=== PATIENT | male | born 1935 | race Caucasian/White ===

== ENCOUNTER 2017-03-14 14:44 | Inpatient (IN) | payer MEDICARE, MEDICAID ==
[~2017-03-14] VITALS: Ht 182.9 cm; Wt 104.8 kg
[2017-03-14 16:11] VITALS: BP 186/95
[2017-03-14] MEDS ORDERED: ceFAZolin 2 GM/50 ML NS 50 ML IV NR (16:30)
[2017-03-14] MEDS ORDERED: morphine INJ 4 MG/ML 1 ML (VIAL/SYRINGE) IVP PRN (16:30)
[2017-03-14] MEDS ORDERED: proPOfol 200 MG/20 ML (DIPRIVAN) VIAL IV ONE (16:46)
[2017-03-14] MEDS ORDERED: SEVOFLURANE (ULTANE) 15 ML INHAL SOLN ONE ×5 (16:46→18:42)
[2017-03-14] MEDS ORDERED: ROCURONIUM 50 MG/5 ML (ZEMURON) VIAL IV ONE (16:46)
[2017-03-14] MEDS ORDERED: ONDANSETRON 4 MG/2 ML (SDV) Z0FRAN ONE ×2 (16:46→17:36)
[2017-03-14] MEDS ORDERED: LIDOCAINE PF 2% 5 ML (XYLOCAINE) VIAL ONE (16:46)
[2017-03-14] MEDS ORDERED: fentaNYL INJECTION 100 MCG/2 ML AMP ONE ×3 (16:46→18:39)
[2017-03-14] MEDS: LACTATED RINGERS 1,000 ML IV PRN ×2 (17:10→18:40)
[2017-03-14] MEDS ORDERED: METF500T4 PO (17:28)
[2017-03-14] MEDS ORDERED: METO50TA2 PO (17:28)
--- NOTE | 2017-03-14 17:28 | History & Physicial ---
History of Present Illness History of Present Illness Reason for visit/HPI 81 y/o white male fell in barn, fractured right leg, seen in [place] Previously broke proximal tibia 3 years ago. Denies any other injuries. Date of Admission Mar 14, 2017 at 4:02 pm Time Seen by Provider: 17:23 I consulted on this patient on 03/14/17 17:23 Attending Physician Magaly Conway MD Admitting Physician Beka Valdez MD Consult Allergies and Home Medications Allergies Coded Allergies: No Known Allergies (Verified Allergy, Unknown, 03/14/17) Past Cpehodk-Alzwhw-Yjcvqx Hx Patient Social History Marrital Status: Employed/Student: retired Alcohol Use: Denies Use Recreational Drug Use: No Smoking Status: Never a Smoker Immunizations Up To Date Tetanus Booster (TDap): Unknown Seasonal Allergies Seasonal Allergies: No Surgeries Surgeries: Orthopedic (Left NICKO and ORIF right proximal tibia) Respiratory Hx Respiratory Disorders: No Cardiovascular Hx Cardiovascular Disorders: No Neurological Hx Neurological Disorders: No Reproductive System Hx Reproductive Disorders: No Sexually Transmitted Disease: No HIV/AIDS: No Genitourinary Hx Genitourinary Disorders: No Gastrointestinal Hx Gastrointestinal Disorders: No Musculoskeletal Hx Musculoskeletal Disorders: Yes Endocrine Endocrine Disorders: Diabetes, Non-Insulin dep HEENT HX ENT Disorders: No Cancer Hx Cancer: No Constitutional: no symptoms reported EENTM: no symptoms reported Respiratory: no symptoms reported Cardiovascular: no symptoms reported Gastrointestinal: no symptoms reported Genitourinary: no symptoms reported Musculoskeletal: joint pain Skin: no symptoms reported Psychiatric/Neurological: No Symptoms Reported Physical Exam Vital Signs Vital Sign - Last 12Hours 03/14/17 16:11 Temp 97.1 Pulse 74 Resp 20 B/P (MAP) 186/95 Pulse Ox 94 O2 Delivery Room Air Capillary Refill : General Appearance: No Apparent Distress, Mild Distress Eyes: Bilateral Eye Normal Inspection HEENT: Normal ENT Inspection Neck: Full Range of Motion, Normal Inspection, Non Tender Respiratory: Lungs Clear, Normal Breath Sounds, No Accessory Muscle Use, No Respiratory Distress Cardiovascular: Regular Rate, Rhythm, Normal Peripheral Pulses Gastrointestinal: No Pulsatile Mass, Non Tender Rectal: Deferred Back: No Vertebral Tenderness Extremity: Normal Capillary Refill, Swelling Neurologic/Psychiatric: Oriented x3, No Motor/Sensory Deficits, Normal Mood/ Affect Skin: Normal Color Comments Xrays show a comminuted distal supracondylar femur fracture. Assessment/Plan Assessment and Plan Right Closed Comminuted Distal Femur/Supracondylar femur fracture Diabetes Plan: IM nail retrograde right femur Problems: MAGALY CONWAY MD Mar 14, 2017 5:28 pm
[2017-03-14] MEDS ORDERED: morphine INJ 10 MG/ML 1ML (SYR OR VIAL) ONE (17:35)
[2017-03-14] MEDS ORDERED: MEPERIDINE (DEMEROL) INJ 50 MG/ML ONE (17:35)
[2017-03-14] MEDS ORDERED: LACTATED RINGERS 1,000 ML IV ONE ×2 (17:36→18:42)
[2017-03-14] MEDS ORDERED: SUCCINYLCHOLINE INJ 100 MG/5 ML SYR ONE (17:36)
[2017-03-14] MEDS ORDERED: NEOSTIGMINE (BLOXIVERZ ) 1 MG/1ML 10 ML VIAL ONE (18:42)
[2017-03-14] MEDS ORDERED: GLYCOPYRROLATE 0.2 MG/ML (ROBINUL) 2 ML VIAL ONE (18:42)
[2017-03-14] MEDS ORDERED: ceFAZolin 2 GM/50 ML NS 50 ML IV SCH (19:00)
[2017-03-14] MEDS ORDERED: morphine INJ 4 MG/ML 1 ML (VIAL/SYRINGE) IV PRN (19:00)
[2017-03-14] MEDS ORDERED: ACETAMINOPHEN 325 MG TABLET/CAPLET (TYLENOL) PO PRN (19:00)
[2017-03-14] MEDS ORDERED: ONDANSETRON 4 MG/2 ML (SDV) Z0FRAN IV PRN (19:00)
[2017-03-14] MEDS ORDERED: MILK OF MAGNESIA 400 MG/5 ML 30 ML UDC PO PRN (19:00)
--- NOTE | 2017-03-14 19:03 | Progress Note-Post Operative ---
Post-Operative Progess Note Surgeon (s)/Practice Nurse (s) Surgeon MAGALY CONWAY MD Practice Nurse: Maciel Xiong, ALYSSIA Pre-Operative Diagnosis Right Closed, Comminuted Supracondylar femur fracture Post-Operative Diagnosis Same Procedure & Operative Findings Date of Procedure 03/14/17 Procedure Performed/Findings Right retrograde supracondylar femoral nail Anesthesia Type GETA Estimated Blood Loss Estimated blood loss (mL): 200 Specimens/Packing Specimens Removed none MAGALY CONWAY MD Mar 14, 2017 7:03 pm
[2017-03-14] MEDS ORDERED: ONDANSETRON 4 MG/2 ML (SDV) Z0FRAN IVP PRN (19:15)
--- NOTE | 2017-03-14 19:15 | Diagnostic Imaging Report ---
INDICATION: Internal fixation of mid femoral shaft fracture. COMPARISON: None available. FINDINGS AND IMPRESSION: Multiple fluoroscopic images were obtained during intramedullary fixation of mid femoral fracture. These demonstrate placement of a intramedullary nail within the femur as well as proximal distal interlocking screws. A total of 1 minute and 38 seconds or fluoroscopy was utilized for this procedure performed by Dr. Arambula. Please see operative report for complete details. Dictated by: Dictated on workstation # [id number]
[2017-03-14] MEDS: morphine INJ 10 MG/ML 1ML (SYR OR VIAL) IVP PRN ×2 (19:25→19:29)
--- NOTE | 2017-03-14 19:39 | Diagnostic Imaging Report ---
INDICATION: Knee pain and swelling after fall. COMPARISON: None available. EXAMINATION: Three views of the left knee. FINDINGS: There is a large amount of prepatellar soft tissue swelling. There is an acute, nondisplaced fracture of the inferior one third of the patella. Osteoporosis is present. Extensive tricompartmental degenerative changes are present. Probable small knee joint effusion. No discrete fracture of the tibial plateaus or femoral condyles. IMPRESSION: 1. Acute, nondisplaced fracture of the inferior one third of the patella. 2. There is a large amount of prepatellar soft tissue swelling and/or contusion. 3. Severe tricompartmental degenerative changes. No discrete fracture of the tibial plateaus or femoral condyles. However, osteoporosis limits evaluation for nondisplaced fractures. Dictated by: Dictated on workstation # [id number]
[2017-03-14 20:07] VITALS: BP 147/73
[2017-03-14] MEDS: NS IV 1000 ML 1,000 ML IV SCH (20:59)
[2017-03-14] MEDS: ENOXAPARIN 30 MG/0.3 ML (LOVENOX) SYR SC SCH (20:59)
[2017-03-14] MEDS: SENNOSIDES 8.6 MG (SENOKOT) TAB PO SCH (21:05)
[2017-03-14] MEDS: HYDROcodone/APAP 5 MG/325 MG (LORTAB) TAB PO PRN (21:05)
[2017-03-14] MEDS: inSUlin ASPART (NovoLOG) 1 UNIT/0.01 ML (CHARGE PER UNIT) SC SCH (21:14)
[2017-03-15] VITALS: BP 121/69
[2017-03-15] MEDS ORDERED: ceFAZolin INJECTION 1,000 MG in NS (IVPB) 50 ML IV SCH (02:00)
[2017-03-15] MEDS ORDERED: ceFAZolin 1,000 MG (ANCEF) VIAL ONE (02:01)
[2017-03-15] MEDS ORDERED: NS (IVPB) 50 ML ONE (02:01)
[2017-03-15] MEDS: ceFAZolin 2 GM/50 ML NS 50 ML IV SCH ×3 (02:17→18:27)
[2017-03-15 04:00] VITALS: BP 128/66
[2017-03-15] MEDS: NS IV 1000 ML 1,000 ML IV SCH ×3 (05:49→18:27)
[2017-03-15] MEDS: inSUlin ASPART (NovoLOG) 1 UNIT/0.01 ML (CHARGE PER UNIT) SC SCH ×4 (05:59→21:15)
--- NOTE | 2017-03-15 06:48 | OPERATIVE REPORT ---
DATE OF SERVICE: 03/14/2017 PREOPERATIVE DIAGNOSIS: Right closed supracondylar femur fracture, comminuted. POSTOPERATIVE DIAGNOSIS: Right closed supracondylar femur fracture, comminuted. PROCEDURE PERFORMED: Retrograde intramedullary nailing of right supracondylar femur fracture. DATE AND TIME OF SURGERY: Please see anesthesia record. IMPLANTS USED: Synthes size 13 x 400 femoral nail with a proximal locking screw, distal locking screw and a spiral blade. SURGEON: Magaly Arambula MD FACILITIES ENGINEER: Orestes Xiong MD ROLE OF KST OPERATOR: Aid in reduction, aid in implantation, instrumentation and wound closure. ANESTHESIA: General endotracheal. ESTIMATED BLOOD LOSS: 200 mL. INTRAVENOUS FLUID: Please see anesthesia record. ANTIBIOTICS: Ancef. COMPLICATIONS: None. INDICATIONS OF PROCEDURE: The patient is an 81-year-old male who fell at home sustaining the above injury. Risks, benefits and alternatives discussed, he would like to proceed with the operation mentioned. DESCRIPTION OF PROCEDURE: The patient was taken to the preoperative holding area and brought back to the operative suite after adequate induction of general anesthetic and preoperative antibiotics, sterilely prepped and draped to the right lower extremity, placed on a radiolucent triangle. A right medial parapatellar incision was made. Guidepin was placed into the intercondylar notch into a satisfactory position. The intramedullary reamer was created and then reaming sequentially up to the size 14 after the guidewire had been placed across the canal. Once sequential reaming had been performed and measured, a 13 mm nail was passed up the canal in satisfactory position. Guidewire was removed. Distal locking screw was placed, distal spiral blade was placed through a separate stab incision and a proximal anterior-posterior locking screw was placed as well. All imaging was obtained and checked, looked satisfactory. Fracture was well-reduced. Wounds were irrigated and closed in layers. The patient was transferred to recovery room in stable condition having tolerated the procedure well. Job ID: [id number] DocumentID: [id number] Dictated Date: 03/14/2017 19:01:50 Telecom Coordinator Date: 03/15/2017 01:47:47 Dictated By: MAGALY ARAMBULA MD
[2017-03-15 07:28] LABS: MEAN PLATELET VOLUME 10.9 FL (7.4-10.4); RED BLOOD COUNT 3.63 10^6/uL (4.35-5.85); RED CELL DISTRIBUTION WIDTH 13.4 % (10.0-14.5); WHITE BLOOD COUNT 7.8 10^3/uL (4.3-11.0)
[2017-03-15 08:00] VITALS: BP 137/69
[2017-03-15 08:01] LABS: ALBUMIN 2.9 GM/DL (3.2-4.5); BILIRUBIN,TOTAL 0.7 MG/DL (0.1-1.0); CALCIUM 7.9 MG/DL (8.5-10.1); CREATININE SERUM 1.2 MG/DL (0.60-1.30); ICTERUS 0.6 (-100-1.9); POTASSIUM 4.3 MMOL/L (3.6-5.0)
--- NOTE | 2017-03-15 09:18 | Diagnostic Imaging Report ---
EXAMINATION: Two views of the right femur. INDICATION: Status post intramedullary nail placement. FINDINGS: There is a mildly displaced mildly comminuted fracture of the mid to distal right femoral shaft. There is an interlocked intramedullary nail in place. There is no angulation of the fracture. The right hip joint appears unremarkable. The right knee demonstrates evidence of advanced degenerative changes and lateral subluxation of the tibia relative to the femur. There is evidence of an old fracture in the proximal tibia with internal fixation hardware and cement seen. There is background osteopenia. IMPRESSION: Internal fixation of the mildly displaced mid to distal right femoral shaft fracture. Dictated by: Dictated on workstation # [id number]
[2017-03-15] MEDS: SENNOSIDES 8.6 MG (SENOKOT) TAB PO SCH ×2 (09:30→21:15)
[2017-03-15] MEDS: meTOprolol TARTRATE 50 MG (LOPRESSOR) TAB PO SCH (09:30)
[2017-03-15] MEDS: ENOXAPARIN 30 MG/0.3 ML (LOVENOX) SYR SC SCH ×2 (09:31→20:52)
--- NOTE | 2017-03-15 09:49 | Consultation-Hospitalist ---
HPI History of Present Illness: HPI/Chief Complaint CC: Medical management following uncomplicated repair of right closed, comminuted supracondylar femur fracture POD # 1 HPI: This is an 81-year-old white male clinic patient of Dr. 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 He has a history of a tractor running over him a couple years ago that resulted in multiple leg fractures and he recovered at [facility]. He had an uncomplicated repair by Dr. Arambula and is currently doing well reporting some urinary retention but is looking forward to getting up and around and I talked him about inpatient rehabilitation. I reviewed his labs today and initiated Accu-Cheks with sliding scale yesterday and will evaluate his home medications when available. Source: patient Date Seen 03/15/17 Attending Physician Himanshu Arambula MD PCP Beka Valdez MD Referring Physician Date of Admission Mar 14, 2017 at 16:02 Home Medications & Allergies Home Medications Reviewed patient Home Medication Reconciliation Form Allergies Allergies Coded Allergies No Known Allergies (Verified Allergy, Unknown, 03/14/17) Past Wfpsamq-Vylrtl-Vompos Hx Patient Social History Marrital Status: Employed/Student: retired Alcohol Use: Denies Use Recreational Drug Use: No Smoking Status: Never a Smoker Physical Abuse Screen: No Sexual Abuse: No Recent Foreign Travel: No Contact w/other who traveled: No Recent Infectious Disease Expo: No Immunizations Up To Date Tetanus Booster (TDap): Unknown Seasonal Allergies Seasonal Allergies: No Surgeries HX Surgeries: Yes Surgeries: Orthopedic (Left NICKO and ORIF right proximal tibia) Respiratory Hx Respiratory Disorders: No Cardiovascular Hx Cardiovascular Disorders: Yes Cardiac Disorders: Hypertension Neurological Hx Neurological Disorders: No Reproductive System Hx Reproductive Disorders: No Sexually Transmitted Disease: No HIV/AIDS: No Genitourinary Hx Genitourinary Disorders: No Gastrointestinal Hx Gastrointestinal Disorders: No Musculoskeletal Hx Musculoskeletal Disorders: Yes Musculoskeletal Disorders: Arthritis Endocrine Hx Endocrine Disorders: Yes Endocrine Disorders: Diabetes, Non-Insulin dep HEENT HX ENT Disorders: No Cancer Hx Cancer: No Psychosocial Hx Psychiatric Problems: No Integumentary HX Skin/Integumentary Disorder: No Family Medical History Family Hx: Patient reports no known family medical history. Review of Systems Date Seen by Provider: Mar 15, 2017 Time Seen by Provider: 09:00 Constitutional: see HPI EENTM: no symptoms reported Respiratory: no symptoms reported Cardiovascular: no symptoms reported Gastrointestinal: no symptoms reported Genitourinary: hesitancy Musculoskeletal: joint pain (right hip) Skin: no symptoms reported Psychiatric/Neurological: No Symptoms Reported All Other Systems Reviewed Negative Unless Noted: Yes Physical Exam Physical Exam Vital Signs Vital Sign - Last 12Hours 03/14/17 03/14/17 16:11 20:07 Temp 97.1 Pulse 74 Resp 20 B/P (MAP) 186/95 Pulse Ox 94 O2 Delivery Room Air O2 Flow Rate 3.00 Capillary Refill : Less Than 3 Seconds General Appearance: No Apparent Distress, WD/WN, Chronically ill Eyes: Bilateral Eye Normal Inspection, Bilateral Eye PERRL HEENT: PERRL/EOMI, Normal ENT Inspection, Pharynx Normal Neck: Full Range of Motion, Normal Inspection, Non Tender, Supple, Carotid Bruit Respiratory: Chest Non Tender, Lungs Clear, Normal Breath Sounds, No Accessory Muscle Use, No Respiratory Distress Cardiovascular: Regular Rate, Rhythm, No Edema, No Gallop, No JVD, Normal Peripheral Pulses, Systolic Murmur Gastrointestinal: Normal Bowel Sounds, No Organomegaly, No Pulsatile Mass, Non Tender, Soft Back: Normal Inspection, No CVA Tenderness, No Vertebral Tenderness Extremity: Normal Capillary Refill, Normal Inspection, Normal Range of Motion ( except right hip), Non Tender, No Calf Tenderness, No Pedal Edema Neurologic/Psychiatric: Alert, Oriented x3, No Motor/Sensory Deficits, Normal Mood/Affect Skin: Normal Color, Warm/Dry Lymphatic: No Adenopathy Results Results/Procedures Lab Laboratory Tests 03/15/17 06:20 Assessment/Plan Admission Diagnosis Assessment: Status post right hip fracture repair uncomplicated sustained after a fall while managing dairy cows in barn POD # 1 Diabetes mellitus Hypertension Cardiac murmur on exam Postop anemia due to blood loss Urinary hesitancy due to pain medication and anesthesia Assessment and Plan Plan: Inpatient rehabilitation eval Accu-Cheks Home meds Pain medication Bowel regimen Urinary hesitancy management may need catheter Monitor closely Clinical Quality Measures DVT/VTE Risk/Contraindication: Risk Factor Score Per Nursin RFS Level Per Nursing on Admit: 4+=Very High DIANA RENNER DO Mar 15, 2017 09:49
[2017-03-15] MEDS: HYDROcodone/APAP 5 MG/325 MG (LORTAB) TAB PO PRN ×2 (11:16→18:32)
--- NOTE | 2017-03-15 11:55 | Physical Therapy Evaluation ---
PT Evaluation-General Medical Diagnosis Admission Date Mar 14, 2017 at 16:02 Medical Diagnosis: right Distal femur fx Onset Date: Mar 14, 2017 Therapy Diagnosis Therapy Diagnosis: abn gait; weakness Height/Weight Height (Feet): 6 Height (Inches): 0.00 Weight (Pounds): 231 Weight (Ounces): 1.0 Precautions Precautions/Isolations: Fall Prevention, Standard Precautions Weight Bear Status Weight Bearing Restriction: Touch Toe Bearing Location Restriction: R LE Referral Physician: Ralf Reason for Referral: Evaluation/Treatment Medical History Pertinent Medical History: DM Additional Medical History Right lower leg fx 3 yrs ago Current History Pt fell in his barn after turning the cattle out and sustained a right distal femur fx; s/p IM nail. TTWB status. Reviewed History: Yes Social History Home: Single Level Current Living Status: Children (reports his son and daughter live with him) Entry Into Home: Stairs With Railing Prior/Core FIM Prior Level of Function Functional [place] Measure 0=Not Assessed/NA 4=Minimal Assistance 1=Total Assistance 5=Supervision or Setup 2=Maximal Assistance 6=Modified [place] 3=Moderate Assistance 7=Complete [place] Bed Mobility: 7 Transfers (B,C,W/C) (FIM): 7 Gait: 7 Indep; able to walk in and out of the barn (rough terrain); still drives. Active PT Evaluation-Current Subjective Pt agreeable to PT. Wants to get up to the chair. Objective Patient Orientation: Person, Place, Time, Situation Problem Solving: Fair ROM/Strength ROM Lower Extremities WFL; AAROm on the right for hip flexion Strenght Lower Extremities Left LE strength is grossly 5/5; left LE strength is grossly 3-/5 throughout. Integumentary/Posture Integumentary Intact Bowel Incontinence: No Bladder Incontinence: Pierre Cath Posture normal and symmetrical Neuromuscular (Tone, Coordination, Reflexes) intact and functional Sensory Vision: Functional Hearing: Functional Hand Dominance: Right Sensation Right Lower Extremit: Intact Sensation Left Lower Extremity: Intact Transfers Functional [place] Measure 0=Not Assessed/NA 4=Minimal Assistance 1=Total Assistance 5=Supervision or Setup 2=Maximal Assistance 6=Modified [place] 3=Moderate Assistance 7=Complete [place] Transfers (B, C, W/C) (FIM): 3 Scootin Rollin Supine to/from Sit: 3 (assist with both legs) Sit to/from Stand: 3 (moderate lifting assist to come to a stand) bed t/f WC(FIM only if WC use): 4 (CGA and skilled cues to sequence. ) Worked on maintenance of TTWB with SPT; pt reports he is not putting much weight through his right LE. Use FWW for transfer and heavy cues to maintain WB status and to sequence. Gait Mode of Locomotion: Walk Anticipated Mode of Locomotion: Walk Gait (FIM): 0 (not attempted this visit.) Balance Sitting Static: Good Sitting Dynamic: Good Standing Static: Fair Standing Dynamic: Fair Treatment Sit to stand and stood EOB 30 secondes then SPT to chair. Up in chair post treatment with needs met, oxygen in situ and breakfast. Assessment/Needs Pt presents post fall with right femur fx post repair. He requires assist with all functional mobility and will benefit from skilled PT services to work on functional transfers and gait progression as well as functional strengthening to allow him to return home as before. Rehab Potential: Good PT Mission Commander Goals Skilled Nursing Goals PT Skilled Nursing Goals Time Frame: Mar 19, 2017 Transfers (B,C,W/C) (FIM): 4 Gait (FIM): 2 Gait distance (FIM): 0=472-19 ft Gait Assistive Device: FWW PT Plan Problem List Problem List: Activity Tolerance, Functional Strength, Safety, Balance, Gait, Transfer, Bed Mobility Treatment/Plan Treatment Plan: Continue Plan of Care Treatment Plan: Bed Mobility, Education, Functional Activity Rochelle, Functional Strength, Gait, Safety, Therapeutic Exercise, Transfers Treatment Duration: Mar 19, 2017 Visits Per Week: 11 Pt/Family Agrees w/Plan: Yes Safety Risks/Education Patient Education: Transfer Techniques, Safety Issues Teaching Recipient: Patient Teaching Methods: Demonstration, Discussion Response to Teaching: Reinforcement Needed Discharge Recommendations Therapy D/C Recommendations: Acute Rehab Time/GCodes Time In: 930 Time Out: 1005 Total Billed Treatment Time: 35 Total Billed Treatment visit EVM 15 FA 20 STEFFANIE BROWN PT Mar 15, 2017 11:55
[2017-03-15 12:00] VITALS: BP 132/80
--- NOTE | 2017-03-15 12:20 | Progress Note (SOAP) ---
Subjective Date Seen by Provider: Mar 15, 2017 Time Seen by Provider: 12:10 Subjective/Events-last exam POD #1 s/p right retrograde femoral nail. Laying in bed, pain is controlled, has been OOB with PT to chair. C/o left hand pain today and left calf cramping. Review of Systems General: No Chills, No Night Sweats HEENT: No Head Aches, No Visual Changes Pulmonary: No Dyspnea, No Cough Cardiovascular: No: Chest Pain, Palpitations Gastrointestinal: No: Abdominal Pain, Nausea, Vomiting Genitourinary: Dysuria Musculoskeletal: leg pain, other (left hand pain), No: neck pain Neurological: No: Change in speech, Confusion, Incoordination, Numbness Objective Exam Vital Signs Date Time Temp Pulse Resp B/P (MAP) Pulse Ox O2 Delivery O2 Flow Rate FiO2 03/15/17 08:00 96.6 83 16 137/69 94 Nasal Cannula 3.00 03/15/17 06:41 Nasal Cannula 3.00 03/15/17 04:00 99.1 81 20 128/66 96 Nasal Cannula 3.00 03/15/17 00:00 96.3 88 20 121/69 96 Nasal Cannula 03/14/17 22:07 Nasal Cannula 3.00 03/14/17 20:30 96 Nasal Cannula 3.00 03/14/17 20:07 97.3 78 20 147/73 97 Nasal Cannula 3.00 03/14/17 19:29 98.2 03/14/17 19:25 98.2 03/14/17 16:11 97.1 74 20 186/95 94 Room Air I & O 03/15/17 07:00 Intake Total 2942 ml Output Total 300 ml Balance 2642 ml Capillary Refill : Less Than 3 Seconds General Appearance: No Apparent Distress Neck: Normal Inspection Respiratory: No Accessory Muscle Use, No Respiratory Distress Cardiovascular: No Edema, Normal Peripheral Pulses Peripheral Pulses: 2+ Dorsalis Pedis (R), 2+ Left Dors-Pedis (L), 2+ Radial Pulses (L) Gastrointestinal: non tender, soft Extremity: Normal Capillary Refill, Normal Inspection, No Calf Tenderness, Other (no left leg erythema, palpable cord. bandages to right leg clean and dry. left hand no focal tenderness, deformity, or crepatus, 5/5 strength, abrasion to medial wrist) Neurologic/Psychiatric: Alert, Oriented x3, No Motor/Sensory Deficits Skin: Normal Color, Warm/Dry Results Lab Laboratory Tests 03/14/17 16:22: Glucometer 206H 03/14/17 20:47: Glucometer 212H 03/15/17 05:55: Glucometer 198H 03/15/17 06:20: White Blood Count 7.8, Red Blood Count 3.63L, Hemoglobin 10.7L, Hematocrit 32L, Mean Corpuscular Volume 89, Mean Corpuscular Hemoglobin 30, Mean Corpuscular Hemoglobin Concent 33, Red Cell Distribution Width 13.4, Platelet Count 247, Mean Platelet Volume 10.9H, Sodium Level 134L, Potassium Level 4.3, Chloride Level 100, Carbon Dioxide Level 25, Anion Gap 9, Blood Urea Nitrogen 18, Creatinine 1.20, Estimat Glomerular Filtration Rate 58, BUN/Creatinine Ratio 15 , Glucose Level 217H, Calcium Level 7.9L, Total Bilirubin 0.7, Aspartate Amino Transf (AST/SGOT) 25, Alanine Aminotransferase (ALT/SGPT) 21, Alkaline Phosphatase 77, Total Protein 6.0L, Albumin 2.9L 03/15/17 11:17: Glucometer 212H Assessment/Plan Assessment/Plan Assess & Plan/Chief Complaint POD #1 s/p right retrograde femoral nail Plan: continue current care per Dr. Campbell toe touch rle oob with pt calf scd re applied lovenox for dvt prophylaxis candidate for ipr x-ray left hand, left wrist Clinical Quality Measures DVT/VTE Risk/Contraindication: Risk Factor Score Per Nursin RFS Level Per Nursing on Admit: 4+=Very High MERARI MEZA Mar 15, 2017 12:20
--- NOTE | 2017-03-15 12:58 | Anesthesia-General Post-Op ---
General Patient Condition Mental Status/LOC: Same as Preop Cardiovascular: Satisfactory Nausea/Vomiting: Absent Respiratory: Satisfactory Pain: Controlled Complications: Absent Post Op Complications Complications None Follow Up Care/Instructions Patient Instructions None needed. Anesthesia/Patient Condition Patient Condition Patient is doing well, no complaints, stable vital signs, no apparent adverse anesthesia problems. Pt is tolerating lunch currently. Will be available if needed. EVI ABDI DO Mar 15, 2017 12:58
--- NOTE | 2017-03-15 13:33 | Diagnostic Imaging Report ---
EXAMINATION: Three views of the left hand. INDICATION: Fall. FINDINGS: There are prominent degenerative changes with subchondral sclerosis and joint space narrowing at the carpal/metacarpal joints at the base of the thumb as well as of the scaphoid, trapezium, and trapezoid articulation. There is deformity along the distal ulna which may relate to an old fracture. No acute fracture is evident. There is generalized osteopenia. There is a 2 mm linear radiopaque foreign body or dense calcification abutting the radial aspect of the proximal aspect of the shaft of the proximal phalanx of the second digit. Mild degenerative changes at the second MCP joint could be post traumatic. IMPRESSION: Degenerative changes are most prominent at the carpal/metacarpal joint at the base of the thumb. No acute process. Dictated by: Dictated on workstation # [id number]
--- NOTE | 2017-03-15 13:35 | Occupational Therapy Eval ---
OT Evaluation-General/PLF Medical Diagnosis Admission Date Mar 14, 2017 at 16:02 Medical Diagnosis: right Distal femur fx Onset Date: Mar 14, 2017 Therapy Diagnosis Therapy Diagnosis: Decreased ADL skills s/p IM nail retrograde right femur Height/Weight Height (Feet): 6 Height (Inches): 0.00 Weight (Pounds): 231 Weight (Ounces): 1.0 Precautions Precautions/Isolations: Fall Prevention, Standard Precautions Safety Interventions: Reorient-PRN Weight Bear Status Weight Bearing Restriction: Touch Toe Bearing Location Restriction: R LE Referral Physician: Ralf Referral Reason: Activity Tolerance, Self Care, Strengthening/ROM Medical History Pertinent Medical History: DM Additional Medical History Left NICKO, ORIF right proximal tibia Current History Pt. lives with a son and daughter. 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 Reviewed History: Yes Social History Home: Single Level Current Living Status: Children (reports his son and daughter live with him) Entry Into Home: Stairs With Railing Steps Into Home: 1 ADL-Prior Level of Function ADL PLOF Comments Pt. was independent with basic self care skills. States that he has a walker, but does not use it. DME/Equipment: Tub/Shower Occupation: [employer] Self: Yes OT Current Status Subjective No pain reported at this time. Sister in room and states that she believes that the plan will be for his kids to take him home again and work with him with home health therapy. Appearance Pt. is up in chair. Agrees to transfer to bed. Attempted before this session, and pt. getting up to chair with PT assist. Mental Status/Objective Patient Orientation: Person, Place Attachments: IV, Oxygen Current Glasses/Contacts: Yes Hand Dominance: Right Upper Extremity ROM Pt. demonstrates approximately 90 degrees bilateral shoulder flexion. States, "they are stiff." Upper Extremity Coordination intact ADL-Treatment Functional [place] Measure 0=Not Assessed/NA 4=Minimal Assistance 1=Total Assistance 5=Supervision or Setup 2=Maximal Assistance 6=Modified [place] 3=Moderate Assistance 7=Complete IndependenceIRFPAI Quality Coding Scale 6 Independent with activity with or without an assistive device 5 Patient requires set up or clean up by helper. Patient completes activity by themselves 4 Supervision or touching assist (CGA). [place] provide cues , steadying assist 3 The helper provides less than half the effort to complete the activity 2 The helper provides more than half the effort to complete the activity 1 Dependent. The helper does all the effort to complete an activity 7 Patient refused to complete or attempt activity 9 The patient did not perform the activity before the current illness or injury 88 Not attempted due to Medical conditions or safety concerns Eating (FIM): 5 Lower Body Dressing (FIM): 2 (Pt. is unable to reach his feet to doff/don socks.) Transfers (B, C, W/C) (FIM): 2 (Pt. requires Max assist to stand out of chair. Mod assist to transfer to bed with cues to not put "too much" weight through left LE. Mod assist fro sit-supine.) Other Treatments Pt. agrees to work with OT. Pt. and family educated on difference between rehab stay and SWB. Let both know the plan is to get pt. stronger to see where he is at at discharge time. If family believes they can safely take care of him , then he will discharge to home with their assistance per his sister's request. Education OT Patient Education: Modified ADL techniques, Progress toward Goal/Update tx plan, Purpose of tx/functional activities, Reviewed precautions, Rehab process, Transfer techniques Teaching Recipient: Patient Teaching Methods: Demonstration, Discussion Response to Teaching: Verbalize Understanding, Return Demonstration OT Short Term Goals Short Term Goals Time Frame: Mar 22, 2017 Eating(FIM): 5 Grooming(FIM): 5 Bathing(FIM): 4 Upper Body Dressing(FIM): 5 Lower Body Dressing(FIM): 4 Toileting(FIM): 4 Transfers (B,C,W/C) (FIM): 4 Toilet/Commode Transfer(FIM): 4 Additional Short Term Goals: 1-Demonstrate ADL Tasks, 2-Verbalize Understanding , 3-ImproveStrength/Rochelle 1=Demonstrate adherence to instructed precautions during ADL tasks. 2=Patient will verbalize/demonstrate understanding of assistive devices/ modifications for ADL. 3=Patient will improve strength/tolerance for activity to enable patient to perform ADL's. OT Alf Goals Shirring Machine Operator Goals Time Frame: Mar 29, 2017 Eating (FIM): 6 Grooming(FIM): 6 Bathing(FIM): 5 Upper Body Dressing(FIM): 5 Lower Body Dressing(FIM): 5 Toileting(FIM): 5 Transfers (B,C,W/C) (FIM): 5 Toilet/Commode Transfer(FIM): 5 Shower Transfer(FIM): 4 Additional Goals: 1-Demonstrate ADL Tasks, 2-Verbalize Understanding, 3- ImproveStrength/Rochelle 1=Demonstrate adherence to instructed precautions during ADL tasks. 2=Patient will verbalize/demonstrate understanding of assistive devices/ modifications for ADL. 3=Patient will improve strength/tolerance for activity to enable patient to perform ADL's. OT Education/Plan Problem List/Assessment Assessment: Decreased Activ Tolerance, Dependent Transfers, Impaired Bed Mobility, Impaired Funct Balance, Impaired I ADL's, Impaired Self-Care Skills, Restricted Funct UE ROM Discharge Recommendations Plan/Recommendations: Continue POC Therapy D/C Recommendations: Acute Rehab Equpiment Recommendations-D/C: Bath Chair, Hip Kit Target Placement Acute rehab vs. home with kids and Home health. Treatment Plan/Plan of Care Treatment,Training & Education: Yes Patient would benefit from OT for education, treatment and training to promote independence in ADL's, mobility, safety and/or upper extremity function for ADL' s. Plan of Care: ADL Retraining, Caregiver Training, Functional Mobility, UE Funct Exercise/Act Treatment Duration: Mar 29, 2017 Visits Per Week: 5 Rehab Potential: Good Time/GCodes Start Time: 11:20 Stop Time: 11:50 Total Time Billed (hr/min): 30 Billed Treatment Time 1, 1, EVH x 15minutes, FA x 15minutes [id number], [id number] ANGEL MOODY OT Mar 15, 2017 13:35
--- NOTE | 2017-03-15 15:12 | Diagnostic Imaging Report ---
PROCEDURE: CT left lower extremity without contrast. TECHNIQUE: Multiple contiguous axial images were obtained through the left lower extremity without the use of intravenous contrast. Sagittal and coronal reformations were then performed. INDICATION: Left knee pain. FINDINGS: There is a mildly comminuted nondisplaced fracture involving the patella with a transverse component involving the inferior aspect of the patella and the vertical component involving the lateral aspect. At this point, there is no significant displacement. There is a small to moderate suprapatellar joint effusion. There is a hematoma anterior to the patella distending the prepatellar bursa. The patellar tendon appears to be intact with no retracted tear identified. There is significant joint space narrowing in the patellofemoral compartments and osteophytes. In the medial and lateral compartments, there is also significant osteophyte formation and there is also a deformity along the central aspect of the weightbearing portion of the medial femoral condyle, perhaps secondary to old injury. There are also prominent subchondral cysts in the tibial plateau more prominent laterally. There is no seen fracture in the tibia, fibula, or in the femur around the knee. IMPRESSION: 1. Nondisplaced mildly comminuted transverse and vertical fractures through the patella. 2. 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 Dictated by: Dictated on workstation # [id number]
--- NOTE | 2017-03-15 15:35 | Physical Therapy Daily Note ---
PT Daily Note-Current Subjective Pt just returned from CT for left knee. Wants to return to bed. Transfers Functional [place] Measure 0=Not Assessed/NA 4=Minimal Assistance 1=Total Assistance 5=Supervision or Setup 2=Maximal Assistance 6=Modified [place] 3=Moderate Assistance 7=Complete IndependenceIRFPAI Quality Coding Scale 6 Independent with activity with or without an assistive device 5 Patient requires set up or clean up by helper. Patient completes activity by themselves 4 Supervision or touching assist (CGA). [place] provide cues , steadying assist 3 The helper provides less than half the effort to complete the activity 2 The helper provides more than half the effort to complete the activity 1 Dependent. The helper does all the effort to complete an activity 7 Patient refused to complete or attempt activity 9 The patient did not perform the activity before the current illness or injury 88 Not attempted due to Medical conditions or safety concerns Treatments Sit to stand from wheelchair with mod assist with skilled cues for hand placement and verbal cues to rock and push up. Frequent verbal reminders for TTWB as well. SPT chair to bed with FWW with min assist . Pt required mod assist to lift both legs into bed. Pt in bed post treatment with needs met and SCD's on. Assessment Current Status: Good Progress Difficulty with TTWB maintenance. Concern that aggressive ambulation may be difficult due to TTWB status. Pt pleasant and cooperative and would benefit from continued therapy care. PT Short Term Goals Short Term Goals Transfers (B,C,W/C) (FIM): 4 PT Breakfast Attendant Goals Prison Goals PT Prison Goals Time Frame: Mar 19, 2017 Transfers (B,C,W/C) (FIM): 4 Gait (FIM): 2 Gait distance (FIM): 1=881-27 ft Gait Assistive Device: FWW PT Plan Problem List Problem List: Activity Tolerance, Functional Strength, Safety, Balance, Gait, Transfer, Bed Mobility Treatment/Plan Treatment Plan: Continue Plan of Care Treatment Plan: Bed Mobility, Education, Functional Activity [place], Functional Strength, Gait, Safety, Therapeutic Exercise, Transfers Treatment Duration: Mar 19, 2017 Visits Per Week: 11 Safety Risks/Education Patient Education: Transfer Techniques, Safety Issues Teaching Recipient: Patient Teaching Methods: Demonstration, Discussion Response to Teaching: Reinforcement Needed Time/GCodes Time In: 1415 Time Out: 1430 Total Billed Treatment Time: 15 Total Billed Treatment visit FA 15 STEFFANIE BROWN PT Mar 15, 2017 15:35
[2017-03-15 15:55] VITALS: BP 156/72
[2017-03-15 19:45] VITALS: BP 137/73
[2017-03-16] VITALS: BP 152/73
[2017-03-16 04:00] VITALS: BP 153/74
[2017-03-16] MEDS: inSUlin ASPART (NovoLOG) 1 UNIT/0.01 ML (CHARGE PER UNIT) SC SCH ×4 (06:11→21:05)
[2017-03-16] MEDS: NS IV 1000 ML 1,000 ML IV SCH (06:28)
[2017-03-16 08:00] VITALS: BP 150/72
[2017-03-16] MEDS: SENNOSIDES 8.6 MG (SENOKOT) TAB PO SCH ×2 (08:41→20:31)
[2017-03-16] MEDS: ENOXAPARIN 30 MG/0.3 ML (LOVENOX) SYR SC SCH ×2 (08:41→20:31)
[2017-03-16] MEDS: meTOprolol TARTRATE 50 MG (LOPRESSOR) TAB PO SCH (08:41)
[2017-03-16 09:13] LABS: BASOPHILS % (AUTO) 0 % (0-10); EOSINOPHILS # (AUTO) 0.1 10^3/uL (0.0-0.3); EOSINOPHILS % (AUTO) 2 % (0-10); LYMPHOCYTES % (AUTO) 12 % (12-44); MEAN CORPUSCULAR HEMOGLOBIN 30 PG (25-34); MEAN CORPUSCULAR HGB CONC 33 G/DL (32-36); MEAN CORPUSCULAR VOLUME 90 FL (80-99); MEAN PLATELET VOLUME 10.4 FL (7.4-10.4); MONOCYTES # (AUTO) 1.3 X 10^3 (0.0-1.0); MONOCYTES % (AUTO) 15 % (0-12); NEUTROPHILS # (AUTO) 6.1 X 10^3 (1.8-7.8); NEUTROPHILS % (AUTO) 71 % (42-75); PLATELET COUNT 216 10^3/uL (130-400); RED BLOOD COUNT 3.23 10^6/uL (4.35-5.85); RED CELL DISTRIBUTION WIDTH 13.2 % (10.0-14.5); WHITE BLOOD COUNT 8.6 10^3/uL (4.3-11.0)
--- NOTE | 2017-03-16 09:16 | Discharge Summary-Hospitalist ---
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 Nicholson in [place] the sustained a right hip fracture after he fell managing the dairy cows in the barn. He has a history of a tractor running over him a couple years ago that resulted in multiple leg fractures and he recovered at [facility]. He had an uncomplicated repair by Dr. Arambula and is currently doing well reporting some urinary retention but is looking forward to getting up and around and I talked him about inpatient rehabilitation. I reviewed his labs today and initiated Accu-Cheks with sliding scale yesterday and will evaluate his home medications when available. Note from 03/16/17: Patient doing well but has not had a bowel movement but urination is going well Inpatient rehabilitation eval in place Hyponatremia of 132 will be managed with fluid restriction and I will Hep-Lock IV fluids Hemoglobin did decrease to 9.6 but otherwise doing well overall Updated sister at bedside No fever, vital signs stable, pleasant, improved Regular rate and rhythm, clear to auscultation bilaterally No edema Hospital course: Patient had an uneventful hospital course he had the hip fracture repaired uncomplicated by orthopedic surgery and left patella fracture will be managed conservatively. Inpatient rehabilitation has been evaluated the patient and I'll medical regimen will be initiated along with fluid restrictions due to hyponatremia of 132 and Hep-Lock IV fluid. Overall patient is doing well blood sugar checks will be maintained and pain control to help him recover. Discharge Summary Discharge Physical Examination Allergies: Coded Allergies: No Known Allergies (Verified Allergy, Unknown, 03/14/17) Vitals & I&Os Vital Signs Date Time Temp Pulse Resp B/P (MAP) Pulse Ox O2 Delivery O2 Flow Rate FiO2 03/17/17 12:50 91 28 155/85 96 Nasal Cannula 2.00 03/17/17 08:00 97.4 Hospital Course Labs (last 24 hrs) Laboratory Tests 03/16/17 15:59: Glucometer 235H 03/16/17 21:01: Glucometer 175H 03/17/17 05:23: Glucometer 213H 03/17/17 10:20: White Blood Count 12.5H, Red Blood Count 3.41L, Hemoglobin 10.2L, Hematocrit 31L , Mean Corpuscular Volume 89, Mean Corpuscular Hemoglobin 30, Mean Corpuscular Hemoglobin Concent 33, Red Cell Distribution Width 13.2, Platelet Count 269, Mean Platelet Volume 10.3, Neutrophils (%) (Auto) 75, Lymphocytes (%) (Auto) 11L , Monocytes (%) (Auto) 13H, Eosinophils (%) (Auto) 0, Basophils (%) (Auto) 0, Neutrophils # (Auto) 9.4H, Lymphocytes # (Auto) 1.4, Monocytes # (Auto) 1.6H, Eosinophils # (Auto) 0.0, Basophils # (Auto) 0.0, Sodium Level 135, Potassium Level 3.7, Chloride Level 102, Carbon Dioxide Level 24, Anion Gap 9, Blood Urea Nitrogen 20H, Creatinine 1.18, Estimat Glomerular Filtration Rate 59, BUN/ Creatinine Ratio 17, Glucose Level 196H, Calcium Level 8.7, Total Bilirubin 0.6 , Aspartate Amino Transf (AST/SGOT) 17, Alanine Aminotransferase (ALT/SGPT) 10, Alkaline Phosphatase 79, B-Type Natriuretic Peptide 296.4H, Total Protein 6.8, Albumin 3.1L 03/17/17 11:40: Glucometer 205H Pending Labs Laboratory Tests 03/17/17 10:20: White Blood Count 12.5, Red Blood Count 3.41, Hemoglobin 10.2, Hematocrit 31, Mean Corpuscular Volume 89, Mean Corpuscular Hemoglobin 30, Mean Corpuscular Hemoglobin Concent 33, Red Cell Distribution Width 13.2, Platelet Count 269, Mean Platelet Volume 10.3, Neutrophils (%) (Auto) 75, Lymphocytes (%) (Auto) 11 , Monocytes (%) (Auto) 13, Eosinophils (%) (Auto) 0, Basophils (%) (Auto) 0, Neutrophils # (Auto) 9.4, Lymphocytes # (Auto) 1.4, Monocytes # (Auto) 1.6, Eosinophils # (Auto) 0.0, Basophils # (Auto) 0.0, Sodium Level 135, Potassium Level 3.7, Chloride Level 102, Carbon Dioxide Level 24, Anion Gap 9, Blood Urea Nitrogen 20, Creatinine 1.18, Estimat Glomerular Filtration Rate 59, BUN/ Creatinine Ratio 17, Glucose Level 196, Calcium Level 8.7, Total Bilirubin 0.6, Aspartate Amino Transf (AST/SGOT) 17, Alanine Aminotransferase (ALT/SGPT) 10, Alkaline Phosphatase 79, B-Type Natriuretic Peptide 296.4, Total Protein 6.8, Albumin 3.1 03/17/17 11:40: Glucometer 205 Discharge Home Medications: Active Scripts Active Reported Metoprolol Tartrate 50 Mg Tablet 50 Mg PO DAILY Metformin HCl 500 Mg Tablet 500 Mg PO BID Instructions to patient/family Please see electonic discharge instructions given to patient. Clinical Quality Measures DVT/VTE Risk/Contraindication: Risk Factor Score Per Nursin RFS Level Per Nursing on Admit: 4+=Very High DIANA RENNER DO Mar 16, 2017 09:16
[2017-03-16 09:35] LABS: ALBUMIN 2.9 GM/DL (3.2-4.5); BILIRUBIN,TOTAL 0.5 MG/DL (0.1-1.0); CALCIUM 8.1 MG/DL (8.5-10.1); CREATININE SERUM 1.3 MG/DL (0.60-1.30); ICTERUS 0.3 (-100-1.9); POTASSIUM 4.5 MMOL/L (3.6-5.0); TOTAL PROTEIN 5.7 GM/DL (6.4-8.2)
[2017-03-16] MEDS: LACTULOSE SYRUP 10GM/15ML (ENULOSE) 30ML UDC PO SCH ×2 (10:24→20:31)
[2017-03-16 12:00] VITALS: BP 179/77
--- NOTE | 2017-03-16 12:01 | Physical Therapy Daily Note ---
PT Daily Note-Current Subjective Agreeable to PT. Mental Status Patient Orientation: Person, Place, Time, Situation Transfers Functional [place] Measure 0=Not Assessed/NA 4=Minimal Assistance 1=Total Assistance 5=Supervision or Setup 2=Maximal Assistance 6=Modified [place] 3=Moderate Assistance 7=Complete IndependenceIRFPAI Quality Coding Scale 6 Independent with activity with or without an assistive device 5 Patient requires set up or clean up by helper. Patient completes activity by themselves 4 Supervision or touching assist (CGA). [place] provide cues , steadying assist 3 The helper provides less than half the effort to complete the activity 2 The helper provides more than half the effort to complete the activity 1 Dependent. The helper does all the effort to complete an activity 7 Patient refused to complete or attempt activity 9 The patient did not perform the activity before the current illness or injury 88 Not attempted due to Medical conditions or safety concerns Transfers (B, C, W/C) (FIM): 3 (min assist to lift trunk to sit EOB; assist with both legs to get back into bed. ) Sat EOB only this visit. Weight Bearing Weight Bearing Restriction: Touch Toe Bearing Location Restriction: L LE, R LE Found to have nondisplaced fx left patella as well. Brace ordered for L LE. TTWB B LE's now. Will need to consider slide board for transfers. Exercises Seated Therapy Exercises: Ankle pumps, Long arc quads Seated Reps: 10 (To promote circulation LE;s ) Treatments Functional bed mobility and seated exercises at EOB to promote oxygenation and blood circulation and reduction of pneumonia risk. Assessment TTWB B LE's renders slide board only transfer option at this time. Also received orders for a knee brace to be used on the left. PT Short Term Goals Short Term Goals Transfers (B,C,W/C) (FIM): 4 PT Senior Care Goals Senior Care Goals PT Wheelabrator Operator Goals Time Frame: Mar 19, 2017 Transfers (B,C,W/C) (FIM): 4 Gait (FIM): 2 Gait distance (FIM): 3=706-32 ft Gait Assistive Device: FWW PT Plan Problem List Problem List: Activity Tolerance, Functional Strength, Safety, Balance, Transfer, Bed Mobility Treatment/Plan Treatment Plan: Continue Plan of Care Treatment Plan: Bed Mobility, Education, Functional Activity [place], Functional Strength, Gait, Safety, Therapeutic Exercise, Transfers Treatment Duration: Mar 19, 2017 Visits Per Week: 11 Time/GCodes Time In: 925 Time Out: 950 Total Billed Treatment Time: 25 Total Billed Treatment visit EX 10 FA 15 STEFFANIE BROWN PT Mar 16, 2017 12:01
--- NOTE | 2017-03-16 13:00 | Occupational Ther Daily Note ---
OT Current Status-Daily Note Subjective Pt's sister in room. States that pt. has had CT scan of left knee. Patella is broken. Nurse states that pt. is TTWB on bilateral LE. Appearance Pt. in bed. Agrees to work with OT. Mental Status/Objective Patient Orientation: Person Functional [place] Measure 0=Not Assessed/NA 4=Minimal Assistance 1=Total Assistance 5=Supervision or Setup 2=Maximal Assistance 6=Modified [place] 3=Moderate Assistance 7=Complete [place] Attachments: Oxygen Other Treatment Pt. is issued and instructed on adaptive equipment. Due to new WB restrictions , pt. unable to stand. Transferred supine-sit with Min assist and increased time noted. This was difficult for pt. Once sitting on side of bed, pt. able to practice doffing/donning socks with AE. Able to doff with dressing stick and min assist, and don with min assist and sock aide. Transferred back to bed with mod assist needed to get legs into bed. Required min assist to position self in bed. All needs met in room. Will continue to work with pt. to increase overall independence. Will begin to introduce a slide board. Education OT Patient Education: Correct positioning, Modified ADL techniques, Progress toward Goal/Update tx plan, Purpose of tx/functional activities, Reviewed precautions, Rehab process, Transfer techniques, Use of adapted equipment Teaching Recipient: Patient, Family Teaching Methods: Demonstration, Discussion Response to Teaching: Verbalize Understanding, Return Demonstration OT Short Term Goals Short Term Goals Time Frame: Mar 22, 2017 Eating(FIM): 5 Grooming(FIM): 5 Bathing(FIM): 4 Upper Body Dressing(FIM): 5 Lower Body Dressing(FIM): 4 Toileting(FIM): 4 Transfers (B,C,W/C) (FIM): 4 Toilet/Commode Transfer(FIM): 4 Additional Short Term Goals: 1-Demonstrate ADL Tasks, 2-Verbalize Understanding , 3-ImproveStrength/[place] 1=Demonstrate adherence to instructed precautions during ADL tasks. 2=Patient will verbalize/demonstrate understanding of assistive devices/ modifications for ADL. 3=Patient will improve strength/tolerance for activity to enable patient to perform ADL's. OT [facility] Goals [facility] Goals Time Frame: Mar 29, 2017 Eating (FIM): 6 Grooming(FIM): 6 Bathing(FIM): 5 Upper Body Dressing(FIM): 5 Lower Body Dressing(FIM): 5 Toileting(FIM): 5 Transfers (B,C,W/C) (FIM): 5 Toilet/Commode Transfer(FIM): 5 Shower Transfer(FIM): 4 Additional Goals: 1-Demonstrate ADL Tasks, 2-Verbalize Understanding, 3- ImproveStrength/Rochelle 1=Demonstrate adherence to instructed precautions during ADL tasks. 2=Patient will verbalize/demonstrate understanding of assistive devices/ modifications for ADL. 3=Patient will improve strength/tolerance for activity to enable patient to perform ADL's. OT Education/Plan Problem List/Assessment Assessment: Decreased Activ Tolerance, Decreased UE Strength, Dependent Transfers, Impaired Bed Mobility, Impaired Funct Balance, Impaired I ADL's, Impaired Self-Care Skills Discharge Recommendations Plan/Recommendations: Continue POC Treatment Plan/Plan of Care Treatment,Training & Education: Yes Patient would benefit from OT for education, treatment and training to promote independence in ADL's, mobility, safety and/or upper extremity function for ADL' s. Plan of Care: ADL Retraining, Caregiver Training, Functional Mobility, UE Funct Exercise/Act Treatment Duration: Mar 29, 2017 Visits Per Week: 5 Rehab Potential: Good Time/GCodes Start Time: 11:15 Stop Time: 11:40 Total Time Billed (hr/min): 25 Billed Treatment Time 1, FA x 25minutes ANGEL MOODY OT Mar 16, 2017 13:00
--- NOTE | 2017-03-16 13:52 | Physical Therapy Daily Note ---
PT Daily Note-Current Subjective Agrees to try the slide board to transfer. Reports he has used one in the past with a tibial fx. Transfers Functional [place] Measure 0=Not Assessed/NA 4=Minimal Assistance 1=Total Assistance 5=Supervision or Setup 2=Maximal Assistance 6=Modified [place] 3=Moderate Assistance 7=Complete IndependenceIRFPAI Quality Coding Scale 6 Independent with activity with or without an assistive device 5 Patient requires set up or clean up by helper. Patient completes activity by themselves 4 Supervision or touching assist (CGA). [place] provide cues , steadying assist 3 The helper provides less than half the effort to complete the activity 2 The helper provides more than half the effort to complete the activity 1 Dependent. The helper does all the effort to complete an activity 7 Patient refused to complete or attempt activity 9 The patient did not perform the activity before the current illness or injury 88 Not attempted due to Medical conditions or safety concerns Treatments Sup to sit EOB with mod assist and skilled cues to sequence and reach across to roll and cues to push up. Once seated EOB, pt required mod asssit to complete slide board transfer bed to chair to his left. Instructed nurse aide and nurse on correct slide board technique. Pt up in chair and able to propel himself around the room and into the ratliff. Up in chair post treatment with needs met. Confirmed with Maciel Xiong the brace is to be set 0-120 degrees. Assessment Current Status: Good Progress Pt did well with slide board transfer. PT Short Term Goals Short Term Goals Transfers (B,C,W/C) (FIM): 4 PT Snf Goals Acting Section Chief Goals PT Snf Goals Time Frame: Mar 19, 2017 Transfers (B,C,W/C) (FIM): 4 Gait (FIM): 2 Gait distance (FIM): 4=028-37 ft Gait Assistive Device: FWW PT Plan Problem List Problem List: Activity Tolerance, Functional Strength, Safety, Transfer, Bed Mobility Treatment/Plan Treatment Plan: Continue Plan of Care Treatment Plan: Bed Mobility, Education, Functional Activity [place], Functional Strength, Gait, Safety, Therapeutic Exercise, Transfers Treatment Duration: Mar 19, 2017 Visits Per Week: 11 Safety Risks/Education Patient Education: Transfer Techniques (slide board) Teaching Recipient: Patient Teaching Methods: Demonstration, Discussion Response to Teaching: Reinforcement Needed Time/GCodes Time In: 1325 Time Out: 1350 Total Billed Treatment Time: 25 Total Billed Treatment visit FA 25 STEFFANIE BROWN PT Mar 16, 2017 13:52
[2017-03-16 15:32] VITALS: BP 167/77
[2017-03-16 20:14] VITALS: BP 133/72
[2017-03-17] VITALS: BP 164/84
[2017-03-17] MEDS: inSUlin ASPART (NovoLOG) 1 UNIT/0.01 ML (CHARGE PER UNIT) SC SCH ×2 (06:11→12:11)
[2017-03-17 08:00] VITALS: BP 155/85
[2017-03-17] MEDS: meTOprolol TARTRATE 50 MG (LOPRESSOR) TAB PO SCH (08:19)
[2017-03-17] MEDS: LACTULOSE SYRUP 10GM/15ML (ENULOSE) 30ML UDC PO SCH (08:19)
[2017-03-17] MEDS: SENNOSIDES 8.6 MG (SENOKOT) TAB PO SCH (08:19)
[2017-03-17] MEDS: ENOXAPARIN 30 MG/0.3 ML (LOVENOX) SYR SC SCH (08:19)
[2017-03-17] MEDS ORDERED: FUROSEMIDE 40 MG/4 ML INJ (LASIX) IVP NR (10:03)
[2017-03-17 10:29] LABS: BASOPHILS % (AUTO) 0 % (0-10); EOSINOPHILS % (AUTO) 0 % (0-10); LYMPHOCYTES # (AUTO) 1.4 X 10^3 (1.0-4.0); LYMPHOCYTES % (AUTO) 11 % (12-44); MEAN CORPUSCULAR HEMOGLOBIN 30 PG (25-34); MEAN CORPUSCULAR HGB CONC 33 G/DL (32-36); MEAN CORPUSCULAR VOLUME 89 FL (80-99); MEAN PLATELET VOLUME 10.3 FL (7.4-10.4); MONOCYTES # (AUTO) 1.6 X 10^3 (0.0-1.0); MONOCYTES % (AUTO) 13 % (0-12); NEUTROPHILS # (AUTO) 9.4 X 10^3 (1.8-7.8); NEUTROPHILS % (AUTO) 75 % (42-75); PLATELET COUNT 269 10^3/uL (130-400); RED BLOOD COUNT 3.41 10^6/uL (4.35-5.85); RED CELL DISTRIBUTION WIDTH 13.2 % (10.0-14.5); WHITE BLOOD COUNT 12.5 10^3/uL (4.3-11.0)
[2017-03-17 10:55] LABS: ALBUMIN 3.1 GM/DL (3.2-4.5); BILIRUBIN,TOTAL 0.6 MG/DL (0.1-1.0); CALCIUM 8.7 MG/DL (8.5-10.1); CREATININE SERUM 1.18 MG/DL (0.60-1.30); POTASSIUM 3.7 MMOL/L (3.6-5.0); TOTAL PROTEIN 6.8 GM/DL (6.4-8.2)
--- NOTE | 2017-03-17 11:46 | Discharge Summary-Hospitalist ---
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 Nicholson in [place] the sustained a right hip fracture after he fell managing the dairy cows in the barn. He has a history of a tractor running over him a couple years ago that resulted in multiple leg fractures and he recovered at [facility]. He had an uncomplicated repair by Dr. Arambula and is currently doing well reporting some urinary retention but is looking forward to getting up and around and I talked him about inpatient rehabilitation. I reviewed his labs today and initiated Accu-Cheks with sliding scale yesterday and will evaluate his home medications when available. Note from 03/16/17: Patient doing well but has not had a bowel movement but urination is going well Inpatient rehabilitation eval in place Hyponatremia of 132 will be managed with fluid restriction and I will Hep-Lock IV fluids Hemoglobin did decrease to 9.6 but otherwise doing well overall Updated sister at bedside No fever, vital signs stable, pleasant, improved Regular rate and rhythm, clear to auscultation bilaterally No edema Hospital course: Patient had an uneventful hospital course he had the hip fracture repaired uncomplicated by orthopedic surgery and left patella fracture will be managed conservatively. Inpatient rehabilitation has been evaluated the patient and I'll medical regimen will be initiated along with fluid restrictions due to hyponatremia of 132 and Hep-Lock IV fluid. Overall patient is doing well blood sugar checks will be maintained and pain control to help him recover. 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 Pt could benefit from more aggressive for the BMs. Pt is currently on Cinna and Lactulose SW Review: Patella is also broken Patient Interview: Pt denies flatulence but confirms bowel sounds. Pt was informed that I ordered an enema to get things moving Physical exam stable. Bowel sounds present. Pt denies O2 at home and does not wear a mask I encourage IS usage Pt has been urinating Pt's labs were discussed and they look good. Plan: Move to In-pt rehab Soap suds enema Continue IS Ease fluid restriction a small amount Evaluate home meds, especially insulin Check labs CBC, CMP, BMP Give one dose Lasix Albuterol TID Scribed by Hattie Yanez under the direct supervision of Dr. Renner. Discharge Summary Discharge Physical Examination Allergies: Coded Allergies: No Known Allergies (Verified Allergy, Unknown, 03/14/17) Vitals & I&Os Vital Signs Date Time Temp Pulse Resp B/P (MAP) Pulse Ox O2 Delivery O2 Flow Rate FiO2 03/17/17 08:25 96 Nasal Cannula 2.00 03/17/17 08:00 97.4 91 28 155/85 Hospital Course Labs (last 24 hrs) Laboratory Tests 03/16/17 15:59: Glucometer 235H 03/16/17 21:01: Glucometer 175H 03/17/17 05:23: Glucometer 213H 03/17/17 10:20: White Blood Count 12.5H, Red Blood Count 3.41L, Hemoglobin 10.2L, Hematocrit 31L , Mean Corpuscular Volume 89, Mean Corpuscular Hemoglobin 30, Mean Corpuscular Hemoglobin Concent 33, Red Cell Distribution Width 13.2, Platelet Count 269, Mean Platelet Volume 10.3, Neutrophils (%) (Auto) 75, Lymphocytes (%) (Auto) 11L , Monocytes (%) (Auto) 13H, Eosinophils (%) (Auto) 0, Basophils (%) (Auto) 0, Neutrophils # (Auto) 9.4H, Lymphocytes # (Auto) 1.4, Monocytes # (Auto) 1.6H, Eosinophils # (Auto) 0.0, Basophils # (Auto) 0.0, Sodium Level 135, Potassium Level 3.7, Chloride Level 102, Carbon Dioxide Level 24, Anion Gap 9, Blood Urea Nitrogen 20H, Creatinine 1.18, Estimat Glomerular Filtration Rate 59, BUN/ Creatinine Ratio 17, Glucose Level 196H, Calcium Level 8.7, Total Bilirubin 0.6 , Aspartate Amino Transf (AST/SGOT) 17, Alanine Aminotransferase (ALT/SGPT) 10, Alkaline Phosphatase 79, B-Type Natriuretic Peptide 296.4H, Total Protein 6.8, Albumin 3.1L Pending Labs Laboratory Tests 03/17/17 05:23: Glucometer 213 03/17/17 10:20: White Blood Count 12.5, Red Blood Count 3.41, Hemoglobin 10.2, Hematocrit 31, Mean Corpuscular Volume 89, Mean Corpuscular Hemoglobin 30, Mean Corpuscular Hemoglobin Concent 33, Red Cell Distribution Width 13.2, Platelet Count 269, Mean Platelet Volume 10.3, Neutrophils (%) (Auto) 75, Lymphocytes (%) (Auto) 11 , Monocytes (%) (Auto) 13, Eosinophils (%) (Auto) 0, Basophils (%) (Auto) 0, Neutrophils # (Auto) 9.4, Lymphocytes # (Auto) 1.4, Monocytes # (Auto) 1.6, Eosinophils # (Auto) 0.0, Basophils # (Auto) 0.0, Sodium Level 135, Potassium Level 3.7, Chloride Level 102, Carbon Dioxide Level 24, Anion Gap 9, Blood Urea Nitrogen 20, Creatinine 1.18, Estimat Glomerular Filtration Rate 59, BUN/ Creatinine Ratio 17, Glucose Level 196, Calcium Level 8.7, Total Bilirubin 0.6, Aspartate Amino Transf (AST/SGOT) 17, Alanine Aminotransferase (ALT/SGPT) 10, Alkaline Phosphatase 79, B-Type Natriuretic Peptide 296.4, Total Protein 6.8, Albumin 3.1 Discharge Home Medications: Active Scripts Active Reported Metoprolol Tartrate 50 Mg Tablet 50 Mg PO DAILY Metformin HCl 500 Mg Tablet 500 Mg PO BID Instructions to patient/family Please see electonic discharge instructions given to patient. Clinical Quality Measures DVT/VTE Risk/Contraindication: Risk Factor Score Per Nursin RFS Level Per Nursing on Admit: 4+=Very High DIANA RENNER DO Mar 17, 2017 11:45
[2017-03-17] MEDS ORDERED: INSU100V16 SC (11:47)
[2017-03-17] MEDS ORDERED: ENOX30DI4 SC (11:47)
[2017-03-17] MEDS ORDERED: FURO-124 PO (11:47)
[2017-03-17] MEDS ORDERED: LACT20SO2 PO (11:47)
[2017-03-17] MEDS ORDERED: POTA10TA10 PO (11:47)
[2017-03-17] MEDS ORDERED: IPRA3AMP INH (11:47)
[2017-03-17] MEDS ORDERED: HYDR-3812 PO (11:47)
[2017-03-17] MEDS ORDERED: SENN-140 PO (11:47)
[2017-03-17 12:50] VITALS: BP 155/85
[2017-03-17] MEDS ORDERED: RT-ALBUTEROL/IPRATROPIUM 3 ML (DUONEB) VIAL INH SCH (14:00)
== END 2017-03-17 12:25 | DRG 481 ==
LOC: 4TH 16:02
PROVIDERS: ADMIT Orthopaedic Surgery Orthopaedic Surgery of the Spine; ATTEND Orthopaedic Surgery Orthopaedic Surgery of the Spine
PROC: 0QS806Z Reposition Right Femoral Shaft with Intramedullary Internal Fixation Device, Open Approach (ICD-10-PCS; principal; 2017-03-14 17:24)
DX: S72.451A Displaced supracondylar fracture without intracondylar extension of lower end of right femur, initial encounter for closed fracture (principal); D62 Acute posthemorrhagic anemia; E87.1 Hypo-osmolality and hyponatremia; E11.9 Type 2 diabetes mellitus without complications; R33.9 Retention of urine, unspecified; I10 Essential (primary) hypertension; M19.91 Primary osteoarthritis, unspecified site; R01.1 Cardiac murmur, unspecified; R39.11 Hesitancy of micturition; T41.45XA Adverse effect of unspecified anesthetic, initial encounter; K59.00 Constipation, unspecified; T40.2X5A Adverse effect of other opioids, initial encounter; W19.XXXA Unspecified fall, initial encounter; Y92.71 Barn as the place of occurrence of the external cause; Z96.642 Presence of left artificial hip joint
CPT/HCPCS: 36415; 73130; 73552; 73562; 73700; 80053; 82962; 83880; 85025; 85027; 94664

== ENCOUNTER 2017-03-17 09:50 | Inpatient (IN) | payer MEDICARE, MEDICAID ==
[~2017-03-17] VITALS: Ht 182.9 cm; Wt 103.4 kg
[~2017-03-17 09:50] MED LIST: METF500T4 PO; METO50TA2 PO
[2017-03-17] MEDS ORDERED: POTA10TA10 PO (11:47)
[2017-03-17] MEDS ORDERED: SENN-140 PO (11:47)
[2017-03-17] MEDS ORDERED: HYDR-3812 PO (11:47)
[2017-03-17] MEDS ORDERED: LACT20SO2 PO (11:47)
[2017-03-17] MEDS ORDERED: INSU100V16 SC (11:47)
[2017-03-17] MEDS ORDERED: ENOX30DI4 SC (11:47)
[2017-03-17] MEDS ORDERED: FURO-124 PO (11:47)
[2017-03-17] MEDS ORDERED: IPRA3AMP INH (11:47)
--- NOTE | 2017-03-17 13:12 | Physical Therapy Evaluation ---
PT Evaluation-General Medical Diagnosis Admission Date 03/17/17 Medical Diagnosis: Right femur fx; left patellar fx Onset Date: Mar 14, 2017 Therapy Diagnosis Therapy Diagnosis: weakness Height/Weight Height (Feet): 6 Height (Inches): 0.00 Weight (Pounds): 231 Weight (Ounces): 1.0 Precautions Precautions/Isolations: Standard Precautions Knee brace 0-20 degrees; may remove brace for ROM work 0-70 degrees; brace may be removed to shower. 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 TTWB status Also found to have left patellar fx nondisplaced--TTWB status. 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 PT Evaluation-Current Subjective Agreeable to PT. Objective Patient Orientation: Person, Place, Time, Situation Problem Solving: Fair ROM/Strength ROM Lower Extremities WFL; long leg brace on the left. Strenght Lower Extremities grossly 3/5 B LE's Integumentary/Posture Integumentary Refer to nursing notes. Bowel Incontinence: No Bladder Incontinence: No Posture Normal and symmetrical Neuromuscular (Tone, Coordination, Reflexes) Functional Sensory Vision: Functional Hearing: Functional Hand Dominance: Right Sensation Right Lower Extremit: Intact Sensation Left Lower Extremity: Intact Transfers Functional [place] Measure 0=Not Assessed/NA 4=Minimal Assistance 1=Total Assistance 5=Supervision or Setup 2=Maximal Assistance 6=Modified [place] 3=Moderate Assistance 7=Complete IndependenceIRFPAI Quality Coding Scale 6 Independent with activity with or without an assistive device 5 Patient requires set up or clean up by helper. Patient completes activity by themselves 4 Supervision or touching assist (CGA). [place] provide cues , steadying assist 3 The helper provides less than half the effort to complete the activity 2 The helper provides more than half the effort to complete the activity 1 Dependent. The helper does all the effort to complete an activity 7 Patient refused to complete or attempt activity 9 The patient did not perform the activity before the current illness or injury 88 Not attempted due to Medical conditions or safety concerns Transfers (B, C, W/C) (FIM): 2 Scootin Rollin Roll Left to Right (QC): 4 Supine to/from Sit: 3 (mod assist to lift both legs into bed) bed t/f WC(FIM only if WC use): 2 (max assist slide board TFR) Sit to Lying (QC): 3 Lying to Sitting/Side of Bed(Q: 3 Sit to Stand (QC): 88 (TTWB B LE's) Chair/Gmf-dc-Lfwuh Xfer(QC): 2 (slide board TFR) Car Transfer (QC): 88 Gait Does the Patient Walk?: No and Walking Goal NOT indicated Mode of Locomotion: Wheelchair Wheelchair Training Does the Pt Use a Wheelchair?: Yes Wheelchair (FIM): 2 Wheelchair Distance (FIM): 4=718-24 ft Distance: 50 ft Wheelchair Level of Assist: 4 Wheel 50 ft with 2 turns (QC): 4 Wheel 150 ft (QC): 88 Type of Wheelchair: Manual Stairs Stairs (FIM): 0 (TTWB B LE;'s) If not tested on admit;explain Pt is TTWB B LE's Balance Sitting Static: Good Sitting Dynamic: Fair Picking up an Object (QC): 88 Treatment Worked on slide board transfer chair to wheelchair and technique and sequencing Assessment/Needs Pt presents post femur fx with IM nail repair and is TTWB; patellar fx left was subsequently found and he has been placed on TTWB left now. Pt has much difficulty with functional transfers and bed mobility as well as wc mobility deficits. He will significantly benefit from skilled PT intervention to work on transfers, bed mob and wc mob to increase his level of indep prior to returning home. Rehab Potential: Good PT Short Term Goals Short Term Goals Time Frame: Mar 24, 2017 Transfers (B,C,W/C) (FIM): 4 Wheelchair (FIM): 5 Wheelchair distance (FIM): 3=150 ft PT Chcf Goals Supervisor Inspection Room Goals PT Supervisor Inspection Room Goals Time Frame: Apr 07, 2017 Transfers (B,C,W/C) (FIM): 5 Sit to Lying (QC): 6 Lying-Sitting on Side/Bed(QC): 6 Sit to Stand (QC): 88 Roll Left to Right (QC): 6 Chair/Ajl-vr-Hyqxo Xfer(QC): 5 Car Transfer (QC): 4 Gait (FIM): 0 (unable to ambulate; TTWB B LE's) Does the Pt use WC or Scooter?: Yes Wheelchair (FIM): 6 Wheel 50 feet with 2 turns (QC: 6 Stairs (FIM): 1 (unable due to TTWB B LE;s) 1 Step (curb) (QC): 88 4 Steps (QC): 88 12 Steps (QC): 88 Picking up an Object (QC): 88 LTG is for pt to discharge home at wheelchair level with SBA for transfers and mod indep with wheelchair mobility to allow indep in his home with his children. PT Plan Problem List Problem List: Activity Tolerance, Functional Strength, Safety, Balance, Transfer, Bed Mobility, ROM, Other (wc mob) Treatment/Plan Treatment Plan: Continue Plan of Care Treatment Plan: Bed Mobility, Education, Functional Activity Rochelle, Functional Strength, Group Therapy, Other (wc mob), Safety, Therapeutic Exercise, Transfers Treatment Duration: Apr 07, 2017 Visits Per Week: 180 min 5 of 7 Pt/Family Agrees w/Plan: Yes Safety Risks/Education Patient Education: Transfer Techniques, Safety Issues Teaching Recipient: Patient Teaching Methods: Demonstration, Discussion Response to Teaching: Reinforcement Needed Discharge Recommendations Therapy D/C Recommendations: Physical Therapy Home Care Time/GCodes Time In: 1225 Time Out: 1250 Total Billed Treatment Time: 25 Total Billed Treatment visit EVM 15 FA 10 STEFFANIE BROWN PT Mar 17, 2017 13:12
[2017-03-17 13:22] VITALS: BP 161/73
[2017-03-17] MEDS ORDERED: ONDANSETRON 4 MG/2 ML (SDV) Z0FRAN IV PRN (13:30)
[2017-03-17] MEDS ORDERED: morphine INJ 4 MG/ML 1 ML (VIAL/SYRINGE) IV PRN (13:30)
[2017-03-17] MEDS ORDERED: MILK OF MAGNESIA 400 MG/5 ML 30 ML UDC PO PRN (13:30)
[2017-03-17] MEDS ORDERED: HYDROcodone/APAP 5 MG/325 MG (LORTAB) TAB PO PRN (13:30)
[2017-03-17] MEDS ORDERED: ACETAMINOPHEN 325 MG TABLET/CAPLET (TYLENOL) PO PRN (13:30)
--- NOTE | 2017-03-17 14:34 | Consultation-Cardiology ---
HPI-Cardiology Cardiology Consultation Date of Consultation 03/17/17 Date of Admission Time Seen by Provider: 14:29 Indication: elevated BNP HPI Patient is a very pleasant 81 y/o male with history of HTN, DM. 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 Patient was discharged to IRU today, has been complaining of some increased dyspnea. Reports dyspnea with exertion several weeks prior to his injury. Denies any CP, palpitations, dizziness, lightheadedness, or syncope. Denies any peripheral edema. Denies history of CAD. 81 years old gentleman with history of hypertension and diabetes, admitted for hip fracture, reported that his been having increasing dyspnea on exertion, no chest pain, no palpitation, no syncopal or near syncopal episode. Had underlying obesity, BMI 31. We were called due to elevated BNP level and suggestion of congestive heart failure. Home Medications & Allergies Allergies: Coded Allergies: No Known Allergies (Verified Allergy, Unknown, 03/14/17) Home Medication List Reviewed: Yes HFJ-Gyqpcu-Bejggm Hx Patient Social History Marital Status: Employed/Student: self-employed Alcohol Use: Denies Use Recreational Drug Use: No Smoking Status: Unknown if Ever Smoked Recent Foreign Travel: No Recent Infectious Disease Expo: No Recent Hopitalizations: Yes Physical Abuse Screen: No Sexual Abuse: No Immunizations Up To Date Tetanus Booster (TDap): Unknown Past Medical History HTN, DM Family Medical History Significant Family History: No Pertinent Family Hx Family History: Patient reports no known family medical history. Constitutional: No diaphoresis, No dizziness, No fever, No malaise EENTM: No blurred vision, No double vision Respiratory: No cough, dyspnea on exertion, short of breath Cardiovascular: No chest pain, No edema, No palpitations Gastrointestinal: No abdominal pain, No constipation Genitourinary: No discharge, No dysuria, No frequency, No hematuria Musculoskeletal: No back pain, No neck pain Skin: No lesions, No rash Psychiatric/Neurological: Denies Anxiety Physical Exam Vital Signs Vital Sign - Last 12Hours 03/17/17 13:22 Temp 98.5 Pulse 81 Resp 20 B/P (MAP) 161/73 Pulse Ox 93 O2 Delivery Room Air Capillary Refill : General Appearance: No Apparent Distress, WD/WN HEENT: PERRL/EOMI, TMs Normal, Normal ENT Inspection, Pharynx Normal Neck: Non Tender, Supple Respiratory: Chest Non Tender, Lungs Clear, Normal Breath Sounds, No Accessory Muscle Use, No Respiratory Distress Cardiovascular: Regular Rate, Rhythm, No Gallop, No JVD, Normal Peripheral Pulses, Systolic Murmur, Other (trace edema) Gastrointestinal: Non Tender, Soft Rectal: Deferred Extremity: Non Tender, No Calf Tenderness Neurologic/Psychiatric: Alert, Oriented x3, consular officer II-XII Norm as Tested Skin: Normal Color, Warm/Dry A/P-Cardiology Admission Diagnosis Elevated BNP HTN DM Right hip fracture Assessment/Plan Elevated BNP- patient reporting increased dyspnea with exertion over the past 2- 3 weeks. Denies any cardiac history or any recent cardiac workup. I will further evaluate with 2D Echo HTN- maintained on Lopressor. Continue to monitor BP/HR DM- management by medical services Right hip fracture- s/p repair by Dr. Arambula on 03/14/17 Left patellar fracture Obesity Thank you for allowing to participate in the management of Mr. Cintron. This is Jennifer Marquis PA-C as a scribe for Dr. Nice. This is Dr. Nice, I have seen and evaluated the patient with Jennifer, discussed the management plan and the consult, agree with the current scribe, I interview the patient and perform physical examination, on examination lungs were clear to auscultation bilaterally, heart is regular rate and rhythm, systolic murmur at the left sternal border was noted. Patient had elevated BNP , planning to evaluate 2-D echocardiogram, hypertension maintained on Lopressor , diabetes mellitus and hip fracture. I'll continue monitoring, evaluate echo and monitor blood pressure Clinical Quality Measures DVT/VTE Risk/Contraindication: Risk Factor Score Per Nursin RFS Level Per Nursing on Admit: 4+=Very High JENNIFER DOMINGUEZ Mar 17, 2017 14:34 JULIEN NICE MD Mar 17, 2017 16:41
--- NOTE | 2017-03-17 14:58 | Therapy Group Daily Note ---
Therapy Daily Group Note Patient Education Topic Other List Below Exercises LE Seated Exercise, UE Exercise Other/Notes Pt was an active participant in OT/PT group. He was transported to group per w/ c. He introduced himself by naming his favorite summertime activity and then later recalled activities of other participants. He participated in group education/discussion on memory strategies and was able to identify one strategy that he uses successfully. Group concluded with a memory activity for application of strategies and he was successful. After group, he was returned to his room per w/ for continued therapy. Start Time: 13:00 Stop Time: 14:15 Total Billed Treatment Time: 75 Total Billed Treatment visit, 75 minutes group JOSE PACHECO OT Mar 17, 2017 14:58
[2017-03-17] MEDS: RT-ALBUTEROL/IPRATROPIUM 3 ML (DUONEB) VIAL INH SCH ×2 (15:09→19:58)
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
--- NOTE | 2017-03-17 15:31 | Physical Therapy Daily Note ---
PT Daily Note-Current Subjective Agreeable to PT. No complaints. Transfers Functional [place] Measure 0=Not Assessed/NA 4=Minimal Assistance 1=Total Assistance 5=Supervision or Setup 2=Maximal Assistance 6=Modified [place] 3=Moderate Assistance 7=Complete IndependenceIRFPAI Quality Coding Scale 6 Independent with activity with or without an assistive device 5 Patient requires set up or clean up by helper. Patient completes activity by themselves 4 Supervision or touching assist (CGA). [place] provide cues , steadying assist 3 The helper provides less than half the effort to complete the activity 2 The helper provides more than half the effort to complete the activity 1 Dependent. The helper does all the effort to complete an activity 7 Patient refused to complete or attempt activity 9 The patient did not perform the activity before the current illness or injury 88 Not attempted due to Medical conditions or safety concerns Treatments Co treat with OT x 30 minutes. Worked on slide board technique chair to bed with OT addressing UE placement and use as well as positioning for optimal safety and PT addressing trunk control and gross movement to transfer. Pt required max assist to transfer to the bed from the chair. Worked on bed mobility with OT addressing sequencing and UE placement whilst PT worked on LE placement and bridging. Adjust brace to lock 0-20 degrees while on. Assessment Pt is highly motivated. Required a fair amount of assist for transfer but feel he will make good progress due to existing UE strength and motivation. PT Short Term Goals Short Term Goals Time Frame: Mar 24, 2017 Transfers (B,C,W/C) (FIM): 4 Wheelchair (FIM): 5 Wheelchair distance (FIM): 3=150 ft Wheelchair Distance: 50 ft PT Longterm Goals Drum Tender Goals PT Drum Tender Goals Time Frame: Apr 07, 2017 Transfers (B,C,W/C) (FIM): 5 Sit to Lying (QC): 6 Lying-Sitting on Side/Bed(QC): 6 Sit to Stand (QC): 88 Rollin Roll Left to Right (QC): 6 Chair/Ixz-ya-Fxngi Xfer(QC): 5 Car Transfer (QC): 4 Gait (FIM): 0 (unable to ambulate; TTWB B LE's) Does the Pt use WC or Scooter?: Yes Wheelchair (FIM): 6 Wheel 50 feet with 2 turns (QC: 6 Stairs (FIM): 1 (unable due to TTWB B LE;s) 1 Step (curb) (QC): 88 4 Steps (QC): 88 12 Steps (QC): 88 Picking up an Object (QC): 88 PT Plan Problem List Problem List: Activity Tolerance, Functional Strength, Safety Treatment/Plan Treatment Plan: Continue Plan of Care Treatment Plan: Bed Mobility, Education, Functional Activity Rochel[place], Functional Strength, Group Therapy, Other (wc mob), Safety, Therapeutic Exercise, Transfers Treatment Duration: Apr 07, 2017 Visits Per Week: 180 min 5 of 7 Safety Risks/Education Patient Education: Transfer Techniques, Safety Issues Teaching Recipient: Patient Teaching Methods: Demonstration, Discussion Response to Teaching: Reinforcement Needed Time/GCodes Time In: 1415 Time Out: 1445 Total Billed Treatment Time: 30 Total Billed Treatment Co treat with OT 30 min visit FA 30 STEFFANIE BROWN PT Mar 17, 2017 15:31
--- NOTE | 2017-03-17 16:25 | PM&R Post Admission Assessment ---
Post Admission Physician Asses The preadmission screen agrees with the post admission assessment that the patient is a good candidate for inpatient rehabilitation. The patient will have a comprehensive program of inpatient rehabilitation with a goal of maximizing level of functional independence prior to discharge home with family. The patient will have PT/OT ninety minutes per day, each discipline, five days a week for gait ,strengthening, conditioning, balance, ADLs, any patient/family/caregiver training as necessary. Speech therapy to do cognitive assessment and treat as indicated. Rehabilitation nursing to assist with bowel, bladder, skin, wound care, medication administration, pain management. Expediter to assist with discharge planning, community reentry. SCD's for DVT prophylaxis. He appears to be well motivated to participate in three hours of therapy a day. He should be able to tolerate three hours of therapy a day from a medical and surgical standpoint . He should benefit from the three hours of therapy a day. He has a reasonable discharge plan, reasonable discharge rehabilitation goals and a supportive family. He has various comorbidities that need to be closely monitored with medications and treatments adjusted on a daily basis as needed. These include: HTN Elevated BNP DM Barriers to discharge for this patient who had been independent prior to this are for him to be modified independent to supervision for ADLs and mobility skills prior to discharge home with family at the w/c level of function due limited WBS, so as to lessen the burden of the caregivers. Risks for this patient include: 1. Fall 2. Fracture 3. DVT 4. Pulmonary embolism 5. Wound infection 6. Skin breakdown 7. Contractures 8. Poorly controlled pain 9. Urinary retention 10. UTI 11. Respiratory infection 12. Aspiration 13. Poorly controlled HTN 14. Poorly controlled DM Estimated Length of Stay: 18 days Prognosis: Rehab prognosis appears good for goal of discharge home with family modified independent to supervision for ADLs and mobility skills at the w/c level of function. SHARATH REID MD Mar 17, 2017 16:25
[2017-03-17] MEDS: metFORMIN 500 MG (GLUCOPHAGE) TAB PO SCH (16:41)
[2017-03-17] MEDS: inSUlin ASPART (NovoLOG) 1 UNIT/0.01 ML (CHARGE PER UNIT) SC SCH ×2 (16:42→21:48)
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
[2017-03-17 18:01] VITALS: BP 166/89
[2017-03-17] MEDS: ENOXAPARIN 30 MG/0.3 ML (LOVENOX) SYR SC SCH (20:22)
[2017-03-17] MEDS: SENNOSIDES 8.6 MG (SENOKOT) TAB PO SCH ×2 (21:00→21:42)
[2017-03-17] MEDS: LACTULOSE SYRUP 10GM/15ML (ENULOSE) 30ML UDC PO SCH ×2 (21:00→21:42)
[2017-03-18] MEDS: SENNOSIDES 8.6 MG (SENOKOT) TAB PO SCH ×3 (00:10→22:03)
[2017-03-18] MEDS: LACTULOSE SYRUP 10GM/15ML (ENULOSE) 30ML UDC PO SCH ×3 (00:10→22:03)
[2017-03-18] MEDS: metFORMIN 500 MG (GLUCOPHAGE) TAB PO SCH ×2 (06:12→18:47)
[2017-03-18 06:13] VITALS: BP 147/74
[2017-03-18] MEDS: inSUlin ASPART (NovoLOG) 1 UNIT/0.01 ML (CHARGE PER UNIT) SC SCH ×4 (06:15→22:02)
[2017-03-18] MEDS: KCL 10 MEQ TAB (MICRO K) PO SCH (06:31)
--- NOTE | 2017-03-18 08:25 | Cardiology Progress Note ---
Subjective Date Seen by Provider: Mar 18, 2017 Time Seen by Provider: 08:23 Subjective/Events-last exam Patient in bed, no new complaints. Denies any pain. Denies any CP or dyspnea. Review of Systems General: No Night Sweats, No Fatigue, No Malaise HEENT: No Visual Changes, No Dysphasia, No Sore Throat Pulmonary: No Dyspnea, No Cough Cardiovascular: No: Chest Pain, Palpitations Gastrointestinal: No: Abdominal Pain, Nausea, Vomiting Genitourinary: No Dysuria, No Frequency Musculoskeletal: No: back pain, neck pain Neurological: No: Change in speech, Confusion, Numbness, Weakness Objective-Cardiology Exam Last Set of Vital Signs Vital Signs 03/18/17 06:13 Temp 98.0 Pulse 96 Resp 19 B/P (MAP) 147/74 Pulse Ox 95 O2 Delivery Nasal Cannula O2 Flow Rate 2.00 Capillary Refill : Less Than 3 Seconds I&O Bad tableGeneral: Alert, Oriented X3, Cooperative, No Acute Distress HEENT: Atraumatic, PERRLA, EOMI, Mucous Memb Moist/[place] Neck: Supple, No JVD Lungs: Clear to Auscultation Heart: Regular Rate, Other (systolic Murmur) Abdomen: Normal Bowel Sounds, Soft, No Tenderness, Other (distended) Extremities: No Edema ( trace edema) Skin: No Rashes Neuro: Other (strength both LES 3/5 4/5 BUES sensation and cognition grossly intact) A/P-Cardiology Admission Diagnosis Elevated BNP HTN DM Right hip fracture Assessment/Plan Elevated BNP- patient reporting increased dyspnea with exertion over the past 2- 3 weeks. Denies any cardiac history or any recent cardiac workup. I will further evaluate with 2D Echo Systolic murmur at left sternal border- further evaluation with 2D Echo HTN- maintained on Lopressor. Continue to monitor BP/HR DM- management by medical services Right hip fracture- s/p repair by Dr. Arambula on 03/14/17 Left patellar fracture Obesity Clinical Quality Measures DVT/VTE Risk/Contraindication: Risk Factor Score Per Nursin RFS Level Per Nursing on Admit: 4+=Very High COLLEEN DOMINGUEZ Mar 18, 2017 08:25
[2017-03-18 09:25] VITALS: BP 175/72
[2017-03-18] MEDS: ENOXAPARIN 30 MG/0.3 ML (LOVENOX) SYR SC SCH ×2 (09:34→20:11)
[2017-03-18] MEDS: meTOprolol TARTRATE 50 MG (LOPRESSOR) TAB PO SCH (09:34)
[2017-03-18] MEDS: FUROSEMIDE 40 MG (LASIX) TAB PO SCH (09:34)
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
[2017-03-18] MEDS: RT-ALBUTEROL/IPRATROPIUM 3 ML (DUONEB) VIAL INH SCH ×3 (10:09→19:27)
--- NOTE | 2017-03-18 10:18 | Physical Therapy Daily Note ---
PT Daily Note-Current Subjective Pt. supine in bed with head elevated. O2 insitu. Pt. states he is miserable, trouble breathing and such discomfort in his belly. Agrees to LE ther ex Pain Numeric Pain Scale: 5-Moderate Pain Location: Medial Location Body Site: Abdomen Pain Description: Pressure Appearance very distended abdomen, very firm to touch, on O2 states he is uncomfortable Transfers Functional [place] Measure 0=Not Assessed/NA 4=Minimal Assistance 1=Total Assistance 5=Supervision or Setup 2=Maximal Assistance 6=Modified [place] 3=Moderate Assistance 7=Complete IndependenceIRFPAI Quality Coding Scale 6 Independent with activity with or without an assistive device 5 Patient requires set up or clean up by helper. Patient completes activity by themselves 4 Supervision or touching assist (CGA). [place] provide cues , steadying assist 3 The helper provides less than half the effort to complete the activity 2 The helper provides more than half the effort to complete the activity 1 Dependent. The helper does all the effort to complete an activity 7 Patient refused to complete or attempt activity 9 The patient did not perform the activity before the current illness or injury 88 Not attempted due to Medical conditions or safety concerns Exercises Supine Ex: Ankle pumps, Quad Set, Glut sets Supine Reps: 20 Assessment Current Status: Fair Progress nursing states pt. is to have KUB this morning PT Short Term Goals Short Term Goals Time Frame: Mar 24, 2017 Transfers (B,C,W/C) (FIM): 4 Wheelchair (FIM): 5 Wheelchair distance (FIM): 3=150 ft Wheelchair Distance: 50 ft PT Custodial Goals Custodial Goals PT Track Vehicle Repairer Goals Time Frame: Apr 07, 2017 Transfers (B,C,W/C) (FIM): 5 Sit to Lying (QC): 6 Lying-Sitting on Side/Bed(QC): 6 Sit to Stand (QC): 88 Rollin Roll Left to Right (QC): 6 Chair/Lib-ol-Oczpp Xfer(QC): 5 Car Transfer (QC): 4 Gait (FIM): 0 (unable to ambulate; TTWB B LE's) Does the Pt use WC or Scooter?: Yes Wheelchair (FIM): 6 Wheel 50 feet with 2 turns (QC: 6 Stairs (FIM): 1 (unable due to TTWB B LE;s) 1 Step (curb) (QC): 88 4 Steps (QC): 88 12 Steps (QC): 88 Picking up an Object (QC): 88 PT Plan Treatment/Plan Treatment Plan: Continue Plan of Care Treatment Plan: Bed Mobility, Education, Functional Activity [place], Functional Strength, Group Therapy, Other (wc mob), Safety, Therapeutic Exercise, Transfers Treatment Duration: Apr 07, 2017 Visits Per Week: 180 min 5 of 7 Safety Risks/Education Patient Education: Transfer Techniques Teaching Recipient: Patient Time/GCodes Time In: 900 Time Out: 915 Total Billed Treatment Time: 15 Total Billed Treatment 1,EX15m G Codes Necessary: REX Hansen REWEAVER Mar 18, 2017 10:18
--- NOTE | 2017-03-18 10:56 | ST Cognitive Linguistic Eval ---
Speech Evaluation-General Medical Diagnosis Right femur fx; left patellar fx Onset Date: Mar 14, 2017 Therapy Diagnosis Therapy Diagnosis: Cognitive Linguistic Skill WNL Precautions Precautions/Isolations: Standard Precautions Referral Referring Physician: Dr. Hermilo Fleming Reason for Referral: Evaluation/Treatment Cognitive Screen Medical History Pertinent Medical History: Arthritis, DM Reviewed History: Yes Social History Current Living Status: Other Family Speech PLF-Current Status Prior Level of Function The patient denied recent changes with his speech, language, or cognitive skills following his fall or throughout his hospital admission. Subjective The patient was recently admitted to [facility] following a fall resulting in a leg fracture. The patient greeted the clinician appropriately and was agreeable to participation in the cognitive evaluation. Language Eval: Auditory Comprehends Simple Yes/No Ques: Functional Indent/Objects Multiple Ponce: Functional Ident/Pics in Multiple Ponce: Functional Follows 1-Step Commands: Functional Follows Complex Directions: Mild (Repetition, as well as, a reduced pace of presentation was required for increased accuracy.) Follows General Conversations: Functional Language Eval: Verbal Language Completes Spontaneous Greeting: Functional Produces Auto, Serial Info: Functional Imitates Simple Words/Phrases: Functional Word Finding: Functional Requests Basic Needs: Functional States Basic Personal Info: Functional Cognitive Patient Orientation The patient was oriented to month, day of week, date, and year (independently). Objective Cognitive Domain Attention: WNL Memory: Mild Problem Solving: Functional Objective Impression The patient demonstrated a minimal cognitive impairment with memory. The patient required minimally increased time for adequate responses. Per patient, he is currently functioning at baseline. Communication/Social Cognition Comprehension: 5 Expression: 5 Social Interaction: 5 Problem Solvin Memory: 5 Speech Patient Assess Expression of Ideas/Wants: Exhibits (3) Understanding Vebal Content: Usually Understands (3) Brief Interview-Mental Status: Yes Repetition of Three Words: Three (3) Temporal Orientation: Year: Correct (3) Temporal Orientation: Month: Accurate within 5 days(2) Temporal Orientation: Day: Correct (1) Recall : Wear to say "Sock": No, could not recall (0) Recall : Color: Yes, no cue required (2) Recall : Bed: Yes, no cue required (2) Speech-Plan Treatment Plan Speech Therapy Treatment Plan: Discontinue ST Evaluation, only. Rehab Potential: Good Safety Risks/Education Teaching Recipient: Patient Teaching Methods: Discussion Response to Teaching: Verbalize Understanding Education Topics Provided: Results, Recommendations, Plan of Care Time Speech Therapy Time In: 08:05 Speech Therapy Time Out: 08:20 Total Billed Time: 15 Billed Treatment Time 1, BELINDA QUINTANILLA Mar 18, 2017 10:55
[2017-03-18 11:02] LABS: BASOPHILS % (AUTO) 0 % (0-10); EOSINOPHILS % (AUTO) 0 % (0-10); LYMPHOCYTES # (AUTO) 1.7 X 10^3 (1.0-4.0); LYMPHOCYTES % (AUTO) 9 % (12-44); MEAN CORPUSCULAR HEMOGLOBIN 30 PG (25-34); MEAN CORPUSCULAR HGB CONC 33 G/DL (32-36); MEAN CORPUSCULAR VOLUME 89 FL (80-99); MEAN PLATELET VOLUME 10.5 FL (7.4-10.4); MONOCYTES % (AUTO) 11 % (0-12); NEUTROPHILS # (AUTO) 15.1 X 10^3 (1.8-7.8); NEUTROPHILS % (AUTO) 80 % (42-75); PLATELET COUNT 339 10^3/uL (130-400); RED BLOOD COUNT 3.29 10^6/uL (4.35-5.85); RED CELL DISTRIBUTION WIDTH 13.4 % (10.0-14.5); WHITE BLOOD COUNT 18.9 10^3/uL (4.3-11.0)
--- NOTE | 2017-03-18 11:05 | Progress Note-Hospitalist ---
Progress Note Progress Notes/Assess & Plan Date Seen 03/18/17 Time Seen by Provider: 10:00 Diagonsis/Assessment & Plan Therapist Review: Pt's abdomen distended and firm. Pt is miserable. Pt states that he had a BM yesterday. Pt states that he is not usually on O2 and is causing his diaphragm is pushing up into the chest making it more difficult for him to breathe X-ray was performed and will follow up on that Patient Interview: Pt states that he does recall having a BM yesterday after the SSE but denies knowledge of how much he produced. Ileus discussed. Pt will be on NPO for a bit and will have BM meds to help BMs move along. Pt confirms passing gas Physical exam stable. Bowel sounds present. Lungs still sound wheezy. Confirms having breathing treatments and use of IS Pt encouraged to sit and try to ambulate Pt informed that Dr. 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 Campbell. DIANA CAMPBELL DO Mar 18, 2017 11:05
[2017-03-18 11:16] LABS: ALBUMIN 3.2 GM/DL (3.2-4.5); BILIRUBIN,TOTAL 0.8 MG/DL (0.1-1.0); CALCIUM 8.7 MG/DL (8.5-10.1); CREATININE SERUM 1.41 MG/DL (0.60-1.30); POTASSIUM 3.4 MMOL/L (3.6-5.0); TOTAL PROTEIN 6.7 GM/DL (6.4-8.2)
[2017-03-18 11:26] LABS: HYPOCHROMASIA SLIGHT; LYMPHOCYTES % (MANUAL) 12 %; NEUTROPHILS % (MANUAL) 81 %
[2017-03-18] MEDS: METOCLOPRAMIDE INJ 10 MG/2 ML (REGLAN) IVP SCH ×4 (11:43→23:00)
--- NOTE | 2017-03-18 12:02 | Consultation ---
History of Present Illness History of Present Illness Patient Consulted On(rajwinder/time) 03/18/17 11:56 Date Seen by Provider: Mar 18, 2017 Time Seen by Provider: 11:00 Reason for Visit: postop ileus History of Present Illness fall at same level with right patellar tendon injury and fracture left femur. s/ p patellar repair POD#4. abdominal distention with nausea. had BM yesterday and passing flatus. Allergies and Home Medications Allergies Coded Allergies: No Known Allergies (Verified Allergy, Unknown, 03/14/17) Home Medications Metformin HCl 500 Mg Tablet, 500 MG PO BID, (Reported) Metoprolol Tartrate 50 Mg Tablet, 50 MG PO DAILY, (Reported) Past Bwrfyek-[id number]-Vwvgtp Hx Patient Social History Alcohol Use: Denies Use Recreational Drug Use: No Smoking Status: Unknown if Ever Smoked Recent Foreign Travel: No Contact w/Someone Who Travel: No Recent Infectious Disease Expo: No Recent Hopitalizations: Yes Physical Abuse Screen: No Sexual Abuse: No Immunizations Up To Date Tetanus Booster (TDap): Unknown Seasonal Allergies Seasonal Allergies: No Surgeries HX Surgeries: Yes Surgeries: Orthopedic Respiratory Hx Respiratory Disorders: No Cardiovascular Hx Cardiac Disorders: Yes Cardiac Disorders: Hypertension Neurological Hx Neurological Disorders: No Reproductive System Hx Reproductive Disorders: No Sexually Transmitted Disease: No HIV/AIDS: No Genitourinary Hx Genitourinary Disorders: No Gastrointestinal Hx Gastrointestinal Disorders: No Musculoskeletal Hx Musculoskeletal Disorders: Yes Musculoskeletal Disorders: Fractures Endocrine Hx Endocrine Disorders: Yes Endocrine Disorders: Diabetes, Non-Insulin dep HEENT HX ENT Disorders: No Cancer Hx Cancer: No Psychosocial Hx Psychiatric Problems: No Integumentary HX Skin/Integumentary Disorder: No Blood Transfusions Adverse Reaction to a Blood Tr: No Family Medical History Significant Family History: No Pertinent Family Hx Family Medial History: Patient reports no known family medical history. Review of Systems-General Gastrointestinal: diarrhea, nausea Musculoskeletal: joint pain All Other Systems Reviewed Negative Unless Noted: Yes Physical Exam-General Problems Physical Exam Vital Signs Vital Sign - Last 12Hours 03/17/17 03/17/17 13:22 18:01 Temp 98.5 Pulse 81 Resp 20 B/P (MAP) 161/73 Pulse Ox 93 O2 Delivery Room Air O2 Flow Rate 2.00 Capillary Refill : Less Than 3 Seconds General Appearance: WD/WN HEENT: PERRL/EOMI Neck: non-tender, full range of motion Respiratory: chest non-tender, lungs clear Cardiovascular: regular rate, rhythm Gastrointestinal: normal bowel sounds, soft, distended Back: normal inspection Extremities: normal range of motion, non-tender Neurologic/Psychiatric: alert, oriented x 3 Skin: normal color Lymphatic: no adenopathy Assessment/Plan Assessment/Plan Admission Diagnosis/Plan post-op ileus. started on reglan. tolerating diet but recommend mostly liquids for now. increase PT, sitting upright, ambulation as much as possible. Clinical Quality Measures DVT/VTE Risk/Contraindication: Risk Factor Score Per Nursin RFS Level Per Nursing on Admit: 4+=Very High Copy Copies To 1: MONI BROOKS MD, TAKAAKI MD Mar 18, 2017 12:02 pm
[2017-03-18] MEDS: NS IV 1000 ML 1,000 ML IV SCH (12:06)
--- NOTE | 2017-03-18 12:08 | Physical Therapy Daily Note ---
PT Daily Note-Current Subjective Pt. continues to c/o SOB won in upright position as well as "this really uncomfortable big belly, my legs arent usually this bug either." Agrees to therex ans sitting EOB, but after up on EOB pts color became dusky and he was more SOB Pain Numeric Pain Scale: 3 Location: Right Location Body Site: Knee Pain Description: Stabbing Appearance very distended hard belly Mental Status Patient Orientation: Normal For Age Attachments: Oxygen (2L) Transfers Functional [place] Measure 0=Not Assessed/NA 4=Minimal Assistance 1=Total Assistance 5=Supervision or Setup 2=Maximal Assistance 6=Modified [place] 3=Moderate Assistance 7=Complete IndependenceIRFPAI Quality Coding Scale 6 Independent with activity with or without an assistive device 5 Patient requires set up or clean up by helper. Patient completes activity by themselves 4 Supervision or touching assist (CGA). [place] provide cues , steadying assist 3 The helper provides less than half the effort to complete the activity 2 The helper provides more than half the effort to complete the activity 1 Dependent. The helper does all the effort to complete an activity 7 Patient refused to complete or attempt activity 9 The patient did not perform the activity before the current illness or injury 88 Not attempted due to Medical conditions or safety concerns Transfers (B, C, W/C) (FIM): 3 Scootin Rollin Supine to/from Sit: 3 pt. unable to lay flat to attempt to push self up in bed. pt. with much edema in tummy as well as LEs required mod to max assist to move RLE secondary to pain in patella and the limitations caused by large hard tummy and swelling in LEs Exercises Supine Ex: Ankle pumps, Quad Set, Rolling, Glut sets, Heel Slides, Short Arc Quads, Scooting, Straight leg raise (w assist), Hip abd/add (with assist RLE) Seated Therapy Exercises: Ankle pumps, Long arc quads Seated Reps: 12 Treatments .O2 sats steady at 95% but pts color malin when upright and c/o more SOB. Pt. did sit EOB and scooted to edge to try to give hard swollen tummy more room but this was not tolerated well.Pt. left with B LEs elevated and HOB up to help with breathing. Pt. unable to lay flat Assessment Current Status: Fair Progress pt. limited by SOB and edema in abdomen PT Short Term Goals Short Term Goals Time Frame: Mar 24, 2017 Transfers (B,C,W/C) (FIM): 4 Wheelchair (FIM): 5 Wheelchair distance (FIM): 3=150 ft Wheelchair Distance: 50 ft PT Longterm Goals Assembler Bonding Goals PT Longterm Goals Time Frame: Apr 07, 2017 Transfers (B,C,W/C) (FIM): 5 Sit to Lying (QC): 6 Lying-Sitting on Side/Bed(QC): 6 Sit to Stand (QC): 88 Rollin Roll Left to Right (QC): 6 Chair/Tph-km-Utfnp Xfer(QC): 5 Car Transfer (QC): 4 Gait (FIM): 0 (unable to ambulate; TTWB B LE's) Does the Pt use WC or Scooter?: Yes Wheelchair (FIM): 6 Wheel 50 feet with 2 turns (QC: 6 Stairs (FIM): 1 (unable due to TTWB B LE;s) 1 Step (curb) (QC): 88 4 Steps (QC): 88 12 Steps (QC): 88 Picking up an Object (QC): 88 PT Plan Treatment/Plan Treatment Plan: Continue Plan of Care Treatment Plan: Bed Mobility, Education, Functional Activity Rochelle, Functional Strength, Group Therapy, Other (wc mob), Safety, Therapeutic Exercise, Transfers Treatment Duration: Apr 07, 2017 Visits Per Week: 180 min 5 of 7 Safety Risks/Education Patient Education: Transfer Techniques, Correct Positioning, Disease Process, Safety Issues Teaching Recipient: Patient Teaching Methods: Discussion Response to Teaching: Verbalize Understanding, Reinforcement Needed Time/GCodes Time In: 1115 Time Out: 1215 Total Billed Treatment Time: 60 Total Billed Treatment 1,FA35,EX25 G Codes Necessary: REX Hansen BILLING AUDITOR Mar 18, 2017 12:08
--- NOTE | 2017-03-18 12:43 | Occupational Ther Daily Note ---
OT Current Status-Daily Note Subjective Pt. states that he did not have a "very good night." States, "I just couldn't sleep." Appearance Pt. in bed. Agrees to spongebathe on side of bed. Mental Status/Objective Patient Orientation: Person Functional [place] Measure 0=Not Assessed/NA 4=Minimal Assistance 1=Total Assistance 5=Supervision or Setup 2=Maximal Assistance 6=Modified [place] 3=Moderate Assistance 7=Complete [place] ADL-Treatment Functional [place] Measure 0=Not Assessed/NA 4=Minimal Assistance 1=Total Assistance 5=Supervision or Setup 2=Maximal Assistance 6=Modified [place] 3=Moderate Assistance 7=Complete IndependenceIRFPAI Quality Coding Scale 6 Independent with activity with or without an assistive device 5 Patient requires set up or clean up by helper. Patient completes activity by themselves 4 Supervision or touching assist (CGA). [place] provide cues , steadying assist 3 The helper provides less than half the effort to complete the activity 2 The helper provides more than half the effort to complete the activity 1 Dependent. The helper does all the effort to complete an activity 7 Patient refused to complete or attempt activity 9 The patient did not perform the activity before the current illness or injury 88 Not attempted due to Medical conditions or safety concerns Bathing (FIM): 3 (Pt. attempts to wash amina area, but can't get to it adequately on side of bed, or supine. Is able to wash upper half and feet with sponge.) Shower/Bathe Self (QC): 2 Upper Body (FIM): 5 (Able to don shirt with set up.) Upper Body Dressing (QC): 5 Lower Body Dressing (FIM): 2 (Pt. requires max assistance to don knee brace, TEDS, underwear, and shorts. Is able to don socks with sock aide with mod assist needed.) Lower Body Dressing (QC): 2 On/Off Footwear (QC): 3 Toileting (FIM): 1 (Pt. incontinent of stool once in bed, and then uses bed buitrago twice with diarrhea. Dependent for clean up.) Toileting Hygiene (QC): 1 Other Treatment Pt. agreed to spongebathe. Transferred supine-sit with mod assist needed. Pt. began to wash self, but short of breath, even with 3 L 02 on. Sats at 95%. Took several rest breaks. Able to get chest, arms, LE on side of bed, but unable to wash amina area, even with rocking side to side. Laid back down with mod assist. Unable to reach it this way either. OT washed front and rear amina area for him. Pt. states, "I'm going to go, I need a pad under me." OT able to get bed buitrago under pt. Pt. uses this twice with subsequent cleansing of amina area after. Nursing in room to help with cleanup. Max x 2 for bed mobility, and OT donned underwear and shorts at this time in bed. Able to roll but required assist to lime puller hips. All needs met in room. Did not have opportunity to get pt. to wheelchair. Education OT Patient Education: Correct positioning, Modified ADL techniques, Progress toward Goal/Update tx plan, Purpose of tx/functional activities, Reviewed precautions, Rehab process, Transfer techniques, Use of adapted equipment Teaching Recipient: Patient Teaching Methods: Demonstration, Discussion Response to Teaching: Verbalize Understanding, Return Demonstration OT Short Term Goals Short Term Goals Time Frame: Mar 24, 2017 Eating(FIM): 5 Grooming(FIM): 5 Bathing(FIM): 3 Upper Body Dressing(FIM): 5 Lower Body Dressing(FIM): 4 Toileting(FIM): 5 Transfers (B,C,W/C) (FIM): 4 Toilet/Commode Transfer(FIM): 4 Additional Short Term Goals: 1-Demonstrate ADL Tasks, 2-Verbalize Understanding , 3-ImproveStrength/Rochelle 1=Demonstrate adherence to instructed precautions during ADL tasks. 2=Patient will verbalize/demonstrate understanding of assistive devices/ modifications for ADL. 3=Patient will improve strength/tolerance for activity to enable patient to perform ADL's. OT Half-Way Goals Sales Representative Livestock Goals Time Frame: Apr 07, 2017 Eating (FIM): 6 Eating (QC): 6 Groomin Oral Hygiene (QC): 5 Bathing(FIM): 5 Shower/Bathe Self (QC): 5 Upper Body Dressing(FIM): 5 Upper Body Dressing (QC): 5 Lower Body Dressing(FIM): 5 Lower Body Dressing (QC): 5 On/Off Footwear (QC): 5 Toileting(FIM): 6 Toileting Hygiene (QC): 6 Transfers (B,C,W/C) (FIM): 5 Toilet/Commode Transfer(FIM): 6 Toilet/Commode Transfer (QC): 6 Shower Transfer(FIM): 4 Additional Goals: 1-Demonstrate ADL Tasks, 2-Verbalize Understanding, 3- ImproveStrength/Rochelle 1=Demonstrate adherence to instructed precautions during ADL tasks. 2=Patient will verbalize/demonstrate understanding of assistive devices/ modifications for ADL. 3=Patient will improve strength/tolerance for activity to enable patient to perform ADL's. OT Education/Plan Problem List/Assessment Assessment: Decreased Activ Tolerance, Decreased UE Strength, Dependent Transfers, Impaired Bed Mobility, Impaired Funct Balance, Impaired I ADL's, Impaired Self-Care Skills, Restricted Funct UE ROM Discharge Recommendations Plan/Recommendations: Continue POC Therapy D/C Recommendations: Home w/ Family Support, Occupational Therapy Home Care Treatment Plan/Plan of Care Treatment,Training & Education: Yes Patient would benefit from OT for education, treatment and training to promote independence in ADL's, mobility, safety and/or upper extremity function for ADL' s. Plan of Care: ADL Retraining, Caregiver Training, Functional Mobility, UE Funct Exercise/Act Treatment Duration: Apr 07, 2017 Visits Per Week: 10 Rehab Potential: Good Time/GCodes Start Time: 09:00 Stop Time: 10:00 Total Time Billed (hr/min): 60 Billed Treatment Time 1, ADL x 4 ANGEL MOODY OT Mar 18, 2017 12:43
--- NOTE | 2017-03-18 12:44 | Diagnostic Imaging Report ---
EXAMINATION: Supine view of the abdomen. INDICATION: Abdominal distention. FINDINGS: There is moderate dilatation of the colon with mostly gaseous content. There are a few mildly dilated small bowel loops also seen. Th stomach is also distended. There is no significant fold thickening suggested. The findings are suggestive of an ileus. There is left hip replacement and a partially visualized intramedullary nail in the right femur. IMPRESSION: The findings are suggestive of ileus. Dictated by: Dictated on workstation # [id number]
--- NOTE | 2017-03-18 14:51 | Individualized Plan of Care ---
Individualized Plan of Care Rehab Nursing IPOC Order Admission Date Mar 17, 2017 at 12:26 Current Orders Orders Patient Visit (03/17/17 ) Patient Visit (03/17/17 ) Pt Eval Moderate Complexity (03/17/17 ) Functional Activities, Ea 15 (03/17/17 ) Consult Physician (03/17/17 15:54) Nursing Communication (Patient (03/17/17 19:21) Nothing By Mouth (03/18/17 Lunch) Abdomen/[place]ub 1[place] (03/18/17 10:17) Cbc With Automated Diff (03/18/17 10:17) Comprehensive Metabolic Panel (03/18/17 10:17) Metoclopramide Injection (Reglan Injecti (03/18/17 10:30) Consult Physician (03/18/17 10:18) Soap Suds Enema Until Clear (03/18/17 10:23) Manual Differential (03/18/17 10:45) Patient Visit (03/18/17 ) Speech Sound Lang Comp (03/18/17 ) Ns Iv 1000 Ml (Sodium Chloride 0.9%) (03/18/17 11:30) Nursing Communication (Patient (03/18/17 11:19) Cbc With Automated Diff (03/19/17 06:00) Comprehensive Metabolic Panel (03/19/17 06:00) Toilet every (bladder): (hrs): 2 hours prn while awake PT IPOC Problem List: Activity Tolerance, Functional Strength, Safety Treatment Plan: Continue Plan of Care Bed Mobility, Education, Functional Activity [place]hel[place], Functional Strength, Group Therapy, Other (wc mob), Safety, Therapeutic Exercise, Transfers Treatment Duration: Apr 07, 2017 Visits Per Week: 180 min 5 of 7 Minutes/Day (M-F): 60-90 Minutes/Day (Sat/Mcmahon): prn OT IPOC Problems: Decreased Activ Tolerance, Decreased UE Strength, Dependent Transfers , Impaired Bed Mobility, Impaired Funct Balance, Impaired I ADL's, Impaired Self -Care Skills, Restricted Funct UE ROM Plan of Care: ADL Retraining, Caregiver Training, Functional Mobility, UE Funct Exercise/Act Treatment Duration: Apr 07, 2017 Visits Per Week: 10 Minutes/Day (M-F): 60-90 Minutes/Day (Sat/Mcmahon): prn ST IPOC Speech Therapy Treatment Plan: Discontinue ST Physician IPOC Medical Issues being managed closely and that require the 24 hour availability of a physician: post op ileus DM Systolic HT Murmur HTN Medical Issues: Bowel/Bladder Function, DVT Prophylaxis, Falls Precautions, Fluid/Electrolyte/Nutrition Balance, Infection Protection, Pain Management, Weight Bearing Precautions, Wound Care, Other (List) (as per above) Brief Synthesis of Preadmission Screen, Post-Admission Evaluation, and Therapy Evaluations: 81 yo male ledesma who had been Independent and living with his spouse prior to a livestock injury with resulting Distal rt femur frx managed with IM nail by orthoand left nondisplaced patella frx managed with brace with both managed with TTWB BLES Referred to [facility] for Inpatient rehab with goal of maximizing level of functional independence at the W/C level of function( due to limited WBS BLES) Being followed by Hospitalist and now Surgery service for postop ileus as well as cardiology with bedside Echo done bedside yesterday Medical Prognosis: good Anticipated Length of Stay: 7-17 Rehab Goals Modified Independent to supervision for adls and mobility skills at the w/c level of function with sliding board Treat postop ileus Anticipated discharge destinat: Home with spouse and [facility] SHARATH REID MD Mar 18, 2017 14:51
--- NOTE | 2017-03-18 15:51 | Occupational Ther Daily Note ---
OT Current Status-Daily Note Subjective Pt. in bed. States, "I just had an enema. Appearance Pt. requests bed pane when OT gets into room. Mental Status/Objective Functional [place] Measure 0=Not Assessed/NA 4=Minimal Assistance 1=Total Assistance 5=Supervision or Setup 2=Maximal Assistance 6=Modified [place] 3=Moderate Assistance 7=Complete [place] ADL-Treatment Functional [place] Measure 0=Not Assessed/NA 4=Minimal Assistance 1=Total Assistance 5=Supervision or Setup 2=Maximal Assistance 6=Modified [place] 3=Moderate Assistance 7=Complete IndependenceIRFPAI Quality Coding Scale 6 Independent with activity with or without an assistive device 5 Patient requires set up or clean up by helper. Patient completes activity by themselves 4 Supervision or touching assist (CGA). [place] provide cues , steadying assist 3 The helper provides less than half the effort to complete the activity 2 The helper provides more than half the effort to complete the activity 1 Dependent. The helper does all the effort to complete an activity 7 Patient refused to complete or attempt activity 9 The patient did not perform the activity before the current illness or injury 88 Not attempted due to Medical conditions or safety concerns Lower Body Dressing (FIM): 1 (see note below) Toileting (FIM): 1 (see note below) Toileting Hygiene (QC): 1 Other Treatment Pt. is able to roll with mod assistance so that OT can place bed buitrago under him. While on bedpan, OT talks with pt. regarding help at home. Pt. states that his grown kids live with him, and can help at home as needed. Pt. states that he did not go on bed buitrago. Rolled again to side with mod assist, and noted that pt. had been incontinent on sheets. Nurse tech assisted. Pt. rolled side to side with mod assist while OT washed rear amina area, as pt. could not reach. Bed sheets and pads changed as well. It is noted that pt. had also been incontinent of urine all over clothing, so this was removed for him, as he could not do it. Re-washed pt. at bed level. Pt. rolled multiple times with cues to do for self. Clothing put into washer. Donned fresh gown. Pt. has had recent enema and has not had results yet. All needs met. Education OT Patient Education: Correct positioning, Modified ADL techniques, Progress toward Goal/Update tx plan, Purpose of tx/functional activities, Reviewed precautions, Rehab process, Transfer techniques Teaching Recipient: Patient Teaching Methods: Demonstration, Discussion Response to Teaching: Verbalize Understanding, Return Demonstration OT Short Term Goals Short Term Goals Time Frame: Mar 24, 2017 Eating(FIM): 5 Grooming(FIM): 5 Bathing(FIM): 3 Upper Body Dressing(FIM): 5 Lower Body Dressing(FIM): 4 Toileting(FIM): 5 Transfers (B,C,W/C) (FIM): 4 Toilet/Commode Transfer(FIM): 4 Additional Short Term Goals: 1-Demonstrate ADL Tasks, 2-Verbalize Understanding , 3-ImproveStrength/Rochelle 1=Demonstrate adherence to instructed precautions during ADL tasks. 2=Patient will verbalize/demonstrate understanding of assistive devices/ modifications for ADL. 3=Patient will improve strength/tolerance for activity to enable patient to perform ADL's. OT Molecular Modeler Goals Molecular Modeler Goals Time Frame: Apr 07, 2017 Eating (FIM): 6 Eating (QC): 6 Groomin Oral Hygiene (QC): 5 Bathing(FIM): 5 Shower/Bathe Self (QC): 5 Upper Body Dressing(FIM): 5 Upper Body Dressing (QC): 5 Lower Body Dressing(FIM): 5 Lower Body Dressing (QC): 5 On/Off Footwear (QC): 5 Toileting(FIM): 6 Toileting Hygiene (QC): 6 Transfers (B,C,W/C) (FIM): 5 Toilet/Commode Transfer(FIM): 6 Toilet/Commode Transfer (QC): 6 Shower Transfer(FIM): 4 Additional Goals: 1-Demonstrate ADL Tasks, 2-Verbalize Understanding, 3- ImproveStrength/Rochelle 1=Demonstrate adherence to instructed precautions during ADL tasks. 2=Patient will verbalize/demonstrate understanding of assistive devices/ modifications for ADL. 3=Patient will improve strength/tolerance for activity to enable patient to perform ADL's. OT Education/Plan Problem List/Assessment Assessment: Decreased Activ Tolerance, Dependent Transfers, Impaired Bed Mobility, Impaired Funct Balance, Impaired I ADL's, Impaired Self-Care Skills, Restricted Funct UE ROM Discharge Recommendations Plan/Recommendations: Continue POC Therapy D/C Recommendations: 24 hr Supervision, Home w/ Family Support, Occupational Therapy Home Care Treatment Plan/Plan of Care Treatment,Training & Education: Yes Patient would benefit from OT for education, treatment and training to promote independence in ADL's, mobility, safety and/or upper extremity function for ADL' s. Plan of Care: ADL Retraining, Caregiver Training, Functional Mobility, UE Funct Exercise/Act Treatment Duration: Apr 07, 2017 Visits Per Week: 10 Minutes/Day (M-F): 60-90 Minutes/Day (Sat/Mcmahon): prn Rehab Potential: Good Time/GCodes Start Time: 14:00 Stop Time: 14:30 Total Time Billed (hr/min): 30 Billed Treatment Time 1, EX x 15minutes, ADL x 15minutes ANGEL MOODY OT Mar 18, 2017 15:50
--- NOTE | 2017-03-18 16:25 | Physical Therapy Daily Note ---
PT Daily Note-Current Subjective Pt. very fatigued. States he has been able to pass some gas. Agrees only to ther ex in bed Pain Numeric Pain Scale: 4 Location: Medial Location Body Site: Abdomen Pain Description: Pressure Appearance continues with firm distended belly and edema LEs Transfers Functional [place] Measure 0=Not Assessed/NA 4=Minimal Assistance 1=Total Assistance 5=Supervision or Setup 2=Maximal Assistance 6=Modified [place] 3=Moderate Assistance 7=Complete IndependenceIRFPAI Quality Coding Scale 6 Independent with activity with or without an assistive device 5 Patient requires set up or clean up by helper. Patient completes activity by themselves 4 Supervision or touching assist (CGA). [place] provide cues , steadying assist 3 The helper provides less than half the effort to complete the activity 2 The helper provides more than half the effort to complete the activity 1 Dependent. The helper does all the effort to complete an activity 7 Patient refused to complete or attempt activity 9 The patient did not perform the activity before the current illness or injury 88 Not attempted due to Medical conditions or safety concerns Exercises Supine Ex: Ankle pumps, Quad Set, Rolling, Glut sets, Heel Slides, Straight leg raise, Hip abd/add Supine Reps: 15 Assessment Current Status: Fair Progress limited by abdominal distension and limited wt bearing status in bilat LEs PT Short Term Goals Short Term Goals Time Frame: Mar 24, 2017 Transfers (B,C,W/C) (FIM): 4 Wheelchair (FIM): 5 Wheelchair distance (FIM): 3=150 ft Wheelchair Distance: 50 ft PT [facility]ci Goals Coach Tour Driver Goals PT Coach Tour Driver Goals Time Frame: Apr 07, 2017 Transfers (B,C,W/C) (FIM): 5 Sit to Lying (QC): 6 Lying-Sitting on Side/Bed(QC): 6 Sit to Stand (QC): 88 Rollin Roll Left to Right (QC): 6 Chair/Zdo-he-Jcjet Xfer(QC): 5 Car Transfer (QC): 4 Gait (FIM): 0 (unable to ambulate; TTWB B LE's) Does the Pt use WC or Scooter?: Yes Wheelchair (FIM): 6 Wheel 50 feet with 2 turns (QC: 6 Stairs (FIM): 1 (unable due to TTWB B LE;s) 1 Step (curb) (QC): 88 4 Steps (QC): 88 12 Steps (QC): 88 Picking up an Object (QC): 88 PT Plan Treatment/Plan Treatment Plan: Continue Plan of Care Treatment Plan: Bed Mobility, Education, Functional Activity Rochelle, Functional Strength, Group Therapy, Other (wc mob), Safety, Therapeutic Exercise, Transfers Treatment Duration: Apr 07, 2017 Visits Per Week: 180 min 5 of 7 Minutes/Day (M-F): 60-90 Minutes/Day (Sat/Mcmahon): prn Safety Risks/Education Patient Education: Issued Written HEP Teaching Recipient: Patient Teaching Methods: Demonstration, Discussion Response to Teaching: Verbalize Understanding, Return Demonstration, Reinforcement Needed Time/GCodes Time In: 1540 Time Out: 1555 Total Billed Treatment Time: 15 Total Billed Treatment 1,EX15m G Codes Necessary: REX Hansen TONE ARTIST APPRENTICE Mar 18, 2017 16:25
--- NOTE | 2017-03-18 16:28 | Cardiology Progress Note ---
Subjective Date Seen by Provider: Mar 18, 2017 Time Seen by Provider: 16:27 Subjective/Events-last exam patient is laying down in bed, feeling better. No new complaint. Objective-Cardiology Exam Last Set of Vital Signs Vital Signs 03/18/17 03/18/17 03/18/17 06:13 09:25 11:45 Temp 98.0 Pulse 76 Resp 22 B/P (MAP) 175/72 Pulse Ox 95 O2 Delivery Nasal Cannula O2 Flow Rate 2.00 Capillary Refill : Less Than 3 Seconds I&O Bad tableGeneral: Alert, Oriented X3, Cooperative, No Acute Distress HEENT: Atraumatic, PERRLA, EOMI, Mucous Memb Moist/[place] Neck: Supple, No JVD Lungs: Clear to Auscultation Heart: Regular Rate, Other (systolic Murmur) Abdomen: Normal Bowel Sounds, Soft, No Tenderness, Other (distended) Extremities: No Edema ( trace edema) Skin: No Rashes Neuro: Other (strength both LES 3/5 4/5 BUES sensation and cognition grossly intact) Results Lab Laboratory Tests 03/18/17 10:45 A/P-Cardiology Admission Diagnosis Elevated BNP HTN DM Right hip fracture Assessment/Plan Elevated BNP- patient reporting increased dyspnea with exertion over the past 2- 3 weeks. echo showed normal LV size and function with normal ejection fraction. Systolic murmur at left sternal border, aortic valve sclerosis no aortic stenosis on echocardiogram next Worsening renal function, mild hypokalemia, monitor kidney functions. HTN- maintained on Lopressor. Continue to monitor BP/HR DM- management by medical services Right hip fracture- s/p repair by Dr. Arambula on 03/14/17 Left patellar fracture Obesity Clinical Quality Measures DVT/VTE Risk/Contraindication: Risk Factor Score Per Nursin RFS Level Per Nursing on Admit: 4+=Very High JULIEN TORRES MD Mar 18, 2017 16:28
--- NOTE | 2017-03-18 16:36 | Progress Note (SOAP) ---
Subjective Time Seen by Provider: 16:34 Subjective/Events-last exam Abdomen distended. Uncomfortable Legs ok Incision ok Neuro stable Calves soft Xray, Ileus Imp: Left patella fracture Right distal femur fracture Post Op Ileus Cont to mobilize, increase weight bearing. Objective Exam Vital Signs Date Time Temp Pulse Resp B/P (MAP) Pulse Ox O2 Delivery O2 Flow Rate FiO2 03/18/17 11:45 95 Nasal Cannula 2.00 03/18/17 10:09 95 Nasal Cannula 2.00 03/18/17 09:25 76 22 175/72 95 Nasal Cannula 2.00 03/18/17 06:13 98.0 96 19 147/74 95 Nasal Cannula 2.00 03/17/17 21:18 Nasal Cannula 03/17/17 20:00 95 Nasal Cannula 2.00 03/17/17 18:01 98.6 83 16 166/89 97 Nasal Cannula 2.00 I & O 03/18/17 07:00 Intake Total 500 ml Output Total 700 ml Balance -200 ml Capillary Refill : Less Than 3 Seconds General Appearance: No Apparent Distress Gastrointestinal: distended Results Lab Laboratory Tests 03/17/17 21:33: Glucometer 208H 03/17/17 23:52: Glucometer 217H 03/18/17 06:05: Glucometer 210H 03/18/17 10:45: White Blood Count 18.9H, Red Blood Count 3.29L, Hemoglobin 9.8L, Hematocrit 29L , Mean Corpuscular Volume 89, Mean Corpuscular Hemoglobin 30, Mean Corpuscular Hemoglobin Concent 33, Red Cell Distribution Width 13.4, Platelet Count 339, Mean Platelet Volume 10.5H, Neutrophils (%) (Auto) 80H, Lymphocytes (%) (Auto) 9L, Monocytes (%) (Auto) 11, Eosinophils (%) (Auto) 0, Basophils (%) (Auto) 0, Neutrophils # (Auto) 15.1H, Lymphocytes # (Auto) 1.7, Monocytes # (Auto) 2.0H, Eosinophils # (Auto) 0.0, Basophils # (Auto) 0.0, Neutrophils % (Manual) 81, Lymphocytes % (Manual) 12, Monocytes % (Manual) 7, Hypochromasia SLIGHT, Blood Morphology Comment , Sodium Level 135, Potassium Level 3.4L, Chloride Level 99, Carbon Dioxide Level 22, Anion Gap 14, Blood Urea Nitrogen 34H, Creatinine 1.41H , Estimat Glomerular Filtration Rate 48, BUN/Creatinine Ratio 24, Glucose Level 278H, Calcium Level 8.7, Total Bilirubin 0.8, Aspartate Amino Transf (AST/SGOT) 16, Alanine Aminotransferase (ALT/SGPT) 12, Alkaline Phosphatase 85, Total Protein 6.7, Albumin 3.2 03/18/17 11:13: Glucometer 266H Assessment/Plan Assessment/Plan Assess & Plan/Chief Complaint Right Distal Femur Fracture Clinical Quality Measures DVT/VTE Risk/Contraindication: Risk Factor Score Per Nursin RFS Level Per Nursing on Admit: 4+=Very High MAGALY CONWAY MD Mar 18, 2017 16:36
[2017-03-18 17:34] VITALS: BP 130/77
[2017-03-19 05:07] VITALS: BP 142/80
[2017-03-19 05:13] LABS: BASOPHILS % (AUTO) 0 % (0-10); EOSINOPHILS # (AUTO) 0.1 10^3/uL (0.0-0.3); EOSINOPHILS % (AUTO) 1 % (0-10); LYMPHOCYTES # (AUTO) 1.7 X 10^3 (1.0-4.0); LYMPHOCYTES % (AUTO) 11 % (12-44); MEAN CORPUSCULAR HEMOGLOBIN 30 PG (25-34); MEAN CORPUSCULAR HGB CONC 33 G/DL (32-36); MEAN CORPUSCULAR VOLUME 90 FL (80-99); MEAN PLATELET VOLUME 10.3 FL (7.4-10.4); MONOCYTES # (AUTO) 1.8 X 10^3 (0.0-1.0); MONOCYTES % (AUTO) 12 % (0-12); NEUTROPHILS # (AUTO) 11.3 X 10^3 (1.8-7.8); NEUTROPHILS % (AUTO) 76 % (42-75); PLATELET COUNT 304 10^3/uL (130-400); RED BLOOD COUNT 3.11 10^6/uL (4.35-5.85); RED CELL DISTRIBUTION WIDTH 13.5 % (10.0-14.5)
[2017-03-19 05:27] LABS: ALBUMIN 2.9 GM/DL (3.2-4.5); BILIRUBIN,TOTAL 0.8 MG/DL (0.1-1.0); CALCIUM 8.3 MG/DL (8.5-10.1); CREATININE SERUM 1.22 MG/DL (0.60-1.30); POTASSIUM 3.2 MMOL/L (3.6-5.0); TOTAL PROTEIN 6.2 GM/DL (6.4-8.2)
[2017-03-19] MEDS: METOCLOPRAMIDE INJ 10 MG/2 ML (REGLAN) IVP SCH ×3 (05:27→18:54)
[2017-03-19] MEDS: inSUlin ASPART (NovoLOG) 1 UNIT/0.01 ML (CHARGE PER UNIT) SC SCH ×4 (05:28→21:13)
[2017-03-19] MEDS: KCL 10 MEQ TAB (MICRO K) PO SCH (05:28)
[2017-03-19] MEDS: RT-ALBUTEROL/IPRATROPIUM 3 ML (DUONEB) VIAL INH SCH ×3 (06:15→22:15)
[2017-03-19] MEDS: NS IV 1000 ML 1,000 ML IV SCH (06:34)
--- NOTE | 2017-03-19 08:11 | PM & R (SOAP) Progress Note ---
Subjective Time Seen by Provider: 07:30 Subjective/Events-last exam Patient was seen in his room this morning.Abdomen still distended Appreciate DR Bautista and Silvia notes and orders Patient mod assist for transfers Review of Systems Gastrointestinal: Other (distention) Objective Exam Last Set of Vital Signs Vital Signs Date Time Temp Pulse Resp B/P (MAP) Pulse Ox O2 Delivery O2 Flow Rate FiO2 03/19/17 06:15 93 Nasal Cannula 2.00 03/19/17 05:07 98.6 96 18 142/80 Capillary Refill : Less Than 3 Seconds I&O Intake and Output 03/19/17 00:00 Intake Total 550 ml Output Total 1650 ml Balance -1100 ml Intake Oral 550 ml Output Urine Total 1550 ml Emesis 100 ml # Voids 3 # Bowel Movements 7 General: Alert, Oriented X3, Cooperative, No Acute Distress HEENT: Atraumatic, PERRLA, EOMI, Mucous Memb Moist/[place] Neck: Supple, No JVD Lungs: Clear to Auscultation Heart: Regular Rate, Other (systolic Murmur) Abdomen: Normal Bowel Sounds, Soft, No Tenderness, Other (distended) Extremities: No Edema ( trace edema) Skin: No Rashes Neuro: Other (strength both LES 3/5 4/5 BUES sensation and cognition grossly intact) Results Lab Laboratory Tests 03/17/17 15:48: Glucometer 196H 03/17/17 21:33: Glucometer 208H 03/17/17 23:52: Glucometer 217H 03/18/17 06:05: Glucometer 210H 03/18/17 10:45: White Blood Count 18.9H, Red Blood Count 3.29L, Hemoglobin 9.8L, Hematocrit 29L , Mean Corpuscular Volume 89, Mean Corpuscular Hemoglobin 30, Mean Corpuscular Hemoglobin Concent 33, Red Cell Distribution Width 13.4, Platelet Count 339, Mean Platelet Volume 10.5H, Neutrophils (%) (Auto) 80H, Lymphocytes (%) (Auto) 9L, Monocytes (%) (Auto) 11, Eosinophils (%) (Auto) 0, Basophils (%) (Auto) 0, Neutrophils # (Auto) 15.1H, Lymphocytes # (Auto) 1.7, Monocytes # (Auto) 2.0H, Eosinophils # (Auto) 0.0, Basophils # (Auto) 0.0, Neutrophils % (Manual) 81, Lymphocytes % (Manual) 12, Monocytes % (Manual) 7, Hypochromasia SLIGHT, Blood Morphology Comment , Sodium Level 135, Potassium Level 3.4L, Chloride Level 99, Carbon Dioxide Level 22, Anion Gap 14, Blood Urea Nitrogen 34H, Creatinine 1.41H , Estimat Glomerular Filtration Rate 48, BUN/Creatinine Ratio 24, Glucose Level 278H, Calcium Level 8.7, Total Bilirubin 0.8, Aspartate Amino Transf (AST/SGOT) 16, Alanine Aminotransferase (ALT/SGPT) 12, Alkaline Phosphatase 85, Total Protein 6.7, Albumin 3.2 03/18/17 11:13: Glucometer 266H 03/18/17 17:56: Glucometer 162H 03/18/17 21:58: Glucometer 163H 03/19/17 04:53: White Blood Count 15.0H, Red Blood Count 3.11L, Hemoglobin 9.2L, Hematocrit 28L , Mean Corpuscular Volume 90, Mean Corpuscular Hemoglobin 30, Mean Corpuscular Hemoglobin Concent 33, Red Cell Distribution Width 13.5, Platelet Count 304, Mean Platelet Volume 10.3, Neutrophils (%) (Auto) 76H, Lymphocytes (%) (Auto) 11L, Monocytes (%) (Auto) 12, Eosinophils (%) (Auto) 1, Basophils (%) (Auto) 0, Neutrophils # (Auto) 11.3H, Lymphocytes # (Auto) 1.7, Monocytes # (Auto) 1.8H, Eosinophils # (Auto) 0.1, Basophils # (Auto) 0.0, Sodium Level 137, Potassium Level 3.2L, Chloride Level 103, Carbon Dioxide Level 24, Anion Gap 10, Blood Urea Nitrogen 33H, Creatinine 1.22, Estimat Glomerular Filtration Rate 57, BUN/ Creatinine Ratio 27, Glucose Level 172H, Calcium Level 8.3L, Magnesium Level 2.0 , Total Bilirubin 0.8, Aspartate Amino Transf (AST/SGOT) 15, Alanine Aminotransferase (ALT/SGPT) 12, Alkaline Phosphatase 70, Total Protein 6.2L, Albumin 2.9L 03/19/17 04:54: Glucometer 165H Assessment/Plan Assessment Fall with rt distal femur frx s/p IM nail Ortho TTWB RLE Left nondisplaced Patella frx managed with knee brace and TTWB LLE Systolic HT Murmur being evaluated with Cardiology with Bedside Echo HTN controlled DM controlled Prior Lower ext injury after tractor ran over him recovered well Post op constipation Postop ileus Plan Patient admitted to IRU for a comprehensive program of Inpatient ortho rehab with goal of maximizing level of functional [place] at w/c level of function due to limited WBS BLES Continue with PT/OT F/U with Hospitalist and Cardiology and Orthopedics as peer their schedule See Mar for current meds See PT/OT for further details on current functional status See RAIZA for further details as well Recheck labs Check KUB-done Adjust diet and ivfs and meds as indicated for ileus See orders. F/U with DR Sierra General Surgery as per his schedule SHARATH REID MD Mar 19, 2017 08:11
[2017-03-19 08:58] VITALS: BP 120/73
[2017-03-19] MEDS: ENOXAPARIN 30 MG/0.3 ML (LOVENOX) SYR SC SCH ×2 (09:07→20:59)
--- NOTE | 2017-03-19 10:50 | Cardiology Progress Note ---
Subjective Date Seen by Provider: Mar 19, 2017 Time Seen by Provider: 10:00 Subjective/Events-last exam Patient is laying down in bed, feeling better, no new complaint, no chest pain or shortness of breath Review of Systems General: No Chills, No Night Sweats, No Fatigue, No Malaise, No Appetite, No Other HEENT: No Head Aches, No Visual Changes, No Eye Pain, No Ear Pain, No Dysphasia , No Sinus Congestion, No Post Nasal Drip, No Sore Throat, No Other Pulmonary: No Dyspnea, No Cough, No Pleuritic Chest Pain, No Other Cardiovascular: No: Chest Pain, Edema, Lt Headedness, Orthopnea, Other, Palpitations, Paroxysmal Noc. Dyspnea Objective-Cardiology Exam Last Set of Vital Signs Vital Signs 03/19/17 08:58 Temp 99.3 Pulse 98 Resp 18 B/P (MAP) 120/73 Pulse Ox 95 O2 Delivery Nasal Cannula O2 Flow Rate 2.00 Capillary Refill : Less Than 3 Seconds I&O Intake and Output 03/19/17 00:00 Intake Total 550 ml Output Total 1650 ml Balance -1100 ml Intake Oral 550 ml Output Urine Total 1550 ml Emesis 100 ml # Voids 3 # Bowel Movements 7 General: Alert, Oriented X3, Cooperative, No Acute Distress HEENT: Atraumatic, PERRLA, EOMI, Mucous Memb Moist/[place] Neck: Supple, No JVD Lungs: Clear to Auscultation Heart: Regular Rate, Other (systolic Murmur) Abdomen: Normal Bowel Sounds, Soft, No Tenderness, Other (distended) Extremities: No Edema ( trace edema) Skin: No Rashes Neuro: Other (strength both LES 3/5 4/5 BUES sensation and cognition grossly intact) Results Lab Laboratory Tests 03/19/17 04:53 A/P-Cardiology Admission Diagnosis Elevated BNP HTN DM Right hip fracture Assessment/Plan Elevated BNP- patient reporting increased dyspnea with exertion over the past 2- 3 weeks. echo showed normal LV size and function with normal ejection fraction. Continue to monitor at this time. Hypokalemia, replace and monitor, managed by primary care physician Systolic murmur at left sternal border, aortic valve sclerosis no aortic stenosis on echocardiogram Chronic renal insufficiency, continue to monitor renal function HTN- maintained on Lopressor. Continue to monitor BP/HR DM- management by medical services Right hip fracture- s/p repair by Dr. Arambula on 03/14/17 Left patellar fracture Obesity Clinical Quality Measures DVT/VTE Risk/Contraindication: Risk Factor Score Per Nursin RFS Level Per Nursing on Admit: 4+=Very High JULIEN TORRES MD Mar 19, 2017 10:50
[2017-03-19] MEDS ORDERED: KCL 20 MEQ TAB (K-DUR) PO NR (11:00)
--- NOTE | 2017-03-19 11:14 | Progress Note-Hospitalist ---
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 Sierra consult appreciated Soap suds enema prn Lift fluid restriction DIANA RENNER DO Mar 19, 2017 11:14
[2017-03-19] MEDS: LACTULOSE SYRUP 10GM/15ML (ENULOSE) 30ML UDC PO SCH ×2 (11:40→20:59)
[2017-03-19] MEDS: meTOprolol TARTRATE 50 MG (LOPRESSOR) TAB PO SCH (11:40)
[2017-03-19] MEDS: SENNOSIDES 8.6 MG (SENOKOT) TAB PO SCH ×2 (11:40→20:59)
[2017-03-19] MEDS: FUROSEMIDE 40 MG (LASIX) TAB PO SCH (11:40)
--- NOTE | 2017-03-19 11:55 | Physical Therapy Daily Note ---
PT Daily Note-Current Subjective Pt. states his gut feels better and he is looking forward to trying to get up and walk today as per Dr. Swain order yesterday. pt. states he does not have increased pain in LEs with gait and TRFs, Pain Numeric Pain Scale: 0-No Pain Mental Status Patient Orientation: Normal For Age Attachments: Oxygen (2L on initially with Rx but DCd with gait as pt maintained 97% with activity and walking) Transfers Functional [place] Measure 0=Not Assessed/NA 4=Minimal Assistance 1=Total Assistance 5=Supervision or Setup 2=Maximal Assistance 6=Modified [place] 3=Moderate Assistance 7=Complete IndependenceIRFPAI Quality Coding Scale 6 Independent with activity with or without an assistive device 5 Patient requires set up or clean up by helper. Patient completes activity by themselves 4 Supervision or touching assist (CGA). [place] provide cues , steadying assist 3 The helper provides less than half the effort to complete the activity 2 The helper provides more than half the effort to complete the activity 1 Dependent. The helper does all the effort to complete an activity 7 Patient refused to complete or attempt activity 9 The patient did not perform the activity before the current illness or injury 88 Not attempted due to Medical conditions or safety concerns Transfers (B, C, W/C) (FIM): 4 Scootin Rollin Supine to/from Sit: 4 Sit to/from Stand: 4 Bed to/from Chair: 4 with cushion in chair ie raised seat level pt was able to sit to stand with CGA to SBA Weight Bearing Weight Bearing Restriction: Weight Bearing/Tolerated (LLE), Partial Weight Bearing (RLE) Gait Training Does the Patient Walk?: Yes Gait (FIM): 1 Distance (FIM): 1=up to 49 ft (8ftx3) Gait Level of Assist: 4 Gait Persons Needed: 1 Gait Assistive Device: FWW heavy wt bearing onto FWW, pt managing well for gait with cues each step for wt bearing and advancing FWW Wheelchair Training Does the Pt Use a Wheelchair?: Yes Type of Wheelchair: Manual braking and pushing 15-20 ft Exercises Supine Ex: Ankle pumps, Quad Set, Glut sets, Heel Slides, Short Arc Quads, Scooting, Hip abd/add Supine Reps: 12 Seated Therapy Exercises: Sit to stand, Long arc quads Seated Reps: 10 Assessment Current Status: Good Progress belly not as distended, gait and TRFs and mobility improved PT Short Term Goals Short Term Goals Time Frame: Mar 24, 2017 Transfers (B,C,W/C) (FIM): 4 Wheelchair (FIM): 5 Wheelchair distance (FIM): 3=150 ft Wheelchair Distance: 50 ft PT Retirement Goals Retirement Goals PT Composition Instructor Goals Time Frame: Apr 07, 2017 Transfers (B,C,W/C) (FIM): 5 Sit to Lying (QC): 6 Lying-Sitting on Side/Bed(QC): 6 Sit to Stand (QC): 88 Rollin Roll Left to Right (QC): 6 Chair/Ifl-ic-Hxxjj Xfer(QC): 5 Car Transfer (QC): 4 Gait (FIM): 0 (unable to ambulate; TTWB B LE's) Does the Pt use WC or Scooter?: Yes Wheelchair (FIM): 6 Wheel 50 feet with 2 turns (QC: 6 Stairs (FIM): 1 (unable due to TTWB B LE;s) 1 Step (curb) (QC): 88 4 Steps (QC): 88 12 Steps (QC): 88 Picking up an Object (QC): 88 PT Plan Treatment/Plan Treatment Plan: Continue Plan of Care Treatment Plan: Bed Mobility, Education, Functional Activity Rochel[place], Functional Strength, Group Therapy, Other (wc mob), Safety, Therapeutic Exercise, Transfers Treatment Duration: Apr 07, 2017 Visits Per Week: 180 min 5 of 7 Minutes/Day (M-F): 60-90 Minutes/Day (Sat/Mcmahon): prn Safety Risks/Education Patient Education: Gait Training, Transfer Techniques, Correct Positioning, W/ C Management, Safety Issues Teaching Recipient: Patient Teaching Methods: Demonstration, Discussion Response to Teaching: Verbalize Understanding, Return Demonstration, Reinforcement Needed Time/GCodes Time In: 1100 Time Out: 1200 Total Billed Treatment Time: 60 Total Billed Treatment 1,GT25m,FA20m,EX15m G Codes Necessary: REX Hansen METER REPAIR SHOP SUPERVISOR Mar 19, 2017 11:55
--- NOTE | 2017-03-19 11:56 | Occupational Ther Daily Note ---
OT Current Status-Daily Note Subjective Pt in bed, states he is feeling better today, agrees to treatment. Pt has no c/ o pain during session. Mental Status/Objective Functional [place] Measure 0=Not Assessed/NA 4=Minimal Assistance 1=Total Assistance 5=Supervision or Setup 2=Maximal Assistance 6=Modified [place] 3=Moderate Assistance 7=Complete [place] Attachments: IV, Oxygen ADL-Treatment Pt agrees to sponge bath. Supine to sit with moderate assistance and cues for technique. Pt sat EOB with good balance during ADL activity. Pt able to wash bilateral UE, chest, abdomen and amina area. Assist required to wash LE and buttocks. Assist required to don hospital gown secondary to IV. Pt completed LE dressing while in bed with max assist. Pt able to roll left and right to pull pants up over hips. Pt donned bilateral socks using sock aid while seated EOB. Pt required moderate assistance and skilled verbal cues to complete task. Pt complete oral care with set up. Occasional rest breaks required throughout treatment. Functional [place] Measure 0=Not Assessed/NA 4=Minimal Assistance 1=Total Assistance 5=Supervision or Setup 2=Maximal Assistance 6=Modified [place] 3=Moderate Assistance 7=Complete IndependenceIRFPAI Quality Coding Scale 6 Independent with activity with or without an assistive device 5 Patient requires set up or clean up by helper. Patient completes activity by themselves 4 Supervision or touching assist (CGA). [place] provide cues , steadying assist 3 The helper provides less than half the effort to complete the activity 2 The helper provides more than half the effort to complete the activity 1 Dependent. The helper does all the effort to complete an activity 7 Patient refused to complete or attempt activity 9 The patient did not perform the activity before the current illness or injury 88 Not attempted due to Medical conditions or safety concerns Grooming (FIM): 5 Oral Hygiene (QC): 5 Bathing (FIM): 3 Lower Body Dressing (FIM): 2 Other Treatment Pt performed bilateral UE activity to promote increased strength needed for ADLs and transfers. Pt performed biceps curls and triceps extension exercises x15 reps with moderate resistance (red) theraband. Rest breaks between exercises. Bilateral hand technical services rep exercises x20 reps with minimal resistance therapy foam. Pt in bed with needs met after session. OT Short Term Goals Short Term Goals Time Frame: Mar 24, 2017 Eating(FIM): 5 Grooming(FIM): 5 Bathing(FIM): 3 Upper Body Dressing(FIM): 5 Lower Body Dressing(FIM): 4 Toileting(FIM): 5 Transfers (B,C,W/C) (FIM): 4 Toilet/Commode Transfer(FIM): 4 Additional Short Term Goals: 1-Demonstrate ADL Tasks, 2-Verbalize Understanding , 3-ImproveStrength/Rochelle 1=Demonstrate adherence to instructed precautions during ADL tasks. 2=Patient will verbalize/demonstrate understanding of assistive devices/ modifications for ADL. 3=Patient will improve strength/tolerance for activity to enable patient to perform ADL's. OT [facility] Goals Sas Administrator Goals Time Frame: Apr 07, 2017 Eating (FIM): 6 Eating (QC): 6 Groomin Oral Hygiene (QC): 5 Bathing(FIM): 5 Shower/Bathe Self (QC): 5 Upper Body Dressing(FIM): 5 Upper Body Dressing (QC): 5 Lower Body Dressing(FIM): 5 Lower Body Dressing (QC): 5 On/Off Footwear (QC): 5 Toileting(FIM): 6 Toileting Hygiene (QC): 6 Transfers (B,C,W/C) (FIM): 5 Toilet/Commode Transfer(FIM): 6 Toilet/Commode Transfer (QC): 6 Shower Transfer(FIM): 4 Additional Goals: 1-Demonstrate ADL Tasks, 2-Verbalize Understanding, 3- ImproveStrength/Rochelle 1=Demonstrate adherence to instructed precautions during ADL tasks. 2=Patient will verbalize/demonstrate understanding of assistive devices/ modifications for ADL. 3=Patient will improve strength/tolerance for activity to enable patient to perform ADL's. OT Education/Plan Discharge Recommendations Plan/Recommendations: Continue POC Treatment Plan/Plan of Care Patient would benefit from OT for education, treatment and training to promote independence in ADL's, mobility, safety and/or upper extremity function for ADL' s. Plan of Care: ADL Retraining, Caregiver Training, Functional Mobility, UE Funct Exercise/Act Treatment Duration: Apr 07, 2017 Visits Per Week: 10 Minutes/Day (M-F): 60-90 Minutes/Day (Sat/Mcmahon): prn Rehab Potential: Good Time/GCodes Start Time: 08:00 Stop Time: 09:00 Total Time Billed (hr/min): 60 Billed Treatment Time 1 visit, ADLx3(50minutes), Ex(10minutes) LEN CHURCH OT Mar 19, 2017 11:56
--- NOTE | 2017-03-19 14:49 | Therapy Group Daily Note ---
Therapy Daily Group Note Patient Education Topic Other List Below (nutrition) Exercises LE Seated Exercise, UE Exercise Other/Notes Pt. attended group PT OT session this date. Pt introduced himself with and shared where he lived and enjoyed the social aspect laughing and visiting well. Pt. participated in seated U&L extremity ther ex as well as seated activity group for volleyball activity incorporating hand eye coordination and core strengthening. Pt. to room with assist for TRFs and short gait distance to bed. Graham at hand, needs met. Start Time: 13:00 Stop Time: 14:15 Total Billed Treatment Time: 75 Total Billed Treatment 1,GRP REX ALVAREZ REINSURANCE CLAIMS ANALYST Mar 19, 2017 14:49
--- NOTE | 2017-03-19 15:14 | Progress Note (SOAP) ---
Subjective Date Seen by Provider: Mar 19, 2017 Time Seen by Provider: 14:30 Subjective/Events-last exam doing well. having BM's and tolerating diet. ileus resolving. Objective Exam Vital Signs Date Time Temp Pulse Resp B/P (MAP) Pulse Ox O2 Delivery O2 Flow Rate FiO2 03/19/17 14:57 95 Nasal Cannula 2.00 03/19/17 08:58 99.3 98 18 120/73 95 Nasal Cannula 2.00 03/19/17 08:24 Nasal Cannula 2.00 03/19/17 06:15 93 Nasal Cannula 2.00 03/19/17 05:07 98.6 96 18 142/80 95 Nasal Cannula 2.00 03/18/17 20:54 Nasal Cannula 2.00 03/18/17 19:28 92 Nasal Cannula 2.00 03/18/17 17:34 99.1 87 20 130/77 95 Nasal Cannula 2.00 I & O 03/19/17 07:00 Intake Total 1017 ml Output Total 1350 ml Balance -333 ml Capillary Refill : Less Than 3 Seconds General Appearance: No Apparent Distress HEENT: PERRL/EOMI Neck: Full Range of Motion Respiratory: Chest Non Tender, Lungs Clear Cardiovascular: Regular Rate, Rhythm Gastrointestinal: normal bowel sounds, soft Extremity: Normal Capillary Refill Neurologic/Psychiatric: Alert, Oriented x3 Skin: Normal Color Lymphatic: No Adenopathy Results Lab Laboratory Tests 03/18/17 17:56: Glucometer 162H 03/18/17 21:58: Glucometer 163H 03/19/17 04:53: White Blood Count 15.0H, Red Blood Count 3.11L, Hemoglobin 9.2L, Hematocrit 28L , Mean Corpuscular Volume 90, Mean Corpuscular Hemoglobin 30, Mean Corpuscular Hemoglobin Concent 33, Red Cell Distribution Width 13.5, Platelet Count 304, Mean Platelet Volume 10.3, Neutrophils (%) (Auto) 76H, Lymphocytes (%) (Auto) 11L, Monocytes (%) (Auto) 12, Eosinophils (%) (Auto) 1, Basophils (%) (Auto) 0, Neutrophils # (Auto) 11.3H, Lymphocytes # (Auto) 1.7, Monocytes # (Auto) 1.8H, Eosinophils # (Auto) 0.1, Basophils # (Auto) 0.0, Sodium Level 137, Potassium Level 3.2L, Chloride Level 103, Carbon Dioxide Level 24, Anion Gap 10, Blood Urea Nitrogen 33H, Creatinine 1.22, Estimat Glomerular Filtration Rate 57, BUN/ Creatinine Ratio 27, Glucose Level 172H, Calcium Level 8.3L, Magnesium Level 2.0 , Total Bilirubin 0.8, Aspartate Amino Transf (AST/SGOT) 15, Alanine Aminotransferase (ALT/SGPT) 12, Alkaline Phosphatase 70, Total Protein 6.2L, Albumin 2.9L 03/19/17 04:54: Glucometer 165H 03/19/17 10:55: Glucometer 182H Assessment/Plan Assessment/Plan Assess & Plan/Chief Complaint post-op ileus. started on reglan. tolerating diet but recommend mostly liquids for now. increase PT, sitting upright, ambulation as much as possible. diet as tolerated. Clinical Quality Measures DVT/VTE Risk/Contraindication: Risk Factor Score Per Nursin RFS Level Per Nursing on Admit: 4+=Very High MONI BROOKS MD Mar 19, 2017 3:14 pm
[2017-03-19 18:12] VITALS: BP 160/77
[2017-03-19] MEDS: metFORMIN 500 MG (GLUCOPHAGE) TAB PO SCH (18:54)
[2017-03-20] MEDS: METOCLOPRAMIDE INJ 10 MG/2 ML (REGLAN) IVP SCH ×5 (00:18→17:42)
[2017-03-20] MEDS: NS IV 1000 ML 1,000 ML IV SCH (03:40)
[2017-03-20 05:45] LABS: ANION GAP 11 MMOL/L (5-14); BLOOD UREA NITROGEN 28 MG/DL (7-18); BUN/CREATININE RATIO 26; CARBON DIOXIDE 21 MMOL/L (21-32); CHLORIDE 105 MMOL/L (98-107); CREATININE SERUM 1.07 MG/DL (0.60-1.30); GFR ESTIMATED > 60; GLUCOSE 178 MG/DL (70-105); MAGNESIUM 1.8 MG/DL (1.8-2.4); POTASSIUM 3.1 MMOL/L (3.6-5.0); SODIUM 137 MMOL/L (135-145)
[2017-03-20 05:55] VITALS: BP 149/77
[2017-03-20] MEDS: KCL 10 MEQ TAB (MICRO K) PO SCH ×2 (06:40→20:17)
[2017-03-20] MEDS: metFORMIN 500 MG (GLUCOPHAGE) TAB PO SCH ×2 (06:40→17:22)
[2017-03-20] MEDS: inSUlin ASPART (NovoLOG) 1 UNIT/0.01 ML (CHARGE PER UNIT) SC SCH ×4 (06:40→20:33)
[2017-03-20] MEDS: RT-ALBUTEROL/IPRATROPIUM 3 ML (DUONEB) VIAL INH SCH ×3 (07:40→19:13)
[2017-03-20] MEDS: meTOprolol TARTRATE 50 MG (LOPRESSOR) TAB PO SCH (08:17)
[2017-03-20] MEDS: FUROSEMIDE 40 MG (LASIX) TAB PO SCH (08:17)
[2017-03-20] MEDS: LACTULOSE SYRUP 10GM/15ML (ENULOSE) 30ML UDC PO SCH ×3 (08:17→20:18)
[2017-03-20] MEDS: ENOXAPARIN 30 MG/0.3 ML (LOVENOX) SYR SC SCH ×2 (08:17→20:18)
[2017-03-20] MEDS: SENNOSIDES 8.6 MG (SENOKOT) TAB PO SCH ×3 (08:17→20:17)
[2017-03-20] MEDS ORDERED: KCL 20 MEQ TAB (K-DUR) PO ONE (12:15)
--- NOTE | 2017-03-20 15:18 | Physical Therapy Daily Note ---
PT Daily Note-Current Subjective Pt in bed, agreeable. Denies pain. Reports activity more limited by SOB than anything else. Mental Status Patient Orientation: Person, Place, Time, Situation Attachments: Oxygen, IV Transfers Functional [place] Measure 0=Not Assessed/NA 4=Minimal Assistance 1=Total Assistance 5=Supervision or Setup 2=Maximal Assistance 6=Modified [place] 3=Moderate Assistance 7=Complete IndependenceIRFPAI Quality Coding Scale 6 Independent with activity with or without an assistive device 5 Patient requires set up or clean up by helper. Patient completes activity by themselves 4 Supervision or touching assist (CGA). [place] provide cues , steadying assist 3 The helper provides less than half the effort to complete the activity 2 The helper provides more than half the effort to complete the activity 1 Dependent. The helper does all the effort to complete an activity 7 Patient refused to complete or attempt activity 9 The patient did not perform the activity before the current illness or injury 88 Not attempted due to Medical conditions or safety concerns Supine to/from Sit: 3 Sit to/from Stand: 4 Sit to Stand (QC): 3 Weight Bearing Weight Bearing Restriction: Weight Bearing/Tolerated ((L) LE), Partial Weight Bearing ((R) LE) Location Restriction: L LE, R LE Gait Training Does the Patient Walk?: Yes Gait (FIM): 1 Distance (FIM): 1=up to 49 ft Distance: 25' Gait Level of Assist: 4 Gait Persons Needed: 1 Gait Assistive Device: FWW Pt ambulated with slow, step-to gait with PWB on (R) LE. Steady, SOB easily but sats > 96% on 2L Treatments Gait training with FWW and WBAT (L) LE, PWB (R) LE. Pt with improved activity tolerance but still limited by SOB. Denied pain with activity. Up in chair with O2 in situ, needs met. Assessment Current Status: Good Progress Pt tolerated well. Improved gait distance. Difficulty with sit<->stand TFR due to limited knee flexion and PWB status of (R) LE. PT Short Term Goals Short Term Goals Time Frame: Mar 24, 2017 Transfers (B,C,W/C) (FIM): 4 Wheelchair (FIM): 5 Wheelchair distance (FIM): 3=150 ft Wheelchair Distance: 50 ft PT [facility]ci Goals Equipment Processer Storage Goals PT Equipment Processer Storage Goals Time Frame: Apr 07, 2017 Transfers (B,C,W/C) (FIM): 5 Sit to Lying (QC): 6 Lying-Sitting on Side/Bed(QC): 6 Sit to Stand (QC): 88 Rollin Roll Left to Right (QC): 6 Chair/Qnv-bg-Yndaz Xfer(QC): 5 Car Transfer (QC): 4 Gait (FIM): 0 (unable to ambulate; TTWB B LE's) Does the Pt use WC or Scooter?: Yes Wheelchair (FIM): 6 Wheel 50 feet with 2 turns (QC: 6 Stairs (FIM): 1 (unable due to TTWB B LE;s) 1 Step (curb) (QC): 88 4 Steps (QC): 88 12 Steps (QC): 88 Picking up an Object (QC): 88 PT Plan Problem List Problem List: Activity Tolerance, Functional Strength, Safety, Balance, Gait, Transfer, Bed Mobility, ROM Treatment/Plan Treatment Plan: Continue Plan of Care Treatment Plan: Bed Mobility, Education, Functional Activity Rochelle, Functional Strength, Group Therapy, Other (wc mob), Safety, Therapeutic Exercise, Transfers Treatment Duration: Apr 07, 2017 Visits Per Week: 180 min 5 of 7 Minutes/Day (M-F): 60-90 Minutes/Day (Sat/Mcmahon): prn Pt/Family Agrees w/Plan: Yes Safety Risks/Education Patient Education: Gait Training, Transfer Techniques Teaching Recipient: Patient Teaching Methods: Discussion Response to Teaching: Verbalize Understanding, Return Demonstration, Reinforcement Needed Time/GCodes Time In: 1116 Time Out: 1140 Total Billed Treatment Time: 24 Total Billed Treatment 1, GT x 24' G Codes Necessary: No ITALO PANG DPT Mar 20, 2017 15:18
[2017-03-20] MEDS: METOCLOPRAMIDE 10 MG (REGLAN) TAB PO SCH ×2 (17:50→23:21)
[2017-03-20 18:00] VITALS: BP 140/74
[2017-03-21 05:08] VITALS: BP 136/76
[2017-03-21] MEDS: inSUlin ASPART (NovoLOG) 1 UNIT/0.01 ML (CHARGE PER UNIT) SC SCH ×4 (05:39→21:22)
[2017-03-21] MEDS: metFORMIN 500 MG (GLUCOPHAGE) TAB PO SCH ×2 (06:10→17:07)
[2017-03-21] MEDS: METOCLOPRAMIDE 10 MG (REGLAN) TAB PO SCH ×4 (06:10→23:04)
[2017-03-21] MEDS: RT-ALBUTEROL/IPRATROPIUM 3 ML (DUONEB) VIAL INH SCH ×3 (07:35→20:00)
[2017-03-21] MEDS: ENOXAPARIN 30 MG/0.3 ML (LOVENOX) SYR SC SCH ×2 (08:26→20:21)
[2017-03-21] MEDS: LACTULOSE SYRUP 10GM/15ML (ENULOSE) 30ML UDC PO SCH ×2 (08:26→20:22)
[2017-03-21] MEDS: FUROSEMIDE 40 MG (LASIX) TAB PO SCH (08:26)
[2017-03-21] MEDS: KCL 10 MEQ TAB (MICRO K) PO SCH ×2 (08:26→20:22)
[2017-03-21] MEDS: meTOprolol TARTRATE 50 MG (LOPRESSOR) TAB PO SCH (08:26)
[2017-03-21] MEDS: SENNOSIDES 8.6 MG (SENOKOT) TAB PO SCH ×2 (08:27→20:22)
[2017-03-21 17:47] VITALS: BP 140/77
[2017-03-22 05:08] VITALS: BP 145/72
[2017-03-22] MEDS: inSUlin ASPART (NovoLOG) 1 UNIT/0.01 ML (CHARGE PER UNIT) SC SCH ×4 (05:12→20:18)
[2017-03-22] MEDS: METOCLOPRAMIDE 10 MG (REGLAN) TAB PO SCH ×3 (05:50→17:21)
[2017-03-22] MEDS: metFORMIN 500 MG (GLUCOPHAGE) TAB PO SCH ×2 (05:50→17:21)
[2017-03-22] MEDS: RT-ALBUTEROL/IPRATROPIUM 3 ML (DUONEB) VIAL INH SCH ×3 (06:56→19:28)
[2017-03-22] MEDS: FUROSEMIDE 40 MG (LASIX) TAB PO SCH (08:04)
[2017-03-22] MEDS: ENOXAPARIN 30 MG/0.3 ML (LOVENOX) SYR SC SCH ×2 (08:04→20:18)
[2017-03-22] MEDS: LACTULOSE SYRUP 10GM/15ML (ENULOSE) 30ML UDC PO SCH ×2 (08:04→20:17)
[2017-03-22] MEDS: meTOprolol TARTRATE 50 MG (LOPRESSOR) TAB PO SCH (08:04)
[2017-03-22] MEDS: KCL 10 MEQ TAB (MICRO K) PO SCH ×2 (08:04→20:17)
[2017-03-22] MEDS: SENNOSIDES 8.6 MG (SENOKOT) TAB PO SCH ×2 (08:04→20:17)
--- NOTE | 2017-03-22 08:54 | Cardiology Progress Note ---
Subjective Date Seen by Provider: Mar 22, 2017 Time Seen by Provider: 08:52 Subjective/Events-last exam Patient sitting up in wheelchair. Complaining of abdominal bloating and discomfort. Last BM yesterday. Denies any CP or dyspnea. Review of Systems General: No Night Sweats, No Fatigue, No Malaise HEENT: No Visual Changes, No Dysphasia, No Sore Throat Pulmonary: No Dyspnea, No Cough, No Pleuritic Chest Pain Cardiovascular: No: Chest Pain, Edema, Palpitations, Paroxysmal Noc. Dyspnea Gastrointestinal: Abdominal Pain, No: Constipation, Diarrhea, Melena, Nausea, Vomiting Genitourinary: No Dysuria, No Frequency, No Hematuria Musculoskeletal: No: back pain, neck pain Neurological: No: Change in speech, Confusion, Numbness, Weakness Objective-Cardiology Exam Last Set of Vital Signs Vital Signs 03/22/17 03/22/17 05:08 06:56 Temp 98.2 Pulse 83 Resp 18 B/P (MAP) 145/72 Pulse Ox 92 O2 Delivery Nasal Cannula O2 Flow Rate 2.00 Capillary Refill : Less Than 3 Seconds I&O Intake and Output 03/22/17 00:00 Intake Total 1780 ml Output Total 1800 ml Balance -20 ml Intake Oral 1780 ml Output Urine Total 1800 ml # Bowel Movements 2 General: Alert, Oriented X3, Cooperative, No Acute Distress HEENT: Atraumatic, PERRLA, EOMI, Mucous Memb Moist/[place] Neck: Supple, No JVD Lungs: Clear to Auscultation Heart: Regular Rate, Other (systolic Murmur) Abdomen: Soft, No Tenderness, Other (distended, diminished BS) Extremities: No Edema ( trace edema) Skin: No Rashes Neuro: Other (strength both LES 3/5 4/5 BUES sensation and cognition grossly intact) A/P-Cardiology Admission Diagnosis Elevated BNP HTN DM Right hip fracture Assessment/Plan Elevated BNP- patient reporting increased dyspnea with exertion over the past 2- 3 weeks. echo showed normal LV size and function with normal ejection fraction. Continue to monitor at this time. Hypokalemia, replace and monitor, managed by primary care physician Systolic murmur at left sternal border, aortic valve sclerosis no aortic stenosis on echocardiogram Chronic renal insufficiency, continue to monitor renal function HTN- maintained on Lopressor. Continue to monitor BP/HR DM- management by medical services Right hip fracture- s/p repair by Dr. Arambula on 03/14/17 Left patellar fracture Obesity Clinical Quality Measures DVT/VTE Risk/Contraindication: Risk Factor Score Per Nursin RFS Level Per Nursing on Admit: 4+=Very High COLLEEN DOMINGUEZ Mar 22, 2017 08:54
--- NOTE | 2017-03-22 09:48 | Cardiology Progress Note ---
Subjective Date Seen by Provider: Mar 22, 2017 Time Seen by Provider: 09:30 Subjective/Events-last exam patient is receiving therapy, doing better, feeling better, having mild abdominal distention. No chest pain or shortness of breath. Had a bowel movement last night Review of Systems General: No Chills, No Night Sweats, No Fatigue, No Malaise, No Appetite, No Other HEENT: No Head Aches, No Visual Changes, No Eye Pain, No Ear Pain, No Dysphasia , No Sinus Congestion, No Post Nasal Drip, No Sore Throat, No Other Pulmonary: No Dyspnea, No Cough, No Pleuritic Chest Pain, No Other Cardiovascular: No: Chest Pain, Edema, Lt Headedness, Orthopnea, Other, Palpitations, Paroxysmal Noc. Dyspnea Objective-Cardiology Exam Last Set of Vital Signs Vital Signs 03/22/17 03/22/17 03/22/17 05:08 06:56 09:34 Temp 98.2 Pulse 83 Resp 18 B/P (MAP) 145/72 Pulse Ox 92 O2 Delivery Nasal Cannula O2 Flow Rate 2.00 Capillary Refill : Less Than 3 Seconds I&O Intake and Output 03/22/17 00:00 Intake Total 1780 ml Output Total 1800 ml Balance -20 ml Intake Oral 1780 ml Output Urine Total 1800 ml # Bowel Movements 2 General: Alert, Oriented X3, Cooperative, No Acute Distress HEENT: Atraumatic, PERRLA, EOMI, Mucous Memb Moist/[place] Neck: Supple, No JVD Lungs: Clear to Auscultation Heart: Regular Rate, Other (systolic Murmur) Abdomen: Soft, No Tenderness, Other (distended, diminished BS) Extremities: No Edema ( trace edema) Skin: No Rashes Neuro: Other (strength both LES 3/5 4/5 BUES sensation and cognition grossly intact) Results Lab Laboratory Tests Test 03/21/17 11:07 03/21/17 15:38 03/21/17 20:54 03/22/17 04:44 Range/Units Glucometer 202 H 127 H 204 H 136 H 70-110 MG/DL A/P-Cardiology Admission Diagnosis Elevated BNP HTN DM Right hip fracture Assessment/Plan Elevated BNP, echo showed normal LV size and function. No congestive heart failure was noted. Systolic murmur at left sternal border, aortic valve sclerosis no aortic stenosis on echocardiogram Abdominal distention, mild abdominal discomfort, managed by Dr. Sierra Chronic renal insufficiency, continue to monitor renal function HTN- maintained on Lopressor. Continue to monitor BP/HR DM- management by medical services Right hip fracture- s/p repair by Dr. Arambula on 03/14/17 Left patellar fracture Obesity Clinical Quality Measures DVT/VTE Risk/Contraindication: Risk Factor Score Per Nursin RFS Level Per Nursing on Admit: 4+=Very High JULIEN TORRES MD Mar 22, 2017 09:48
--- NOTE | 2017-03-22 11:59 | Physical Therapy Daily Note ---
PT Daily Note-Current Subjective Patient in recliner pre tx, agrees to PT, no complaints of pain. Appearance Patient in bed post tx, has nurse call, phone, tray, all needs met. Mental Status Patient Orientation: Normal For Age Attachments: Oxygen Transfers Functional [place] Measure 0=Not Assessed/NA 4=Minimal Assistance 1=Total Assistance 5=Supervision or Setup 2=Maximal Assistance 6=Modified [place] 3=Moderate Assistance 7=Complete IndependenceIRFPAI Quality Coding Scale 6 Independent with activity with or without an assistive device 5 Patient requires set up or clean up by helper. Patient completes activity by themselves 4 Supervision or touching assist (CGA). [place] provide cues , steadying assist 3 The helper provides less than half the effort to complete the activity 2 The helper provides more than half the effort to complete the activity 1 Dependent. The helper does all the effort to complete an activity 7 Patient refused to complete or attempt activity 9 The patient did not perform the activity before the current illness or injury 88 Not attempted due to Medical conditions or safety concerns Transfers (B, C, W/C) (FIM): 2 Scootin Rollin Supine to/from Sit: 2 Sit to/from Stand: 3 Bed to/from Chair: 4 Patient needs assist with both legs getting back into bed and min to mod assist to stand from low surfaces. Gait Training Gait (FIM): 1 Distance: 25'x3 Gait Level of Assist: 4 Gait Persons Needed: 1 Gait Assistive Device: FWW slow, antalgic Exercises Seated Therapy Exercises: Ankle pumps, Hip flexion Seated Reps: 20 LAQ alternating for 5 min Treatments bed mobility and transfers, ambulation, functional strengthening Assessment Current Status: Fair Progress Improved ambulation and endurance but patient does fatigue quickly, he was very tired after this treatment. PT Short Term Goals Short Term Goals Time Frame: Mar 24, 2017 Transfers (B,C,W/C) (FIM): 4 Wheelchair (FIM): 5 Wheelchair distance (FIM): 3=150 ft Wheelchair Distance: 50 ft PT Investor Relations Manager Goals Investor Relations Manager Goals PT Investor Relations Manager Goals Time Frame: Apr 07, 2017 Transfers (B,C,W/C) (FIM): 5 Sit to Lying (QC): 6 Lying-Sitting on Side/Bed(QC): 6 Sit to Stand (QC): 88 Rollin Roll Left to Right (QC): 6 Chair/Rqf-nj-Odrmk Xfer(QC): 5 Car Transfer (QC): 4 Gait (FIM): 0 (unable to ambulate; TTWB B LE's) Does the Pt use WC or Scooter?: Yes Wheelchair (FIM): 6 Wheel 50 feet with 2 turns (QC: 6 Stairs (FIM): 1 (unable due to TTWB B LE;s) 1 Step (curb) (QC): 88 4 Steps (QC): 88 12 Steps (QC): 88 Picking up an Object (QC): 88 PT Plan Problem List Problem List: Activity Tolerance, Functional Strength, Safety, Balance, Gait, Transfer, Bed Mobility, ROM Treatment/Plan Treatment Plan: Continue Plan of Care Treatment Plan: Bed Mobility, Education, Functional Activity [place], Functional Strength, Group Therapy, Other (wc mob), Safety, Therapeutic Exercise, Transfers Treatment Duration: Apr 07, 2017 Visits Per Week: 180 min 5 of 7 Minutes/Day (M-F): 60-90 Minutes/Day (Sat/Mcmhaon): prn Safety Risks/Education Patient Education: Gait Training, Transfer Techniques, Correct Positioning, Safety Issues Teaching Recipient: Patient Teaching Methods: Demonstration, Discussion Response to Teaching: Reinforcement Needed Time/GCodes Time In: 1100 Time Out: 1200 Total Billed Treatment Time: 60 Total Billed Treatment 1 visit FA 10' EX 15' GT 35' RACHEL RITTER PT Mar 22, 2017 11:59
--- NOTE | 2017-03-22 12:14 | Occupational Ther Daily Note ---
OT Current Status-Daily Note Subjective Pt in bed, agrees to treatment. Pt has no reports of pain. Mental Status/Objective Functional [place] Measure 0=Not Assessed/NA 4=Minimal Assistance 1=Total Assistance 5=Supervision or Setup 2=Maximal Assistance 6=Modified [place] 3=Moderate Assistance 7=Complete [place] Attachments: Oxygen ADL-Treatment Pt supine to sit with moderate assistance and skilled cues for technique. Pt completed sponge bath seated EOB. Upper body bathing completed with setup. Pt able to wash bilateral upper legs and amina area. Used long sponge to wash feet, but required assist to dry them. Sit to stand with moderate assistance. Assist required to wash buttocks. Don pullover shirt with set up. Pt required max assist to don shorts. Stood with FWW for balance during pant hike, cues for weight bearing status(WBAT left LE, Partial Weight Bearing right LE). Pt donned bilateral socks with minimal assistance using sock aid. Increased time for bathing and dressing tasks. Pt transferred to w/c with minimal assistance using FWW. Grooming tasks completed seated at sink. Pt brushed teeth with SBA and increased time. Pt fatigues with activity and requires occasional rest breaks throughout ADL tasks. Functional [place] Measure 0=Not Assessed/NA 4=Minimal Assistance 1=Total Assistance 5=Supervision or Setup 2=Maximal Assistance 6=Modified [place] 3=Moderate Assistance 7=Complete IndependenceIRFPAI Quality Coding Scale 6 Independent with activity with or without an assistive device 5 Patient requires set up or clean up by helper. Patient completes activity by themselves 4 Supervision or touching assist (CGA). [place] provide cues , steadying assist 3 The helper provides less than half the effort to complete the activity 2 The helper provides more than half the effort to complete the activity 1 Dependent. The helper does all the effort to complete an activity 7 Patient refused to complete or attempt activity 9 The patient did not perform the activity before the current illness or injury 88 Not attempted due to Medical conditions or safety concerns Grooming (FIM): 5 Oral Hygiene (QC): 4 Bathing (FIM): 3 Shower/Bathe Self (QC): 3 Upper Body (FIM): 5 Upper Body Dressing (QC): 5 Lower Body Dressing (FIM): 2 Lower Body Dressing (QC): 2 On/Off Footwear (QC): 3 Other Treatment To therapy gym via w/c. Pt completed arm bike x5 minutes to increase overall strength and activity tolerance needed for functional tasks. Pt completed task with slow pace and minimal resistance. Occasional rest breaks taken. Pt performed bilateral UE exercises to increase strength for ADLs and transfers. Pt performed biceps curls and triceps extension exercises x15 reps with moderate resistance theraband. Rest breaks between exercises. Graded clothespin activity with bilateral hands to increase banking pin adjuster/pinch strength. Pt returned to room, transferred to chair with FWW. Pt sitting in chair with needs met after session. OT Short Term Goals Short Term Goals Time Frame: Mar 24, 2017 Eating(FIM): 5 Grooming(FIM): 5 Bathing(FIM): 3 Upper Body Dressing(FIM): 5 Lower Body Dressing(FIM): 4 Toileting(FIM): 5 Transfers (B,C,W/C) (FIM): 4 Toilet/Commode Transfer(FIM): 4 Additional Short Term Goals: 1-Demonstrate ADL Tasks, 2-Verbalize Understanding , 3-ImproveStrength/Rochelle 1=Demonstrate adherence to instructed precautions during ADL tasks. 2=Patient will verbalize/demonstrate understanding of assistive devices/ modifications for ADL. 3=Patient will improve strength/tolerance for activity to enable patient to perform ADL's. OT Service Tech Goals Service Tech Goals Time Frame: Apr 07, 2017 Eating (FIM): 6 Eating (QC): 6 Groomin Oral Hygiene (QC): 5 Bathing(FIM): 5 Shower/Bathe Self (QC): 5 Upper Body Dressing(FIM): 5 Upper Body Dressing (QC): 5 Lower Body Dressing(FIM): 5 Lower Body Dressing (QC): 5 On/Off Footwear (QC): 5 Toileting(FIM): 6 Toileting Hygiene (QC): 6 Transfers (B,C,W/C) (FIM): 5 Toilet/Commode Transfer(FIM): 6 Toilet/Commode Transfer (QC): 6 Shower Transfer(FIM): 4 Additional Goals: 1-Demonstrate ADL Tasks, 2-Verbalize Understanding, 3- ImproveStrength/Rochelle 1=Demonstrate adherence to instructed precautions during ADL tasks. 2=Patient will verbalize/demonstrate understanding of assistive devices/ modifications for ADL. 3=Patient will improve strength/tolerance for activity to enable patient to perform ADL's. OT Education/Plan Discharge Recommendations Plan/Recommendations: Continue POC Treatment Plan/Plan of Care Patient would benefit from OT for education, treatment and training to promote independence in ADL's, mobility, safety and/or upper extremity function for ADL' s. Plan of Care: ADL Retraining, Caregiver Training, Functional Mobility, UE Funct Exercise/Act Treatment Duration: Apr 07, 2017 Visits Per Week: 10 Minutes/Day (M-F): 60-90 Minutes/Day (Sat/Mcmahon): prn Rehab Potential: Good Time/GCodes Start Time: 08:00 Stop Time: 09:00 Total Time Billed (hr/min): 60 Billed Treatment Time 1 visit, ADLx4(60minutes), EXx2(30minutes) LEN CHURCH OT Mar 22, 2017 12:14
--- NOTE | 2017-03-22 14:00 | Physical Therapy Daily Note ---
PT Daily Note-Current Subjective Patient in bed pre tx, agrees to PT, patient has no pain at this time. Appearance Patient in bed post tx with nurse call, phone, tray, all needs met. Mental Status Patient Orientation: Normal For Age Transfers Functional [place] Measure 0=Not Assessed/NA 4=Minimal Assistance 1=Total Assistance 5=Supervision or Setup 2=Maximal Assistance 6=Modified [place] 3=Moderate Assistance 7=Complete IndependenceIRFPAI Quality Coding Scale 6 Independent with activity with or without an assistive device 5 Patient requires set up or clean up by helper. Patient completes activity by themselves 4 Supervision or touching assist (CGA). [place] provide cues , steadying assist 3 The helper provides less than half the effort to complete the activity 2 The helper provides more than half the effort to complete the activity 1 Dependent. The helper does all the effort to complete an activity 7 Patient refused to complete or attempt activity 9 The patient did not perform the activity before the current illness or injury 88 Not attempted due to Medical conditions or safety concerns Exercises Supine Ex: Ankle pumps, Quad Set, Glut sets, Heel Slides, Short Arc Quads, Straight leg raise, Hip abd/add Supine Reps: 20 Treatments functional strengthening Assessment Current Status: Fair Progress PT Short Term Goals Short Term Goals Time Frame: Mar 24, 2017 Transfers (B,C,W/C) (FIM): 4 Wheelchair (FIM): 5 Wheelchair distance (FIM): 3=150 ft Wheelchair Distance: 50 ft PT Snf Goals Snf Goals PT Spring Assembler Supervisor Goals Time Frame: Apr 07, 2017 Transfers (B,C,W/C) (FIM): 5 Sit to Lying (QC): 6 Lying-Sitting on Side/Bed(QC): 6 Sit to Stand (QC): 88 Rollin Roll Left to Right (QC): 6 Chair/Coz-fz-Jsmeu Xfer(QC): 5 Car Transfer (QC): 4 Gait (FIM): 0 (unable to ambulate; TTWB B LE's) Does the Pt use WC or Scooter?: Yes Wheelchair (FIM): 6 Wheel 50 feet with 2 turns (QC: 6 Stairs (FIM): 1 (unable due to TTWB B LE;s) 1 Step (curb) (QC): 88 4 Steps (QC): 88 12 Steps (QC): 88 Picking up an Object (QC): 88 PT Plan Problem List Problem List: Activity Tolerance, Functional Strength, Safety, Balance, Gait, Transfer, Bed Mobility, ROM Treatment/Plan Treatment Plan: Continue Plan of Care Treatment Plan: Bed Mobility, Education, Functional Activity Rochelle, Functional Strength, Group Therapy, Other (wc mob), Safety, Therapeutic Exercise, Transfers Treatment Duration: Apr 07, 2017 Visits Per Week: 180 min 5 of 7 Minutes/Day (M-F): 60-90 Minutes/Day (Sat/Mcmahon): prn Safety Risks/Education Patient Education: Correct Positioning, Safety Issues Teaching Recipient: Patient Teaching Methods: Demonstration, Discussion Response to Teaching: Reinforcement Needed Time/GCodes Time In: 1330 Time Out: 1400 Total Billed Treatment Time: 30 Total Billed Treatment 1 visit EX 30' RACHEL RITTER PT Mar 22, 2017 13:59
[2017-03-22 18:11] VITALS: BP 153/70
[2017-03-23] MEDS: METOCLOPRAMIDE 10 MG (REGLAN) TAB PO SCH ×5 (00:33→23:09)
[2017-03-23 05:44] VITALS: BP 137/68
[2017-03-23] MEDS: inSUlin ASPART (NovoLOG) 1 UNIT/0.01 ML (CHARGE PER UNIT) SC SCH ×4 (06:15→21:10)
[2017-03-23] MEDS: metFORMIN 500 MG (GLUCOPHAGE) TAB PO SCH ×2 (06:15→16:02)
[2017-03-23] MEDS: FUROSEMIDE 40 MG (LASIX) TAB PO SCH (08:03)
[2017-03-23] MEDS: KCL 10 MEQ TAB (MICRO K) PO SCH ×2 (08:03→20:28)
[2017-03-23] MEDS: meTOprolol TARTRATE 50 MG (LOPRESSOR) TAB PO SCH (08:03)
[2017-03-23] MEDS: SENNOSIDES 8.6 MG (SENOKOT) TAB PO SCH ×2 (08:03→20:28)
[2017-03-23] MEDS: LACTULOSE SYRUP 10GM/15ML (ENULOSE) 30ML UDC PO SCH ×2 (08:03→20:28)
[2017-03-23] MEDS: ENOXAPARIN 30 MG/0.3 ML (LOVENOX) SYR SC SCH ×2 (08:03→20:28)
[2017-03-23] MEDS: RT-ALBUTEROL/IPRATROPIUM 3 ML (DUONEB) VIAL INH SCH ×3 (08:05→19:22)
--- NOTE | 2017-03-23 08:59 | Physical Therapy Daily Note ---
PT Daily Note-Current Subjective Patient in recliner pre tx, agrees to PT, has no complaints of pain. Appearance Patient in bed post tx with nurse call, phone, tray, all needs met. Mental Status Patient Orientation: Normal For Age Attachments: Oxygen Transfers Functional [place] Measure 0=Not Assessed/NA 4=Minimal Assistance 1=Total Assistance 5=Supervision or Setup 2=Maximal Assistance 6=Modified [place] 3=Moderate Assistance 7=Complete IndependenceIRFPAI Quality Coding Scale 6 Independent with activity with or without an assistive device 5 Patient requires set up or clean up by helper. Patient completes activity by themselves 4 Supervision or touching assist (CGA). [place] provide cues , steadying assist 3 The helper provides less than half the effort to complete the activity 2 The helper provides more than half the effort to complete the activity 1 Dependent. The helper does all the effort to complete an activity 7 Patient refused to complete or attempt activity 9 The patient did not perform the activity before the current illness or injury 88 Not attempted due to Medical conditions or safety concerns Transfers (B, C, W/C) (FIM): 2 Scootin Rollin Supine to/from Sit: 2 Sit to/from Stand: 3 Patient needs assist with both legs getting into bed and mod assist for sit to stand. Gait Training Gait (FIM): 2 Distance: 40'x3, 120' Gait Level of Assist: 4 Gait Persons Needed: 1 Gait Assistive Device: FWW Patient ambulated 120' with CGA using a rolling walker when going back to his room, much better endurance and stability. Exercises LAQ alternating for 5 min Treatments bed mobility and transfers, ambulation, functional strengthening Assessment Current Status: Fair Progress Better endurance and ambulation but he still needed frequent rest breaks and gets SOB. PT Short Term Goals Short Term Goals Time Frame: Mar 24, 2017 Transfers (B,C,W/C) (FIM): 4 Wheelchair (FIM): 5 Wheelchair distance (FIM): 3=150 ft Wheelchair Distance: 50 ft PT Product/Device Technologist Goals Product/Device Technologist Goals PT Product/Device Technologist Goals Time Frame: Apr 07, 2017 Transfers (B,C,W/C) (FIM): 5 Sit to Lying (QC): 6 Lying-Sitting on Side/Bed(QC): 6 Sit to Stand (QC): 88 Rollin Roll Left to Right (QC): 6 Chair/Bac-uv-Gasxy Xfer(QC): 5 Car Transfer (QC): 4 Gait (FIM): 0 (unable to ambulate; TTWB B LE's) Does the Pt use WC or Scooter?: Yes Wheelchair (FIM): 6 Wheel 50 feet with 2 turns (QC: 6 Stairs (FIM): 1 (unable due to TTWB B LE;s) 1 Step (curb) (QC): 88 4 Steps (QC): 88 12 Steps (QC): 88 Picking up an Object (QC): 88 PT Plan Problem List Problem List: Activity Tolerance, Functional Strength, Safety, Balance, Gait, Transfer, Bed Mobility, ROM Treatment/Plan Treatment Plan: Continue Plan of Care Treatment Plan: Bed Mobility, Education, Functional Activity Rochelle, Functional Strength, Group Therapy, Other (wc mob), Safety, Therapeutic Exercise, Transfers Treatment Duration: Apr 07, 2017 Visits Per Week: 180 min 5 of 7 Minutes/Day (M-F): 60-90 Minutes/Day (Sat/Mcmahon): prn Safety Risks/Education Patient Education: Gait Training, Transfer Techniques, Correct Positioning, Safety Issues Teaching Recipient: Patient Teaching Methods: Demonstration, Discussion Response to Teaching: Reinforcement Needed Time/GCodes Time In: 800 Time Out: 900 Total Billed Treatment Time: 60 Total Billed Treatment 1 visit FA 15' GT 45' RACHEL RITTER PT Mar 23, 2017 08:59
--- NOTE | 2017-03-23 10:38 | Occupational Ther Daily Note ---
OT Current Status-Daily Note Subjective Pt in bed, agrees to treatment. Pt has no c/o pain. Mental Status/Objective Functional [place] Measure 0=Not Assessed/NA 4=Minimal Assistance 1=Total Assistance 5=Supervision or Setup 2=Maximal Assistance 6=Modified [place] 3=Moderate Assistance 7=Complete [place] Attachments: Oxygen ADL-Treatment Pt declined bathing and states he already changed his shorts early this morning. Supine to sit with assist for trunk, requires cues for technique. Pt requires assist to scoot to EOB. Sit to stand with moderate assistance and cues for hand placement. Transfer to w/c with minimal assistance using FWW. Pt completed grooming tasks seated at sink. Pt brushed teeth and washed face with set up. Doffed shirt with SBA. Pt donned pullover shirt with minimal assistance to pull down in back. Increased time for ADL tasks. Pt fatigues with activity and requires rest breaks during ADL tasks. Functional [place] Measure 0=Not Assessed/NA 4=Minimal Assistance 1=Total Assistance 5=Supervision or Setup 2=Maximal Assistance 6=Modified [place] 3=Moderate Assistance 7=Complete IndependenceIRFPAI Quality Coding Scale 6 Independent with activity with or without an assistive device 5 Patient requires set up or clean up by helper. Patient completes activity by themselves 4 Supervision or touching assist (CGA). [place] provide cues , steadying assist 3 The helper provides less than half the effort to complete the activity 2 The helper provides more than half the effort to complete the activity 1 Dependent. The helper does all the effort to complete an activity 7 Patient refused to complete or attempt activity 9 The patient did not perform the activity before the current illness or injury 88 Not attempted due to Medical conditions or safety concerns Grooming (FIM): 5 Oral Hygiene (QC): 5 Upper Body (FIM): 4 Other Treatment To therapy gym via w/c. Pt performed fine motor task with nuts and bolts with 1 # weights in place on bilateral UE to increase strength and coordination skills. Increased time for task. Pt performed biceps curls and wrist flex/ext exercises x15 20 reps with 1# dowel charlie to increase strength needed for functional tasks. Pt completed putty activity with bilateral hands to increase strength and coordination. Pt able to remove small beads from putty with increased time using bilateral hands. Pt returned to room and transferred to chair with minimal assistance using FWW. Pt sitting in chair with needs met after session. OT Short Term Goals Short Term Goals Time Frame: Mar 24, 2017 Eating(FIM): 5 Grooming(FIM): 5 Bathing(FIM): 3 Upper Body Dressing(FIM): 5 Lower Body Dressing(FIM): 4 Toileting(FIM): 5 Transfers (B,C,W/C) (FIM): 4 Toilet/Commode Transfer(FIM): 4 Additional Short Term Goals: 1-Demonstrate ADL Tasks, 2-Verbalize Understanding , 3-ImproveStrength/Rochelle 1=Demonstrate adherence to instructed precautions during ADL tasks. 2=Patient will verbalize/demonstrate understanding of assistive devices/ modifications for ADL. 3=Patient will improve strength/tolerance for activity to enable patient to perform ADL's. OT Usp Goals Usp Goals Time Frame: Apr 07, 2017 Eating (FIM): 6 Eating (QC): 6 Groomin Oral Hygiene (QC): 5 Bathing(FIM): 5 Shower/Bathe Self (QC): 5 Upper Body Dressing(FIM): 5 Upper Body Dressing (QC): 5 Lower Body Dressing(FIM): 5 Lower Body Dressing (QC): 5 On/Off Footwear (QC): 5 Toileting(FIM): 6 Toileting Hygiene (QC): 6 Transfers (B,C,W/C) (FIM): 5 Toilet/Commode Transfer(FIM): 6 Toilet/Commode Transfer (QC): 6 Shower Transfer(FIM): 4 Additional Goals: 1-Demonstrate ADL Tasks, 2-Verbalize Understanding, 3- ImproveStrength/Rochelle 1=Demonstrate adherence to instructed precautions during ADL tasks. 2=Patient will verbalize/demonstrate understanding of assistive devices/ modifications for ADL. 3=Patient will improve strength/tolerance for activity to enable patient to perform ADL's. OT Education/Plan Discharge Recommendations Plan/Recommendations: Continue POC Treatment Plan/Plan of Care Patient would benefit from OT for education, treatment and training to promote independence in ADL's, mobility, safety and/or upper extremity function for ADL' s. Plan of Care: ADL Retraining, Caregiver Training, Functional Mobility, UE Funct Exercise/Act Treatment Duration: Apr 07, 2017 Visits Per Week: 10 Minutes/Day (M-F): 60-90 Minutes/Day (Sat/Mcmahon): prn Rehab Potential: Good Time/GCodes Start Time: 07:00 Stop Time: 08:00 Total Time Billed (hr/min): 60 Billed Treatment Time 1 visit, ADLx2(30minutes), EXx2(30minutes) LEN CHURCH OT Mar 23, 2017 10:38
--- NOTE | 2017-03-23 13:46 | Therapy Group Daily Note ---
Therapy Daily Group Note Other/Notes Each patient participated in group therapy in the common area of rehab during lunch. Each patient was either transported or ambulated to the common area of rehab and sat at tables with other patients. Each patient had to answer some orientation questions and use memory recall. Then, they participated in an activity that involved memory, manual dexterity, and problem solving. Patients also participated in upper and lower extremity seated exercises. Finally, patient's were either transported or ambulated back to their room to bed or chair with nurse call, phone, tray, all needs met. Start Time: 13:00 Stop Time: 14:10 Total Billed Treatment Time: 70 Total Billed Treatment 1 visit GRP 70' RACHEL RITTER PT Mar 23, 2017 13:46
[2017-03-23 18:40] VITALS: BP 117/65
[2017-03-24 05:18] VITALS: BP 123/61
[2017-03-24] MEDS: METOCLOPRAMIDE 10 MG (REGLAN) TAB PO SCH ×4 (06:26→23:08)
[2017-03-24] MEDS: inSUlin ASPART (NovoLOG) 1 UNIT/0.01 ML (CHARGE PER UNIT) SC SCH ×4 (06:26→20:53)
[2017-03-24] MEDS: metFORMIN 500 MG (GLUCOPHAGE) TAB PO SCH ×2 (06:26→17:26)
[2017-03-24] MEDS: RT-ALBUTEROL/IPRATROPIUM 3 ML (DUONEB) VIAL INH SCH ×3 (06:50→19:37)
[2017-03-24] MEDS: ENOXAPARIN 30 MG/0.3 ML (LOVENOX) SYR SC SCH ×2 (08:14→20:49)
[2017-03-24] MEDS: LACTULOSE SYRUP 10GM/15ML (ENULOSE) 30ML UDC PO SCH ×2 (08:15→20:49)
[2017-03-24] MEDS: KCL 10 MEQ TAB (MICRO K) PO SCH ×2 (08:16→20:49)
[2017-03-24] MEDS: meTOprolol TARTRATE 50 MG (LOPRESSOR) TAB PO SCH (08:16)
[2017-03-24] MEDS: FUROSEMIDE 40 MG (LASIX) TAB PO SCH (08:16)
[2017-03-24] MEDS: SENNOSIDES 8.6 MG (SENOKOT) TAB PO SCH ×2 (08:16→20:49)
--- NOTE | 2017-03-24 08:40 | Cardiology Progress Note ---
Subjective Date Seen by Provider: Mar 24, 2017 Time Seen by Provider: 08:25 Subjective/Events-last exam Patient at bedside, doing physical therapy. Denies any CP or increased dyspnea. Continues to complain of abdominal bloating. Reports able to pass gas. Review of Systems General: No Night Sweats, No Fatigue, No Malaise HEENT: No Visual Changes, No Dysphasia, No Sore Throat Pulmonary: Dyspnea, No Cough, No Pleuritic Chest Pain Cardiovascular: No: Chest Pain, Edema, Orthopnea, Palpitations, Paroxysmal Noc. Dyspnea Gastrointestinal: Abdominal Pain, Other (distension), No: Nausea, Vomiting Genitourinary: No Dysuria, No Frequency Musculoskeletal: No: back pain, neck pain Neurological: No: Change in speech, Confusion, Numbness, Weakness Objective-Cardiology Exam Last Set of Vital Signs Vital Signs 03/24/17 03/24/17 05:18 06:50 Temp 98.4 Pulse 100 Resp 20 B/P (MAP) 123/61 Pulse Ox 93 O2 Delivery Nasal Cannula O2 Flow Rate 2.00 Capillary Refill : Less Than 3 Seconds I&O Intake and Output 03/24/17 00:00 Intake Total 1000 ml Output Total 1625 ml Balance -625 ml Intake Oral 1000 ml Output Urine Total 1625 ml # Voids 1 General: Alert, Oriented X3, Cooperative, No Acute Distress HEENT: Atraumatic, PERRLA, EOMI, Mucous Memb Moist/[place] Neck: Supple, No JVD Lungs: Clear to Auscultation Heart: Regular Rate, Other (systolic Murmur) Abdomen: Soft, No Tenderness, Other (distended, diminished BS) Extremities: No Edema ( trace edema) Skin: No Rashes Neuro: Other (strength both LES 3/5 4/5 BUES sensation and cognition grossly intact) A/P-Cardiology Admission Diagnosis Elevated BNP HTN DM Right hip fracture Assessment/Plan Elevated BNP, echo showed normal LV size and function. No congestive heart failure was noted. Systolic murmur at left sternal border, aortic valve sclerosis no aortic stenosis on echocardiogram Abdominal distention, mild abdominal discomfort, managed by Dr. Sierra Chronic renal insufficiency, continue to monitor renal function HTN- maintained on Lopressor. Continue to monitor BP/HR DM- management by medical services Right hip fracture- s/p repair by Dr. Arambula on 03/14/17 Left patellar fracture Obesity Clinical Quality Measures DVT/VTE Risk/Contraindication: Risk Factor Score Per Nursin RFS Level Per Nursing on Admit: 4+=Very High COLLEEN DOMINGUEZ Mar 24, 2017 08:40
--- NOTE | 2017-03-24 09:02 | Physical Therapy Daily Note ---
PT Daily Note-Current Subjective Pt. smiling and agrees to Rx. States he is better and wants to come off the O2. Dr. Conklin TICKET PRINTER AND TAGGER states ok to titrate off O2 today Pain Numeric Pain Scale: 0-No Pain Mental Status Patient Orientation: Normal For Age Attachments: Oxygen (2L titrated to off O2 with sats steady >90% ) Transfers Functional [place] Measure 0=Not Assessed/NA 4=Minimal Assistance 1=Total Assistance 5=Supervision or Setup 2=Maximal Assistance 6=Modified [place] 3=Moderate Assistance 7=Complete IndependenceIRFPAI Quality Coding Scale 6 Independent with activity with or without an assistive device 5 Patient requires set up or clean up by helper. Patient completes activity by themselves 4 Supervision or touching assist (CGA). [place] provide cues , steadying assist 3 The helper provides less than half the effort to complete the activity 2 The helper provides more than half the effort to complete the activity 1 Dependent. The helper does all the effort to complete an activity 7 Patient refused to complete or attempt activity 9 The patient did not perform the activity before the current illness or injury 88 Not attempted due to Medical conditions or safety concerns Transfers (B, C, W/C) (FIM): 4 Scootin Rollin Supine to/from Sit: 4 Sit to/from Stand: 4 Bed to/from Chair: 4 requires assist sup to sit min and CGA sit to stand Weight Bearing Weight Bearing Restriction: Weight Bearing/Tolerated (L), Partial Weight Bearing (R) Gait Training Does the Patient Walk?: Yes Gait (FIM): 2 Distance (FIM): 3=713-77 ft (80ft x 3) Gait Level of Assist: 4 Gait Persons Needed: 1 Gait Assistive Device: FWW slow, giving much effort, heavy wt bearing on FWW Exercises Supine Ex: Ankle pumps, Quad Set, Rolling, Glut sets, Heel Slides, Short Arc Quads, Scooting, Straight leg raise (assist), Hip abd/add (asssit) Seated Therapy Exercises: Sit to stand, Long arc quads Seated Reps: 10 Treatments started at 2L o2 off O2 by end of Rx with sats at >90% Assessment Current Status: Good Progress PT Short Term Goals Short Term Goals Time Frame: Mar 24, 2017 Transfers (B,C,W/C) (FIM): 4 Wheelchair (FIM): 5 Wheelchair distance (FIM): 3=150 ft Wheelchair Distance: 50 ft PT Correction Goals Grievance Coordinator Goals PT Correction Goals Time Frame: Apr 07, 2017 Transfers (B,C,W/C) (FIM): 5 Sit to Lying (QC): 6 Lying-Sitting on Side/Bed(QC): 6 Sit to Stand (QC): 88 Rollin Roll Left to Right (QC): 6 Chair/Qtl-mr-Qzyzz Xfer(QC): 5 Car Transfer (QC): 4 Gait (FIM): 0 (unable to ambulate; TTWB B LE's) Does the Pt use WC or Scooter?: Yes Wheelchair (FIM): 6 Wheel 50 feet with 2 turns (QC: 6 Stairs (FIM): 1 (unable due to TTWB B LE;s) 1 Step (curb) (QC): 88 4 Steps (QC): 88 12 Steps (QC): 88 Picking up an Object (QC): 88 PT Plan Treatment/Plan Treatment Plan: Continue Plan of Care Treatment Plan: Bed Mobility, Education, Functional Activity Rochelle, Functional Strength, Group Therapy, Other (wc mob), Safety, Therapeutic Exercise, Transfers Treatment Duration: Apr 07, 2017 Visits Per Week: 180 min 5 of 7 Minutes/Day (M-F): 60-90 Minutes/Day (Sat/Mcmahon): prn Safety Risks/Education Patient Education: Gait Training, Transfer Techniques Teaching Recipient: Patient Teaching Methods: Demonstration, Discussion Response to Teaching: Verbalize Understanding, Return Demonstration, Reinforcement Needed Time/GCodes Time In: 800 Time Out: 900 Total Billed Treatment Time: 60 Total Billed Treatment 1,GT25m,FA15m,EX20m G Codes Necessary: REX Hansen MINE SUPERVISOR Mar 24, 2017 09:02
--- NOTE | 2017-03-24 11:16 | Progress Note-Hospitalist ---
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 Sugars are better Patient Interview: Pt states that he is feeling better and has not been experiencing pain. Pt states that he has sore spots from walking Pt confirms having BMs and urinating Physical exam stable. Lungs sound perfect. 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 Campbell. DIANA CAMPBELL DO Mar 24, 2017 11:16
--- NOTE | 2017-03-24 13:15 | Cardiology Progress Note ---
Subjective Date Seen by Provider: Mar 24, 2017 Time Seen by Provider: 11:00 Subjective/Events-last exam Patient is sitting in a chair, feeling better, still having some abdominal distention. No chest pain was reported Review of Systems General: No Chills, No Night Sweats, No Fatigue, No Malaise, No Appetite, No Other HEENT: No Head Aches, No Visual Changes, No Eye Pain, No Ear Pain, No Dysphasia , No Sinus Congestion, No Post Nasal Drip, No Sore Throat, No Other Pulmonary: No Dyspnea, No Cough, No Pleuritic Chest Pain, No Other Cardiovascular: No: Chest Pain, Edema, Lt Headedness, Orthopnea, Other, Palpitations, Paroxysmal Noc. Dyspnea Objective-Cardiology Exam Last Set of Vital Signs Vital Signs 03/24/17 03/24/17 03/24/17 05:18 06:50 09:00 Temp 98.4 Pulse 100 Resp 20 B/P (MAP) 123/61 Pulse Ox 93 O2 Delivery Nasal Cannula O2 Flow Rate 2.00 Capillary Refill : Less Than 3 Seconds I&O Intake and Output 03/24/17 00:00 Intake Total 1000 ml Output Total 1625 ml Balance -625 ml Intake Oral 1000 ml Output Urine Total 1625 ml # Voids 1 General: Alert, Oriented X3, Cooperative, No Acute Distress HEENT: Atraumatic, PERRLA, EOMI, Mucous Memb Moist/[place] Neck: Supple, No JVD Lungs: Clear to Auscultation Heart: Regular Rate, Normal S1, Normal S2, Other (systolic Murmur) Abdomen: Soft, No Tenderness, Other (distended, diminished BS) Extremities: No Clubbing, No Cyanosis, No Edema ( trace edema) Skin: No Rashes Neuro: Other (strength both LES 3/5 4/5 BUES sensation and cognition grossly intact) Results Lab Laboratory Tests Test 03/23/17 15:42 03/23/17 20:47 03/24/17 04:59 03/24/17 11:04 Range/Units Glucometer 196 H 196 H 165 H 165 H 70-110 MG/DL A/P-Cardiology Admission Diagnosis Elevated BNP HTN DM Right hip fracture Assessment/Plan Elevated BNP, echo showed normal LV size and function. No congestive heart failure was noted. Systolic murmur at left sternal border, aortic valve sclerosis no aortic stenosis on echocardiogram Abdominal distention, mild abdominal discomfort, reporting some improvement, managed by Dr. Sierra Chronic renal insufficiency, continue to monitor renal function HTN- maintained on Lopressor. Continue to monitor BP/HR DM- management by medical services Right hip fracture- s/p repair by Dr. Arambula on 03/14/17 Left patellar fracture Obesity Clinical Quality Measures DVT/VTE Risk/Contraindication: Risk Factor Score Per Nursin RFS Level Per Nursing on Admit: 4+=Very High JULIEN TORRES MD Mar 24, 2017 13:15
--- NOTE | 2017-03-24 13:24 | Physical Therapy Daily Note ---
PT Daily Note-Current Subjective Would like to sit up and have some lunch. C/o he is so" stiff after laying here in bed for awhile" Pain Numeric Pain Scale: 0-No Pain Mental Status Patient Orientation: Normal For Age Transfers Functional [place] Measure 0=Not Assessed/NA 4=Minimal Assistance 1=Total Assistance 5=Supervision or Setup 2=Maximal Assistance 6=Modified [place] 3=Moderate Assistance 7=Complete IndependenceIRFPAI Quality Coding Scale 6 Independent with activity with or without an assistive device 5 Patient requires set up or clean up by helper. Patient completes activity by themselves 4 Supervision or touching assist (CGA). [place] provide cues , steadying assist 3 The helper provides less than half the effort to complete the activity 2 The helper provides more than half the effort to complete the activity 1 Dependent. The helper does all the effort to complete an activity 7 Patient refused to complete or attempt activity 9 The patient did not perform the activity before the current illness or injury 88 Not attempted due to Medical conditions or safety concerns sup to sit min to mod assist. sit to stand from higher surface CGA Weight Bearing PWB LLE, WBAT RLE Gait Training Gait Assistive Device: FWW 35 ft FWW CGA slow Exercises Seated Therapy Exercises: Ankle pumps, Sit to stand, Long arc quads Seated Reps: 8 Assessment Current Status: Good Progress motivated, gives full effort, making good progress PT Short Term Goals Short Term Goals Time Frame: Mar 24, 2017 Transfers (B,C,W/C) (FIM): 4 Wheelchair (FIM): 5 Wheelchair distance (FIM): 3=150 ft Wheelchair Distance: 50 ft PT Revenue Specialist Goals Usp Goals PT Usp Goals Time Frame: Apr 07, 2017 Transfers (B,C,W/C) (FIM): 5 Sit to Lying (QC): 6 Lying-Sitting on Side/Bed(QC): 6 Sit to Stand (QC): 88 Rollin Roll Left to Right (QC): 6 Chair/Szu-kg-Iobtc Xfer(QC): 5 Car Transfer (QC): 4 Gait (FIM): 0 (unable to ambulate; TTWB B LE's) Does the Pt use WC or Scooter?: Yes Wheelchair (FIM): 6 Wheel 50 feet with 2 turns (QC: 6 Stairs (FIM): 1 (unable due to TTWB B LE;s) 1 Step (curb) (QC): 88 4 Steps (QC): 88 12 Steps (QC): 88 Picking up an Object (QC): 88 PT Plan Treatment/Plan Treatment Plan: Continue Plan of Care Treatment Plan: Bed Mobility, Education, Functional Activity [place], Functional Strength, Group Therapy, Other (wc mob), Safety, Therapeutic Exercise, Transfers Treatment Duration: Apr 07, 2017 Visits Per Week: 180 min 5 of 7 Minutes/Day (M-F): 60-90 Minutes/Day (Sat/[place]): prn Safety Risks/Education Patient Education: Gait Training, Transfer Techniques Teaching Recipient: Patient Teaching Methods: Demonstration, Discussion Response to Teaching: Verbalize Understanding, Return Demonstration, Reinforcement Needed Time/GCodes Time In: 1300 Time Out: 1330 Total Billed Treatment Time: 30 Total Billed Treatment 1,EX10m,GT20m G Codes Necessary: REX Hansen PARKING SUPERVISOR Mar 24, 2017 13:24
--- NOTE | 2017-03-24 13:27 | Occupational Ther Daily Note ---
OT Current Status-Daily Note Subjective Pt sitting in chair, agrees to treatment. Pt has no c/o pain, but states he is worn out from working with PT. Mental Status/Objective Functional [place] Measure 0=Not Assessed/NA 4=Minimal Assistance 1=Total Assistance 5=Supervision or Setup 2=Maximal Assistance 6=Modified [place] 3=Moderate Assistance 7=Complete [place] ADL-Treatment Pt agrees to sponge bath. Bathing completed seated in chair. Doff shirt with SBA. Pt able to wash bilateral UE, chest, abdomen, bilateral upper legs, and amina area. Pt uses long handled sponge to wash lower legs and feet, but requires assist to dry these areas. Assist required to wash buttocks. Don pullover shirt with set up. Pt required assist to don PERRI hose and leg brace. Pt used application designer to start shorts over feet, required assist to complete task. Sit to stand with moderate assistance for pant hike. Pt required assist to pull shorts up in back. Pt used sock aid to don socks, requires minimal assistance to complete task. Pt fatigues with activity and requires rest breaks and increased time to complete ADL tasks. Pt declined to brush teeth at this time. Pt sitting in chair with needs met after session. Functional [place] Measure 0=Not Assessed/NA 4=Minimal Assistance 1=Total Assistance 5=Supervision or Setup 2=Maximal Assistance 6=Modified [place] 3=Moderate Assistance 7=Complete IndependenceIRFPAI Quality Coding Scale 6 Independent with activity with or without an assistive device 5 Patient requires set up or clean up by helper. Patient completes activity by themselves 4 Supervision or touching assist (CGA). [place] provide cues , steadying assist 3 The helper provides less than half the effort to complete the activity 2 The helper provides more than half the effort to complete the activity 1 Dependent. The helper does all the effort to complete an activity 7 Patient refused to complete or attempt activity 9 The patient did not perform the activity before the current illness or injury 88 Not attempted due to Medical conditions or safety concerns Bathing (FIM): 3 Shower/Bathe Self (QC): 3 Upper Body (FIM): 5 Upper Body Dressing (QC): 4 Lower Body Dressing (FIM): 2 Lower Body Dressing (QC): 2 On/Off Footwear (QC): 4 Education OT Patient Education: Modified ADL techniques Teaching Recipient: Patient Teaching Methods: Discussion Response to Teaching: Verbalize Understanding, Reinforcement Needed OT Short Term Goals Short Term Goals Time Frame: Mar 24, 2017 Eating(FIM): 5 Grooming(FIM): 5 Bathing(FIM): 3 Upper Body Dressing(FIM): 5 Lower Body Dressing(FIM): 4 Toileting(FIM): 5 Transfers (B,C,W/C) (FIM): 4 Toilet/Commode Transfer(FIM): 4 Additional Short Term Goals: 1-Demonstrate ADL Tasks, 2-Verbalize Understanding , 3-ImproveStrength/[place] 1=Demonstrate adherence to instructed precautions during ADL tasks. 2=Patient will verbalize/demonstrate understanding of assistive devices/ modifications for ADL. 3=Patient will improve strength/tolerance for activity to enable patient to perform ADL's. OT Dust Collector Ore Crushing Goals Jail Goals Time Frame: Apr 07, 2017 Eating (FIM): 6 Eating (QC): 6 Groomin Oral Hygiene (QC): 5 Bathing(FIM): 5 Shower/Bathe Self (QC): 5 Upper Body Dressing(FIM): 5 Upper Body Dressing (QC): 5 Lower Body Dressing(FIM): 5 Lower Body Dressing (QC): 5 On/Off Footwear (QC): 5 Toileting(FIM): 6 Toileting Hygiene (QC): 6 Transfers (B,C,W/C) (FIM): 5 Toilet/Commode Transfer(FIM): 6 Toilet/Commode Transfer (QC): 6 Shower Transfer(FIM): 4 Additional Goals: 1-Demonstrate ADL Tasks, 2-Verbalize Understanding, 3- ImproveStrength/[place] 1=Demonstrate adherence to instructed precautions during ADL tasks. 2=Patient will verbalize/demonstrate understanding of assistive devices/ modifications for ADL. 3=Patient will improve strength/tolerance for activity to enable patient to perform ADL's. OT Education/Plan Discharge Recommendations Plan/Recommendations: Continue POC Treatment Plan/Plan of Care Patient would benefit from OT for education, treatment and training to promote independence in ADL's, mobility, safety and/or upper extremity function for ADL' s. Plan of Care: ADL Retraining, Caregiver Training, Functional Mobility, UE Funct Exercise/Act Treatment Duration: Apr 07, 2017 Visits Per Week: 10 Minutes/Day (M-F): 60-90 Minutes/Day (Sat/[place]): prn Rehab Potential: Good Time/GCodes Start Time: 09:15 Stop Time: 10:15 Total Time Billed (hr/min): 60 Billed Treatment Time 1 visit, ADLx4(60minutes) LEN CHURCH OT Mar 24, 2017 13:27
--- NOTE | 2017-03-24 13:54 | Occupational Ther Daily Note ---
OT Current Status-Daily Note Subjective Pt sitting in chair, agrees to treatment. Mental Status/Objective Functional [place] Measure 0=Not Assessed/NA 4=Minimal Assistance 1=Total Assistance 5=Supervision or Setup 2=Maximal Assistance 6=Modified [place] 3=Moderate Assistance 7=Complete [place] ADL-Treatment Functional [place] Measure 0=Not Assessed/NA 4=Minimal Assistance 1=Total Assistance 5=Supervision or Setup 2=Maximal Assistance 6=Modified [place] 3=Moderate Assistance 7=Complete IndependenceIRFPAI Quality Coding Scale 6 Independent with activity with or without an assistive device 5 Patient requires set up or clean up by helper. Patient completes activity by themselves 4 Supervision or touching assist (CGA). [place] provide cues , steadying assist 3 The helper provides less than half the effort to complete the activity 2 The helper provides more than half the effort to complete the activity 1 Dependent. The helper does all the effort to complete an activity 7 Patient refused to complete or attempt activity 9 The patient did not perform the activity before the current illness or injury 88 Not attempted due to Medical conditions or safety concerns Other Treatment Pt sit to stand from recliner with moderate assistance with chair lifted. Transfer to w/c with minimal assistance using FWW, cues for safety. To therapy gym via w/c. Pt completed tabletop peg activity with bilateral UE with 1# weights in place to increase strength and coordination skills. Pt moves slowly and requires increased time for task. Graded clothespin activity with bilateral hands to increase dish stacker/pinch strength. Task completed with slow pace. Pt returned to room, requests to go back to bed. Sit to stand with maximal assistance secondary to fatigue. Cues for proper hand placement to push up. Transfer to EOB with minimal assistance with FWW. Pt required assist for LE during sit to supine. Pt in bed with needs met after session. OT Short Term Goals Short Term Goals Time Frame: Mar 24, 2017 Eating(FIM): 5 Grooming(FIM): 5 Bathing(FIM): 3 Upper Body Dressing(FIM): 5 Lower Body Dressing(FIM): 4 Toileting(FIM): 5 Transfers (B,C,W/C) (FIM): 4 Toilet/Commode Transfer(FIM): 4 Additional Short Term Goals: 1-Demonstrate ADL Tasks, 2-Verbalize Understanding , 3-ImproveStrength/[place] 1=Demonstrate adherence to instructed precautions during ADL tasks. 2=Patient will verbalize/demonstrate understanding of assistive devices/ modifications for ADL. 3=Patient will improve strength/tolerance for activity to enable patient to perform ADL's. OT Half-Way Goals Caterer'S Aide Goals Time Frame: Apr 07, 2017 Eating (FIM): 6 Eating (QC): 6 Groomin Oral Hygiene (QC): 5 Bathing(FIM): 5 Shower/Bathe Self (QC): 5 Upper Body Dressing(FIM): 5 Upper Body Dressing (QC): 5 Lower Body Dressing(FIM): 5 Lower Body Dressing (QC): 5 On/Off Footwear (QC): 5 Toileting(FIM): 6 Toileting Hygiene (QC): 6 Transfers (B,C,W/C) (FIM): 5 Toilet/Commode Transfer(FIM): 6 Toilet/Commode Transfer (QC): 6 Shower Transfer(FIM): 4 Additional Goals: 1-Demonstrate ADL Tasks, 2-Verbalize Understanding, 3- ImproveStrength/[place] 1=Demonstrate adherence to instructed precautions during ADL tasks. 2=Patient will verbalize/demonstrate understanding of assistive devices/ modifications for ADL. 3=Patient will improve strength/tolerance for activity to enable patient to perform ADL's. OT Education/Plan Discharge Recommendations Plan/Recommendations: Continue POC Treatment Plan/Plan of Care Patient would benefit from OT for education, treatment and training to promote independence in ADL's, mobility, safety and/or upper extremity function for ADL' s. Plan of Care: ADL Retraining, Caregiver Training, Functional Mobility, UE Funct Exercise/Act Treatment Duration: Apr 07, 2017 Visits Per Week: 10 Minutes/Day (M-F): 60-90 Minutes/Day (Sat/[place]ma[place]): prn Rehab Potential: Good Time/GCodes Start Time: 11:30 Stop Time: 12:00 Total Time Billed (hr/min): 30 Billed Treatment Time 1 visit, FAx2(30minutes) LEN CHURCH OT Mar 24, 2017 13:54
[2017-03-24 18:15] VITALS: BP 109/64
--- NOTE | 2017-03-24 20:12 | PM & R (SOAP) Progress Note ---
Subjective Time Seen by Provider: 12:30 Subjective/Events-last exam Patient was seen in his room earlier today WBS advanced by orthopedics last week Patient now WBAT RLE and PWB LLE Patient CGA for transfers Objective Exam Last Set of Vital Signs Vital Signs Date Time Temp Pulse Resp B/P (MAP) Pulse Ox O2 Delivery O2 Flow Rate FiO2 03/24/17 19:37 94 Nasal Cannula 2.00 03/24/17 05:18 98.4 100 20 123/61 Capillary Refill : Less Than 3 Seconds I&O Intake and Output 03/24/17 00:00 Intake Total 1000 ml Output Total 1625 ml Balance -625 ml Intake Oral 1000 ml Output Urine Total 1625 ml # Voids 1 General: Alert, Oriented X3, Cooperative, No Acute Distress HEENT: Atraumatic, PERRLA, EOMI, Mucous Memb Moist/[place] Neck: Supple, No JVD Lungs: Clear to Auscultation Heart: Regular Rate, Normal S1, Normal S2, Other (systolic Murmur) Abdomen: Soft, No Tenderness, Other (distended, diminished BS) Extremities: No Clubbing, No Cyanosis, No Edema ( trace edema) Skin: No Rashes Neuro: Other (strength both LES 3/5 4/5 BUES sensation and cognition grossly intact) Results Lab Laboratory Tests 03/21/17 20:54: Glucometer 204H 03/22/17 04:44: Glucometer 136H 03/22/17 10:58: Glucometer 191H 03/22/17 16:11: Glucometer 228H 03/22/17 20:09: Glucometer 152H 03/23/17 05:28: Glucometer 184H 03/23/17 11:09: Glucometer 136H 03/23/17 15:42: Glucometer 196H 03/23/17 20:47: Glucometer 196H 03/24/17 04:59: Glucometer 165H 03/24/17 11:04: Glucometer 165H 03/24/17 16:13: Glucometer 166H Assessment/Plan Assessment Fall with rt distal femur frx s/p IM nail Ortho WBAT RLE Left nondisplaced Patella frx managed with knee brace and PWB LLE Systolic HT Murmur being evaluated with Cardiology with Bedside Echo HTN controlled DM controlled Prior Lower ext injury after tractor ran over him recovered well Post op constipation Postop ileus-improved Plan Patient admitted to IRU for a comprehensive program of Inpatient ortho rehab with goal of maximizing level of functional [place] at w/c level of function due to limited WBS BLES Continue with PT/OT F/U with Hospitalist and Cardiology and Orthopedics as peer their schedule See Mar for current med Recheck labs Check KUB-done Adjust diet and ivfs and meds as indicated for ileus-done improved See orders. F/U with DR Mariela CHAN WB Status Both lower Limbs Advance by Ortho as per above last week Team Conference hedl earlier today- See report for full functional update and POC Discharge set tentatively for 04/03/17 SHARATH REID MD Mar 24, 2017 20:12
[2017-03-25 05:00] VITALS: BP 132/76
[2017-03-25] MEDS: metFORMIN 500 MG (GLUCOPHAGE) TAB PO SCH ×2 (06:01→17:31)
[2017-03-25] MEDS: METOCLOPRAMIDE 10 MG (REGLAN) TAB PO SCH ×3 (06:02→17:31)
[2017-03-25] MEDS: inSUlin ASPART (NovoLOG) 1 UNIT/0.01 ML (CHARGE PER UNIT) SC SCH ×4 (06:05→21:02)
[2017-03-25] MEDS: FUROSEMIDE 40 MG (LASIX) TAB PO SCH (07:47)
[2017-03-25] MEDS: KCL 10 MEQ TAB (MICRO K) PO SCH ×2 (07:47→20:07)
[2017-03-25] MEDS: SENNOSIDES 8.6 MG (SENOKOT) TAB PO SCH ×2 (07:47→20:07)
[2017-03-25] MEDS: meTOprolol TARTRATE 50 MG (LOPRESSOR) TAB PO SCH (07:47)
[2017-03-25] MEDS: ENOXAPARIN 30 MG/0.3 ML (LOVENOX) SYR SC SCH ×2 (07:47→20:07)
[2017-03-25] MEDS: LACTULOSE SYRUP 10GM/15ML (ENULOSE) 30ML UDC PO SCH ×2 (07:48→20:07)
[2017-03-25] MEDS: RT-ALBUTEROL/IPRATROPIUM 3 ML (DUONEB) VIAL INH SCH ×3 (07:55→19:07)
--- NOTE | 2017-03-25 08:52 | PM & R (SOAP) Progress Note ---
Subjective Time Seen by Provider: 07:20 Subjective/Events-last exam Patient was seen in his room this AM.Patient doing much better with WBS advanced by Ortho Patient min assist for transfers Objective Exam Last Set of Vital Signs Vital Signs Date Time Temp Pulse Resp B/P (MAP) Pulse Ox O2 Delivery O2 Flow Rate FiO2 03/25/17 07:55 96 Nasal Cannula 2.00 03/25/17 05:00 96.4 86 18 132/76 Capillary Refill : Less Than 3 Seconds I&O Intake and Output 03/25/17 00:00 Intake Total 960 ml Output Total 1470 ml Balance -510 ml Intake Oral 960 ml Output Urine Total 1470 ml # Bowel Movements 1 General: Alert, Oriented X3, Cooperative, No Acute Distress HEENT: Atraumatic, PERRLA, EOMI, Mucous Memb Moist/[place] Neck: Supple, No JVD Lungs: Clear to Auscultation Heart: Regular Rate, Normal S1, Normal S2, Other (systolic Murmur) Abdomen: Soft, No Tenderness, Other (distended, diminished BS) Extremities: No Clubbing, No Cyanosis, No Edema ( trace edema) Skin: No Rashes Neuro: Other (strength both LES 3/5 4/5 BUES sensation and cognition grossly intact) Results Lab Laboratory Tests 03/22/17 10:58: Glucometer 191H 03/22/17 16:11: Glucometer 228H 03/22/17 20:09: Glucometer 152H 03/23/17 05:28: Glucometer 184H 03/23/17 11:09: Glucometer 136H 03/23/17 15:42: Glucometer 196H 03/23/17 20:47: Glucometer 196H 03/24/17 04:59: Glucometer 165H 03/24/17 11:04: Glucometer 165H 03/24/17 16:13: Glucometer 166H 03/24/17 20:19: Glucometer 172H 03/25/17 05:40: Glucometer 161H Assessment/Plan Assessment Fall with rt distal femur frx s/p IM nail Ortho WBAT RLE Left nondisplaced Patella frx managed with knee brace and PWB LLE Systolic HT Murmur being evaluated with Cardiology with Bedside Echo HTN controlled DM controlled Prior Lower ext injury after tractor ran over him recovered well Post op constipation Postop ileus-improved Plan Patient admitted to IRU for a comprehensive program of Inpatient ortho rehab with goal of maximizing level of functional [facility] at w/c level of function due to limited WBS BLES Continue with PT/OT F/U with Hospitalist and Cardiology and Orthopedics as peer their schedule See Mar for current med Recheck labs Check KUB-done Adjust diet and ivfs and meds as indicated for ileus-done improved See orders. F/U with DR Mariela CHAN WB Status Both lower Limbs Advanced by Ortho as per above last week Team Conference held yesterday- See report for full functional update and POC Discharge set tentatively for 04/03/17 SHARATH REID MD Mar 25, 2017 08:52
--- NOTE | 2017-03-25 09:03 | Physical Therapy Daily Note ---
PT Daily Note-Current Subjective Patient in recliner pre tx, agrees to PT, has no complaints of pain. Appearance Patient in shower chair post tx with nurse call, olayinka, all needs met. OT will be getting him in just a minute for a shower. Mental Status Patient Orientation: Person, Place, Situation Attachments: Oxygen Transfers Functional [place] Measure 0=Not Assessed/NA 4=Minimal Assistance 1=Total Assistance 5=Supervision or Setup 2=Maximal Assistance 6=Modified [place] 3=Moderate Assistance 7=Complete IndependenceIRFPAI Quality Coding Scale 6 Independent with activity with or without an assistive device 5 Patient requires set up or clean up by helper. Patient completes activity by themselves 4 Supervision or touching assist (CGA). [place] provide cues , steadying assist 3 The helper provides less than half the effort to complete the activity 2 The helper provides more than half the effort to complete the activity 1 Dependent. The helper does all the effort to complete an activity 7 Patient refused to complete or attempt activity 9 The patient did not perform the activity before the current illness or injury 88 Not attempted due to Medical conditions or safety concerns Transfers (B, C, W/C) (FIM): 3 Sit to/from Stand: 3 Patient requires quite a bit of assistance from low surfaces. Gait Training Gait (FIM): 5 Distance: 150'x2 Gait Level of Assist: 5 Gait Persons Needed: 1 Gait Assistive Device: FWW very slow ambulation, patient bears quite a bit of weight through his arms, takes an occasional standing rest break Exercises sit to stand 2 sets of 5, he requires the mat to be quite elevated in order to perform this NuStep Minutes: 15 NuStep Workload: 1 (no resistance due to PWB on right leg) Treatments transfers, ambulation, functional strengthening Assessment Current Status: Fair Progress improving endurance and ambulation PT Short Term Goals Short Term Goals Time Frame: Mar 24, 2017 Transfers (B,C,W/C) (FIM): 4 Wheelchair (FIM): 5 Wheelchair distance (FIM): 3=150 ft Wheelchair Distance: 50 ft PT Long-Term Goals Long-Term Goals PT Unix Engineer Goals Time Frame: Apr 07, 2017 Transfers (B,C,W/C) (FIM): 5 Sit to Lying (QC): 6 Lying-Sitting on Side/Bed(QC): 6 Sit to Stand (QC): 88 Rollin Roll Left to Right (QC): 6 Chair/Tad-it-Rdxhx Xfer(QC): 5 Car Transfer (QC): 4 Gait (FIM): 0 (unable to ambulate; TTWB B LE's) Does the Pt use WC or Scooter?: Yes Wheelchair (FIM): 6 Wheel 50 feet with 2 turns (QC: 6 Stairs (FIM): 1 (unable due to TTWB B LE;s) 1 Step (curb) (QC): 88 4 Steps (QC): 88 12 Steps (QC): 88 Picking up an Object (QC): 88 PT Plan Problem List Problem List: Activity Tolerance, Functional Strength, Safety, Balance, Gait, Transfer, Bed Mobility, ROM Treatment/Plan Treatment Plan: Continue Plan of Care Treatment Plan: Bed Mobility, Education, Functional Activity [place], Functional Strength, Group Therapy, Other (wc mob), Safety, Therapeutic Exercise, Transfers Treatment Duration: Apr 07, 2017 Visits Per Week: 180 min 5 of 7 Minutes/Day (M-F): 60-90 Minutes/Day (Sat/[place]ma[place]): prn Safety Risks/Education Patient Education: Gait Training, Transfer Techniques, Correct Positioning, Safety Issues Teaching Recipient: Patient Teaching Methods: Demonstration, Discussion Response to Teaching: Reinforcement Needed Time/GCodes Time In: 800 Time Out: 900 Total Billed Treatment Time: 60 Total Billed Treatment 1 visit GT 30' EX 20' FA 10' RACHEL RITTER PT Mar 25, 2017 09:03
--- NOTE | 2017-03-25 13:59 | Occupational Ther Daily Note ---
OT Current Status-Daily Note Subjective No pain reported. Appearance Pt. in shower chair after PT session. Agrees to shower. Mental Status/Objective Patient Orientation: Person Functional [place] Measure 0=Not Assessed/NA 4=Minimal Assistance 1=Total Assistance 5=Supervision or Setup 2=Maximal Assistance 6=Modified [place] 3=Moderate Assistance 7=Complete [place] ADL-Treatment Functional [place] Measure 0=Not Assessed/NA 4=Minimal Assistance 1=Total Assistance 5=Supervision or Setup 2=Maximal Assistance 6=Modified [place] 3=Moderate Assistance 7=Complete IndependenceIRFPAI Quality Coding Scale 6 Independent with activity with or without an assistive device 5 Patient requires set up or clean up by helper. Patient completes activity by themselves 4 Supervision or touching assist (CGA). [place] provide cues , steadying assist 3 The helper provides less than half the effort to complete the activity 2 The helper provides more than half the effort to complete the activity 1 Dependent. The helper does all the effort to complete an activity 7 Patient refused to complete or attempt activity 9 The patient did not perform the activity before the current illness or injury 88 Not attempted due to Medical conditions or safety concerns Bathing (FIM): 2 (Pt. able to wash chest and arms. Requires assistance to wash bilateral feet and amina area.) Shower/Bathe Self (QC): 2 Upper Body (FIM): 5 Upper Body Dressing (QC): 5 Lower Body Dressing (FIM): 2 (Max assist to don underwear and shorts as pt. unable to lift bilateral legs while seated on shower chair. Max assist to don socks and knee brace.) Lower Body Dressing (QC): 2 On/Off Footwear (QC): 1 Transfers (B, C, W/C) (FIM): 2 (Max assist for sit-stand. Mod assistance for transfer to bed. Max assist for sit-supine.) Shower Transfer(FIM): 1 (via shower chair.) Other Treatment Pt. demonstrates difficulty engaging core during supine-sit/sit-supine transfers. Once in bed, has difficulty adjusting self to position in bed. Education OT Patient Education: Correct positioning, Modified ADL techniques, Progress toward Goal/Update tx plan, Purpose of tx/functional activities, Reviewed precautions, Rehab process, Transfer techniques Teaching Recipient: Patient Teaching Methods: Demonstration, Discussion Response to Teaching: Verbalize Understanding, Return Demonstration OT Short Term Goals Short Term Goals Time Frame: Mar 24, 2017 Eating(FIM): 5 Grooming(FIM): 5 Bathing(FIM): 3 Upper Body Dressing(FIM): 5 Lower Body Dressing(FIM): 4 Toileting(FIM): 5 Transfers (B,C,W/C) (FIM): 4 Toilet/Commode Transfer(FIM): 4 Additional Short Term Goals: 1-Demonstrate ADL Tasks, 2-Verbalize Understanding , 3-ImproveStrength/[place] 1=Demonstrate adherence to instructed precautions during ADL tasks. 2=Patient will verbalize/demonstrate understanding of assistive devices/ modifications for ADL. 3=Patient will improve strength/tolerance for activity to enable patient to perform ADL's. OT Prison Goals Prison Goals Time Frame: Apr 07, 2017 Eating (FIM): 6 Eating (QC): 6 Groomin Oral Hygiene (QC): 5 Bathing(FIM): 5 Shower/Bathe Self (QC): 5 Upper Body Dressing(FIM): 5 Upper Body Dressing (QC): 5 Lower Body Dressing(FIM): 5 Lower Body Dressing (QC): 5 On/Off Footwear (QC): 5 Toileting(FIM): 6 Toileting Hygiene (QC): 6 Transfers (B,C,W/C) (FIM): 5 Toilet/Commode Transfer(FIM): 6 Toilet/Commode Transfer (QC): 6 Shower Transfer(FIM): 4 Additional Goals: 1-Demonstrate ADL Tasks, 2-Verbalize Understanding, 3- ImproveStrength/[place] 1=Demonstrate adherence to instructed precautions during ADL tasks. 2=Patient will verbalize/demonstrate understanding of assistive devices/ modifications for ADL. 3=Patient will improve strength/tolerance for activity to enable patient to perform ADL's. OT Education/Plan Problem List/Assessment Assessment: Decreased Activ Tolerance, Dependent Transfers, Impaired Bed Mobility, Impaired Funct Balance, Impaired I ADL's, Impaired Self-Care Skills, Restricted Funct UE ROM Discharge Recommendations Plan/Recommendations: Continue POC Therapy D/C Recommendations: Home w/ Family Support, Occupational Therapy Home Care Equpiment Recommendations-D/C: Extended Bath Bench, Hip Kit Treatment Plan/Plan of Care Treatment,Training & Education: Yes Patient would benefit from OT for education, treatment and training to promote independence in ADL's, mobility, safety and/or upper extremity function for ADL' s. Plan of Care: ADL Retraining, Caregiver Training, Functional Mobility, UE Funct Exercise/Act Treatment Duration: Apr 07, 2017 Frequency: At least 5-7 days/Wk (IRF) Estimated Hrs Per Day: 1.5 hours per day Agreement: Yes Rehab Potential: Good Time/GCodes Start Time: 09:00 Stop Time: 10:00 Total Time Billed (hr/min): 60 Billed Treatment Time 1, ADL x 4 ANGEL MOODY OT Mar 25, 2017 13:59
--- NOTE | 2017-03-25 14:02 | Occupational Ther Daily Note ---
OT Current Status-Daily Note Subjective No pain reported. Appearance Pt. in bed. Agrees to work with therapist. Sister in room. Mental Status/Objective Patient Orientation: Person Functional [place] Measure 0=Not Assessed/NA 4=Minimal Assistance 1=Total Assistance 5=Supervision or Setup 2=Maximal Assistance 6=Modified [place] 3=Moderate Assistance 7=Complete [place] ADL-Treatment Functional [place] Measure 0=Not Assessed/NA 4=Minimal Assistance 1=Total Assistance 5=Supervision or Setup 2=Maximal Assistance 6=Modified [place] 3=Moderate Assistance 7=Complete IndependenceIRFPAI Quality Coding Scale 6 Independent with activity with or without an assistive device 5 Patient requires set up or clean up by helper. Patient completes activity by themselves 4 Supervision or touching assist (CGA). [place] provide cues , steadying assist 3 The helper provides less than half the effort to complete the activity 2 The helper provides more than half the effort to complete the activity 1 Dependent. The helper does all the effort to complete an activity 7 Patient refused to complete or attempt activity 9 The patient did not perform the activity before the current illness or injury 88 Not attempted due to Medical conditions or safety concerns Pt and sister educated that it will be very important for pt. to be able to get self in and out of bed on his own to be able to go home. Sister states that his grown children live there, but that they wont be there all the time, and work out in farm. Pt. states that he has a hospital bed at home that he sleeps in. The HOB raises, but he has no rails. Worked on using different strategies and equipment to make him more independent to get out of a bed that is similar to his. Rails put down and HOB raised. Worked on transferring supine to and from sit. Issued leg director corporate security and pt. worked on getting legs to edge. This was difficult, but he was more able to do this than move them on his own. Pt. able to get legs to edge, and then supine-sit with increased time, and great struggle on his part. Note that pt. has limited core strength. OT put chair at HOB to use as rail, which he can simulate at home. This assisted him to the side. Worked on getting feet back into bed with leg director corporate security. Min assist needed to get right leg in, and then pt. unable to put left leg in with brace. OT did this for him, and then applied large foam loop to brace to assist with getting leg in better. Pt. and sister educated on importance of working on these things to increase overall strength for return home. Note that pt. does not initiate well. Will get into a position, and then stay there. Will continue to address strengthening, ADLs, and mobility. Education OT Patient Education: Correct positioning, Instructions to caregiver, Modified ADL techniques, Progress toward Goal/Update tx plan, Purpose of tx/functional activities, Reviewed precautions, Rehab process, Transfer techniques, Use of adapted equipment Teaching Recipient: Patient Teaching Methods: Demonstration, Discussion Response to Teaching: Verbalize Understanding, Return Demonstration OT Short Term Goals Short Term Goals Time Frame: Mar 24, 2017 Eating(FIM): 5 Grooming(FIM): 5 Bathing(FIM): 3 Upper Body Dressing(FIM): 5 Lower Body Dressing(FIM): 4 Toileting(FIM): 5 Transfers (B,C,W/C) (FIM): 4 Toilet/Commode Transfer(FIM): 4 Additional Short Term Goals: 1-Demonstrate ADL Tasks, 2-Verbalize Understanding , 3-ImproveStrength/[place] 1=Demonstrate adherence to instructed precautions during ADL tasks. 2=Patient will verbalize/demonstrate understanding of assistive devices/ modifications for ADL. 3=Patient will improve strength/tolerance for activity to enable patient to perform ADL's. OT Flexboard Operator Goals Flexboard Operator Goals Time Frame: Apr 07, 2017 Eating (FIM): 6 Eating (QC): 6 Groomin Oral Hygiene (QC): 5 Bathing(FIM): 5 Shower/Bathe Self (QC): 5 Upper Body Dressing(FIM): 5 Upper Body Dressing (QC): 5 Lower Body Dressing(FIM): 5 Lower Body Dressing (QC): 5 On/Off Footwear (QC): 5 Toileting(FIM): 6 Toileting Hygiene (QC): 6 Transfers (B,C,W/C) (FIM): 5 Toilet/Commode Transfer(FIM): 6 Toilet/Commode Transfer (QC): 6 Shower Transfer(FIM): 4 Additional Goals: 1-Demonstrate ADL Tasks, 2-Verbalize Understanding, 3- ImproveStrength/[place] 1=Demonstrate adherence to instructed precautions during ADL tasks. 2=Patient will verbalize/demonstrate understanding of assistive devices/ modifications for ADL. 3=Patient will improve strength/tolerance for activity to enable patient to perform ADL's. OT Education/Plan Problem List/Assessment Assessment: Decreased Activ Tolerance, Decreased UE Strength, Dependent Transfers, Impaired Bed Mobility, Impaired Funct Balance, Impaired I ADL's, Impaired Self-Care Skills, Restricted Funct UE ROM Discharge Recommendations Plan/Recommendations: Continue POC Therapy D/C Recommendations: Home w/ Family Support, Occupational Therapy Home Care Treatment Plan/Plan of Care Treatment,Training & Education: Yes Patient would benefit from OT for education, treatment and training to promote independence in ADL's, mobility, safety and/or upper extremity function for ADL' s. Plan of Care: ADL Retraining, Caregiver Training, Functional Mobility, UE Funct Exercise/Act Treatment Duration: Apr 07, 2017 Frequency: At least 5-7 days/Wk (IRF) Estimated Hrs Per Day: 1.5 hours per day Agreement: Yes Rehab Potential: Good Time/GCodes Start Time: 11:25 Stop Time: 12:05 Total Time Billed (hr/min): 40 Billed Treatment Time 1, FA x 3 ANGEL MOODY OT Mar 25, 2017 14:02
--- NOTE | 2017-03-25 15:22 | Physical Therapy Daily Note ---
PT Daily Note-Current Subjective Agreeable. no complaint.s Transfers Functional [place] Measure 0=Not Assessed/NA 4=Minimal Assistance 1=Total Assistance 5=Supervision or Setup 2=Maximal Assistance 6=Modified [place] 3=Moderate Assistance 7=Complete IndependenceIRFPAI Quality Coding Scale 6 Independent with activity with or without an assistive device 5 Patient requires set up or clean up by helper. Patient completes activity by themselves 4 Supervision or touching assist (CGA). [place] provide cues , steadying assist 3 The helper provides less than half the effort to complete the activity 2 The helper provides more than half the effort to complete the activity 1 Dependent. The helper does all the effort to complete an activity 7 Patient refused to complete or attempt activity 9 The patient did not perform the activity before the current illness or injury 88 Not attempted due to Medical conditions or safety concerns Treatments Supine to sit using leg onion farmer and loop to move his legs. Pt relied heavily on bed rail to pull up and ultimately required mod assist to lift trunk. Pt able to move his legs with AD just required extra time. Sit to stand from bed with skilled cues for hand placement and sequencing with min assist. Pt ambulated 75 ft with FWW with CGA, WBAT left and PWB right. Pt performed seated LE ther ex x 15 for AP, LAQ, hip flex, hip abd/add. Sit to stand from chair with max assist and walked an additional 75 ft with FWW with CGA. Pt up in chair post treatment with needs met. Assessment Current Status: Good Progress Progressing with functional mobility and strength. Pt very motivated. PT Short Term Goals Short Term Goals Time Frame: Mar 24, 2017 Transfers (B,C,W/C) (FIM): 4 Wheelchair (FIM): 5 Wheelchair distance (FIM): 3=150 ft Wheelchair Distance: 50 ft PT Correction Goals Commercial Loan Underwriter Goals PT Commercial Loan Underwriter Goals Time Frame: Apr 07, 2017 Transfers (B,C,W/C) (FIM): 5 Sit to Lying (QC): 6 Lying-Sitting on Side/Bed(QC): 6 Sit to Stand (QC): 88 Rollin Roll Left to Right (QC): 6 Chair/Sjo-mm-Hbxce Xfer(QC): 5 Car Transfer (QC): 4 Gait (FIM): 0 (unable to ambulate; TTWB B LE's) Does the Pt use WC or Scooter?: Yes Wheelchair (FIM): 6 Wheel 50 feet with 2 turns (QC: 6 Stairs (FIM): 1 (unable due to TTWB B LE;s) 1 Step (curb) (QC): 88 4 Steps (QC): 88 12 Steps (QC): 88 Picking up an Object (QC): 88 PT Plan Problem List Problem List: Activity Tolerance, Functional Strength, Safety Treatment/Plan Treatment Plan: Continue Plan of Care Treatment Plan: Bed Mobility, Education, Functional Activity [place], Functional Strength, Group Therapy, Other (wc mob), Safety, Therapeutic Exercise, Transfers Treatment Duration: Apr 07, 2017 Frequency: At least 5-7 days/Wk (IRF) Estimated Hrs Per Day: 1.5 hours per day Patient and/or Family Agrees t: Yes Safety Risks/Education Patient Education: Transfer Techniques, Safety Issues Teaching Recipient: Patient Teaching Methods: Demonstration, Discussion Response to Teaching: Reinforcement Needed Time/GCodes Time In: 1330 Time Out: 1410 Total Billed Treatment Time: 40 Total Billed Treatment visit EX 15 GT 25 STEFFANIE BROWN PT Mar 25, 2017 15:22
[2017-03-25 18:23] VITALS: BP 135/71
[2017-03-26] MEDS: METOCLOPRAMIDE 10 MG (REGLAN) TAB PO SCH ×4 (00:01→17:20)
[2017-03-26 05:06] VITALS: BP 122/77
[2017-03-26] MEDS: metFORMIN 500 MG (GLUCOPHAGE) TAB PO SCH ×2 (05:48→16:19)
[2017-03-26] MEDS: inSUlin ASPART (NovoLOG) 1 UNIT/0.01 ML (CHARGE PER UNIT) SC SCH ×4 (05:48→20:46)
[2017-03-26] MEDS: RT-ALBUTEROL/IPRATROPIUM 3 ML (DUONEB) VIAL INH SCH ×3 (07:11→20:17)
[2017-03-26 07:59] VITALS: BP 128/72
[2017-03-26] MEDS: FUROSEMIDE 40 MG (LASIX) TAB PO SCH (08:02)
[2017-03-26] MEDS: KCL 10 MEQ TAB (MICRO K) PO SCH ×2 (08:02→20:48)
[2017-03-26] MEDS: SENNOSIDES 8.6 MG (SENOKOT) TAB PO SCH ×2 (08:02→20:48)
[2017-03-26] MEDS: ENOXAPARIN 30 MG/0.3 ML (LOVENOX) SYR SC SCH ×2 (08:03→20:48)
[2017-03-26] MEDS: LACTULOSE SYRUP 10GM/15ML (ENULOSE) 30ML UDC PO SCH ×2 (08:03→20:48)
[2017-03-26] MEDS: meTOprolol TARTRATE 50 MG (LOPRESSOR) TAB PO SCH (08:03)
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
--- NOTE | 2017-03-26 09:24 | Occupational Ther Daily Note ---
OT Current Status-Daily Note Subjective Pt in bed, agrees to treatment. Pt has no c/o pain. Mental Status/Objective Functional [place] Measure 0=Not Assessed/NA 4=Minimal Assistance 1=Total Assistance 5=Supervision or Setup 2=Maximal Assistance 6=Modified [place] 3=Moderate Assistance 7=Complete [place] ADL-Treatment Pt states he had a shower yesterday, would like to sponge bathe today. Pt used leg commissions specialist to bring feet to EOB. Pt required moderate assistance to raise trunk during supine to sit. Sponge bath completed at EOB. Pt able to wash bilateral UE , chest, abdomen, amina area, and bilateral upper legs. Pt uses long sponge to wash lower legs and feet, but requires assist to dry them. Assist required to wash buttocks. Pt donned pullover shirt with set up. Max assist for LE dressing. Pt requires assist for Dario hose and to don brace on left LE. Pt required assist to start underwear and pants over feet. Stood with moderate assistance for pant hike. Occasional rest breaks during ADL tasks. Pt agreeable to sit up in chair. Sit to stand with moderate assistance from raised bed. Transfer to chair with CGA using FWW. Pt brushed teeth with set up while seated in chair. Increased time required for ADL tasks. Pt sitting in chair with needs met after session. Functional [place] Measure 0=Not Assessed/NA 4=Minimal Assistance 1=Total Assistance 5=Supervision or Setup 2=Maximal Assistance 6=Modified [place] 3=Moderate Assistance 7=Complete IndependenceIRFPAI Quality Coding Scale 6 Independent with activity with or without an assistive device 5 Patient requires set up or clean up by helper. Patient completes activity by themselves 4 Supervision or touching assist (CGA). [place] provide cues , steadying assist 3 The helper provides less than half the effort to complete the activity 2 The helper provides more than half the effort to complete the activity 1 Dependent. The helper does all the effort to complete an activity 7 Patient refused to complete or attempt activity 9 The patient did not perform the activity before the current illness or injury 88 Not attempted due to Medical conditions or safety concerns Grooming (FIM): 5 Oral Hygiene (QC): 5 Bathing (FIM): 3 Upper Body (FIM): 5 Upper Body Dressing (QC): 5 Lower Body Dressing (FIM): 3 OT Short Term Goals Short Term Goals Time Frame: Mar 24, 2017 Eating(FIM): 5 Grooming(FIM): 5 Bathing(FIM): 3 Upper Body Dressing(FIM): 5 Lower Body Dressing(FIM): 4 Toileting(FIM): 5 Transfers (B,C,W/C) (FIM): 4 Toilet/Commode Transfer(FIM): 4 Additional Short Term Goals: 1-Demonstrate ADL Tasks, 2-Verbalize Understanding , 3-ImproveStrength/Rochelle 1=Demonstrate adherence to instructed precautions during ADL tasks. 2=Patient will verbalize/demonstrate understanding of assistive devices/ modifications for ADL. 3=Patient will improve strength/tolerance for activity to enable patient to perform ADL's. OT Custodial Goals Equipment Engineer Goals Time Frame: Apr 07, 2017 Eating (FIM): 6 Eating (QC): 6 Groomin Oral Hygiene (QC): 5 Bathing(FIM): 5 Shower/Bathe Self (QC): 5 Upper Body Dressing(FIM): 5 Upper Body Dressing (QC): 5 Lower Body Dressing(FIM): 5 Lower Body Dressing (QC): 5 On/Off Footwear (QC): 5 Toileting(FIM): 6 Toileting Hygiene (QC): 6 Transfers (B,C,W/C) (FIM): 5 Toilet/Commode Transfer(FIM): 6 Toilet/Commode Transfer (QC): 6 Shower Transfer(FIM): 4 Additional Goals: 1-Demonstrate ADL Tasks, 2-Verbalize Understanding, 3- ImproveStrength/Rochelle 1=Demonstrate adherence to instructed precautions during ADL tasks. 2=Patient will verbalize/demonstrate understanding of assistive devices/ modifications for ADL. 3=Patient will improve strength/tolerance for activity to enable patient to perform ADL's. OT Education/Plan Discharge Recommendations Plan/Recommendations: Continue POC Treatment Plan/Plan of Care Patient would benefit from OT for education, treatment and training to promote independence in ADL's, mobility, safety and/or upper extremity function for ADL' s. Plan of Care: ADL Retraining, Caregiver Training, Functional Mobility, UE Funct Exercise/Act Treatment Duration: Apr 07, 2017 Frequency: At least 5-7 days/Wk (IRF) Estimated Hrs Per Day: 1.5 hours per day Agreement: Yes Rehab Potential: Good Time/GCodes Start Time: 07:55 Stop Time: 08:55 Total Time Billed (hr/min): 60 Billed Treatment Time 1 visit, ADLx4(60minutes) LEN CHURCH OT Mar 26, 2017 09:24
--- NOTE | 2017-03-26 09:57 | Physical Therapy Daily Note ---
PT Daily Note-Current Subjective Patient has no c/o pain of bilateral LE's. Agrees to PT. Pain Numeric Pain Scale: 0-No Pain Location: No Pain Reported Mental Status Patient Orientation: Normal For Age Transfers Functional [place] Measure 0=Not Assessed/NA 4=Minimal Assistance 1=Total Assistance 5=Supervision or Setup 2=Maximal Assistance 6=Modified [place] 3=Moderate Assistance 7=Complete IndependenceIRFPAI Quality Coding Scale 6 Independent with activity with or without an assistive device 5 Patient requires set up or clean up by helper. Patient completes activity by themselves 4 Supervision or touching assist (CGA). [place] provide cues , steadying assist 3 The helper provides less than half the effort to complete the activity 2 The helper provides more than half the effort to complete the activity 1 Dependent. The helper does all the effort to complete an activity 7 Patient refused to complete or attempt activity 9 The patient did not perform the activity before the current illness or injury 88 Not attempted due to Medical conditions or safety concerns Transfers (B, C, W/C) (FIM): 4 Scootin Sit to/from Stand: 4 Sit to Stand (QC): 4 Car Transfer (QC): 3 minimal assist with sit to stand transfers due to fatigue and weakness Gait Training Does the Patient Walk?: Yes Gait (FIM): 2 Distance (FIM): 0=970-21 ft Distance: 50' x 3; 150' x 3 Walk 10 feet (QC): 4 Walk 50 ft with 2 Turns(QC): 4 Walk 150 ft (QC): 4 Walking 10ft/uneven surface-QC: 4 Gait Level of Assist: 4 Gait Persons Needed: 1 Gait Assistive Device: FWW very slow and methodical; patient is compliant with weight bearing status of right LE WBAT; left LE PWB Wheelchair Training Does the Pt Use a Wheelchair?: Yes Wheelchair (FIM): 3 Wheelchair Distance: 3=150 ft Distance: 300' Wheelchair Level of Assist: 2 Exercises Seated Therapy Exercises: Ankle pumps, Long arc quads Seated Reps: 20 (2 sets to improve strength to improve mobility) NuStep Minutes: 10 (to facilitate reciprocal pattern with ambulation) NuStep Workload: 1 Assessment Patient is progressing with treatment plan. PT to increase activity as tolerated. Patient is limited due to PWB left LE PT Short Term Goals Short Term Goals Time Frame: Mar 24, 2017 Transfers (B,C,W/C) (FIM): 4 Wheelchair (FIM): 5 Wheelchair distance (FIM): 3=150 ft Wheelchair Distance: 50 ft PT Senior Care Goals Ethyl Blender Goals PT Senior Care Goals Time Frame: Apr 07, 2017 Transfers (B,C,W/C) (FIM): 5 Sit to Lying (QC): 6 Lying-Sitting on Side/Bed(QC): 6 Sit to Stand (QC): 88 Rollin Roll Left to Right (QC): 6 Chair/Ntc-np-Upntl Xfer(QC): 5 Car Transfer (QC): 4 Gait (FIM): 0 (unable to ambulate; TTWB B LE's) Does the Pt use WC or Scooter?: Yes Wheelchair (FIM): 6 Wheel 50 feet with 2 turns (QC: 6 Stairs (FIM): 1 (unable due to TTWB B LE;s) 1 Step (curb) (QC): 88 4 Steps (QC): 88 12 Steps (QC): 88 Picking up an Object (QC): 88 PT Plan Treatment/Plan Treatment Plan: Continue Plan of Care Treatment Plan: Bed Mobility, Education, Functional Activity Rochelle, Functional Strength, Group Therapy, Other (wc mob), Safety, Therapeutic Exercise, Transfers Treatment Duration: Apr 07, 2017 Frequency: At least 5-7 days/Wk (IRF) Estimated Hrs Per Day: 1.5 hours per day Patient and/or Family Agrees t: Yes Time/GCodes Time In: 856 Time Out: 956 Total Billed Treatment Time: 60 Total Billed Treatment 1 visit EX 20 min GT x 3 40 min MARIXA GALLOWAY PT Mar 26, 2017 09:57
--- NOTE | 2017-03-26 11:04 | Progress Note-Hospitalist ---
Progress Note Progress Notes/Assess & Plan Date Seen 03/26/17 Time Seen by Provider: 10:30 Diagonsis/Assessment & Plan Patient Interview: Pt confirms eating, drinking, and having BMs Pt confirms using IS Physical exam stable. Lungs sound perfect. Chart Review: Vital signs stable Blood sugar 165 trainman: Pt is eating. 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 Campbell. DIANA CAMPBELL DO Mar 26, 2017 11:04
--- NOTE | 2017-03-26 14:41 | Therapy Group Daily Note ---
Therapy Daily Group Note Exercises Other Other/Notes Pt was an active participant in OT/PT group. He introduced himself to the group for socialization and did seated exercises for stress management. He played MarginLeft with a group and was able to roll the dice and add up points but had a little difficulty problem-solving what moves to make next. He also was able to participate for the entire group time. He was taken back to his room and put back in bed, all needs met. Start Time: 13:00 Stop Time: 14:15 Total Billed Treatment Time: 75 Total Billed Treatment visit, 75 minutes group JOSE PACHECO OT Mar 26, 2017 14:41
[2017-03-26 18:10] VITALS: BP 132/70
[2017-03-27 05:11] VITALS: BP 153/68
[2017-03-27] MEDS: METOCLOPRAMIDE 10 MG (REGLAN) TAB PO SCH ×4 (06:13→16:54)
[2017-03-27] MEDS: metFORMIN 500 MG (GLUCOPHAGE) TAB PO SCH ×2 (06:13→16:53)
[2017-03-27] MEDS: inSUlin ASPART (NovoLOG) 1 UNIT/0.01 ML (CHARGE PER UNIT) SC SCH ×4 (06:18→20:32)
[2017-03-27] MEDS: RT-ALBUTEROL/IPRATROPIUM 3 ML (DUONEB) VIAL INH SCH ×3 (08:01→18:59)
[2017-03-27] MEDS: LACTULOSE SYRUP 10GM/15ML (ENULOSE) 30ML UDC PO SCH ×2 (08:19→20:05)
[2017-03-27] MEDS: ENOXAPARIN 30 MG/0.3 ML (LOVENOX) SYR SC SCH ×2 (08:19→20:04)
[2017-03-27] MEDS: KCL 10 MEQ TAB (MICRO K) PO SCH ×2 (08:20→20:03)
[2017-03-27] MEDS: FUROSEMIDE 40 MG (LASIX) TAB PO SCH (08:20)
[2017-03-27] MEDS: SENNOSIDES 8.6 MG (SENOKOT) TAB PO SCH ×2 (08:20→20:03)
[2017-03-27] MEDS: meTOprolol TARTRATE 50 MG (LOPRESSOR) TAB PO SCH (08:20)
--- NOTE | 2017-03-27 09:16 | Physical Therapy Daily Note ---
PT Daily Note-Current Subjective Pt laying supine in bed upon arrival. Pt agrees to PT. Pain Location: No Pain Reported Mental Status Patient Orientation: Person, Place, Situation Attachments: Oxygen Transfers Functional [place] Measure 0=Not Assessed/NA 4=Minimal Assistance 1=Total Assistance 5=Supervision or Setup 2=Maximal Assistance 6=Modified [place] 3=Moderate Assistance 7=Complete IndependenceIRFPAI Quality Coding Scale 6 Independent with activity with or without an assistive device 5 Patient requires set up or clean up by helper. Patient completes activity by themselves 4 Supervision or touching assist (CGA). [place] provide cues , steadying assist 3 The helper provides less than half the effort to complete the activity 2 The helper provides more than half the effort to complete the activity 1 Dependent. The helper does all the effort to complete an activity 7 Patient refused to complete or attempt activity 9 The patient did not perform the activity before the current illness or injury 88 Not attempted due to Medical conditions or safety concerns Scootin Rollin Roll Left to Right (QC): 4 Supine to/from Sit: 4 Sit to/from Stand: 3 Sit to Stand (QC): 3 Chair/Czk-dj-Unxsa Xfer(QC): 3 Bed to/from Chair: 3 Weight Bearing Weight Bearing Restriction: Weight Bearing/Tolerated (LLE), Partial Weight Bearing (RLE) Gait Training Does the Patient Walk?: Yes Distance (FIM): 1=up to 49 ft Distance: 7' Gait Level of Assist: 4 Gait Persons Needed: 1 Gait Assistive Device: FWW Pt adheres to WB status well. Treatments Pt transfers from supine to EOB at SALES CLERK SUPERVISOR then EOB to standing at Min-Mod A using FWW. Pt ambulates to recliner and transfers to sitting at Min A. Pt is left resting in recliner at end of tx with all needs met. Assessment Current Status: Fair Progress Pt tolerates transfer well, adheres to WB status as best that pt can. PT Short Term Goals Short Term Goals Time Frame: Mar 24, 2017 Transfers (B,C,W/C) (FIM): 4 Wheelchair (FIM): 5 Wheelchair distance (FIM): 3=150 ft Wheelchair Distance: 300' PT Frit Mixer And Burner Goals Frit Mixer And Burner Goals PT Snf Goals Time Frame: Apr 07, 2017 Transfers (B,C,W/C) (FIM): 5 Sit to Lying (QC): 6 Lying-Sitting on Side/Bed(QC): 6 Sit to Stand (QC): 88 Rollin Roll Left to Right (QC): 6 Chair/Qme-co-Zqkqv Xfer(QC): 5 Car Transfer (QC): 4 Gait (FIM): 0 (unable to ambulate; TTWB B LE's) Does the Pt use WC or Scooter?: Yes Wheelchair (FIM): 6 Wheel 50 feet with 2 turns (QC: 6 Stairs (FIM): 1 (unable due to TTWB B LE;s) 1 Step (curb) (QC): 88 4 Steps (QC): 88 12 Steps (QC): 88 Picking up an Object (QC): 88 PT Plan Problem List Problem List: Activity Tolerance, Functional Strength, Safety, Balance, Gait, Transfer, Bed Mobility Treatment/Plan Treatment Plan: Continue Plan of Care Treatment Plan: Bed Mobility, Education, Functional Activity Rochelle, Functional Strength, Group Therapy, Other (wc mob), Safety, Therapeutic Exercise, Transfers Treatment Duration: Apr 07, 2017 Frequency: At least 5-7 days/Wk (IRF) Estimated Hrs Per Day: 1.5 hours per day Patient and/or Family Agrees t: Yes Safety Risks/Education Patient Education: Gait Training, Transfer Techniques, Correct Positioning, Safety Issues Teaching Recipient: Patient Teaching Methods: Discussion Response to Teaching: Verbalize Understanding Time/GCodes Time In: 740 Time Out: 800 Total Billed Treatment Time: 20 Total Billed Treatment visit, FA (20m) BECKY LEIVA PTA Mar 27, 2017 09:16
[2017-03-27 18:10] VITALS: BP 115/71
[2017-03-28] MEDS: METOCLOPRAMIDE 10 MG (REGLAN) TAB PO SCH ×5 (00:37→23:12)
[2017-03-28 05:39] VITALS: BP 128/73
[2017-03-28] MEDS: metFORMIN 500 MG (GLUCOPHAGE) TAB PO SCH ×2 (06:12→17:50)
[2017-03-28] MEDS: inSUlin ASPART (NovoLOG) 1 UNIT/0.01 ML (CHARGE PER UNIT) SC SCH ×4 (06:12→20:43)
[2017-03-28] MEDS: RT-ALBUTEROL/IPRATROPIUM 3 ML (DUONEB) VIAL INH SCH ×3 (07:03→19:27)
[2017-03-28] MEDS: ENOXAPARIN 30 MG/0.3 ML (LOVENOX) SYR SC SCH ×2 (08:43→20:43)
[2017-03-28] MEDS: LACTULOSE SYRUP 10GM/15ML (ENULOSE) 30ML UDC PO SCH ×2 (08:44→20:43)
[2017-03-28] MEDS: meTOprolol TARTRATE 50 MG (LOPRESSOR) TAB PO SCH (08:44)
[2017-03-28] MEDS: SENNOSIDES 8.6 MG (SENOKOT) TAB PO SCH ×2 (08:44→20:43)
[2017-03-28] MEDS: KCL 10 MEQ TAB (MICRO K) PO SCH ×2 (08:44→20:43)
[2017-03-28] MEDS: FUROSEMIDE 40 MG (LASIX) TAB PO SCH (08:44)
[2017-03-28 18:12] VITALS: BP 139/76
[2017-03-29 05:08] VITALS: BP 119/71
[2017-03-29] MEDS: inSUlin ASPART (NovoLOG) 1 UNIT/0.01 ML (CHARGE PER UNIT) SC SCH ×4 (05:44→20:08)
[2017-03-29] MEDS: METOCLOPRAMIDE 10 MG (REGLAN) TAB PO SCH ×4 (05:57→23:27)
[2017-03-29] MEDS: metFORMIN 500 MG (GLUCOPHAGE) TAB PO SCH ×2 (05:57→17:13)
[2017-03-29] MEDS: RT-ALBUTEROL/IPRATROPIUM 3 ML (DUONEB) VIAL INH SCH ×3 (06:48→19:14)
[2017-03-29] MEDS: FUROSEMIDE 40 MG (LASIX) TAB PO SCH (08:08)
[2017-03-29] MEDS: KCL 10 MEQ TAB (MICRO K) PO SCH ×2 (08:08→20:08)
[2017-03-29] MEDS: SENNOSIDES 8.6 MG (SENOKOT) TAB PO SCH ×2 (08:08→20:08)
[2017-03-29] MEDS: ENOXAPARIN 30 MG/0.3 ML (LOVENOX) SYR SC SCH ×2 (08:08→20:08)
[2017-03-29] MEDS: meTOprolol TARTRATE 50 MG (LOPRESSOR) TAB PO SCH (08:08)
[2017-03-29] MEDS: LACTULOSE SYRUP 10GM/15ML (ENULOSE) 30ML UDC PO SCH ×2 (08:09→20:08)
--- NOTE | 2017-03-29 08:33 | Cardiology Progress Note ---
Subjective Date Seen by Provider: Mar 29, 2017 Time Seen by Provider: 08:10 Subjective/Events-last exam Patient in bed. No new complaints. Denies any CP or dyspnea. Review of Systems General: No Night Sweats, No Fatigue, No Malaise HEENT: No Visual Changes, No Dysphasia, No Sore Throat Pulmonary: No Dyspnea, No Cough Cardiovascular: No: Chest Pain, Edema, Palpitations, Paroxysmal Noc. Dyspnea Gastrointestinal: No: Nausea, Vomiting Genitourinary: No Dysuria, No Frequency Musculoskeletal: No: back pain, neck pain Neurological: No: Change in speech, Confusion, Numbness, Weakness Objective-Cardiology Exam Last Set of Vital Signs Vital Signs 03/29/17 03/29/17 05:08 06:51 Temp 97.8 Pulse 85 Resp 18 B/P (MAP) 119/71 Pulse Ox 94 O2 Delivery Nasal Cannula O2 Flow Rate 1.00 Capillary Refill : Less Than 3 Seconds I&O Intake and Output 03/29/17 00:00 Intake Total 1470 ml Output Total 1600 ml Balance -130 ml Intake Oral 1470 ml Output Urine Total 1600 ml General: Alert, Oriented X3, Cooperative, No Acute Distress HEENT: Atraumatic, PERRLA, EOMI, Mucous Memb Moist/[place] Neck: Supple, No JVD Lungs: Clear to Auscultation Heart: Regular Rate, Normal S1, Normal S2, Other (systolic Murmur) Abdomen: Soft, No Tenderness, Other (distended, diminished BS) Extremities: No Clubbing, No Cyanosis, No Edema ( trace edema) Skin: No Rashes Neuro: Other (strength both LES 3/5 4/5 BUES sensation and cognition grossly intact) A/P-Cardiology Admission Diagnosis Elevated BNP HTN DM Right hip fracture Assessment/Plan Elevated BNP, echo showed normal LV size and function. No congestive heart failure was noted. Systolic murmur at left sternal border, aortic valve sclerosis no aortic stenosis on echocardiogram Abdominal distention, mild abdominal discomfort, reporting some improvement, managed by Dr. Sierra Chronic renal insufficiency, continue to monitor renal function HTN- maintained on Lopressor. Continue to monitor BP/HR DM- management by medical services Right hip fracture- s/p repair by Dr. Arambula on 03/14/17 Left patellar fracture Obesity Clinical Quality Measures DVT/VTE Risk/Contraindication: Risk Factor Score Per Nursin RFS Level Per Nursing on Admit: 4+=Very High COLLEEN DOMINGUEZ Mar 29, 2017 08:33
--- NOTE | 2017-03-29 10:01 | Physical Therapy Daily Note ---
PT Daily Note-Current Subjective Patient in recliner pre tx, agrees to PT, has no complaints of pain. Appearance Patient in recliner post tx with nurse call, phone, tray, all needs met. Mental Status Patient Orientation: Person, Place, Situation Attachments: Oxygen 1L of O2 nasal canula Transfers Functional [place] Measure 0=Not Assessed/NA 4=Minimal Assistance 1=Total Assistance 5=Supervision or Setup 2=Maximal Assistance 6=Modified [place] 3=Moderate Assistance 7=Complete IndependenceIRFPAI Quality Coding Scale 6 Independent with activity with or without an assistive device 5 Patient requires set up or clean up by helper. Patient completes activity by themselves 4 Supervision or touching assist (CGA). [place] provide cues , steadying assist 3 The helper provides less than half the effort to complete the activity 2 The helper provides more than half the effort to complete the activity 1 Dependent. The helper does all the effort to complete an activity 7 Patient refused to complete or attempt activity 9 The patient did not perform the activity before the current illness or injury 88 Not attempted due to Medical conditions or safety concerns Transfers (B, C, W/C) (FIM): 4 Sit to/from Stand: 4 Patient now only needs min assist for sit to stand from lower surfaces. Gait Training Gait (FIM): 5 Distance: 150'x2 Gait Level of Assist: 5 Gait Persons Needed: 1 Gait Assistive Device: FWW slow but no rest breaks, gets a little SOB Exercises Seated Therapy Exercises: Ankle pumps, Hip flexion, Hip abd/add Seated Reps: 20 LAQ alternating for 5 min, sit to stand 2 sets of 5 NuStep Minutes: 15 NuStep Workload: 1 (no resistance due to weight bearing status of right leg) Treatments transfers, ambulation, functional strengthening Assessment Current Status: Fair Progress improving endurance and transfers PT Short Term Goals Short Term Goals Time Frame: Mar 24, 2017 Transfers (B,C,W/C) (FIM): 4 Wheelchair (FIM): 5 Wheelchair distance (FIM): 3=150 ft Wheelchair Distance: 300' PT Care Home Goals Machine Zipper Trimmer Goals PT Machine Zipper Trimmer Goals Time Frame: Apr 07, 2017 Transfers (B,C,W/C) (FIM): 5 Sit to Lying (QC): 6 Lying-Sitting on Side/Bed(QC): 6 Sit to Stand (QC): 88 Rollin Roll Left to Right (QC): 6 Chair/Wez-ob-Elczy Xfer(QC): 5 Car Transfer (QC): 4 Gait (FIM): 0 (unable to ambulate; TTWB B LE's) Does the Pt use WC or Scooter?: Yes Wheelchair (FIM): 6 Wheel 50 feet with 2 turns (QC: 6 Stairs (FIM): 1 (unable due to TTWB B LE;s) 1 Step (curb) (QC): 88 4 Steps (QC): 88 12 Steps (QC): 88 Picking up an Object (QC): 88 PT Plan Problem List Problem List: Activity Tolerance, Functional Strength, Safety, Balance, Gait, Transfer, Bed Mobility, ROM Treatment/Plan Treatment Plan: Continue Plan of Care Treatment Plan: Bed Mobility, Education, Functional Activity Rochelle, Functional Strength, Group Therapy, Other (wc mob), Safety, Therapeutic Exercise, Transfers Treatment Duration: Apr 07, 2017 Frequency: At least 5-7 days/Wk (IRF) Estimated Hrs Per Day: 1.5 hours per day Patient and/or Family Agrees t: Yes Safety Risks/Education Patient Education: Gait Training, Transfer Techniques, Correct Positioning, Safety Issues Teaching Recipient: Patient Teaching Methods: Demonstration, Discussion Response to Teaching: Reinforcement Needed Time/GCodes Time In: 900 Time Out: 1000 Total Billed Treatment Time: 60 Total Billed Treatment 1 visit GT 15' EX 45' RACHEL RITTER PT Mar 29, 2017 10:01
--- NOTE | 2017-03-29 10:06 | Cardiology Progress Note ---
Subjective Date Seen by Provider: Mar 29, 2017 Time Seen by Provider: 10:06 Subjective/Events-last exam patient is sitting in a chair, feeling better, denied any chest pain or shortness of breath. Blood pressure is better Review of Systems General: No Chills, No Night Sweats, No Fatigue, No Malaise, No Appetite, No Other HEENT: No Head Aches, No Visual Changes, No Eye Pain, No Ear Pain, No Dysphasia , No Sinus Congestion, No Post Nasal Drip, No Sore Throat, No Other Pulmonary: No Dyspnea, No Cough, No Pleuritic Chest Pain, No Other Cardiovascular: No: Chest Pain, Edema, Lt Headedness, Orthopnea, Other, Palpitations, Paroxysmal Noc. Dyspnea Objective-Cardiology Exam Last Set of Vital Signs Vital Signs 03/29/17 03/29/17 05:08 09:40 Temp 97.8 Pulse 85 Resp 18 B/P (MAP) 119/71 Pulse Ox 94 O2 Delivery Nasal Cannula O2 Flow Rate 1.00 Capillary Refill : Less Than 3 Seconds I&O Intake and Output 03/29/17 00:00 Intake Total 1470 ml Output Total 1600 ml Balance -130 ml Intake Oral 1470 ml Output Urine Total 1600 ml General: Alert, Oriented X3, Cooperative, No Acute Distress HEENT: Atraumatic, PERRLA, EOMI, Mucous Memb Moist/[employer] Neck: Supple, No JVD Lungs: Clear to Auscultation Heart: Regular Rate, Normal S1, Normal S2, Other (systolic Murmur) Abdomen: Soft, No Tenderness, Other (distended, diminished BS) Extremities: No Clubbing, No Cyanosis, No Edema ( trace edema) Skin: No Rashes Neuro: Other (strength both LES 3/5 4/5 BUES sensation and cognition grossly intact) A/P-Cardiology Admission Diagnosis Elevated BNP HTN DM Right hip fracture Assessment/Plan Elevated BNP, echo showed normal LV size and function. No congestive heart failure was noted. Systolic murmur at left sternal border, aortic valve sclerosis no aortic stenosis on echocardiogram Abdominal distention, mild abdominal discomfort, reporting some improvement, managed by Dr. Sierra Chronic renal insufficiency, continue to monitor renal function HTN- maintained on Lopressor. Continue to monitor BP/HR DM- management by medical services Right hip fracture- s/p repair by Dr. Arambula on 03/14/17 Left patellar fracture Obesity Clinical Quality Measures DVT/VTE Risk/Contraindication: Risk Factor Score Per Nursin RFS Level Per Nursing on Admit: 4+=Very High JULIEN TORRES MD Mar 29, 2017 10:06
--- NOTE | 2017-03-29 10:46 | ST Dysphagia Evaluation ---
Speech Evaluation-General Medical Diagnosis Right femur fx; left patellar fx Onset Date: Mar 14, 2017 Therapy Diagnosis Therapy Diagnosis: Oropharyngeal Swallow WFL Precautions Precautions/Isolations: Fall Prevention, Standard Precautions Referral Referring Physician: Dr. Hermilo Fleming Reason for Referral: Evaluation/Treatment Clinical Bedside Swallowing Evaluation Medical History Pertinent Medical History: Arthritis, DM Reviewed History: Yes Social History Current Living Status: Other Family Speech PLF/Current-Dysphagia Prior Level of Function The patient stated he "sometimes" coughs on solid materials that he does not chew appropriately. The patient denied additional difficulties or challenges with his swallowing function. Per previously treating RN, the patient coughed several times with pill administration over the past dates. Subjective The patient was recently admitted to [facility] Rehabilitation unit following a fall which resulted in a right femur fx and left patellar fx.The patient greeted the clinician appropriately and was agreeable to participation in the swallowing evaluation on this date. Cognitive Status Patient Orientation: Person, Place, Situation Oral Motor Skills Dentition: Natural Current Food Consistancy: Regular, Thin Liquids Ability to Follow Directions: Good Oral Expression Ability: Mild Impairment Voice Voice Phonatory-Based Quality: Glottal Aguilar Voice Pitch: Normal Voice Loudness: Normal Face Facial Symmetry: Symmetrical Oral-Facial Assessment Oral-Facial Dentition: Normal Labial Seal Description: Normal Smile: Normal Puff Cheeks: Normal Lingual Protrusion: Normal Lingual Strength: Normal Pharynx Velopharyngeal Move.: Normal Volitional Dry Swallow: Yes Dysphagia Evaluation Consistencies Presented: Regular, Thin Liquid, Pureed - No oral impairments were noted throughout the evaluation. - No pharyngeal deficits were noted throughout the evaluation. - Thin Liquid (via teaspoon, cup sip, straw drink), Puree, Solid: No signs/ symptoms of aspiration were demonstrated with multiple boluses of all consistencies tested. The patient's vocal quality remained clear throughout the evaluation. Dietary Recommendations: Regular Liquid Recommendations: Thin Swallowing Precautions: Small Bites and Sips, Sitting Upright 90 Degrees - If the patient continues to demonstrate throat clearing with pill administration (the RN did not experience this behavior on this date), the RN may crush pills and administer in puree. Dysphagia Evaluation Summary The patient demonstrated an oropharyngeal swallowing grossly WFL. Speech-Plan Treatment Plan Speech Therapy Treatment Plan: Discontinue ST Evaluation, only. Frequency: Modified Program (IRF) Estimated Hrs Per Day: .25 hour per day (The patient will not receive skilled speech therapy at this time. Services not warranted.) Rehab Potential: Good Safety Risks/Education Teaching Recipient: Patient Teaching Methods: Discussion Response to Teaching: Verbalize Understanding Education Topics Provided: Recommendations, Results, Signs/Symptoms of Aspiration Time Speech Therapy Time In: 10:00 Speech Therapy Time Out: 10:15 Total Billed Time: 15 Billed Treatment Time 1, BELINDA BENJAMIN Mar 29, 2017 10:46
--- NOTE | 2017-03-29 11:12 | Occupational Ther Daily Note ---
OT Current Status-Daily Note Subjective Pt in bed, agrees to treatment. Pt has no c/o pain during session. Mental Status/Objective Functional [place] Measure 0=Not Assessed/NA 4=Minimal Assistance 1=Total Assistance 5=Supervision or Setup 2=Maximal Assistance 6=Modified [place] 3=Moderate Assistance 7=Complete [place] Attachments: Oxygen ADL-Treatment Pt requests sponge bath this morning. Supine to sit with minimal assistance using leg welding manager. Skilled cues for technique. Sponge bath completed seated at EOB. Pt able to wash bilateral UE, chest, abdomen, amina area, and bilateral upper legs. Assist required for lower legs and buttocks. Pt donned pullover shirt with set up and increased time. Assist required to don bilateral PERRI hose and left LE brace. Pt required max assist to don underwear and shorts. Sit to stand with moderate assistance for pant hike. Pt donned bilateral socks with SBA and increased time using sock aid, cues for technique. Sit to stand and transfer to w/c with minimal assistance using FWW. Pt completed grooming tasks while seated at sink. Pt able to brush teeth and wash face with set up. Increased time for ADL tasks. Occasional rest breaks required during ADL completion. Transfer to chair with minimal assistance with FWW. Functional [place] Measure 0=Not Assessed/NA 4=Minimal Assistance 1=Total Assistance 5=Supervision or Setup 2=Maximal Assistance 6=Modified [place] 3=Moderate Assistance 7=Complete IndependenceIRFPAI Quality Coding Scale 6 Independent with activity with or without an assistive device 5 Patient requires set up or clean up by helper. Patient completes activity by themselves 4 Supervision or touching assist (CGA). [place] provide cues , steadying assist 3 The helper provides less than half the effort to complete the activity 2 The helper provides more than half the effort to complete the activity 1 Dependent. The helper does all the effort to complete an activity 7 Patient refused to complete or attempt activity 9 The patient did not perform the activity before the current illness or injury 88 Not attempted due to Medical conditions or safety concerns Grooming (FIM): 5 Oral Hygiene (QC): 5 Bathing (FIM): 3 Shower/Bathe Self (QC): 3 Upper Body (FIM): 5 Upper Body Dressing (QC): 5 Lower Body Dressing (FIM): 2 Lower Body Dressing (QC): 2 On/Off Footwear (QC): 4 Other Treatment Pt performed supine<-> sit x2 during session using leg welding manager and bed rails. Pt able to complete task with minimal assistance and cues for technique. Pt performed sit to stand x4 trials to increase strength and safety for transfers. Pt required moderate to minimal assistance for sit to stand with occasional cues for hand placement and safety. Pt fatigues with activity and requires rest breaks between trials. Pt sitting in chair with needs met after session. OT Short Term Goals Short Term Goals Time Frame: Mar 24, 2017 Eating(FIM): 5 Grooming(FIM): 5 Bathing(FIM): 3 Upper Body Dressing(FIM): 5 Lower Body Dressing(FIM): 4 Toileting(FIM): 5 Transfers (B,C,W/C) (FIM): 4 Toilet/Commode Transfer(FIM): 4 Additional Short Term Goals: 1-Demonstrate ADL Tasks, 2-Verbalize Understanding , 3-ImproveStrength/Rochelle 1=Demonstrate adherence to instructed precautions during ADL tasks. 2=Patient will verbalize/demonstrate understanding of assistive devices/ modifications for ADL. 3=Patient will improve strength/tolerance for activity to enable patient to perform ADL's. OT Imagery Analyst Goals Imagery Analyst Goals Time Frame: Apr 07, 2017 Eating (FIM): 6 Eating (QC): 6 Groomin Oral Hygiene (QC): 5 Bathing(FIM): 5 Shower/Bathe Self (QC): 5 Upper Body Dressing(FIM): 5 Upper Body Dressing (QC): 5 Lower Body Dressing(FIM): 5 Lower Body Dressing (QC): 5 On/Off Footwear (QC): 5 Toileting(FIM): 6 Toileting Hygiene (QC): 6 Transfers (B,C,W/C) (FIM): 5 Toilet/Commode Transfer(FIM): 6 Toilet/Commode Transfer (QC): 6 Shower Transfer(FIM): 4 Additional Goals: 1-Demonstrate ADL Tasks, 2-Verbalize Understanding, 3- ImproveStrength/Rochelle 1=Demonstrate adherence to instructed precautions during ADL tasks. 2=Patient will verbalize/demonstrate understanding of assistive devices/ modifications for ADL. 3=Patient will improve strength/tolerance for activity to enable patient to perform ADL's. OT Education/Plan Discharge Recommendations Plan/Recommendations: Continue POC Treatment Plan/Plan of Care Patient would benefit from OT for education, treatment and training to promote independence in ADL's, mobility, safety and/or upper extremity function for ADL' s. Plan of Care: ADL Retraining, Caregiver Training, Functional Mobility, UE Funct Exercise/Act Treatment Duration: Apr 07, 2017 Frequency: At least 5-7 days/Wk (IRF) Estimated Hrs Per Day: 1.5 hours per day Agreement: Yes Rehab Potential: Good Time/GCodes Start Time: 08:00 Stop Time: 09:00 Total Time Billed (hr/min): 60 Billed Treatment Time 1 visit, ADLx3(45minutes), FA(15minutes) LEN CHURCH OT Mar 29, 2017 11:12
--- NOTE | 2017-03-29 11:32 | Occupational Ther Daily Note ---
OT Current Status-Daily Note Subjective Pt sitting in chair, agrees to treatment. No c/o pain. Mental Status/Objective Functional [place] Measure 0=Not Assessed/NA 4=Minimal Assistance 1=Total Assistance 5=Supervision or Setup 2=Maximal Assistance 6=Modified [place] 3=Moderate Assistance 7=Complete [place] ADL-Treatment Functional [place] Measure 0=Not Assessed/NA 4=Minimal Assistance 1=Total Assistance 5=Supervision or Setup 2=Maximal Assistance 6=Modified [place] 3=Moderate Assistance 7=Complete IndependenceIRFPAI Quality Coding Scale 6 Independent with activity with or without an assistive device 5 Patient requires set up or clean up by helper. Patient completes activity by themselves 4 Supervision or touching assist (CGA). [place] provide cues , steadying assist 3 The helper provides less than half the effort to complete the activity 2 The helper provides more than half the effort to complete the activity 1 Dependent. The helper does all the effort to complete an activity 7 Patient refused to complete or attempt activity 9 The patient did not perform the activity before the current illness or injury 88 Not attempted due to Medical conditions or safety concerns Other Treatment Pt completed bilateral UE activity to promote increased strength and activity tolerance needed for ADLs and transfers. Pt performed three UE exercises x15 reps with red theraband. Rest breaks between exercises. Bilateral hand government service executive exercises x20 reps with therapy foam to increase government service executive strength for functional tasks. Pt performed putty activity with bilateral hands to increase government service executive/pinch strength. Pt able to remove small beads from moderate resistance putty with increased time. Pt requests to return to bed after session. Sit to stand from recliner with moderate assistance. Transfer to EOB with minimal assistance. Pt able to complete sit to supine with minimal assistance. Pt in bed with needs met after session. OT Short Term Goals Short Term Goals Time Frame: Mar 24, 2017 Eating(FIM): 5 Grooming(FIM): 5 Bathing(FIM): 3 Upper Body Dressing(FIM): 5 Lower Body Dressing(FIM): 4 Toileting(FIM): 5 Transfers (B,C,W/C) (FIM): 4 Toilet/Commode Transfer(FIM): 4 Additional Short Term Goals: 1-Demonstrate ADL Tasks, 2-Verbalize Understanding , 3-ImproveStrength/Rochelle 1=Demonstrate adherence to instructed precautions during ADL tasks. 2=Patient will verbalize/demonstrate understanding of assistive devices/ modifications for ADL. 3=Patient will improve strength/tolerance for activity to enable patient to perform ADL's. OT Petroleum Inspector Goals Petroleum Inspector Goals Time Frame: Apr 07, 2017 Eating (FIM): 6 Eating (QC): 6 Groomin Oral Hygiene (QC): 5 Bathing(FIM): 5 Shower/Bathe Self (QC): 5 Upper Body Dressing(FIM): 5 Upper Body Dressing (QC): 5 Lower Body Dressing(FIM): 5 Lower Body Dressing (QC): 5 On/Off Footwear (QC): 5 Toileting(FIM): 6 Toileting Hygiene (QC): 6 Transfers (B,C,W/C) (FIM): 5 Toilet/Commode Transfer(FIM): 6 Toilet/Commode Transfer (QC): 6 Shower Transfer(FIM): 4 Additional Goals: 1-Demonstrate ADL Tasks, 2-Verbalize Understanding, 3- ImproveStrength/Rochelle 1=Demonstrate adherence to instructed precautions during ADL tasks. 2=Patient will verbalize/demonstrate understanding of assistive devices/ modifications for ADL. 3=Patient will improve strength/tolerance for activity to enable patient to perform ADL's. OT Education/Plan Discharge Recommendations Plan/Recommendations: Continue POC Treatment Plan/Plan of Care Patient would benefit from OT for education, treatment and training to promote independence in ADL's, mobility, safety and/or upper extremity function for ADL' s. Plan of Care: ADL Retraining, Caregiver Training, Functional Mobility, UE Funct Exercise/Act Treatment Duration: Apr 07, 2017 Frequency: At least 5-7 days/Wk (IRF) Estimated Hrs Per Day: 1.5 hours per day Agreement: Yes Rehab Potential: Good Time/GCodes Start Time: 10:30 Stop Time: 11:00 Total Time Billed (hr/min): 30 Billed Treatment Time 1 visit, EXx2(30minutes) LEN CHURCH OT Mar 29, 2017 11:32
--- NOTE | 2017-03-29 14:57 | Physical Therapy Daily Note ---
PT Daily Note-Current Subjective Agreeable. Reports he "hopes" he is ready to go home by Wednesday. Reports his daughter will assist with his care upon dc. Transfers Functional [place] Measure 0=Not Assessed/NA 4=Minimal Assistance 1=Total Assistance 5=Supervision or Setup 2=Maximal Assistance 6=Modified [place] 3=Moderate Assistance 7=Complete IndependenceIRFPAI Quality Coding Scale 6 Independent with activity with or without an assistive device 5 Patient requires set up or clean up by helper. Patient completes activity by themselves 4 Supervision or touching assist (CGA). [place] provide cues , steadying assist 3 The helper provides less than half the effort to complete the activity 2 The helper provides more than half the effort to complete the activity 1 Dependent. The helper does all the effort to complete an activity 7 Patient refused to complete or attempt activity 9 The patient did not perform the activity before the current illness or injury 88 Not attempted due to Medical conditions or safety concerns Treatments Worked on bed mobility to facilitate mod indep transfers, pt able to transfer sup to sit EOB using leg threat monitoring analyst, bed rail, HOB slightly elevated and extra time with supervision only. Pt able to transfer sit to stand with SBA as well. Pt slow with transfer and requires taxing effort. Pt then ambulated x 50 ft and 100 ft with FWW maintaining WB precautions with CGA. Pt performed seated B LE ther ex in chair for AP, LAQ, hip flex and hip abduction x 15 reps. Pt in chair post treatment with needs met and oxygen off. O2 sats 95% throughout entire treatment with oxygen off. Nursing aware his oxygen is off and will follow. . Assessment Current Status: Good Progress Progressing well. Pt is transferring better and with less assist since last seen by this therapist. Functional gains noted. PT Short Term Goals Short Term Goals Time Frame: Mar 24, 2017 Transfers (B,C,W/C) (FIM): 4 (met) Wheelchair (FIM): 5 Wheelchair distance (FIM): 3=150 ft Wheelchair Distance: 300' PT Tax Clerk Goals Penitentiary Goals PT Penitentiary Goals Time Frame: Apr 07, 2017 Transfers (B,C,W/C) (FIM): 5 Sit to Lying (QC): 6 Lying-Sitting on Side/Bed(QC): 6 Sit to Stand (QC): 88 Rollin Roll Left to Right (QC): 6 Chair/[place] Xfer(QC): 5 Car Transfer (QC): 4 Gait (FIM): 0 (unable to ambulate; TTWB B LE's) Does the Pt use WC or Scooter?: Yes Wheelchair (FIM): 6 Wheel 50 feet with 2 turns (QC: 6 Stairs (FIM): 1 (unable due to TTWB B LE;s) 1 Step (curb) (QC): 88 4 Steps (QC): 88 12 Steps (QC): 88 Picking up an Object (QC): 88 PT Plan Problem List Problem List: Activity Tolerance, Functional Strength, Safety, Balance, Gait, Transfer, Bed Mobility Treatment/Plan Treatment Plan: Continue Plan of Care Treatment Plan: Bed Mobility, Education, Functional Activity Rochelle, Functional Strength, Group Therapy, Other (wc mob), Safety, Therapeutic Exercise, Transfers Treatment Duration: Apr 07, 2017 Frequency: At least 5-7 days/Wk (IRF) Estimated Hrs Per Day: 1.5 hours per day Patient and/or Family Agrees t: Yes Safety Risks/Education Patient Education: Gait Training, Transfer Techniques Teaching Recipient: Patient Teaching Methods: Demonstration, Discussion Response to Teaching: Reinforcement Needed Discharge Recommendations Therapy D/C Recommendations: Physical Therapy Home Care Time/GCodes Time In: 1330 Time Out: 1400 Total Billed Treatment Time: 30 Total Billed Treatment visit GT 20 EX 10 STEFFANIE BROWN PT Mar 29, 2017 14:57
[2017-03-29 18:11] VITALS: BP 144/71
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
[2017-03-30] MEDS: inSUlin ASPART (NovoLOG) 1 UNIT/0.01 ML (CHARGE PER UNIT) SC SCH ×4 (05:24→21:05)
[2017-03-30] MEDS: METOCLOPRAMIDE 10 MG (REGLAN) TAB PO SCH ×3 (05:24→16:55)
[2017-03-30 06:00] VITALS: BP 123/70
[2017-03-30] MEDS: RT-ALBUTEROL/IPRATROPIUM 3 ML (DUONEB) VIAL INH SCH ×3 (07:11→19:50)
[2017-03-30] MEDS: metFORMIN 500 MG (GLUCOPHAGE) TAB PO SCH ×2 (07:46→16:55)
[2017-03-30] MEDS: ENOXAPARIN 30 MG/0.3 ML (LOVENOX) SYR SC SCH ×2 (07:49→20:59)
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
[2017-03-30] MEDS: meTOprolol TARTRATE 50 MG (LOPRESSOR) TAB PO SCH (09:05)
[2017-03-30] MEDS: SENNOSIDES 8.6 MG (SENOKOT) TAB PO SCH ×2 (09:05→20:59)
[2017-03-30] MEDS: KCL 10 MEQ TAB (MICRO K) PO SCH ×2 (09:05→20:59)
[2017-03-30] MEDS: FUROSEMIDE 40 MG (LASIX) TAB PO SCH (09:05)
[2017-03-30] MEDS: LACTULOSE SYRUP 10GM/15ML (ENULOSE) 30ML UDC PO SCH ×2 (09:07→20:59)
--- NOTE | 2017-03-30 10:01 | Physical Therapy Daily Note ---
PT Daily Note-Current Subjective Patient in chair pre tx, agrees to PT, has no complaints of pain. Appearance Patient in recliner post tx with nurse call, phone, tray, all needs met. Mental Status Patient Orientation: Person, Place, Situation leg brace Transfers Functional [place] Measure 0=Not Assessed/NA 4=Minimal Assistance 1=Total Assistance 5=Supervision or Setup 2=Maximal Assistance 6=Modified [place] 3=Moderate Assistance 7=Complete IndependenceIRFPAI Quality Coding Scale 6 Independent with activity with or without an assistive device 5 Patient requires set up or clean up by helper. Patient completes activity by themselves 4 Supervision or touching assist (CGA). [place] provide cues , steadying assist 3 The helper provides less than half the effort to complete the activity 2 The helper provides more than half the effort to complete the activity 1 Dependent. The helper does all the effort to complete an activity 7 Patient refused to complete or attempt activity 9 The patient did not perform the activity before the current illness or injury 88 Not attempted due to Medical conditions or safety concerns Transfers (B, C, W/C) (FIM): 4 Sit to/from Stand: 4 sit to stand min assist from low surfaces, higher surfaces he can do it with SBA Gait Training Gait (FIM): 5 Distance: 150'x2, 200' Gait Level of Assist: 5 Gait Persons Needed: 1 Gait Assistive Device: FWW slow, may need to take a standing rest break due to SOB Exercises sit to stand 3 sets of 5, LAQ alternating for 5 min NuStep Minutes: 15 NuStep Workload: 1 (no resistance due to right leg weight bearing status) Treatments transfers, ambulation, functional strengthening Assessment Current Status: Fair Progress improving endurance PT Short Term Goals Short Term Goals Time Frame: Mar 24, 2017 Transfers (B,C,W/C) (FIM): 4 (met) Wheelchair (FIM): 5 Wheelchair distance (FIM): 3=150 ft Wheelchair Distance: 300' PT Intermediate Goals Remote Sensing Specialist Goals PT Intermediate Goals Time Frame: Apr 07, 2017 Transfers (B,C,W/C) (FIM): 5 Sit to Lying (QC): 6 Lying-Sitting on Side/Bed(QC): 6 Sit to Stand (QC): 88 Rollin Roll Left to Right (QC): 6 Chair/Ktf-gk-Vmtxf Xfer(QC): 5 Car Transfer (QC): 4 Gait (FIM): 0 (unable to ambulate; TTWB B LE's) Does the Pt use WC or Scooter?: Yes Wheelchair (FIM): 6 Wheel 50 feet with 2 turns (QC: 6 Stairs (FIM): 1 (unable due to TTWB B LE;s) 1 Step (curb) (QC): 88 4 Steps (QC): 88 12 Steps (QC): 88 Picking up an Object (QC): 88 PT Plan Problem List Problem List: Activity Tolerance, Functional Strength, Safety, Balance, Gait, Transfer, Bed Mobility, ROM Treatment/Plan Treatment Plan: Continue Plan of Care Treatment Plan: Bed Mobility, Education, Functional Activity Rochel[place], Functional Strength, Group Therapy, Other (wc mob), Safety, Therapeutic Exercise, Transfers Treatment Duration: Apr 07, 2017 Frequency: At least 5-7 days/Wk (IRF) Estimated Hrs Per Day: 1.5 hours per day Patient and/or Family Agrees t: Yes Safety Risks/Education Patient Education: Gait Training, Transfer Techniques, Safety Issues Teaching Recipient: Patient Teaching Methods: Demonstration, Discussion Response to Teaching: Reinforcement Needed Time/GCodes Time In: 900 Time Out: 1000 Total Billed Treatment Time: 60 Total Billed Treatment 1 visit GT 30' EX 30' RACHEL RITTER PT Mar 30, 2017 10:01
--- NOTE | 2017-03-30 10:33 | Progress Note-Hospitalist ---
Subjective HPI/CC On Admission Date Seen by Provider: Mar 30, 2017 Time Seen by Provider: 09:00 On my evaluation patient was ambulating with a walker and physical therapy planning on going to 100 feet today. He was able to stand and converse with no symptoms of chest discomfort or lightheadedness. There is been reported progress each day and endurance. The patient voices no complaints to me. Pain is been under reasonable control. A message was relayed from nursing staff last night that he had significant obstructive appearing breathing concerning for sleep apnea. Interestingly he had an elevated BNP level with a normal echo study per cardiology report. He does have a history of hypertension and type II diabetes mellitus blood sugars have been under reasonable control. Objective Exam Vital Signs Vital Sign - Last 12Hours 03/24/17 05:18 Temp 98.4 Pulse 100 Resp 20 B/P (MAP) 123/61 Pulse Ox 94 O2 Delivery Nasal Cannula O2 Flow Rate 2.00 2.00 Capillary Refill : Less Than 3 Seconds General Appearance: No Apparent Distress, Chronically ill, Obese Respiratory: Chest Non Tender, Lungs Clear, Normal Breath Sounds, No Accessory Muscle Use, No Respiratory Distress Cardiovascular: Regular Rate, Rhythm, No Gallop, No JVD, Other (Soft 1 to 2/6 systolic ejection murmur heard at the left lower sternal border. No S3 or S4 appreciated.) Extremity: No Calf Tenderness, Other (Trace bilateral pedal edema.) Neurologic/Psychiatric: Alert Skin: Pallor Assessment/Plan Assessment and Plan Assess & Plan/Chief Complaint 1. Status post right hip fracture repair still partial weightbearing but improving. Continue physical and occupational therapy. 2. Reported obstructive appearing breathing pattern per nursing staff last night. We'll start off time oximetry study with likely recommendations for sleep study to follow. While the patient denies daytime somnolence he is a ledesma. He reports that he sleeps 10 hours from 8 p.m. to 6 a.m. most nights. Far more than average considering his occupation 3. Type II diabetes mellitus under reasonable control. 4. Hypertension under reasonable control. MATIAS PALMA MD Mar 30, 2017 10:33
--- NOTE | 2017-03-30 11:03 | Occupational Ther Daily Note ---
OT Current Status-Daily Note Subjective Pt alert, lying in bed. Pt finishing up breakfast. Pt agreed to therapy. No c /o pain at this time. Mental Status/Objective Patient Orientation: Person, Place, Time, Situation Functional [place] Measure 0=Not Assessed/NA 4=Minimal Assistance 1=Total Assistance 5=Supervision or Setup 2=Maximal Assistance 6=Modified [place] 3=Moderate Assistance 7=Complete [place] Attachments: Other-See Comments (knee brace) ADL-Treatment Mod A to go from supine to sitting then sitting EOB by self. Min A to transfer from EOB to /c using FWW. Pt was transported to large shower room for shower. Pt transferred from w/c to tub bench with min A using FWW. Pt was able to bathe upper body and lower body (long handle sponge) after set up. Pt was able to stand with min A using grabbar then stood balancing with grabbar while assistance given to cleanse buttocks. Pt transferred back to w/c. Pt was able to don/doff shirt after set up. Pt used AE to don/doff lower body clothing with assist to hike over hips while standing. Pt used sock aide to don socks and outreach rep to doff. Compression stockings were donned/doffed with assistance. Assistance to don/doff knee brace. After therapy, pt sitting in w/c with nrsg and PT in room. PT took over care of pt. All needs met in room. Functional [place] Measure 0=Not Assessed/NA 4=Minimal Assistance 1=Total Assistance 5=Supervision or Setup 2=Maximal Assistance 6=Modified [place] 3=Moderate Assistance 7=Complete IndependenceIRFPAI Quality Coding Scale 6 Independent with activity with or without an assistive device 5 Patient requires set up or clean up by helper. Patient completes activity by themselves 4 Supervision or touching assist (CGA). [place] provide cues , steadying assist 3 The helper provides less than half the effort to complete the activity 2 The helper provides more than half the effort to complete the activity 1 Dependent. The helper does all the effort to complete an activity 7 Patient refused to complete or attempt activity 9 The patient did not perform the activity before the current illness or injury 88 Not attempted due to Medical conditions or safety concerns Bathing (FIM): 4 Bathing Location: L Arm, R Arm, L Upper Leg, R Upper Leg, L Lower Leg ( including foot), R Lower Leg (including foot), Chest, Abdomen, Perineal Area Upper Body (FIM): 5 Lower Body Dressing (FIM): 3 Transfers (B, C, W/C) (FIM): 4 Toilet/Commode Transfer (FIM): 4 Shower Transfer(FIM): 4 OT Short Term Goals Short Term Goals Time Frame: Mar 24, 2017 Eating(FIM): 5 Grooming(FIM): 5 Bathing(FIM): 3 Upper Body Dressing(FIM): 5 Lower Body Dressing(FIM): 4 Toileting(FIM): 5 Transfers (B,C,W/C) (FIM): 4 (met) Toilet/Commode Transfer(FIM): 4 Additional Short Term Goals: 1-Demonstrate ADL Tasks, 2-Verbalize Understanding , 3-ImproveStrength/[place] 1=Demonstrate adherence to instructed precautions during ADL tasks. 2=Patient will verbalize/demonstrate understanding of assistive devices/ modifications for ADL. 3=Patient will improve strength/tolerance for activity to enable patient to perform ADL's. OT Mcc Goals Plant Mechanic Goals Time Frame: Apr 07, 2017 Eating (FIM): 6 Eating (QC): 6 Groomin Oral Hygiene (QC): 5 Bathing(FIM): 5 Shower/Bathe Self (QC): 5 Upper Body Dressing(FIM): 5 Upper Body Dressing (QC): 5 Lower Body Dressing(FIM): 5 Lower Body Dressing (QC): 5 On/Off Footwear (QC): 5 Toileting(FIM): 6 Toileting Hygiene (QC): 6 Transfers (B,C,W/C) (FIM): 5 Toilet/Commode Transfer(FIM): 6 Toilet/Commode Transfer (QC): 6 Shower Transfer(FIM): 4 Additional Goals: 1-Demonstrate ADL Tasks, 2-Verbalize Understanding, 3- ImproveStrength/[place] 1=Demonstrate adherence to instructed precautions during ADL tasks. 2=Patient will verbalize/demonstrate understanding of assistive devices/ modifications for ADL. 3=Patient will improve strength/tolerance for activity to enable patient to perform ADL's. OT Education/Plan Discharge Recommendations Plan/Recommendations: Continue POC Treatment Plan/Plan of Care Patient would benefit from OT for education, treatment and training to promote independence in ADL's, mobility, safety and/or upper extremity function for ADL' s. Plan of Care: ADL Retraining, Caregiver Training, Functional Mobility, UE Funct Exercise/Act Treatment Duration: Apr 07, 2017 Frequency: At least 5-7 days/Wk (IRF) Estimated Hrs Per Day: 1.5 hours per day Agreement: Yes Rehab Potential: Good Time/GCodes Start Time: 08:00 Stop Time: 09:00 Total Time Billed (hr/min): 60 Billed Treatment Time 1 visit-ADL 4 (60 min) STEFFANIE FAULKNER Mar 30, 2017 11:03
--- NOTE | 2017-03-30 13:07 | Physical Therapy Daily Note ---
PT Daily Note-Current Subjective Patient agrees to PT. Pain Numeric Pain Scale: 0-No Pain Location: No Pain Reported Mental Status Patient Orientation: Normal For Age Transfers Functional [place] Measure 0=Not Assessed/NA 4=Minimal Assistance 1=Total Assistance 5=Supervision or Setup 2=Maximal Assistance 6=Modified [place] 3=Moderate Assistance 7=Complete IndependenceIRFPAI Quality Coding Scale 6 Independent with activity with or without an assistive device 5 Patient requires set up or clean up by helper. Patient completes activity by themselves 4 Supervision or touching assist (CGA). [place] provide cues , steadying assist 3 The helper provides less than half the effort to complete the activity 2 The helper provides more than half the effort to complete the activity 1 Dependent. The helper does all the effort to complete an activity 7 Patient refused to complete or attempt activity 9 The patient did not perform the activity before the current illness or injury 88 Not attempted due to Medical conditions or safety concerns Transfers (B, C, W/C) (FIM): 5 Scootin Sit to/from Stand: 5 Sit to Stand (QC): 5 Car Transfer (QC): 5 Gait Training Does the Patient Walk?: Yes Gait (FIM): 5 Distance (FIM): 3=150 ft Distance: 150' Walk 10 feet (QC): 5 Walk 50 ft with 2 Turns(QC): 5 Walk 150 ft (QC): 5 Gait Level of Assist: 5 Gait Assistive Device: FWW slow, antalgic, functional with FWW Exercises NuStep Minutes: 15 (to facilitate muscle strength and mobility) NuStep Workload: 5 Assessment Patient progressing with treatment plan and will dismiss to home this week. PT Short Term Goals Short Term Goals Time Frame: Mar 24, 2017 Transfers (B,C,W/C) (FIM): 4 (met) Wheelchair (FIM): 5 Wheelchair distance (FIM): 3=150 ft Wheelchair Distance: 300' PT It Trainer Goals It Trainer Goals PT It Trainer Goals Time Frame: Apr 07, 2017 Transfers (B,C,W/C) (FIM): 5 Sit to Lying (QC): 6 Lying-Sitting on Side/Bed(QC): 6 Sit to Stand (QC): 88 Rollin Roll Left to Right (QC): 6 Chair/Wcc-la-Mzzvi Xfer(QC): 5 Car Transfer (QC): 4 Gait (FIM): 0 (unable to ambulate; TTWB B LE's) Does the Pt use WC or Scooter?: Yes Wheelchair (FIM): 6 Wheel 50 feet with 2 turns (QC: 6 Stairs (FIM): 1 (unable due to TTWB B LE;s) 1 Step (curb) (QC): 88 4 Steps (QC): 88 12 Steps (QC): 88 Picking up an Object (QC): 88 PT Plan Treatment/Plan Treatment Plan: Continue Plan of Care Treatment Plan: Bed Mobility, Education, Functional Activity Rochelle, Functional Strength, Group Therapy, Other (wc mob), Safety, Therapeutic Exercise, Transfers Treatment Duration: Apr 07, 2017 Frequency: At least 5-7 days/Wk (IRF) Estimated Hrs Per Day: 1.5 hours per day Patient and/or Family Agrees t: Yes Time/GCodes Time In: 1230 Time Out: 1300 Total Billed Treatment Time: 30 Total Billed Treatment 1 visit EX 15 min GT 15 min MARIXA GALLOWAY PT Mar 30, 2017 13:07
--- NOTE | 2017-03-30 13:54 | Occupational Ther Daily Note ---
OT Current Status-Daily Note Subjective OT took over care of Pt from PT. Pt agreed to therapy. No c/o pain. Mental Status/Objective Patient Orientation: Person, Place, Time, Situation Functional [place] Measure 0=Not Assessed/NA 4=Minimal Assistance 1=Total Assistance 5=Supervision or Setup 2=Maximal Assistance 6=Modified [place] 3=Moderate Assistance 7=Complete [place] ADL-Treatment Functional [place] Measure 0=Not Assessed/NA 4=Minimal Assistance 1=Total Assistance 5=Supervision or Setup 2=Maximal Assistance 6=Modified [place] 3=Moderate Assistance 7=Complete IndependenceIRFPAI Quality Coding Scale 6 Independent with activity with or without an assistive device 5 Patient requires set up or clean up by helper. Patient completes activity by themselves 4 Supervision or touching assist (CGA). [place] provide cues , steadying assist 3 The helper provides less than half the effort to complete the activity 2 The helper provides more than half the effort to complete the activity 1 Dependent. The helper does all the effort to complete an activity 7 Patient refused to complete or attempt activity 9 The patient did not perform the activity before the current illness or injury 88 Not attempted due to Medical conditions or safety concerns Other Treatment Pt ambulated to chair and transferred to chair with CGA. Completed arm bike 15 min duration at 15 castillo resistance to increase strength and activity tolerance for daily functional tasks. No breaks were taken during arm bike. Pt then ambulated to room with CGA using FWW. Pt transferred to bed with mod A to lift B LE's and for bed mobility. After therapy, pt lying in bed with call light/ phone in reach. All needs met in room. OT Short Term Goals Short Term Goals Time Frame: Mar 24, 2017 Eating(FIM): 5 Grooming(FIM): 5 Bathing(FIM): 3 Upper Body Dressing(FIM): 5 Lower Body Dressing(FIM): 4 Toileting(FIM): 5 Transfers (B,C,W/C) (FIM): 4 (met) Toilet/Commode Transfer(FIM): 4 Additional Short Term Goals: 1-Demonstrate ADL Tasks, 2-Verbalize Understanding , 3-ImproveStrength/[place] 1=Demonstrate adherence to instructed precautions during ADL tasks. 2=Patient will verbalize/demonstrate understanding of assistive devices/ modifications for ADL. 3=Patient will improve strength/tolerance for activity to enable patient to perform ADL's. OT Fpc Goals Insulation Cutter And Former Goals Time Frame: Apr 07, 2017 Eating (FIM): 6 Eating (QC): 6 Groomin Oral Hygiene (QC): 5 Bathing(FIM): 5 Shower/Bathe Self (QC): 5 Upper Body Dressing(FIM): 5 Upper Body Dressing (QC): 5 Lower Body Dressing(FIM): 5 Lower Body Dressing (QC): 5 On/Off Footwear (QC): 5 Toileting(FIM): 6 Toileting Hygiene (QC): 6 Transfers (B,C,W/C) (FIM): 5 Toilet/Commode Transfer(FIM): 6 Toilet/Commode Transfer (QC): 6 Shower Transfer(FIM): 4 Additional Goals: 1-Demonstrate ADL Tasks, 2-Verbalize Understanding, 3- ImproveStrength/[place] 1=Demonstrate adherence to instructed precautions during ADL tasks. 2=Patient will verbalize/demonstrate understanding of assistive devices/ modifications for ADL. 3=Patient will improve strength/tolerance for activity to enable patient to perform ADL's. OT Education/Plan Discharge Recommendations Plan/Recommendations: Continue POC Treatment Plan/Plan of Care Patient would benefit from OT for education, treatment and training to promote independence in ADL's, mobility, safety and/or upper extremity function for ADL' s. Plan of Care: ADL Retraining, Caregiver Training, Functional Mobility, UE Funct Exercise/Act Treatment Duration: Apr 07, 2017 Frequency: At least 5-7 days/Wk (IRF) Estimated Hrs Per Day: 1.5 hours per day Agreement: Yes Rehab Potential: Good Time/GCodes Start Time: 13:00 Stop Time: 13:30 Total Time Billed (hr/min): 30 Billed Treatment Time 1 visit-EX 2 (30 min) STEFFANIE FAULKNER Mar 30, 2017 13:54
[2017-03-30 17:24] VITALS: BP 121/73
[2017-03-31] MEDS: METOCLOPRAMIDE 10 MG (REGLAN) TAB PO SCH ×4 (00:11→18:13)
[2017-03-31 06:06] VITALS: BP 129/73
[2017-03-31] MEDS: inSUlin ASPART (NovoLOG) 1 UNIT/0.01 ML (CHARGE PER UNIT) SC SCH ×4 (06:14→21:15)
[2017-03-31] MEDS: metFORMIN 500 MG (GLUCOPHAGE) TAB PO SCH ×2 (06:16→18:13)
[2017-03-31 07:07] LABS: BASOPHILS # (AUTO) 0.1 10^3/uL (0.0-0.1); BASOPHILS % (AUTO) 1 % (0-10); EOSINOPHILS # (AUTO) 0.1 10^3/uL (0.0-0.3); EOSINOPHILS % (AUTO) 1 % (0-10); LYMPHOCYTES # (AUTO) 1.5 X 10^3 (1.0-4.0); LYMPHOCYTES % (AUTO) 18 % (12-44); MEAN CORPUSCULAR HEMOGLOBIN 29 PG (25-34); MEAN CORPUSCULAR HGB CONC 32 G/DL (32-36); MEAN CORPUSCULAR VOLUME 91 FL (80-99); MEAN PLATELET VOLUME 9.9 FL (7.4-10.4); MONOCYTES # (AUTO) 1.4 X 10^3 (0.0-1.0); MONOCYTES % (AUTO) 16 % (0-12); NEUTROPHILS # (AUTO) 5.6 X 10^3 (1.8-7.8); NEUTROPHILS % (AUTO) 65 % (42-75); PLATELET COUNT 499 10^3/uL (130-400); RED BLOOD COUNT 3.56 10^6/uL (4.35-5.85); RED CELL DISTRIBUTION WIDTH 14.1 % (10.0-14.5); WHITE BLOOD COUNT 8.6 10^3/uL (4.3-11.0)
[2017-03-31] MEDS: RT-ALBUTEROL/IPRATROPIUM 3 ML (DUONEB) VIAL INH SCH ×3 (07:21→19:22)
[2017-03-31 07:27] LABS: CALCIUM 8.8 MG/DL (8.5-10.1); CREATININE SERUM 1.54 MG/DL (0.60-1.30); MAGNESIUM 2.3 MG/DL (1.8-2.4); POTASSIUM 4.2 MMOL/L (3.6-5.0)
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
[2017-03-31] MEDS: KCL 10 MEQ TAB (MICRO K) PO SCH ×2 (08:41→21:15)
[2017-03-31] MEDS: ENOXAPARIN 30 MG/0.3 ML (LOVENOX) SYR SC SCH ×2 (08:41→21:13)
[2017-03-31] MEDS: FUROSEMIDE 40 MG (LASIX) TAB PO SCH (08:41)
[2017-03-31] MEDS: meTOprolol TARTRATE 50 MG (LOPRESSOR) TAB PO SCH (08:41)
[2017-03-31] MEDS: SENNOSIDES 8.6 MG (SENOKOT) TAB PO SCH ×2 (08:41→21:15)
[2017-03-31] MEDS: LACTULOSE SYRUP 10GM/15ML (ENULOSE) 30ML UDC PO SCH ×2 (08:47→21:13)
--- NOTE | 2017-03-31 10:36 | Occupational Ther Daily Note ---
OT Current Status-Daily Note Subjective Pt in bed, agrees to treatment. Pt states he is having no pain during session. Mental Status/Objective Functional [place] Measure 0=Not Assessed/NA 4=Minimal Assistance 1=Total Assistance 5=Supervision or Setup 2=Maximal Assistance 6=Modified [place] 3=Moderate Assistance 7=Complete [place] Attachments: Oxygen ADL-Treatment Pt supine to sit with CGA and cues for technique. Pt states he showered yesterday, would like a sponge bath today. Pt doffed shirt without assistance. Doffed underwear and shorts with minimal assistance using dressing stick. Upper body bathing completed with set up. Pt used long handled sponge to wash lower legs and feet. Stood with brace in place on left LE with minimal assistance to wash buttocks. Don pullover shirt with set up. Pt required assist to doff/don PERRI hose and left knee brace. Mod assist required for LE dressing. Pt used hunter guide to start underwear and shorts over feet. Don socks with set up using sock aid. Pt brushed teeth standing at sink with SBA. Pt practiced transfers to [facility] to improve independence in functional tasks. Pt transferred chair to [facility] with CGA using FWW. Pt fatigues with activity and requires occasional rest breaks throughout ADL tasks. Functional [place] Measure 0=Not Assessed/NA 4=Minimal Assistance 1=Total Assistance 5=Supervision or Setup 2=Maximal Assistance 6=Modified [place] 3=Moderate Assistance 7=Complete IndependenceIRFPAI Quality Coding Scale 6 Independent with activity with or without an assistive device 5 Patient requires set up or clean up by helper. Patient completes activity by themselves 4 Supervision or touching assist (CGA). [place] provide cues , steadying assist 3 The helper provides less than half the effort to complete the activity 2 The helper provides more than half the effort to complete the activity 1 Dependent. The helper does all the effort to complete an activity 7 Patient refused to complete or attempt activity 9 The patient did not perform the activity before the current illness or injury 88 Not attempted due to Medical conditions or safety concerns Grooming (FIM): 5 Oral Hygiene (QC): 5 Bathing (FIM): 4 Shower/Bathe Self (QC): 3 Upper Body (FIM): 5 Upper Body Dressing (QC): 5 Lower Body Dressing (FIM): 3 Lower Body Dressing (QC): 3 On/Off Footwear (QC): 5 Toilet/Commode Transfer (FIM): 4 Other Treatment Pt performed bilateral UE exercises to promote increased strength needed for ADLs and transfers. Pt performed biceps curls and triceps extension exercises x20 reps with moderate resistance (red) theraband. Pt sitting in chair with needs met after session. OT Short Term Goals Short Term Goals Time Frame: Mar 24, 2017 Eating(FIM): 5 Grooming(FIM): 5 Bathing(FIM): 3 Upper Body Dressing(FIM): 5 Lower Body Dressing(FIM): 4 Toileting(FIM): 5 Transfers (B,C,W/C) (FIM): 4 (met) Toilet/Commode Transfer(FIM): 4 Additional Short Term Goals: 1-Demonstrate ADL Tasks, 2-Verbalize Understanding , 3-ImproveStrength/Rochelle 1=Demonstrate adherence to instructed precautions during ADL tasks. 2=Patient will verbalize/demonstrate understanding of assistive devices/ modifications for ADL. 3=Patient will improve strength/tolerance for activity to enable patient to perform ADL's. OT Half-Way Goals Half-Way Goals Time Frame: Apr 07, 2017 Eating (FIM): 6 Eating (QC): 6 Groomin Oral Hygiene (QC): 5 Bathing(FIM): 5 Shower/Bathe Self (QC): 5 Upper Body Dressing(FIM): 5 Upper Body Dressing (QC): 5 Lower Body Dressing(FIM): 5 Lower Body Dressing (QC): 5 On/Off Footwear (QC): 5 Toileting(FIM): 6 Toileting Hygiene (QC): 6 Transfers (B,C,W/C) (FIM): 5 Toilet/Commode Transfer(FIM): 6 Toilet/Commode Transfer (QC): 6 Shower Transfer(FIM): 4 Additional Goals: 1-Demonstrate ADL Tasks, 2-Verbalize Understanding, 3- ImproveStrength/Rochelle 1=Demonstrate adherence to instructed precautions during ADL tasks. 2=Patient will verbalize/demonstrate understanding of assistive devices/ modifications for ADL. 3=Patient will improve strength/tolerance for activity to enable patient to perform ADL's. OT Education/Plan Discharge Recommendations Plan/Recommendations: Continue POC Treatment Plan/Plan of Care Patient would benefit from OT for education, treatment and training to promote independence in ADL's, mobility, safety and/or upper extremity function for ADL' s. Plan of Care: ADL Retraining, Caregiver Training, Functional Mobility, UE Funct Exercise/Act Treatment Duration: Apr 07, 2017 Frequency: At least 5-7 days/Wk (IRF) Estimated Hrs Per Day: 1.5 hours per day Agreement: Yes Rehab Potential: Good Time/GCodes Start Time: 08:00 Stop Time: 09:00 Total Time Billed (hr/min): 60 Billed Treatment Time 1 visit, ADLx3(50minutes), EX(10minutes) LEN CHURCH OT Mar 31, 2017 10:36
--- NOTE | 2017-03-31 10:39 | Progress Note-Hospitalist ---
Progress Note HPI/CC on Admission On my evaluation patient was ambulating with a walker and physical therapy planning on going to 100 feet today. He was able to stand and converse with no symptoms of chest discomfort or lightheadedness. There is been reported progress each day and endurance. The patient voices no complaints to me. Pain is been under reasonable control. A message was relayed from nursing staff last night that he had significant obstructive appearing breathing concerning for sleep apnea. Interestingly he had an elevated BNP level with a normal echo study per cardiology report. He does have a history of hypertension and type II diabetes mellitus blood sugars have been under reasonable control. Progress Notes/Assess & Plan Date Seen 03/31/17 Time Seen by Provider: 10:00 Diagonsis/Assessment & Plan Chart Review: No fever Vitals stable WBC 8.6 Hgb 10.2 CMP reveals Creat 1.54 Patient Interview: Pt states that he is doing well Pt has had BMs Physical exam stable. 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 Campbell. DIANA CAMPBELL DO Mar 31, 2017 10:39
--- NOTE | 2017-03-31 14:33 | Physical Therapy Daily Note ---
PT Daily Note-Current Subjective Pt sitting in recliner upon arrival. Pt agreed to PT. Pain Comment: Facial grimaces seen but no pain reported. Mental Status Patient Orientation: Person, Place, Situation Attachments: Oxygen (1L) Transfers Functional [place] Measure 0=Not Assessed/NA 4=Minimal Assistance 1=Total Assistance 5=Supervision or Setup 2=Maximal Assistance 6=Modified [place] 3=Moderate Assistance 7=Complete IndependenceIRFPAI Quality Coding Scale 6 Independent with activity with or without an assistive device 5 Patient requires set up or clean up by helper. Patient completes activity by themselves 4 Supervision or touching assist (CGA). [place] provide cues , steadying assist 3 The helper provides less than half the effort to complete the activity 2 The helper provides more than half the effort to complete the activity 1 Dependent. The helper does all the effort to complete an activity 7 Patient refused to complete or attempt activity 9 The patient did not perform the activity before the current illness or injury 88 Not attempted due to Medical conditions or safety concerns Scootin Sit to/from Stand: 5 Sit to Stand (QC): 5 Weight Bearing Weight Bearing Restriction: Weight Bearing/Tolerated, Partial Weight Bearing Location Restriction: L LE, R LE Weight Bearing: WBAT LLE & PWB RLE Gait Training Does the Patient Walk?: Yes Distance (FIM): 3=150 ft Distance: 150' Walk 10 feet (QC): 5 Walk 50 ft with 2 Turns(QC): 5 Walk 150 ft (QC): 5 Gait Level of Assist: 5 Gait Persons Needed: 1 Gait Assistive Device: FWW Pt walks with antalgic gait pattern and slow sean, no LOB. Exercises Seated Therapy Exercises: Ankle pumps, Long arc quads, Hip flexion, Kicking activity Seated Reps: 15 NuStep Minutes: 15 NuStep Workload: 5 Treatments Pt transfers from recliner to standing using FWW at [facility]. Pt ambulates in hallway to Therapy Gym using FWW at [facility]. Pt uses NuStep for 15m at Workload 5 as well as Sit to Stands from chair at //bars then Seated Ex in chair. Pt returns to room to rest in recliner at end of tx with all needs met. MANDOLIN REPAIR PERSON assisted pt with ordering lunch. Assessment Current Status: Good Progress Pt has increased distance of ambulation, activity tolerance and independence with ambulation and transfers. PT Short Term Goals Short Term Goals Time Frame: Mar 24, 2017 Transfers (B,C,W/C) (FIM): 4 (met) Wheelchair (FIM): 5 Wheelchair distance (FIM): 3=150 ft Wheelchair Distance: 300' PT [facility] Goals [facility] Goals PT Marketing Administrator Goals Time Frame: Apr 07, 2017 Transfers (B,C,W/C) (FIM): 5 Sit to Lying (QC): 6 Lying-Sitting on Side/Bed(QC): 6 Sit to Stand (QC): 88 Rollin Roll Left to Right (QC): 6 Chair/Oky-qt-Pxfee Xfer(QC): 5 Car Transfer (QC): 4 Gait (FIM): 0 (unable to ambulate; TTWB B LE's) Does the Pt use WC or Scooter?: Yes Wheelchair (FIM): 6 Wheel 50 feet with 2 turns (QC: 6 Stairs (FIM): 1 (unable due to TTWB B LE;s) 1 Step (curb) (QC): 88 4 Steps (QC): 88 12 Steps (QC): 88 Picking up an Object (QC): 88 PT Plan Problem List Problem List: Activity Tolerance, Functional Strength, Safety, Balance, Gait Treatment/Plan Treatment Plan: Continue Plan of Care Treatment Plan: Bed Mobility, Education, Functional Activity Rochelle, Functional Strength, Group Therapy, Other (wc mob), Safety, Therapeutic Exercise, Transfers Treatment Duration: Apr 07, 2017 Frequency: At least 5-7 days/Wk (IRF) Estimated Hrs Per Day: 1.5 hours per day Patient and/or Family Agrees t: Yes Safety Risks/Education Patient Education: Gait Training, Transfer Techniques, Correct Positioning, Safety Issues Teaching Recipient: Patient Teaching Methods: Discussion Response to Teaching: Verbalize Understanding Time/GCodes Time In: 1100 Time Out: 1200 Total Billed Treatment Time: 60 Total Billed Treatment visit, GT (15m), FA (15m) & EX x2 (30m) BECKY LEIVA PTA Mar 31, 2017 14:33
--- NOTE | 2017-03-31 14:40 | Therapy Group Daily Note ---
Therapy Daily Group Note Patient Education Topic Energy Cons Exercises LE Seated Exercise, UE Exercise Other/Notes Pt transported via w/c to OT/PT group. Group consisted of introductions (name, place living, what inspires you), socialization, energy conservation education and upper/lower seated exercises that incorporated cardio. Pt contributed to discussions effectively. Pt attempted to complete UE/LE exercises, UE ROM limitations. Pt was able to verbalize understanding of education topic and elaborate on discussions. After group, pt transported via w/c to room. Call light/phone in reach. All needs met in room. Start Time: 13:00 Stop Time: 14:15 Total Billed Treatment Time: 75 Total Billed Treatment 1-GRP STEFFANIE FAULKNER Mar 31, 2017 14:40
[2017-03-31 18:24] VITALS: BP 148/69
[2017-04-01] MEDS: METOCLOPRAMIDE 10 MG (REGLAN) TAB PO SCH ×4 (00:40→17:22)
[2017-04-01 06:00] VITALS: BP 137/87
[2017-04-01] MEDS: inSUlin ASPART (NovoLOG) 1 UNIT/0.01 ML (CHARGE PER UNIT) SC SCH ×4 (06:08→21:40)
[2017-04-01] MEDS: metFORMIN 500 MG (GLUCOPHAGE) TAB PO SCH ×2 (06:08→17:22)
[2017-04-01] MEDS: RT-ALBUTEROL/IPRATROPIUM 3 ML (DUONEB) VIAL INH SCH ×3 (07:07→19:12)
[2017-04-01] MEDS: meTOprolol TARTRATE 50 MG (LOPRESSOR) TAB PO SCH (08:25)
[2017-04-01] MEDS: ENOXAPARIN 30 MG/0.3 ML (LOVENOX) SYR SC SCH ×2 (08:25→20:26)
[2017-04-01] MEDS: KCL 10 MEQ TAB (MICRO K) PO SCH ×2 (08:25→20:26)
[2017-04-01] MEDS: LACTULOSE SYRUP 10GM/15ML (ENULOSE) 30ML UDC PO SCH ×2 (08:25→20:26)
[2017-04-01] MEDS: FUROSEMIDE 40 MG (LASIX) TAB PO SCH (08:25)
[2017-04-01] MEDS: SENNOSIDES 8.6 MG (SENOKOT) TAB PO SCH ×2 (08:25→20:26)
--- NOTE | 2017-04-01 09:08 | PM & R (SOAP) Progress Note ---
Subjective Time Seen by Provider: 07:30 Subjective/Events-last exam Patient was seen in his room this AM Patient SBA for transfers Objective Exam Last Set of Vital Signs Vital Signs Date Time Temp Pulse Resp B/P (MAP) Pulse Ox O2 Delivery O2 Flow Rate FiO2 04/01/17 07:07 99 Nasal Cannula 1.00 04/01/17 06:00 97.8 65 16 137/87 Capillary Refill : Less Than 3 Seconds I&O Intake and Output 04/01/17 00:00 Intake Total 1540 ml Output Total 1325 ml Balance 215 ml Intake Oral 1540 ml Output Urine Total 1325 ml # Bowel Movements 2 General: Alert, Oriented X3, Cooperative, No Acute Distress HEENT: Atraumatic, PERRLA, EOMI, Mucous Memb Moist/C-Road Neck: Supple, No JVD Lungs: Clear to Auscultation Heart: Regular Rate, Normal S1, Normal S2, Other (systolic Murmur) Abdomen: Soft, No Tenderness, Other (distended, diminished BS) Extremities: No Clubbing, No Cyanosis, No Edema ( trace edema) Skin: No Rashes Neuro: Other (strength both LES 3/5 4/5 BUES sensation and cognition grossly intact) Results Lab Laboratory Tests 03/29/17 11:04: Glucometer 133H 03/29/17 15:44: Glucometer 211H 03/29/17 19:57: Glucometer 104 03/30/17 05:17: Glucometer 140H 03/30/17 11:00: Glucometer 192H 03/30/17 15:44: Glucometer 103 03/30/17 20:59: Glucometer 155H 03/31/17 06:13: Glucometer 130H 03/31/17 06:58: White Blood Count 8.6, Red Blood Count 3.56L, Hemoglobin 10.2L, Hematocrit 32L, Mean Corpuscular Volume 91, Mean Corpuscular Hemoglobin 29, Mean Corpuscular Hemoglobin Concent 32, Red Cell Distribution Width 14.1, Platelet Count 499H, Mean Platelet Volume 9.9, Neutrophils (%) (Auto) 65, Lymphocytes (%) (Auto) 18, Monocytes (%) (Auto) 16H, Eosinophils (%) (Auto) 1, Basophils (%) (Auto) 1, Neutrophils # (Auto) 5.6, Lymphocytes # (Auto) 1.5, Monocytes # (Auto) 1.4H, Eosinophils # (Auto) 0.1, Basophils # (Auto) 0.1, Sodium Level 136, Potassium Level 4.2, Chloride Level 105, Carbon Dioxide Level 22, Anion Gap 9, Blood Urea Nitrogen 33H, Creatinine 1.54H, Estimat Glomerular Filtration Rate 44, BUN/ Creatinine Ratio 21, Glucose Level 155H, Calcium Level 8.8, Magnesium Level 2.3 03/31/17 11:18: Glucometer 131H 03/31/17 15:58: Glucometer 136H 03/31/17 20:49: Glucometer 170H 04/01/17 06:07: Glucometer 120H Assessment/Plan Assessment Fall with rt distal femur frx s/p IM nail Ortho WBAT RLE Left nondisplaced Patella frx managed with knee brace and PWB LLE Systolic HT Murmur evaluated by Cardiology with Bedside Echo HTN controlled DM controlled Prior Lower ext injury after tractor ran over him recovered well Post op constipation-improved Postop ileus-improved Postop anmeia Postop resp insufficiency 02 being weaned-Study indicates that patient qualifies for home 02 at home possibly-Will confirm Plan Continue with PT/OT F/U with Hospitalist and Cardiology and Orthopedics as per their schedule Current meds reviewed Rechecked labs Check KUB-done Adjust diet and ivfs and meds as indicated for ileus-done improved See orders. F/U with DR Mariela CHAN WB Status Both lower Limbs Advanced by Ortho as per above earlier during rehab stay Team Conference held yesterday- 03/31/17-See report for full functional update and POC and ELOS Discharge set tentatively for 04/03/17 Clarify if patient qualifies for home 02 SHARATH REID MD Apr 01, 2017 09:08
--- NOTE | 2017-04-01 09:59 | Occupational Ther Daily Note ---
OT Current Status-Daily Note Subjective Pt alert, sitting in recliner. Pt agreed to therapy. No c/o pain. Mental Status/Objective Patient Orientation: Person, Place, Time, Situation Functional [place] Measure 0=Not Assessed/NA 4=Minimal Assistance 1=Total Assistance 5=Supervision or Setup 2=Maximal Assistance 6=Modified [place] 3=Moderate Assistance 7=Complete [place] Attachments: Other-See Comments (knee brace) ADL-Treatment Pt doffed shirt without assistance. Doffed underwear, shorts, socks with minimal assistance using dressing stick. Pt transferred into tub/shower with tub transfer bench with min A to lift LE's over tub ledge. Pt able to bathe upper and lower body sitting on tub bench. Pt used long handled sponge to wash lower legs and feet. Assist to lift legs out of tub then max A to stand from tub transfer bench due to no place to put hands to push up. Stood with brace in place on left LE with minimal assistance to wash buttocks. Don pullover shirt with set up. Pt required assist to doff/don PERRI hose and left knee brace. Pt used senior manager creative services to start underwear and shorts over feet. Don socks with set up using sock aid. Pt brushed teeth standing at sink with SBA. Pt ambulated to and from shower room with CGA using FWW. Mod A to transfer from sitting EOB to supine. Pt fatigues with activity and requires occasional rest breaks throughout ADL tasks. After therapy, pt lying in bed with call light/phone in reach. All needs met in room. Functional [place] Measure 0=Not Assessed/NA 4=Minimal Assistance 1=Total Assistance 5=Supervision or Setup 2=Maximal Assistance 6=Modified [place] 3=Moderate Assistance 7=Complete IndependenceIRFPAI Quality Coding Scale 6 Independent with activity with or without an assistive device 5 Patient requires set up or clean up by helper. Patient completes activity by themselves 4 Supervision or touching assist (CGA). [place] provide cues , steadying assist 3 The helper provides less than half the effort to complete the activity 2 The helper provides more than half the effort to complete the activity 1 Dependent. The helper does all the effort to complete an activity 7 Patient refused to complete or attempt activity 9 The patient did not perform the activity before the current illness or injury 88 Not attempted due to Medical conditions or safety concerns Eating (FIM): 6 (Dentures. Pt able to open packages and manipulate utensils to cut food and feed self.) Eating (QC): 6 (D[employer]. Pt able to open packages and manipulate utensils to cut food and feed self.) Grooming (FIM): 5 Oral Hygiene (QC): 5 Bathing (FIM): 4 Shower/Bathe Self (QC): 3 Upper Body (FIM): 5 Upper Body Dressing (QC): 5 Lower Body Dressing (FIM): 3 Lower Body Dressing (QC): 3 On/Off Footwear (QC): 3 Toileting (FIM): 3 Toileting Hygiene (QC): 3 Transfers (B, C, W/C) (FIM): 4 Toilet/Commode Transfer (FIM): 4 Toilet Transfer (QC): 4 Tub Transfer(FIM): 2 Shower Transfer(FIM): 4 OT Short Term Goals Short Term Goals Time Frame: Mar 24, 2017 Eating(FIM): 5 Grooming(FIM): 5 Bathing(FIM): 3 Upper Body Dressing(FIM): 5 Lower Body Dressing(FIM): 4 Toileting(FIM): 5 Transfers (B,C,W/C) (FIM): 4 (met) Toilet/Commode Transfer(FIM): 4 Additional Short Term Goals: 1-Demonstrate ADL Tasks, 2-Verbalize Understanding , 3-ImproveStrength/Rochelle 1=Demonstrate adherence to instructed precautions during ADL tasks. 2=Patient will verbalize/demonstrate understanding of assistive devices/ modifications for ADL. 3=Patient will improve strength/tolerance for activity to enable patient to perform ADL's. OT Heel Scorer Goals Heel Scorer Goals Time Frame: Apr 07, 2017 Eating (FIM): 6 (met-) Eating (QC): 6 (met-) Groomin (met-) Oral Hygiene (QC): 5 (met-) Bathing(FIM): 5 (not met) Shower/Bathe Self (QC): 5 (not met) Upper Body Dressing(FIM): 5 (not met) Upper Body Dressing (QC): 5 (not met) Lower Body Dressing(FIM): 5 (not met) Lower Body Dressing (QC): 5 (not met) On/Off Footwear (QC): 5 (not met) Toileting(FIM): 6 (not met) Toileting Hygiene (QC): 6 (not met) Transfers (B,C,W/C) (FIM): 5 (not met) Toilet/Commode Transfer(FIM): 6 (not met) Toilet/Commode Transfer (QC): 6 (not met) Shower Transfer(FIM): 4 (met-) Additional Goals: 1-Demonstrate ADL Tasks, 2-Verbalize Understanding, 3- ImproveStrength/Rochelle 1=Demonstrate adherence to instructed precautions during ADL tasks. 2=Patient will verbalize/demonstrate understanding of assistive devices/ modifications for ADL. 3=Patient will improve strength/tolerance for activity to enable patient to perform ADL's. OT Education/Plan Discharge Recommendations Plan/Recommendations: Continue POC Treatment Plan/Plan of Care Patient would benefit from OT for education, treatment and training to promote independence in ADL's, mobility, safety and/or upper extremity function for ADL' s. Plan of Care: ADL Retraining, Caregiver Training, Functional Mobility, UE Funct Exercise/Act Treatment Duration: Apr 07, 2017 Frequency: At least 5-7 days/Wk (IRF) Estimated Hrs Per Day: 1.5 hours per day Agreement: Yes Rehab Potential: Good Time/GCodes Start Time: 08:30 Stop Time: 10:00 Total Time Billed (hr/min): 90 Billed Treatment Time 1 visit-ADL 6 (90 min) STEFFANIE FAULKNER Apr 01, 2017 09:59
--- NOTE | 2017-04-01 12:11 | Physical Therapy Daily Note ---
PT Daily Note-Current Subjective Pt. very anxious to go home. States he has a platform step to ascend at home. Agrees to Rx. Pain Numeric Pain Scale: 0-No Pain Mental Status Patient Orientation: Normal For Age Attachments: Oxygen, Other-See Comments (brace left LE) Transfers Functional [place] Measure 0=Not Assessed/NA 4=Minimal Assistance 1=Total Assistance 5=Supervision or Setup 2=Maximal Assistance 6=Modified [place] 3=Moderate Assistance 7=Complete IndependenceIRFPAI Quality Coding Scale 6 Independent with activity with or without an assistive device 5 Patient requires set up or clean up by helper. Patient completes activity by themselves 4 Supervision or touching assist (CGA). [place] provide cues , steadying assist 3 The helper provides less than half the effort to complete the activity 2 The helper provides more than half the effort to complete the activity 1 Dependent. The helper does all the effort to complete an activity 7 Patient refused to complete or attempt activity 9 The patient did not perform the activity before the current illness or injury 88 Not attempted due to Medical conditions or safety concerns Transfers (B, C, W/C) (FIM): 6 Scootin Rollin Roll Left to Right (QC): 6 Supine to/from Sit: 6 Sit to/from Stand: 6 Sit to Lying (QC): 6 Sit to Stand (QC): 6 Chair/Ueb-xh-Jyhxk Xfer(QC): 6 Bed to/from Chair: 6 Weight Bearing Location Restriction: L LE (WBAT), R LE (PWBing) Gait Training Does the Patient Walk?: Yes Gait (FIM): 6 Distance (FIM): 3=150 ft (x3) Walk 10 feet (QC): 6 Walk 50 ft with 2 Turns(QC): 6 Walk 150 ft (QC): 6 Walking 10ft/uneven surface-QC: 6 Gait Level of Assist: 6 Gait Persons Needed: 0 Gait Assistive Device: FWW Stair Training Stair Training: Handrails/: uses walker Stairs (FIM): 2 #of Steps: 4 1 Step (curb) (QC): 4 4 Steps (QC): 4 Stairs: Pattern: Step to Level of Assist: 4 needs instruction and sequence as well as min assist Exercises Supine Ex: Ankle pumps, Quad Set, Rolling, Heel Slides, Scooting, Straight leg raise, Hip abd/add Supine Reps: 10 Assessment Current Status: Good Progress O2 insitu for all, needs direction for turning with O2 extended tubing PT Short Term Goals Short Term Goals Time Frame: Mar 24, 2017 Transfers (B,C,W/C) (FIM): 4 (met) Wheelchair (FIM): 5 Wheelchair distance (FIM): 3=150 ft Wheelchair Distance: 300' PT [facility] Goals Glass Embosser Goals PT [facility] Goals Time Frame: Apr 07, 2017 Transfers (B,C,W/C) (FIM): 5 Sit to Lying (QC): 6 Lying-Sitting on Side/Bed(QC): 6 Sit to Stand (QC): 88 Rollin Roll Left to Right (QC): 6 Chair/Gtx-qu-Ifrdx Xfer(QC): 5 Car Transfer (QC): 4 Gait (FIM): 0 (unable to ambulate; TTWB B LE's) Does the Pt use WC or Scooter?: Yes Wheelchair (FIM): 6 Wheel 50 feet with 2 turns (QC: 6 Stairs (FIM): 1 (unable due to TTWB B LE;s) 1 Step (curb) (QC): 88 4 Steps (QC): 88 12 Steps (QC): 88 Picking up an Object (QC): 88 PT Plan Treatment/Plan Treatment Plan: Continue Plan of Care Treatment Plan: Bed Mobility, Education, Functional Activity Rochelle, Functional Strength, Group Therapy, Other (wc mob), Safety, Therapeutic Exercise, Transfers Treatment Duration: Apr 07, 2017 Frequency: At least 5-7 days/Wk (IRF) Estimated Hrs Per Day: 1.5 hours per day Patient and/or Family Agrees t: Yes Safety Risks/Education Patient Education: Gait Training, Transfer Techniques, Steps Teaching Recipient: Patient Teaching Methods: Demonstration, Discussion Response to Teaching: Verbalize Understanding, Return Demonstration, Reinforcement Needed Time/GCodes Time In: 1100 Time Out: 1200 Total Billed Treatment Time: 60 Total Billed Treatment 1,FA25m,GT20m,EX15m G Codes Necessary: REX Hansen CHAIR INSTALLER Apr 01, 2017 12:11
--- NOTE | 2017-04-01 15:18 | Physical Therapy Daily Note ---
PT Daily Note-Current Subjective Pt. states he is ready to go home, his only concerns are TRF in/ out tub and having O2 at home. Pain Numeric Pain Scale: 0-No Pain Comment: pt. c/o stiffness when he gets up from chair etc Mental Status Patient Orientation: Normal For Age brace left leg Transfers Functional [place] Measure 0=Not Assessed/NA 4=Minimal Assistance 1=Total Assistance 5=Supervision or Setup 2=Maximal Assistance 6=Modified [place] 3=Moderate Assistance 7=Complete IndependenceIRFPAI Quality Coding Scale 6 Independent with activity with or without an assistive device 5 Patient requires set up or clean up by helper. Patient completes activity by themselves 4 Supervision or touching assist (CGA). [place] provide cues , steadying assist 3 The helper provides less than half the effort to complete the activity 2 The helper provides more than half the effort to complete the activity 1 Dependent. The helper does all the effort to complete an activity 7 Patient refused to complete or attempt activity 9 The patient did not perform the activity before the current illness or injury 88 Not attempted due to Medical conditions or safety concerns up down from lift chair, sometimes using mechanism and sometimes not all SBA to Mod I Gait Training Gait Assistive Device: FWW gait training with extended O2 tubing about room and into ratliff as far as tube will go. Instruction in safety and not wrapping tube around himself or FWW and managing tubing safely Exercises Seated Therapy Exercises: Ankle pumps, Sit to stand, Long arc quads Seated Reps: 10 Assessment Current Status: Good Progress discussed with nursing and RT that pt. needs O2 FT at home and will likely need to qualify for O2 etc. PT Short Term Goals Short Term Goals Time Frame: Mar 24, 2017 Transfers (B,C,W/C) (FIM): 4 (met) Wheelchair (FIM): 5 Wheelchair distance (FIM): 3=150 ft Wheelchair Distance: 300' PT Metalsmith Helper Goals Penitentiary Goals PT Penitentiary Goals Time Frame: Apr 07, 2017 Transfers (B,C,W/C) (FIM): 5 Sit to Lying (QC): 6 Lying-Sitting on Side/Bed(QC): 6 Sit to Stand (QC): 88 Rollin Roll Left to Right (QC): 6 Chair/Uwx-cj-Gvijb Xfer(QC): 5 Car Transfer (QC): 4 Gait (FIM): 0 (unable to ambulate; TTWB B LE's) Does the Pt use WC or Scooter?: Yes Wheelchair (FIM): 6 Wheel 50 feet with 2 turns (QC: 6 Stairs (FIM): 1 (unable due to TTWB B LE;s) 1 Step (curb) (QC): 88 4 Steps (QC): 88 12 Steps (QC): 88 Picking up an Object (QC): 88 PT Plan Treatment/Plan Treatment Plan: Continue Plan of Care Treatment Plan: Bed Mobility, Education, Functional Activity Rochelle, Functional Strength, Group Therapy, Other (wc mob), Safety, Therapeutic Exercise, Transfers Treatment Duration: Apr 07, 2017 Frequency: At least 5-7 days/Wk (IRF) Estimated Hrs Per Day: 1.5 hours per day Patient and/or Family Agrees t: Yes Safety Risks/Education Patient Education: Gait Training, Transfer Techniques, Correct Positioning, Disease Process, Safety Issues safe use of O2 with extended o2 tubing Time/GCodes Time In: 1440 Time Out: 1510 Total Billed Treatment Time: 30 Total Billed Treatment 1,GT30m G Codes Necessary: REX Hansen AUTO CLUB SAFETY PROGRAM COORDINATOR Apr 01, 2017 15:18
[2017-04-01 17:05] VITALS: BP 122/70
[2017-04-02] MEDS: METOCLOPRAMIDE 10 MG (REGLAN) TAB PO SCH ×4 (00:09→17:11)
[2017-04-02 05:00] VITALS: BP 153/78
[2017-04-02] MEDS: metFORMIN 500 MG (GLUCOPHAGE) TAB PO SCH ×2 (06:19→17:11)
[2017-04-02] MEDS: inSUlin ASPART (NovoLOG) 1 UNIT/0.01 ML (CHARGE PER UNIT) SC SCH ×4 (06:23→21:35)
[2017-04-02] MEDS: RT-ALBUTEROL/IPRATROPIUM 3 ML (DUONEB) VIAL INH SCH ×3 (06:33→20:40)
[2017-04-02] MEDS: ENOXAPARIN 30 MG/0.3 ML (LOVENOX) SYR SC SCH ×2 (07:57→20:02)
[2017-04-02] MEDS: meTOprolol TARTRATE 50 MG (LOPRESSOR) TAB PO SCH (08:00)
[2017-04-02] MEDS: SENNOSIDES 8.6 MG (SENOKOT) TAB PO SCH ×2 (08:00→19:47)
[2017-04-02] MEDS: FUROSEMIDE 40 MG (LASIX) TAB PO SCH (08:00)
[2017-04-02] MEDS: LACTULOSE SYRUP 10GM/15ML (ENULOSE) 30ML UDC PO SCH ×2 (08:00→19:23)
[2017-04-02] MEDS: KCL 10 MEQ TAB (MICRO K) PO SCH ×2 (08:00→20:02)
--- NOTE | 2017-04-02 08:12 | PM & R (SOAP) Progress Note ---
Subjective Time Seen by Provider: 08:00 Subjective/Events-last exam Patient was seen in his room this AM Patient Modified Independent for transfers with WB restrictions as per Ortho.No significant pain and not using any analgesics.Discharge to home tomorrow remains set for tomorrow Patient remians on 02 Will clarify if patient qualified thru [facility] regs for home 02 Objective Exam Last Set of Vital Signs Vital Signs Date Time Temp Pulse Resp B/P (MAP) Pulse Ox O2 Delivery O2 Flow Rate FiO2 04/02/17 06:34 95 Nasal Cannula 1.00 04/02/17 05:00 96.9 81 22 153/78 Capillary Refill : Less Than 3 Seconds I&O Intake and Output 04/02/17 00:00 Intake Total 1280 ml Output Total 1150 ml Balance 130 ml Intake Oral 1280 ml Output Urine Total 1150 ml # Bowel Movements 2 General: Alert, Oriented X3, Cooperative, No Acute Distress HEENT: Atraumatic, PERRLA, EOMI, Mucous Memb Moist/[place], Other (02 by N/C in place) Neck: Supple, No JVD Lungs: Clear to Auscultation Heart: Regular Rate, Normal S1, Normal S2, Other (systolic Murmur) Abdomen: Soft, No Tenderness, Other (distended, diminished BS) Extremities: No Clubbing, No Cyanosis, No Edema ( trace edema) Skin: No Rashes Neuro: Other (strength both LES 3/5 4/5 BUES sensation and cognition grossly intact) Results Lab Laboratory Tests 03/30/17 11:00: Glucometer 192H 03/30/17 15:44: Glucometer 103 03/30/17 20:59: Glucometer 155H 03/31/17 06:13: Glucometer 130H 03/31/17 06:58: White Blood Count 8.6, Red Blood Count 3.56L, Hemoglobin 10.2L, Hematocrit 32L, Mean Corpuscular Volume 91, Mean Corpuscular Hemoglobin 29, Mean Corpuscular Hemoglobin Concent 32, Red Cell Distribution Width 14.1, Platelet Count 499H, Mean Platelet Volume 9.9, Neutrophils (%) (Auto) 65, Lymphocytes (%) (Auto) 18, Monocytes (%) (Auto) 16H, Eosinophils (%) (Auto) 1, Basophils (%) (Auto) 1, Neutrophils # (Auto) 5.6, Lymphocytes # (Auto) 1.5, Monocytes # (Auto) 1.4H, Eosinophils # (Auto) 0.1, Basophils # (Auto) 0.1, Sodium Level 136, Potassium Level 4.2, Chloride Level 105, Carbon Dioxide Level 22, Anion Gap 9, Blood Urea Nitrogen 33H, Creatinine 1.54H, Estimat Glomerular Filtration Rate 44, BUN/ Creatinine Ratio 21, Glucose Level 155H, Calcium Level 8.8, Magnesium Level 2.3 03/31/17 11:18: Glucometer 131H 03/31/17 15:58: Glucometer 136H 03/31/17 20:49: Glucometer 170H 04/01/17 06:07: Glucometer 120H 04/01/17 11:07: Glucometer 120H 04/01/17 15:57: Glucometer 150H 04/01/17 21:24: Glucometer 169H 04/02/17 05:17: Glucometer 120H Assessment/Plan Assessment Fall with rt distal femur frx s/p IM nail Ortho WBAT RLE Left nondisplaced Patella frx managed with knee brace and PWB LLE Systolic HT Murmur evaluated by Cardiology with Bedside Echo HTN controlled DM controlled Prior Lower ext injury after tractor ran over him recovered well Post op constipation-improved Postop ileus-improved Postop anmeia Postop resp insufficiency 02 being weaned-Study indicates that patient qualifies for home 02 at home possibly-Will confirm Plan Continue with PT/OT F/U with Hospitalist and Cardiology and Orthopedics as per their schedule Current meds reviewed Rechecked labs Check KUB-done Adjust diet and ivfs and meds as indicated for ileus-done improved See orders. F/U with DR Mariela CHAN WB Status Both lower Limbs Advanced by Ortho as per above earlier during rehab stay Team Conference held - 03/31/17-See report for full functional update and POC and ELOS Discharge set tentatively for tomorrow 04/03/17 Clarify if patient qualifies for home 02 See orders. SHARATH REID MD Apr 02, 2017 08:12
[2017-04-02] MEDS ORDERED: ACET325T49 PO (08:19)
[2017-04-02] MEDS ORDERED: METO10TA3 PO (08:19)
[2017-04-02] MEDS ORDERED: SENN-140 PO (08:19)
[2017-04-02] MEDS ORDERED: POTA10TA6 PO (08:19)
[2017-04-02] MEDS ORDERED: FURO40TA4 PO (08:19)
[2017-04-02] MEDS ORDERED: LACT20SO2 PO (08:19)
--- NOTE | 2017-04-02 10:20 | Occupational Ther Daily Note ---
OT Current Status-Daily Note Subjective Pt in bed, agrees to treatment. Pt has no c/o pain, states he is ready to go home tomorrow. Mental Status/Objective Functional [place] Measure 0=Not Assessed/NA 4=Minimal Assistance 1=Total Assistance 5=Supervision or Setup 2=Maximal Assistance 6=Modified [place] 3=Moderate Assistance 7=Complete [place] Attachments: Oxygen ADL-Treatment Pt supine to sit with SBA. Pt states he had a shower yesterday, would like a sponge bath today. Doff clothing with SBA, uses adaptive equipment for LE. Pt completed sponge bath seated EOB. Upper body bathing completed with SBA. Pt used long handled sponge to wash lower legs and feet. Stood with CGA for balance while washing buttocks and amina area. Pt applied deodorant after set up. Don pullover shirt with set up. Assist required to don PERRI hose and left leg brace. Pt used stitch bonding machine tender helper to start underwear and pants over feet. Stood with CGA for balance during pant hike. Pt donned bilateral socks with set up using sock aid. Pt performed grooming tasks standing at sink. Pt brushed teeth with set up. Transfer to chair with SBA using FWW. Pt fatigues with activity and requires occasional rest breaks throughout session. Education provided regarding ADLs and home safety. Pt states understanding of education and has no questions or concerns at this time. Pt states children will be with him and will be able to assist as needed at home. Pt sitting in chair with needs met after session. Functional [place] Measure 0=Not Assessed/NA 4=Minimal Assistance 1=Total Assistance 5=Supervision or Setup 2=Maximal Assistance 6=Modified [place] 3=Moderate Assistance 7=Complete IndependenceIRFPAI Quality Coding Scale 6 Independent with activity with or without an assistive device 5 Patient requires set up or clean up by helper. Patient completes activity by themselves 4 Supervision or touching assist (CGA). [place] provide cues , steadying assist 3 The helper provides less than half the effort to complete the activity 2 The helper provides more than half the effort to complete the activity 1 Dependent. The helper does all the effort to complete an activity 7 Patient refused to complete or attempt activity 9 The patient did not perform the activity before the current illness or injury 88 Not attempted due to Medical conditions or safety concerns Grooming (FIM): 5 Oral Hygiene (QC): 5 Bathing (FIM): 4 Upper Body (FIM): 5 Upper Body Dressing (QC): 5 Lower Body Dressing (FIM): 4 Education OT Patient Education: Safety issues Teaching Recipient: Patient Teaching Methods: Discussion Response to Teaching: Verbalize Understanding OT Short Term Goals Short Term Goals Time Frame: Mar 24, 2017 Eating(FIM): 5 Grooming(FIM): 5 Bathing(FIM): 3 Upper Body Dressing(FIM): 5 Lower Body Dressing(FIM): 4 Toileting(FIM): 5 Transfers (B,C,W/C) (FIM): 4 (met) Toilet/Commode Transfer(FIM): 4 Additional Short Term Goals: 1-Demonstrate ADL Tasks, 2-Verbalize Understanding , 3-ImproveStrength/Rochel[place] 1=Demonstrate adherence to instructed precautions during ADL tasks. 2=Patient will verbalize/demonstrate understanding of assistive devices/ modifications for ADL. 3=Patient will improve strength/tolerance for activity to enable patient to perform ADL's. OT Car Builder Goals Mcc Goals Time Frame: Apr 07, 2017 Eating (FIM): 6 (met) Eating (QC): 6 (met) Groomin (met) Oral Hygiene (QC): 5 (met) Bathing(FIM): 5 (not met) Shower/Bathe Self (QC): 5 (not met) Upper Body Dressing(FIM): 5 (met 04/02/17) Upper Body Dressing (QC): 5 (5-met) Lower Body Dressing(FIM): 5 (not met) Lower Body Dressing (QC): 5 (not met) On/Off Footwear (QC): 5 (not met) Toileting(FIM): 6 (not met) Toileting Hygiene (QC): 6 (not met) Transfers (B,C,W/C) (FIM): 5 (not met) Toilet/Commode Transfer(FIM): 6 (not met) Toilet/Commode Transfer (QC): 6 (not met) Shower Transfer(FIM): 4 (met) Additional Goals: 1-Demonstrate ADL Tasks, 2-Verbalize Understanding, 3- ImproveStrength/[place]helle 1=Demonstrate adherence to instructed precautions during ADL tasks. 2=Patient will verbalize/demonstrate understanding of assistive devices/ modifications for ADL. 3=Patient will improve strength/tolerance for activity to enable patient to perform ADL's. OT Education/Plan Discharge Recommendations Plan/Recommendations: Continue POC Treatment Plan/Plan of Care Patient would benefit from OT for education, treatment and training to promote independence in ADL's, mobility, safety and/or upper extremity function for ADL' s. Plan of Care: ADL Retraining, Caregiver Training, Functional Mobility, UE Funct Exercise/Act Treatment Duration: Apr 07, 2017 Frequency: At least 5-7 days/Wk (IRF) Estimated Hrs Per Day: 1.5 hours per day Agreement: Yes Rehab Potential: Good Time/GCodes Start Time: 08:00 Stop Time: 09:00 Total Time Billed (hr/min): 60 Billed Treatment Time 1 visit, ADLx4(60minutes) LEN CHURCH OT Apr 02, 2017 10:20
--- NOTE | 2017-04-02 12:07 | Physical Therapy Daily Note ---
PT Daily Note-Current Subjective Pt. states he is very ready to go home tomorrow. Hosp bed in his living room, O2 concentrator to be sat up . States "those 3 dogs will have to go outside during the day." Pain Numeric Pain Scale: 0-No Pain Comment: pt. does not c/o of any pain but audible crepitus heard at many joints Mental Status Patient Orientation: Normal For Age Attachments: Oxygen (1L), Other-See Comments (IROM left leg) Transfers Functional [place] Measure 0=Not Assessed/NA 4=Minimal Assistance 1=Total Assistance 5=Supervision or Setup 2=Maximal Assistance 6=Modified [place] 3=Moderate Assistance 7=Complete IndependenceIRFPAI Quality Coding Scale 6 Independent with activity with or without an assistive device 5 Patient requires set up or clean up by helper. Patient completes activity by themselves 4 Supervision or touching assist (CGA). [place] provide cues , steadying assist 3 The helper provides less than half the effort to complete the activity 2 The helper provides more than half the effort to complete the activity 1 Dependent. The helper does all the effort to complete an activity 7 Patient refused to complete or attempt activity 9 The patient did not perform the activity before the current illness or injury 88 Not attempted due to Medical conditions or safety concerns Transfers (B, C, W/C) (FIM): 6 Scootin Rollin Supine to/from Sit: 6 Sit to/from Stand: 6 (if using lift chair) Bed to/from Chair: 6 Weight Bearing Weight Bearing Restriction: Weight Bearing/Tolerated (L), Partial Weight Bearing (R) Gait Training Does the Patient Walk?: Yes Gait (FIM): 5 Distance (FIM): 3=150 ft (x3) Gait Level of Assist: 5 Gait Persons Needed: 1 Gait Assistive Device: FWW many trips in and out room today practicing safe technique with extended O2 tubing , pt. managing very well, safe practice Stair Training Stair Training: Handrails/: uses walker Stairs (FIM): 2 #of Steps: 2 Stairs: Pattern: Step to Level of Assist: 4 up down one platform step x2 with SBA, improved over yesterday, ascends LLE, descends RLE Exercises Seated Therapy Exercises: Ankle pumps, Sit to stand, Long arc quads, Hip flexion Seated Reps: 12 Assessment Current Status: Excellent Progress, Good Progress meets goals PT Short Term Goals Short Term Goals Time Frame: Mar 24, 2017 Transfers (B,C,W/C) (FIM): 4 (met) Wheelchair (FIM): 5 Wheelchair distance (FIM): 3=150 ft Wheelchair Distance: 300' PT Gift Basket Packer Goals Half-Way Goals PT Gift Basket Packer Goals Time Frame: Apr 07, 2017 Transfers (B,C,W/C) (FIM): 5 Sit to Lying (QC): 6 Lying-Sitting on Side/Bed(QC): 6 Sit to Stand (QC): 88 Rollin Roll Left to Right (QC): 6 Chair/Zjc-by-Oxljp Xfer(QC): 5 Car Transfer (QC): 4 Gait (FIM): 0 (unable to ambulate; TTWB B LE's) Does the Pt use WC or Scooter?: Yes Wheelchair (FIM): 6 Wheel 50 feet with 2 turns (QC: 6 Stairs (FIM): 1 (unable due to TTWB B LE;s) 1 Step (curb) (QC): 88 4 Steps (QC): 88 12 Steps (QC): 88 Picking up an Object (QC): 88 PT Plan Treatment/Plan Treatment Plan: Continue Plan of Care Treatment Plan: Bed Mobility, Education, Functional Activity [place], Functional Strength, Group Therapy, Other (wc mob), Safety, Therapeutic Exercise, Transfers Treatment Duration: Apr 07, 2017 Frequency: At least 5-7 days/Wk (IRF) Estimated Hrs Per Day: 1.5 hours per day Patient and/or Family Agrees t: Yes Safety Risks/Education Patient Education: Gait Training, Transfer Techniques, Steps Teaching Recipient: Patient Teaching Methods: Demonstration, Discussion Response to Teaching: Verbalize Understanding, Return Demonstration, Reinforcement Needed Time/GCodes Time In: 1100 Time Out: 1200 Total Billed Treatment Time: 60 Total Billed Treatment 1,FA30m,GT30m G Codes Necessary: REX Hansen OFFICE CLERK ROUTINE Apr 02, 2017 12:06
--- NOTE | 2017-04-02 14:49 | Therapy Group Daily Note ---
Therapy Daily Group Note Patient Education Topic Other List Below (gait and assistive devices) Exercises LE Seated Exercise, UE Exercise Other/Notes Pt. attended group PT OT session. Pt. came per ambulation with FWW. Pt. was pleasant and socialized well with others introducing himself and sharing his "favorite meal" with others. U&L extremity ther ex was done today lead by FREDDIE Carrera with pts. reading from illustrated card instructions with all pts participating . Pts also were all distributed yellow Tband for UE exercise edi programmer by OT. Education was offered focusing on gait pattern and use of various assistive devices. Pt. returned to room in w/c , CGA to bed, call alicia at hand. pt. appeared to enjoy group a great deal sharing and laughing and making conversation. Start Time: 13:00 Stop Time: 14:15 Total Billed Treatment Time: 75 Total Billed Treatment 1,GRP REX ALVAREZ EDUCATION CONSULTANT Apr 02, 2017 14:49
[2017-04-02 18:05] VITALS: BP 121/73
[2017-04-03] MEDS: METOCLOPRAMIDE 10 MG (REGLAN) TAB PO SCH ×2 (00:42→06:04)
[2017-04-03 05:00] VITALS: BP 136/72
[2017-04-03] MEDS: metFORMIN 500 MG (GLUCOPHAGE) TAB PO SCH (06:04)
[2017-04-03] MEDS: inSUlin ASPART (NovoLOG) 1 UNIT/0.01 ML (CHARGE PER UNIT) SC SCH (06:17)
[2017-04-03] MEDS: RT-ALBUTEROL/IPRATROPIUM 3 ML (DUONEB) VIAL INH SCH (07:27)
[2017-04-03 08:10] VITALS: BP 128/71
[2017-04-03] MEDS: ENOXAPARIN 30 MG/0.3 ML (LOVENOX) SYR SC SCH (08:13)
[2017-04-03] MEDS: meTOprolol TARTRATE 50 MG (LOPRESSOR) TAB PO SCH (08:14)
[2017-04-03] MEDS: KCL 10 MEQ TAB (MICRO K) PO SCH (08:14)
[2017-04-03] MEDS: FUROSEMIDE 40 MG (LASIX) TAB PO SCH (08:14)
[2017-04-03] MEDS: LACTULOSE SYRUP 10GM/15ML (ENULOSE) 30ML UDC PO SCH (08:15)
[2017-04-03] MEDS: SENNOSIDES 8.6 MG (SENOKOT) TAB PO SCH (08:15)
[2017-04-03 10:40] VITALS: BP 128/71
--- NOTE | 2017-04-05 14:14 | Therapy Team Discharge Summary ---
Therapy Discharge Summary Discharge Recommendations Date of Discharge Apr 03, 2017 at 10:40 Therapy D/C Recommendations: Physical Therapy Home Care Occupational Therapy Pt admitted to ARU following fall with right femur fracture and left patellar fracture. On admission pt required max assist for LE ADLs, bathing, and transfers. Skilled OT intervention focused on ADL training, transfers, strengthening, adaptive equipment training, and home safety education. Pt progressed with therapy and by discharge is completing UE ADLs with set up and bathing, LE dressing, and transfers with minimal assistance. Pt met goals for feeding, grooming, and UE dressing, but did not meet other goals. Pt discharged home with children. D/C ARU OT. PT [employer] Goals Snf Goals PT Snf Goals Time Frame: Apr 07, 2017 Transfers (B,C,W/C) (FIM): 5 Roll Left to Right (QC): 6 Sit to Lying (QC): 6 Lying-Sitting on Side/Bed(QC): 6 Sit to Stand (QC): 88 Chair/Amn-jx-Evghl Xfer(QC): 5 Car Transfer (QC): 4 Gait (FIM): 0 (unable to ambulate; TTWB B LE's) Does the Pt use WC or Scooter?: Yes Wheelchair (FIM): 6 Wheel 50 feet with 2 turns (QC: 6 Stairs (FIM): 1 (unable due to TTWB B LE;s) 1 Step (curb) (QC): 88 4 Steps (QC): 88 12 Steps (QC): 88 Picking up an Object (QC): 88 OT [employer] Goals Snf Goals Time Frame: Apr 07, 2017 Eating (FIM): 6 (met-) Eating (QC): 6 (met-) Oral Hygiene (QC): 5 (met-) Grooming(FIM): 5 (met-) Bathing(FIM): 5 (not met) Shower/Bathe Self (QC): 5 (not met) Upper Body Dressing(FIM): 5 (met 04/02/) Upper Body Dressing (QC): 5 (5-met) Lower Body Dressing(FIM): 5 (not met) Lower Body Dressing (QC): 5 (not met) On/Off Footwear (QC): 5 (not met) Toileting(FIM): 6 (not met) Toileting Hygiene (QC): 6 (not met) Transfers (B,C,W/C) (FIM): 5 (not met) Toilet/Commode Transfer(FIM): 6 (not met) Toilet/Commode Transfer (QC): 6 (not met) Shower Transfer(FIM): 4 (met-) Additional Goals: 1-Demonstrate ADL Tasks, 2-Verbalize Understanding, 3- ImproveStrength/[place] 1=Demonstrate adherence to instructed precautions during ADL tasks. 2=Patient will verbalize/demonstrate understanding of assistive devices/ modifications for ADL. 3=Patient will improve strength/tolerance for activity to enable patient to perform ADL's. LEN CHURCH OT Apr 05, 2017 14:14
== END 2017-04-03 10:40 | disposition home health service (06) | DRG 560 ==
LOC: ENPENDDIS 04-03 12:00
PROVIDERS: ADMIT Physical Medicine & Rehabilitation; ATTEND Physical Medicine & Rehabilitation
DX: S72.301D Unspecified fracture of shaft of right femur, subsequent encounter for closed fracture with routine healing (principal); S82.002D Unspecified fracture of left patella, subsequent encounter for closed fracture with routine healing; I12.9 Hypertensive chronic kidney disease with stage 1 through stage 4 chronic kidney disease, or unspecified chronic kidney disease; N18.9 Chronic kidney disease, unspecified; K56.7 Ileus, unspecified; E11.9 Type 2 diabetes mellitus without complications; E66.9 Obesity, unspecified; R01.1 Cardiac murmur, unspecified; K59.09 Other constipation; D50.0 Iron deficiency anemia secondary to blood loss (chronic); E87.6 Hypokalemia; R39.11 Hesitancy of micturition; Z68.31 Body mass index [BMI] 31.0-31.9, adult; R06.89 Other abnormalities of breathing; Z99.81 Dependence on supplemental oxygen; Z79.84 Long term (current) use of oral hypoglycemic drugs; W19.XXXD Unspecified fall, subsequent encounter; Y93.K9 Activity, other involving animal care
CPT/HCPCS: 36415; 74000; 80048; 80053; 82962; 83735; 85007; 85025; 85027; 93306; 94640; 94664; 94760; 94761; 94762

== ENCOUNTER 2017-10-21 11:03 | Inpatient (IN) | payer MEDICAID, MEDICARE ==
[~2017-10-21] VITALS: Ht 182.9 cm; Wt 115.7 kg
[~2017-10-21 11:03] MED LIST changes: +ACET325T49 PO; +ACHD5005 PO; +ENOX30DI4 SC; +FURO-124 PO; +FURO40TA4 PO; +INSU100V16 SC; +IPRA3AMP INH; +LACT20SO2 PO; +METO10TA3 PO; +METO50TA15 PO; -METO50TA2 PO; +POTA10TA10 PO; +POTA10TA6 PO; +SENN-140 PO
[2017-10-27 17:59] VITALS: BP 145/68
--- NOTE | 2017-10-27 18:24 | PM&R Post Admission Assessment ---
Post Admission Physician Asses The preadmission screen agrees with the post admission assessment that the patient is a good candidate for inpatient rehabilitation. The patient will have a comprehensive program of inpatient rehabilitation with a goal of maximizing level of functional independence prior to discharge home with family and HHC. The patient will have PT/OT ninety minutes per day, each discipline, five days a week for gait, strengthening, conditioning, balance, ADLs, any patient/family/caregiver training as necessary. Speech therapy to do cognitive assessment and treat as indicated. Rehabilitation nursing to assist with bowel, bladder,Pierre catheter care, skin, wound care, medication administration, pain management. Irrigation Teacher to assist with discharge planning, community reentry. SCD's for DVT prophylaxis. He had been Modified Independent prior to this with a cane. He appears to be well motivated to participate in three hours of therapy a day. He should be able to tolerate three hours of therapy a day from a medical and surgical standpoint. He should benefit from the three hours of therapy a day. He has a reasonable discharge plan, reasonable discharge rehabilitation goals and a supportive family. He has various comorbidities that need to be closely monitored with medications and treatments adjusted on a daily basis as needed. These include: CHINO DM Postop resp insufficiency HTN CKD COPD Urinary retention A FIB Barriers to discharge for this patient who had been independent prior to this are for him to be modified independent to supervision for ADLs and mobility skills prior to discharge home with spouse and HHC, so as to lessen the burden of the caregivers. Risks for this patient include: 1. Fall 2. Fracture 3. DVT 4. Pulmonary embolism 5. Wound infection 6. Skin breakdown 7. Contractures 8. Poorly controlled pain 9. Continued Urinary retention 10. UTI 11. Respiratory infection 12. Aspiration 13, respiratory failure 14. Poorly controlled HTN 15. Poorly controlled DM Estimated Length of Stay: 18 days Prognosis: Rehab prognosis appears good for goal of discharge home with family with HHC modified independent to supervision for ADLs and mobility skills. The patient will be on 03/04 therapy schedule due to low 02 sats without supplemental 02 SHARATH REID MD Oct 27, 2017 18:24
[2017-10-27 18:35] VITALS: BP 112/65
[2017-10-27] MEDS: APIXABAN 2.5 MG (ELIQUIS) TABLET PO SCH (20:22)
[2017-10-27] MEDS: inSUlin (REGULAR) HUMAN 1 UNIT/0.01 ML (CHARGE PER UNIT) SC SCH (21:44)
--- NOTE | 2017-10-27 21:44 | HISTORY AND PHYSICAL ---
DATE OF SERVICE: ADMISSION HISTORY AND PHYSICAL CHIEF COMPLAINT: Shortness of breath with walking. HISTORY OF PRESENT ILLNESS: The patient is an 82-year-old retired male who lives with his family in [place], [place], [place], who was admitted to [facility] on 10/12/2017 for aortic valve replacement for treatment of aortic stenosis that same day with Dr. Kruse, cardiac surgery. The patient had postop respiratory insufficiency with associated wheezing and continued to require O2. He was decreased from 6 liters to 3 liters. He had respiratory treatments. He had diuresis. His creatinine climbed to 2.5 and this improved with hydration. CT of the abdomen was performed, which showed hydronephrosis on the right and a nonfunctioning right kidney and a very dilated bladder. Urology was consulted and catheter was placed. Bladder is currently managed with indwelling Pierre catheter. He had been modified independent with a cane prior to this. Currently, he requires assistance for his ADLs and mobility skills. He has dyspnea with normal routine. He is on Eliquis as an oral anticoagulant. The patient did have transient postop atrial fibrillation whic was treted with amioderone which has now been disontinued, as it has not reoccured. The amiodarone was stopped as he remained in sinus rhythm for a while prior to transfer. He is referred to the inpatient rehabilitation unit for ongoing therapies.Currently he is Mod assist for transfers and Min assist for gait with WW.He is setup for eating and grooming and min assist for upper body dressing He is Max asssit for lower body dressing. 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 PAST SURGICAL HISTORY: He was on rehab unit this past 02/2017 following a right distal femur fracture with IM nailingand a left patella fracture.He progressed well BMI 34.3. ALLERGIES: No known medication allergies. FAMILY HISTORY: Noncontributory. SOCIAL HISTORY: Retired from [employer]. PCP, Dr. Valdez, [facility]. REVIEW OF SYSTEMS: Ten-point review of systems is significant for dyspnea on exertion, urinary retention, abdominal distention. MEDICATIONS: Amlodipine 5 mg p.o. daily, ASA 81 mg p.o. daily, metoprolol 50 mg p.o. daily, vitamin C 500 mg p.o. daily, Glucophage 500 mg p.o. b.i.d., multivitamins with minerals 1 tablet p.o. daily, sliding scale insulin regimen A, Eliquis 2.5 mg p.o. b.i.d. PHYSICAL EXAMINATION: GENERAL: Significant for an obese male lying in bed, no acute distress, alert and oriented. His daughter and son present in unit with him. VITAL SIGNS: He is afebrile, pulse is 51, respirations 16, blood pressure 112/65, O2 sat 91% on 4 liters of O2. HEENT: Vision, speech, hearing grossly intact. No oral lesion is noted. O2 by nasal cannula in place. NECK: Supple without mass. HEART: Regular rhythm. CHEST: Clear anteriorly. ABDOMEN: Soft, nontender, distended. Bowel sounds present. EXTREMITIES: Trace edema in ankles. No calf tenderness. MUSCULOSKELETAL: He has functional active range of motion in all 4 limbs. NEUROLOGIC: Sensation is grossly intact to touch. Cognition is grossly intact. Strength, he has generalized weakness with functional strength BUES and 4+/5 strength BLES He has limited endurnance with some dyspnea on exertion. : Indwelling Pierre catheter to DD with dark concentrated urine in bag. IMPRESSION: 1. General debilitation, status post aortic valve replacement for aortic stenosis, Dr. Kruse. 2. Pulmonary respiratory insufficiency, on O2 by nasal cannula. 3. Obesity. 4. Diabetes mellitus type 2. 5. Postop atrial fibrillation, now resolved. 6. Urinary retention with indwelling Pierre catheter with dark urine in bag. 7. Hydronephrosis on the right with a nonfunctioning right kidney and a very dilated bladder, currently managed with indwelling Pierre catheter to dependent drainage. 8.OAC with Eliquis PLAN: The patient kwabena have a comprehensive program of inpatient rehabilitation with PT , OT daily as outlined in post-admission physician evaluation. Please see that note with goal of maximizing level of functional independence prior to discharge home with family,hopefully at the level of modified independent to supervision for ADLs and mobility skills. Speech therapy to do cognitive assessment and treat as indicated. Rehabilitation nursing to assist with bowel, bladder, skin, wound care, medication mormonism, pain management. Social service to assist with discharge planning, community reentry. Respiratory therapy to assist with respiratory treatment administrations, O2 administration, monitoring O2 sats, keep sats more than 92%. Consult Dr. Vernon to assist with medical management of this out of town patient. Consult Dr. Sin for pulmonary assessment and follow up routine admission labs. Recheck chest x-ray. Case was discussed with Dr. Kruse, with Dr. Fleming yesterday prior to discharge on 10-26-17. Accu-Cheks q.i.d., before meals and at bedtime, adjust medications as appropriate. Therapy with cardiac and fall precautions. press worker helper to assist with discharge planning, community reentry. ESTIMATED LENGTH OF STAY: 2 weeks. PROGNOSIS: Rehab prognosis appears good for goal of discharging home with family and home health care, modified independent to supervision for ADLs and mobility skills. DIET: Heart healthy, carb consistent. CODE STATUS: Full code. Job ID: [id number] DocumentID: [id number] Dictated Date: 10/27/2017 20:01:05 Scrap Baller Date: 10/27/2017 21:43:57 Dictated By: SHARATH FLEMING MD MTDD
[2017-10-28] MEDS: inSUlin (REGULAR) HUMAN 1 UNIT/0.01 ML (CHARGE PER UNIT) SC SCH ×4 (05:26→20:06)
[2017-10-28] MEDS: MULTIVIT W/MINERALS TAB (THERAGRAN M) PO SCH (05:40)
[2017-10-28] MEDS: ASCORBIC ACID (VIT C) 500 MG TABLET PO SCH (05:40)
[2017-10-28 05:47] VITALS: BP 159/80
[2017-10-28] MEDS ORDERED: metFORMIN 500 MG (GLUCOPHAGE) TAB PO SCH (07:00)
[2017-10-28 07:17] LABS: BASOPHILS % (AUTO) 0 % (0-10); EOSINOPHILS # (AUTO) 0.2 10^3/uL (0.0-0.3); EOSINOPHILS % (AUTO) 2 % (0-10); HEMATOCRIT 30 % (40-54); HEMOGLOBIN 9.5 G/DL (13.3-17.7); LYMPHOCYTES % (AUTO) 10 % (12-44); MEAN CORPUSCULAR HEMOGLOBIN 29 PG (25-34); MEAN CORPUSCULAR HGB CONC 32 G/DL (32-36); MEAN CORPUSCULAR VOLUME 92 FL (80-99); MEAN PLATELET VOLUME 10.4 FL (7.4-10.4); MONOCYTES # (AUTO) 1.7 X 10^3 (0.0-1.0); MONOCYTES % (AUTO) 15 % (0-12); NEUTROPHILS # (AUTO) 7.9 X 10^3 (1.8-7.8); NEUTROPHILS % (AUTO) 73 % (42-75); PLATELET COUNT 354 10^3/uL (130-400); RED BLOOD COUNT 3.24 10^6/uL (4.35-5.85); RED CELL DISTRIBUTION WIDTH 14.3 % (10.0-14.5); WHITE BLOOD COUNT 10.8 10^3/uL (4.3-11.0)
[2017-10-28 07:37] LABS: BILIRUBIN,TOTAL 0.3 MG/DL (0.1-1.0); CALCIUM 8.2 MG/DL (8.5-10.1); CREATININE SERUM 1.73 MG/DL (0.60-1.30); POTASSIUM 4.8 MMOL/L (3.6-5.0)
[2017-10-28] MEDS: APIXABAN 2.5 MG (ELIQUIS) TABLET PO SCH ×2 (08:29→20:01)
[2017-10-28] MEDS: ASPIRIN E.C. 81 MG (ECOTRIN) TAB PO SCH (08:29)
[2017-10-28] MEDS: amLODIPine 5 MG (NORVASC) TAB PO SCH (08:29)
[2017-10-28] MEDS: meTOprolol TARTRATE 50 MG (LOPRESSOR) TAB PO SCH (08:29)
[2017-10-28] MEDS ORDERED: AMLO5TAB2 PO ×2 (09:12→09:13)
[2017-10-28] MEDS ORDERED: ASCO500T6 PO ×2 (09:12→09:13)
[2017-10-28] MEDS ORDERED: ASPI-983 PO ×2 (09:12→09:13)
[2017-10-28] MEDS ORDERED: MULT-1029 PO ×2 (09:12→09:13)
--- NOTE | 2017-10-28 10:15 | Diagnostic Imaging Report ---
INDICATION: Shortness of breath. COMPARISON: None. FINDINGS: Frontal and lateral views of the chest demonstrate cardiac enlargement with central vascular congestion and borderline pulmonary edema. There are small effusions in both bases. There is dependent atelectasis. No pneumothorax is seen. Osseous structures are stable. IMPRESSION: 1. Cardiac enlargement with borderline pulmonary edema and central vascular congestion. 2. Small effusions with dependent atelectasis. Dictated by: Dictated on workstation # [id number]
--- NOTE | 2017-10-28 10:31 | ST Cognitive Linguistic Eval ---
Speech Evaluation-General Medical Diagnosis Aortic Valve Replacement Onset Date: Oct 12, 2017 Therapy Diagnosis Therapy Diagnosis: Cognitive Linguistic Skills Grossly WNL Precautions Precautions/Isolations: Fall Prevention, Standard Precautions, Pressure Ulcer Referral Referring Physician: Dr. Hermilo Fleming Reason for Referral: Evaluation/Treatment Cognitive Evaluation Medical History Pertinent Medical History: Arthritis, DM Current History The patient recently underwent an aortic valve replacement secondary to aortic stenosis at an outside hospital on 10/12/2017. Reviewed History: Yes Speech PLF-Current Status Prior Level of Function The patient denied prior challenges with speech, language, or cognition. Subjective The patient was laying in bed upon entrance. The patient greeted the clinician appropriately and was agreeable to participation in the cognitive evaluation. Language Eval: Auditory Comprehends Simple Yes/No Ques: Functional Indent/Objects Multiple Ponce: Functional Ident/Pics in Multiple Ponce: Functional Follows 1-Step Commands: Functional Follows General Conversations: Functional While the patient denies any issues with hearing, frequent repetition of questions were required. Language Eval: Verbal Language Completes Spontaneous Greeting: Functional Produces Auto, Serial Info: Functional Imitates Simple Words/Phrases: Functional Word Finding: Functional Requests Basic Needs: Functional States Basic Personal Info: Functional Expresses Complex Ideas: Functional Cognitive Patient Orientation The patient was oriented to city, location, rationale for hospitalization, month , and day of week. The patient stated the year was "." Objective Cognitive Domain Attention: WNL Memory: Mild (Age Appropriate.) Problem Solving: Functional Objective Impression The patient demonstrated cognitive linguistic skills grossly within normal limits (adequate for age) and appropriate for completion of ADL's. Communication/Social Cognition Comprehension: 5 Expression: 5 Social Interaction: 5 Problem Solvin Memory: 5 Speech Patient Assess Expression of Ideas/Wants: Exhibits (3) Understanding Vebal Content: Usually Understands (3) Brief Interview-Mental Status: Yes Repetition of Three Words: Three (3) Temporal Orientation: Year: No answer (0) Temporal Orientation: Month: Accurate within 5 days(2) Temporal Orientation: Day: Correct (1) Recall : Wear to say "Sock": No, could not recall (0) Recall : Color: Yes, after cueing (1) Recall : Bed: No, could not recall (0) Speech-Plan Treatment Plan Speech Therapy Treatment Plan: Discontinue ST Evaluation, only. Frequency: Modified Program (IRF) Estimated Hrs Per Day: Other Rehab Potential: Guarded Safety Risks/Education Teaching Recipient: Patient Teaching Methods: Discussion Response to Teaching: Verbalize Understanding Education Topics Provided: Results, Recommendations, Plan of Care Time Speech Therapy Time In: 09:35 Speech Therapy Time Out: 09:50 Total Billed Time: 15 Billed Treatment Time 1, BELINDA QUINTANILLA Oct 28, 2017 10:31
--- NOTE | 2017-10-28 11:39 | Physical Therapy Evaluation ---
PT Evaluation-General Medical Diagnosis Admission Date Oct 27, 2017 at 17:00 Medical Diagnosis: Aortic Valve Replacement Onset Date: Oct 12, 2017 Therapy Diagnosis Therapy Diagnosis: Poor activity tolerance, functional mobility, and weakness Height/Weight Height (Feet): 6 Height (Inches): 0.00 Weight (Pounds): 253 Weight (Ounces): 0.0 Precautions Precautions/Isolations: Fall Prevention, Standard Precautions, Pressure Ulcer Chest precautions: No pushing or pulling, lifting, or raising arms overhead. Weight Bear Status Right Lower Extremity: Right Weight Bearing/Tolerated Left Lower Extremity: Left Weight Bearing/Tolerated Referral Physician: Hermilo Fleming MD Reason for Referral: Evaluation/Treatment Medical History Pertinent Medical History: Atrial Fib, Arthritis, CAD, COPD, DM, HTN Additional Medical History CKD, exertional dyspnea, Graham's palsy, CVD, hx of left femur fx and right patellar fx Current History Pt had a syncopal episode and was evaluated for aortic stenosis. Pt underwent an aortic valve replacement. Reviewed History: Yes Social History Home: Single Level Current Living Status: Children (2) Entry Into Home: Level Entry PT Steps Into Home: 0 PT Steps Inside Home: 0 Other Obstacles: One step into shower Pt lives with two children Prior/Core FIM Prior Level of Function Functional [place] Measure 0=Not Assessed/NA 4=Minimal Assistance 1=Total Assistance 5=Supervision or Setup 2=Maximal Assistance 6=Modified [place] 3=Moderate Assistance 7=Complete [place] Bed Mobility: 7 Transfers (B,C,W/C) (FIM): 7 Gait: 6 Locomotion: 6 Pt used SPC for ambulation; pt assisted with farm work PT Evaluation-Current Subjective Pt is sitting in recliner pre eval and has no complaints of pain. Pt agrees to PT. 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 Bowel Incontinence: No Bladder Incontinence: Pierre Cath Posture slightly rounded shoulders Neuromuscular (Tone, Coordination, Reflexes) NT Sensory Vision: Functional Hearing: Functional Hand Dominance: Right Sensation Right Lower Extremit: Intact Sensation Left Lower Extremity: Intact Transfers Functional [place] Measure 0=Not Assessed/NA 4=Minimal Assistance 1=Total Assistance 5=Supervision or Setup 2=Maximal Assistance 6=Modified [place] 3=Moderate Assistance 7=Complete IndependenceIRFPAI Quality Coding Scale 6 Independent with activity with or without an assistive device 5 Patient requires set up or clean up by helper. Patient completes activity by themselves 4 Supervision or touching assist (CGA). [place] provide cues , steadying assist 3 The helper provides less than half the effort to complete the activity 2 The helper provides more than half the effort to complete the activity 1 Dependent. The helper does all the effort to complete an activity 7 Patient refused to complete or attempt activity 9 The patient did not perform the activity before the current illness or injury 88 Not attempted due to Medical conditions or safety concerns Transfers (B, C, W/C) (FIM): 2 Scootin Rollin Roll Left to Right (QC): 2 Supine to/from Sit: 2 Sit to/from Stand: 3 Sit to Lying (QC): 2 Lying to Sitting/Side of Bed(Q: 2 Sit to Stand (QC): 3 Chair/Zrx-ru-Cquex Xfer(QC): 2 Car Transfer (QC): 3 Pt requires max A for bed mobility and mod A for sit to stand and car transfer. Pt is required to squeeze heart pillow during sit to stand and bed mobility. Transfers difficult due to sternal precautions. Gait Does the Patient Walk?: Yes Mode of Locomotion: Walk Anticipated Mode of Locomotion: Walk Gait (FIM): 2 Distance (FIM): 9=958-94 ft Walk 10 feet (QC): 4 Walk 50 ft with 2 Turns(QC): 4 Walk 150 ft (QC): 4 Walking 10ft/uneven surface-QC: 4 Distance: 90 feet x1, 50 feet x1, 70 feet x1 Gait Level of Assist: 4 Gait Persons Needed: 1 Gait Assistive Device: FWW Comments/Gait Description Pt reports RLE feels stronger and diminishes the stance phase with the LLE. Wheelchair Training Does the Pt Use a Wheelchair?: No Stairs Stairs (FIM): 1 #of Steps: 1 Level of Assist: 4 1 Step (curb) (QC): 4 4 Steps (QC): 88 Assistive Device: Walker 12 Steps (QC): 88 If not tested on admit;explain Due to O2 sat drop from 95% to 85%, pt required sitting breaks. It seemed unsafe for pt to perform more than one step at admission. Balance Sitting Static: Normal Sitting Dynamic: Normal Standing Static: Normal Standing Dynamic: Normal Picking up an Object (QC): 88 Special Test Comments Unsafe due to safety concerns Treatment Pt performed strength and sensation testing, gait training, bed mobility, stair training. Assessment/Needs Pt demonstrates edema in BLE at 3+. Pt demonstrates minor weakness and poor activity tolerance as demonstrated by dyspnea on exertion and O2 drop from 95% to 85% after gait training. Pt will benefit from formal PT in order to address the impairments and provide education. Rehab Potential: Fair Equipment Needs FWW, hand rails in bathroom PT Short Term Goals Short Term Goals Time Frame: Nov 04, 2017 Transfers (B,C,W/C) (FIM): 3 Gait (FIM): 4 Gait Distance Comment: 150 feet Gait Assistive Device: FWW PT Chief Accountant Goals Chief Accountant Goals PT Chief Accountant Goals Time Frame: Nov 18, 2017 Transfers (B,C,W/C) (FIM): 6 Sit to Lying (QC): 6 Lying-Sitting on Side/Bed(QC): 6 Sit to Stand (QC): 6 Rollin Roll Left to Right (QC): 6 Chair/Ape-hk-Cxxnk Xfer(QC): 6 Car Transfer (QC): 6 Does the Patient Walk: Yes Gait (FIM): 6 Distance: 200 feet Walk 10 feet (QC): 6 Walk 10ft-Uneven Surface(QC): 6 Walk 50ft with 2 Turns (QC): 6 Walk 150 ft (QC): 6 Gait Level of Assist: 6 Gait Assistive Device: FWW Does the Pt use WC or Scooter?: No Stairs (FIM): 2 # of Steps: 4 1 Step (curb) (QC): 6 4 Steps (QC): 6 12 Steps (QC): 6 Stairs Level Of Assist: 6 Picking up an Object (QC): 6 PT Plan Problem List Problem List: Activity Tolerance, Functional Strength, Safety, Balance, Gait, Transfer, Bed Mobility, ROM Treatment/Plan Treatment Plan: Continue Plan of Care Treatment Plan: Bed Mobility, Education, Functional Activity Rochelle, Functional Strength, Group Therapy, Gait, Safety, Therapeutic Exercise, Transfers Treatment Duration: Nov 18, 2017 Frequency: Modified Program (IRF) (03/04 due to oxygen sats dropping with activity. ) Estimated Hrs Per Day: 1.5 hours per day (modified to be 15 hours in 7 days) Patient and/or Family Agrees t: Yes Safety Risks/Education Patient Education: Gait Training, Transfer Techniques, Steps, Reviewed Precautions, Correct Positioning, Safety Issues Teaching Recipient: Patient Teaching Methods: Demonstration, Discussion Response to Teaching: Reinforcement Needed Discharge Recommendations Plan Pt will perform bed mobility and transfer training, gait and stair training, LE strengthening and activity tolerance improvement as well as balance training and education in order to promote independence at home. Therapy D/C Recommendations: Home w/ Family Support, Physical Therapy Home Care Equpiment Recommendations-D/C: Front Wheeled Walker, Railings Time/GCodes Time In: 800 Time Out: 900 Total Billed Treatment Time: 60 Total Billed Treatment 1 visit 30 min EVH 30 min FA STEFFANIE BROWN PT Oct 28, 2017 11:39
--- NOTE | 2017-10-28 12:55 | Occupational Therapy Eval ---
OT Evaluation-General/PLF Medical Diagnosis Admission Date Oct 27, 2017 at 17:00 Medical Diagnosis: Aortic Valve Replacement Onset Date: Oct 12, 2017 Therapy Diagnosis Therapy Diagnosis: decr self care, decr act kit. decr funct mob, weakness, decr funct use UEs Height/Weight Height (Feet): 6 Height (Inches): 0.00 Weight (Pounds): 253 Weight (Ounces): 0.0 Precautions Precautions/Isolations: Fall Prevention, Standard Precautions, Pressure Ulcer Safety Interventions: Bed Exit Alarm Comments sternal precautions Referral Physician: Hermilo Fleming MD Referral Reason: Evaluation/Treatment Medical History Pertinent Medical History: Atrial Fib, Arthritis, CAD, COPD, DM, HTN Additional Medical History CKD, exertional dyspnea, Graham's palsy, CVD, hx of left femur fx and right patellar fx, NICKO Current History Pt had a syncopal episode and was evaluated for aortic stenosis. Pt underwent an aortic valve replacement Reviewed History: Yes Social History Home: Single Level Current Living Status: Children (2) Entry Into Home: Level Entry Steps Into Home: 0 Steps Inside Home: 0 Other Obstacles: One step into shower ADL-Prior Level of Function ADL PLOF Comments Pt reported that he was previously able to manage his basic self care. He is semi retired as a [employer] and still drives. DME/Equipment: Bath Chair, Grab Bars, Tub/Shower OT Current Status Subjective Pt seen in room, up in bed, agreeable to OT. Pt reported pain 0/10. Reviewed sternal precautions with pt, with his agreement Appearance Alert, cooperative, fatigued Mental Status/Objective Patient Orientation: Person, Place, Time, Situation Attachments: Connors Catheter, Oxygen (4-5L min) Current Glasses/Contacts: Yes Hearing Aids: No Dentures/Partials: No Hand Dominance: Right Upper Extremity ROM Grossly WFL from elbows and distal. Only moves to about 60 degrees shoulder flex and abd, pre-existing Upper Extremity Strength UE strength not assessed at shoulders due to sternal precautions. Distal approx 4/5 bilat Edema: Edema bilat UEs and LEs, including genitals ADL-Treatment ADL-Current Pt needed moderate assistance to move from supine to sit EOB and sat EOB with 1x LOB backwards (needed a little help to pull back up to sitting). Mod assist sit to stand and mod assist to get back into bed. Pt has connors catheter and is unable to empty it. He reported that he had BM last night. Needed mod help to get on/off BSC and also needed help with clothing management and hygiene. Pt left up in bed, 3 rails up, O2 in place, all needs met. Functional [place] Measure 0=Not Assessed/NA 4=Minimal Assistance 1=Total Assistance 5=Supervision or Setup 2=Maximal Assistance 6=Modified [place] 3=Moderate Assistance 7=Complete IndependenceIRFPAI Quality Coding Scale 6 Independent with activity with or without an assistive device 5 Patient requires set up or clean up by helper. Patient completes activity by themselves 4 Supervision or touching assist (CGA). Page provide cues , steadying assist 3 The helper provides less than half the effort to complete the activity 2 The helper provides more than half the effort to complete the activity 1 Dependent. The helper does all the effort to complete an activity 7 Patient refused to complete or attempt activity 9 The patient did not perform the activity before the current illness or injury 88 Not attempted due to Medical conditions or safety concerns Bathing (FIM): 3 (70%. Sponge bath, seated at bedside. ) Bathing Location: L Arm, R Arm, L Upper Leg, R Upper Leg, Chest, Abdomen, Perineal Area Shower/Bathe Self (QC): 3 Upper Body Dressing (FIM): 4 (A little help needed to get shirt over head. pt educ modified technique for doffing and donning shirt) Upper Body Dressing (QC): 3 Lower Body Dressing (FIM): 2 (Unable to get slipper socks off or on. Unable to get pants on over feet but able to lift feet to go into pants. Pt could pull pants up to thighs. Mod assist sit to stand, then help to pull pants up over hips. FWW. Limited in part by edema) Lower Body Dressing (QC): 2 On/Off Footwear (QC): 1 Toileting (FIM): 1 (Pt has toilet aid that he has not tried yet, to help with wiping) Toileting Hygiene (QC): 1 Toilet/Commode Transfer (FIM): 3 (BSC) Toilet Transfer (QC): 3 Pt education on energy conservation techniques during ADLs. His O2 sats generally were 95% and didn't drop below 92%. Heart rate ranged from 44 to 70 during ADLs. He required frequent and sometimes prolonged recovery breaks due to SOB and fatigue. Education OT Patient Education: Modified ADL techniques, Purpose of tx/functional activities, Rehab process, Transfer techniques Teaching Recipient: Patient Teaching Methods: Demonstration, Discussion Response to Teaching: Verbalize Understanding, Return Demonstration, Reinforcement Needed OT Short Term Goals Short Term Goals Time Frame: Nov 11, 2017 Toileting(FIM): 3 Toilet/Commode Transfer(FIM): 3 Additional Short Term Goals: 1-Demonstrate ADL Tasks, 2-Verbalize Understanding , 3-ImproveStrength/[place] 1=Demonstrate adherence to instructed precautions during ADL tasks. 2=Patient will verbalize/demonstrate understanding of assistive devices/ modifications for ADL. 3=Patient will improve strength/tolerance for activity to enable patient to perform ADL's. OT Longterm Goals Longterm Goals Time Frame: Nov 18, 2017 Eating (FIM): 6 Eating (QC): 6 Groomin Oral Hygiene (QC): 6 Bathing(FIM): 6 Shower/Bathe Self (QC): 6 Upper Body Dressing(FIM): 6 Upper Body Dressing (QC): 6 Lower Body Dressing(FIM): 5 Lower Body Dressing (QC): 5 On/Off Footwear (QC): 5 Toileting(FIM): 5 Toileting Hygiene (QC): 5 Toilet/Commode Transfer(FIM): 6 Toilet/Commode Transfer (QC): 6 Tub Transfer(FIM): 5 Shower Transfer(FIM): 5 Additional Goals: 1-Demonstrate ADL Tasks, 2-Verbalize Understanding, 3- ImproveStrength/R[place]helle 1=Demonstrate adherence to instructed precautions during ADL tasks. 2=Patient will verbalize/demonstrate understanding of assistive devices/ modifications for ADL. 3=Patient will improve strength/tolerance for activity to enable patient to perform ADL's. OT Education/Plan Problem List/Assessment Assessment: Decreased Activ Tolerance, Decreased UE Strength, Dependent Transfers, Impaired Bed Mobility, Impaired Funct Balance, Impaired Self-Care Skills, Restricted Funct UE ROM Pt would benefit from skilled OT to increase his independence in basic self care to allow him to safely return to his home and to decrease caregiver burden. Discharge Recommendations Plan/Recommendations: Continue POC Target Placement home with family Treatment Plan/Plan of Care Treatment,Training & Education: Yes Patient would benefit from OT for education, treatment and training to promote independence in ADL's, mobility, safety and/or upper extremity function for ADL' s. Plan of Care: ADL Retraining, Functional Mobility, Group Exercise/Act as Ind ( education, exercise, act kit, socialization, funct activities), UE Funct Exercise/Act, UE Neuromus Re-Ed/Coord Treatment Duration: Nov 18, 2017 Frequency: Modified Program (IRF) Estimated Hrs Per Day: 1.5 hours per day Agreement: Yes Rehab Potential: Fair Time/GCodes Start Time: 11:05 Stop Time: 12:15 Total Time Billed (hr/min): 70 Billed Treatment Time visit, 20 minutes evaluation high intensity, 50 minutes ADL JOSE PACHECO OT Oct 28, 2017 12:55
--- NOTE | 2017-10-28 13:02 | Consultation ---
History of Present Illness History of Present Illness Patient Consulted On(rajwinder/time) 10/28/17 12:59 Time Seen by Provider: 13:00 History of Present Illness Patient recently had aortic valve replacement. A she has renal insufficiency. Patient has history of atrial fibrillation. Allergies and Home Medications Allergies Coded Allergies: No Known Allergies (Verified Allergy, Unknown, 03/14/17) Home Medications Amlodipine Besylate 5 Mg Tablet, 5 MG PO DAILY, (Reported) Ascorbic Acid 500 Mg Tablet, 500 MG PO DAILY, (Reported) Aspirin 81 Mg Tablet.dr, 81 MG PO DAILY, (Reported) Metformin HCl 500 Mg Tablet, 500 MG PO BID WITH MEALS, (Reported) Metoprolol Tartrate 50 Mg Tablet, 50 MG PO DAILY, (Reported) Multivit-Min/FA/Lycopene/Lut 1 Each Tablet, 1 TAB PO DAILY, (Reported) Past [place]-Wepcni-Aulagy Hx Patient Social History Alcohol Use: Denies Use Recreational Drug Use: No Smoking Status: Never a Smoker Recent Foreign Travel: No Contact w/Someone Who Travel: No Recent Infectious Disease Expo: No Recent Hopitalizations: Yes Immunizations Up To Date Tetanus Booster (TDap): Unknown Date of Pneumonia Vaccine: Oct 10, 2016 Date of Influenza Vaccine: Mar 20, 2017 Seasonal Allergies Seasonal Allergies: No Surgeries History of Surgeries: Yes (, aortic valve replacement) Surgeries: Orthopedic Respiratory History of Respiratory Disorde: Yes Respiratory Disorders: COPD Currently Using CPAP: No Currently Using BIPAP: No Cardiovascular History of Cardiac Disorders: Yes (aortic valve replacement, diastolic dysfunction) Cardiac Disorders: Hypertension Neurological History of Neurological Disord: No Reproductive System Hx Reproductive Disorders: No Sexually Transmitted Disease: No HIV/AIDS: No Genitourinary History of Genitourinary Disor: Yes (, retention) Genitourinary Disorders: Renal Failure Gastrointestinal History of Gastrointestinal Di: No Musculoskeletal History of Musculoskeletal Dis: Yes Musculoskeletal Disorders: Fractures Endocrine History of Endocrine Disorders: Yes Endocrine Disorders: Diabetes, Non-Insulin dep HEENT History of HEENT Disorders: No Cancer History of Cancer: No Psychosocial History of Psychiatric Problem: No Integumentary History of Skin or Integumenta: No Blood Transfusions History of Blood Disorders: No Adverse Reaction to a Blood Tr: No Family Medical History Significant Family History: No Pertinent Family Hx Family Medial History: Cardiovascular disease 19 FATHER Diabetes mellitus 19 MOTHER FH: cancer G8 BROTHER G8 SISTER G8 SISTER Review of Systems-General Constitutional: weakness EENTM: no symptoms reported Respiratory: dyspnea on exertion, short of breath Cardiovascular: vascular heart diseas, other (Recent surgery of aortic valve) Gastrointestinal: no symptoms reported Genitourinary: no symptoms reported Physical Exam-General Problems Physical Exam Vital Signs Vital Signs - First Documented 10/27/17 17:59 Temp 96.8 Pulse 55 Resp 16 B/P (MAP) 145/68 (93) Pulse Ox 92 O2 Delivery Nasal Cannula O2 Flow Rate 4.00 Capillary Refill : General Appearance: WD/WN, no apparent distress Eyes: Bilateral Eye Normal Inspection HEENT: normal ENT inspection Neck: full range of motion, supple Respiratory: no respiratory distress, no accessory muscle use, decreased breath sounds, other (Patient on oxygen) Cardiovascular: regular rate, rhythm, no murmur Gastrointestinal: non tender, distended Assessment/Plan Assessment/Plan Admission Diagnosis/Plan Aortic valve replacement. Renal insufficiency. Diabetes. Weakness. Short of breath on oxygen Clinical Quality Measures DVT/VTE Risk/Contraindication: Risk Factor Score Per Nursin RFS Level Per Nursing on Admit: 4+=Very High KINA CALDERON DO Oct 28, 2017 13:02
--- NOTE | 2017-10-28 14:10 | PM & R (SOAP) Progress Note ---
Subjective Time Seen by Provider: 07:55 Subjective/Events-last exam Patient was seen in his room this AM Apprciate Dr green note and orders Appreciate Labs and CXR Discussed case with DR Sin Pulmonology.Patient min assist for gait with walker and 02 and Pierre catheter Review of Systems Pulmonary: Dyspnea Neurological: Weakness Objective Exam Last Set of Vital Signs Vital Signs Date Time Temp Pulse Resp B/P (MAP) Pulse Ox O2 Delivery O2 Flow Rate FiO2 10/28/17 09:00 Nasal Cannula 4.00 10/28/17 05:47 97.6 59 20 159/80 (106) 94 Capillary Refill : I&O Intake and Output 10/28/17 00:00 Daily Weight Change No General: Alert, Oriented X3, Cooperative, No Acute Distress HEENT: Atraumatic, PERRLA, EOMI, Mucous Memb Moist/[place] Neck: Supple, No JVD Lungs: Clear to Auscultation Heart: Regular Rate Abdomen: Normal Bowel Sounds, Soft, No Tenderness, Other (abdomen distended KUB ordered) Skin: Other (midline sternal incision site healing well) Neuro: Other (Generalized weakness limited endurance) Psych/Mental Status: Mental Status NL Results Lab Laboratory Tests 10/27/17 18:33: Glucometer 211H 10/27/17 21:22: Glucometer 211H 10/28/17 05:24: Glucometer 172H 10/28/17 07:10: White Blood Count 10.8, Red Blood Count 3.24L, Hemoglobin 9.5L, Hematocrit 30L, Mean Corpuscular Volume 92, Mean Corpuscular Hemoglobin 29, Mean Corpuscular Hemoglobin Concent 32, Red Cell Distribution Width 14.3, Platelet Count 354, Mean Platelet Volume 10.4, Neutrophils (%) (Auto) 73, Lymphocytes (%) (Auto) 10L , Monocytes (%) (Auto) 15H, Eosinophils (%) (Auto) 2, Basophils (%) (Auto) 0, Neutrophils # (Auto) 7.9H, Lymphocytes # (Auto) 1.0, Monocytes # (Auto) 1.7H, Eosinophils # (Auto) 0.2, Basophils # (Auto) 0.0, Sodium Level 131L, Potassium Level 4.8, Chloride Level 100, Carbon Dioxide Level 25, Anion Gap 6, Blood Urea Nitrogen 38H, Creatinine 1.73H, Estimat Glomerular Filtration Rate 38, BUN/ Creatinine Ratio 22, Glucose Level 197H, Calcium Level 8.2L, Total Bilirubin 0.3 , Aspartate Amino Transf (AST/SGOT) 26, Alanine Aminotransferase (ALT/SGPT) 52, Alkaline Phosphatase 132, Total Protein 6.0L, Albumin 3.0L 10/28/17 12:03: Glucometer 208H Assessment/Plan Assessment general debil s/p AVR DR Kruse OSH Postop resp insufficiency with associated cardiomegaly and atelectasis DM 2 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
--- NOTE | 2017-10-28 14:27 | Physical Therapy Daily Note ---
PT Daily Note-Current Subjective Pt is laying in bed pre tx and has no complaints of pain and agrees to PT. Pain Numeric Pain Scale: 0-No Pain Location: No Pain Reported Appearance Pt is sitting in recliner in room post tx with nurse call, phone, and tray within reach. Mental Status Patient Orientation: Normal For Age Attachments: Oxygen (4 L), Pierre Catheter Transfers Functional [place] Measure 0=Not Assessed/NA 4=Minimal Assistance 1=Total Assistance 5=Supervision or Setup 2=Maximal Assistance 6=Modified [place] 3=Moderate Assistance 7=Complete IndependenceIRFPAI Quality Coding Scale 6 Independent with activity with or without an assistive device 5 Patient requires set up or clean up by helper. Patient completes activity by themselves 4 Supervision or touching assist (CGA). [place] provide cues , steadying assist 3 The helper provides less than half the effort to complete the activity 2 The helper provides more than half the effort to complete the activity 1 Dependent. The helper does all the effort to complete an activity 7 Patient refused to complete or attempt activity 9 The patient did not perform the activity before the current illness or injury 88 Not attempted due to Medical conditions or safety concerns Transfers (B, C, W/C) (FIM): 2 Scootin Rollin Supine to/from Sit: 2 Sit to/from Stand: 3 Bed to/from Chair: 3 Bed mobility requires max A due to sternal precautions. Pt squeezes pillow instead of pushing and pulling on bed rails. Sit to stand and bed to chair transfer requires mod A. Weight Bearing Right Lower Extremity: Right Weight Bearing/Tolerated Left Lower Extremity: Left Weight Bearing/Tolerated Gait Training Does the Patient Walk?: Yes Gait (FIM): 2 Distance: 90 feet, 50 feet x2 Gait Level of Assist: 4 Gait Persons Needed: 1 Gait Assistive Device: FWW Pt demonstrates CONTRERAS with breathing heavy and verbalizing needing a break after 90 feet of walking. Wheelchair Training Does the Pt Use a Wheelchair?: No Exercises Seated Therapy Exercises: Ankle pumps (20 x1 BLE), Long arc quads (20 x1 BLE), Hip flexion (20 x1 BLE) Treatments Pt performed bed mobility, gait training, and LE exercises. Assessment Current Status: Fair Progress Pt O2 sat needs constant monitoring during gait training and LE exercises. During tx, pt O2 sat decreased to 82% and pt demonstrated SOB. Each time this occurred, the pt took a sitting break and was able to recover. PT Short Term Goals Short Term Goals Time Frame: Nov 04, 2017 Transfers (B,C,W/C) (FIM): 3 Gait (FIM): 4 Gait Distance Comment: 150 feet Gait Assistive Device: FWW PT Senior Living Goals Rail Technician Goals PT Rail Technician Goals Time Frame: Nov 18, 2017 Transfers (B,C,W/C) (FIM): 6 Sit to Lying (QC): 6 Lying-Sitting on Side/Bed(QC): 6 Sit to Stand (QC): 6 Rollin Roll Left to Right (QC): 6 Chair/Lig-dj-Uccdp Xfer(QC): 6 Car Transfer (QC): 6 Does the Patient Walk: Yes Gait (FIM): 6 Distance: 200 feet Walk 10 feet (QC): 6 Walk 10ft-Uneven Surface(QC): 6 Walk 50ft with 2 Turns (QC): 6 Walk 150 ft (QC): 6 Gait Level of Assist: 6 Gait Assistive Device: FWW Does the Pt use WC or Scooter?: No Stairs (FIM): 2 # of Steps: 4 1 Step (curb) (QC): 6 4 Steps (QC): 6 12 Steps (QC): 6 Stairs Level Of Assist: 6 Picking up an Object (QC): 6 PT Plan Problem List Problem List: Activity Tolerance, Functional Strength, Safety, Balance, Gait, Transfer, Bed Mobility, ROM Treatment/Plan Treatment Plan: Continue Plan of Care Treatment Plan: Bed Mobility, Education, Functional Activity [place], Functional Strength, Group Therapy, Gait, Safety, Therapeutic Exercise, Transfers Treatment Duration: Nov 18, 2017 Frequency: Modified Program (IRF) (03/04 due to oxygen sats dropping with activity. ) Estimated Hrs Per Day: 1.5 hours per day (modified to be 15 hours in 7 days) Patient and/or Family Agrees t: Yes Safety Risks/Education Patient Education: Gait Training, Transfer Techniques, Reviewed Precautions, Correct Positioning, Safety Issues Teaching Recipient: Patient Teaching Methods: Demonstration, Discussion Response to Teaching: Reinforcement Needed Education on use of pillow to sqeeze for effective and productive cough. Pt demonstrated correct technique; although does have a weak cough. Time/GCodes Time In: 1300 Time Out: 1345 Total Billed Treatment Time: 45 Total Billed Treatment 1 visit 30 min GT 15 min EX STEFFANIE BROWN PT Oct 28, 2017 14:27
--- NOTE | 2017-10-28 15:01 | Diagnostic Imaging Report ---
INDICATION: Abdominal distention. KUB at 02:57 p.m. FINDINGS: There is gaseous distention of the transverse colon that measures up to 17 cm in diameter. The remainder of the colon has some gas. Small bowel is not dilated. IMPRESSION: Gaseous distention of the transverse colon. This does not appear to be due to obstruction. Dictated by: Dictated on workstation # [id number]
[2017-10-28] MEDS ORDERED: FUROSEMIDE 40 MG/4 ML INJ (LASIX) IVP NR (15:30)
--- NOTE | 2017-10-28 15:33 | Pulmonary Consultation ---
History of Present Illness History of Present Illness Date of Consultation 10/28/17 15:25 Time Seen by Provider: 08:52 Date of Admission History of Present Illness 82 presented to in patient rehab for rehab. Pt was recently admitted to [facility] in [place] after cardiac surgery by Dr. Kruse. Pt had postop respiratory failure and wheezing. He was treated with diuretics and SVNs however still requires oxygen. I am consulted for pulmonary management. CXR and labs are still pending. PT is now only requiring 3 liters of oxygen and was requiring 6liters at admission. Allergies and Home Medications Allergies Coded Allergies: No Known Allergies (Verified Allergy, Unknown, 03/14/17) Home Medications Amlodipine Besylate 5 Mg Tablet, 5 MG PO DAILY, (Reported) Ascorbic Acid 500 Mg Tablet, 500 MG PO DAILY, (Reported) Aspirin 81 Mg Tablet.dr, 81 MG PO DAILY, (Reported) Metformin HCl 500 Mg Tablet, 500 MG PO BID WITH MEALS, (Reported) Metoprolol Tartrate 50 Mg Tablet, 50 MG PO DAILY, (Reported) Multivit-Min/FA/Lycopene/Lut 1 Each Tablet, 1 TAB PO DAILY, (Reported) Past Hyrsbon-Teahfk-Cfqkwn Hx Patient Social History Alcohol Use: Denies Use Recreational Drug Use: No Smoking Status: Never a Smoker Recent Foreign Travel: No Contact w/Someone Who Travel: No Recent Infectious Disease Expo: No Recent Hopitalizations: Yes Immunizations Up To Date Tetanus Booster (TDap): Unknown Date of Pneumonia Vaccine: Oct 10, 2016 Date of Influenza Vaccine: Mar 20, 2017 Seasonal Allergies Seasonal Allergies: No Surgeries History of Surgeries: Yes (, aortic valve replacement) Surgeries: Orthopedic Respiratory History of Respiratory Disorde: Yes Respiratory Disorders: COPD Currently Using CPAP: No Currently Using BIPAP: No Cardiovascular History of Cardiac Disorders: Yes (aortic valve replacement, diastolic dysfunction) Cardiac Disorders: Hypertension Neurological History of Neurological Disord: No Reproductive System Hx Reproductive Disorders: No Sexually Transmitted Disease: No HIV/AIDS: No Genitourinary History of Genitourinary Disor: Yes (, retention) Genitourinary Disorders: Renal Failure Gastrointestinal History of Gastrointestinal Di: No Musculoskeletal History of Musculoskeletal Dis: Yes Musculoskeletal Disorders: Fractures Endocrine History of Endocrine Disorders: Yes Endocrine Disorders: Diabetes, Non-Insulin dep HEENT History of HEENT Disorders: No Cancer History of Cancer: No Psychosocial History of Psychiatric Problem: No Integumentary History of Skin or Integumenta: No Blood Transfusions History of Blood Disorders: No Adverse Reaction to a Blood Tr: No Family Medical History Significant Family History: No Pertinent Family Hx Family Medial History: Cardiovascular disease 19 FATHER Diabetes mellitus 19 MOTHER FH: cancer G8 BROTHER G8 SISTER G8 SISTER Review of Systems Time Seen by Provider: 08:56 Constitutional: Weakness, Malaise Eyes: No: Pain, Vision change, Conjunctivae inflammation, Eyelid inflammation, Other, Redness ENT: Nose congestion Respiratory: Shortness of breath, SOB with excertion, Wheezing Cardiovascular: Paroxysmal Noc. Dyspnea, Edema, No: Chest Pain, Palpitations, Orthopnea, Lt Headedness, Other Gastrointestinal: Nausea Neurological: Weakness, Incoordination, No: Confusion Exam Exam Vital Signs Date Time Temp Pulse Resp B/P (MAP) Pulse Ox O2 Delivery O2 Flow Rate FiO2 10/28/17 09:00 Nasal Cannula 4.00 10/28/17 07:58 Nasal Cannula 4.00 10/28/17 05:47 97.6 59 20 159/80 (106) 94 Nasal Cannula 4.00 10/28/17 03:39 16 4.00 10/28/17 02:15 16 4.00 10/28/17 00:27 16 4.00 10/27/17 22:31 Nasal Cannula 4.00 10/27/17 22:15 53 16 93 4.00 10/27/17 20:20 Nasal Cannula 4.00 10/27/17 18:35 96.8 51 16 112/65 (81) 91 Nasal Cannula 4.00 10/27/17 18:09 92 Nasal Cannula 4.00 10/27/17 17:59 96.8 55 16 145/68 (93) 92 Nasal Cannula 4.00 I & O 10/28/17 07:00 Intake Total 300 ml Output Total 800 ml Balance -500 ml General Appearance: No Apparent Distress, WD/WN HEENT: PERRL/EOMI, TMs Normal, Normal ENT Inspection Neck: Full Range of Motion, Normal Inspection, Non Tender Respiratory: Chest Non Tender, No Accessory Muscle Use, No Respiratory Distress , Accessory Muscle Use, Decreased Breath Sounds Cardiovascular: Regular Rate, Rhythm Gastrointestinal: non tender, distended Extremity: Normal Capillary Refill, No Pedal Edema Neurologic/Psychiatric: Alert, Oriented x3 Skin: Normal Color, Warm/Dry Lymphatic: No Adenopathy Results Lab Laboratory Tests 10/28/17 07:10 Assessment/Plan Assessment/Plan Chronic respiratory failure Pulmonary edema with small bilateral pleural effusions and hypoxia -Lasix x 1 40mg -monitor -will do daily labs and CXR through the weekend Hx of recent valvular replacement Hydronephrosis right with CKD 254 Clinical Quality Measures DVT/VTE Risk/Contraindication: Risk Factor Score Per Nursin RFS Level Per Nursing on Admit: 4+=Very High RODRIGO CAMPOVERDE DO Oct 28, 2017 15:33
--- NOTE | 2017-10-28 16:14 | Occupational Ther Daily Note ---
OT Current Status-Daily Note Subjective Pt seen in room, up in recliner, agreeable to OT. No pain mentioned. Mental Status/Objective Functional [place] Measure 0=Not Assessed/NA 4=Minimal Assistance 1=Total Assistance 5=Supervision or Setup 2=Maximal Assistance 6=Modified [place] 3=Moderate Assistance 7=Complete [place] ADL-Treatment Functional [place] Measure 0=Not Assessed/NA 4=Minimal Assistance 1=Total Assistance 5=Supervision or Setup 2=Maximal Assistance 6=Modified [place] 3=Moderate Assistance 7=Complete IndependenceIRFPAI Quality Coding Scale 6 Independent with activity with or without an assistive device 5 Patient requires set up or clean up by helper. Patient completes activity by themselves 4 Supervision or touching assist (CGA). [place] provide cues , steadying assist 3 The helper provides less than half the effort to complete the activity 2 The helper provides more than half the effort to complete the activity 1 Dependent. The helper does all the effort to complete an activity 7 Patient refused to complete or attempt activity 9 The patient did not perform the activity before the current illness or injury 88 Not attempted due to Medical conditions or safety concerns Eating (FIM): 5 (setup. Able to feed himself) Eating (QC): 5 Grooming (FIM): 5 (setup to brush teeth, comb hair. Family to bring razors in. ) Oral Hygiene (QC): 5 Other Treatment Pt did 10 reps bilat UE exercise, with no additional resistance added, working on shoulders, elbows, forearms, wrists and hands. (adhering to sternal precautions). Pt education on ways to help decrease edema, including elevation and exercise, with his verbal understanding. Pt provided with foam hand manpower development manager - he did 10 reps lab support technician. Assisted pt transfer with mod assist, FWW to w/ c for radiology. Education OT Patient Education: Exercise program, Progress toward Goal/Update tx plan, Purpose of tx/functional activities, Transfer techniques Teaching Recipient: Patient, Family Teaching Methods: Demonstration, Discussion Response to Teaching: Verbalize Understanding, Unable to Comprehend, Reinforcement Needed OT Short Term Goals Short Term Goals Time Frame: Nov 11, 2017 Toileting(FIM): 3 Toilet/Commode Transfer(FIM): 3 Additional Short Term Goals: 1-Demonstrate ADL Tasks, 2-Verbalize Understanding , 3-ImproveStrength/[place]ochelle 1=Demonstrate adherence to instructed precautions during ADL tasks. 2=Patient will verbalize/demonstrate understanding of assistive devices/ modifications for ADL. 3=Patient will improve strength/tolerance for activity to enable patient to perform ADL's. OT Systems Trainer Goals Assisted Goals Time Frame: Nov 18, 2017 Eating (FIM): 6 Eating (QC): 6 Groomin Oral Hygiene (QC): 6 Bathing(FIM): 6 Shower/Bathe Self (QC): 6 Upper Body Dressing(FIM): 6 Upper Body Dressing (QC): 6 Lower Body Dressing(FIM): 5 Lower Body Dressing (QC): 5 On/Off Footwear (QC): 5 Toileting(FIM): 5 Toileting Hygiene (QC): 5 Toilet/Commode Transfer(FIM): 6 Toilet/Commode Transfer (QC): 6 Tub Transfer(FIM): 5 Shower Transfer(FIM): 5 Additional Goals: 1-Demonstrate ADL Tasks, 2-Verbalize Understanding, 3- ImproveStrength/[place] 1=Demonstrate adherence to instructed precautions during ADL tasks. 2=Patient will verbalize/demonstrate understanding of assistive devices/ modifications for ADL. 3=Patient will improve strength/tolerance for activity to enable patient to perform ADL's. OT Education/Plan Problem List/Assessment Pt would benefit from skilled OT to increase his independence in basic self care to allow him to safely return to his home and to decrease caregiver burden. Discharge Recommendations Plan/Recommendations: Continue POC Treatment Plan/Plan of Care Patient would benefit from OT for education, treatment and training to promote independence in ADL's, mobility, safety and/or upper extremity function for ADL' s. Plan of Care: ADL Retraining, Functional Mobility, Group Exercise/Act as Ind ( education, exercise, act kit, socialization, funct activities), UE Funct Exercise/Act, UE Neuromus Re-Ed/Coord Treatment Duration: Nov 18, 2017 Frequency: Modified Program (IRF) Estimated Hrs Per Day: 1.5 hours per day Agreement: Yes Rehab Potential: Fair Time/GCodes Start Time: 14:00 Stop Time: 14:32 Total Time Billed (hr/min): 32 Billed Treatment Time visit, 15 minutes ADL, 17 minutes exercise JOSE PACHECO OT Oct 28, 2017 16:14
[2017-10-28 18:48] VITALS: BP 114/66
[2017-10-29] MEDS: inSUlin (REGULAR) HUMAN 1 UNIT/0.01 ML (CHARGE PER UNIT) SC SCH ×4 (05:39→21:52)
--- NOTE | 2017-10-29 05:40 | Diagnostic Imaging Report ---
Indication: Shortness of breath Portable chest 4:36 AM There is cardiomegaly. Pulmonary vascularity is normal. Lungs are clear. There are no effusions or pneumothoraces. Impression: Cardiomegaly. No significant change from previous day. Dictated by: Dictated on workstation # [id number]
[2017-10-29] MEDS: MULTIVIT W/MINERALS TAB (THERAGRAN M) PO SCH (05:58)
[2017-10-29] MEDS: ASCORBIC ACID (VIT C) 500 MG TABLET PO SCH (05:58)
[2017-10-29 06:39] LABS: BASOPHILS % (AUTO) 0 % (0-10); EOSINOPHILS # (AUTO) 0.2 10^3/uL (0.0-0.3); EOSINOPHILS % (AUTO) 2 % (0-10); HEMATOCRIT 30 % (40-54); HEMOGLOBIN 9.6 G/DL (13.3-17.7); LYMPHOCYTES # (AUTO) 1.1 X 10^3 (1.0-4.0); LYMPHOCYTES % (AUTO) 13 % (12-44); MEAN CORPUSCULAR HEMOGLOBIN 29 PG (25-34); MEAN CORPUSCULAR HGB CONC 32 G/DL (32-36); MEAN CORPUSCULAR VOLUME 91 FL (80-99); MEAN PLATELET VOLUME 10.5 FL (7.4-10.4); MONOCYTES # (AUTO) 1.3 X 10^3 (0.0-1.0); MONOCYTES % (AUTO) 16 % (0-12); NEUTROPHILS # (AUTO) 5.8 X 10^3 (1.8-7.8); NEUTROPHILS % (AUTO) 70 % (42-75); PLATELET COUNT 319 10^3/uL (130-400); RED BLOOD COUNT 3.28 10^6/uL (4.35-5.85); RED CELL DISTRIBUTION WIDTH 14.4 % (10.0-14.5); WHITE BLOOD COUNT 8.3 10^3/uL (4.3-11.0)
[2017-10-29 06:40] VITALS: BP 128/70
[2017-10-29 06:55] LABS: CALCIUM 8.2 MG/DL (8.5-10.1); CREATININE SERUM 1.57 MG/DL (0.60-1.30); MAGNESIUM 2.1 MG/DL (1.8-2.4); POTASSIUM 4.7 MMOL/L (3.6-5.0)
--- NOTE | 2017-10-29 08:26 | Pulmonary Progress Note ---
Subjective Time Seen by Provider: 08:26 Subjective/Events-last exam No complications noted. Exam Exam Vital Signs Date Time Temp Pulse Resp B/P (MAP) Pulse Ox O2 Delivery O2 Flow Rate FiO2 10/29/17 06:40 97.7 63 20 128/70 (89) 95 Nasal Cannula 4.00 10/29/17 02:00 16 95 4.00 10/29/17 00:01 16 94 4.00 10/28/17 22:57 16 95 4.00 10/28/17 20:59 Nasal Cannula 4.00 10/28/17 18:48 96.2 60 14 114/66 (82) 93 Nasal Cannula 4.00 10/28/17 09:00 Nasal Cannula 4.00 I & O 10/29/17 07:00 Intake Total 1150 ml Output Total 2720 ml Balance -1570 ml General Appearance: No Apparent Distress, WD/WN HEENT: PERRL/EOMI, Normal ENT Inspection, Pharynx Normal Respiratory: No Accessory Muscle Use, No Respiratory Distress, Decreased Breath Sounds Cardiovascular: Regular Rate, Rhythm, No Edema, No Gallop Gastrointestinal: non tender, distended Extremity: Normal Capillary Refill, No Pedal Edema Neurologic/Psychiatric: Alert, Oriented x3 Skin: Normal Color, Warm/Dry Lymphatic: No Adenopathy Results Lab Laboratory Tests 10/28/17 07:10 10/29/17 06:21 Assessment/Plan Assessment/Plan Chronic respiratory failure Pulmonary edema with small bilateral pleural effusions and hypoxia -monitor Hx of recent valvular replacement Hydronephrosis right with CKD 232 Clinical Quality Measures DVT/VTE Risk/Contraindication: Risk Factor Score Per Nursin RFS Level Per Nursing on Admit: 4+=Very High RODRIGO CAMPOVERDE DO Oct 29, 2017 08:26
[2017-10-29] MEDS: ASPIRIN E.C. 81 MG (ECOTRIN) TAB PO SCH (08:36)
[2017-10-29] MEDS: amLODIPine 5 MG (NORVASC) TAB PO SCH (08:36)
[2017-10-29] MEDS: meTOprolol TARTRATE 50 MG (LOPRESSOR) TAB PO SCH (08:36)
[2017-10-29] MEDS: APIXABAN 2.5 MG (ELIQUIS) TABLET PO SCH ×2 (08:36→20:36)
--- NOTE | 2017-10-29 08:44 | Progress Note (SOAP) ---
Subjective Time Seen by Provider: 08:42 Subjective/Events-last exam Severe aortic stenosis. Renal insufficiency. Patient voices no complaints. GFR improved Objective Exam Vital Signs Date Time Temp Pulse Resp B/P (MAP) Pulse Ox O2 Delivery O2 Flow Rate FiO2 10/29/17 06:40 97.7 63 20 128/70 (89) 95 Nasal Cannula 4.00 10/29/17 02:00 16 95 4.00 10/29/17 00:01 16 94 4.00 10/28/17 22:57 16 95 4.00 10/28/17 20:59 Nasal Cannula 4.00 10/28/17 18:48 96.2 60 14 114/66 (82) 93 Nasal Cannula 4.00 10/28/17 09:00 Nasal Cannula 4.00 I & O 10/29/17 07:00 Intake Total 1150 ml Output Total 2720 ml Balance -1570 ml Capillary Refill : General Appearance: No Apparent Distress, WD/WN Results Lab Laboratory Tests 10/28/17 12:03: Glucometer 208H 10/28/17 14:00: B-Type Natriuretic Peptide 580.9H 10/28/17 16:03: Glucometer 182H 10/28/17 20:04: Glucometer 152H 10/29/17 05:35: Glucometer 131H 10/29/17 06:21: White Blood Count 8.3, Red Blood Count 3.28L, Hemoglobin 9.6L, Hematocrit 30L, Mean Corpuscular Volume 91, Mean Corpuscular Hemoglobin 29, Mean Corpuscular Hemoglobin Concent 32, Red Cell Distribution Width 14.4, Platelet Count 319, Mean Platelet Volume 10.5H, Neutrophils (%) (Auto) 70, Lymphocytes (%) (Auto) 13 , Monocytes (%) (Auto) 16H, Eosinophils (%) (Auto) 2, Basophils (%) (Auto) 0, Neutrophils # (Auto) 5.8, Lymphocytes # (Auto) 1.1, Monocytes # (Auto) 1.3H, Eosinophils # (Auto) 0.2, Basophils # (Auto) 0.0, Sodium Level 137, Potassium Level 4.7, Chloride Level 102, Carbon Dioxide Level 25, Anion Gap 10, Blood Urea Nitrogen 36H, Creatinine 1.57H, Estimat Glomerular Filtration Rate 43, BUN/ Creatinine Ratio 23, Glucose Level 136H, Calcium Level 8.2L, Magnesium Level 2.1 Assessment/Plan Assessment/Plan Assess & Plan/Chief Complaint Aortic valve replacement. Renal insufficiency. Diabetes. Weakness. Short of breath on oxygen. . 10/29/17. Aortic valve replacement. Renal insufficiency improving. Diabetes under control. Weakness. short of breath Clinical Quality Measures DVT/VTE Risk/Contraindication: Risk Factor Score Per Nursin RFS Level Per Nursing on Admit: 4+=Very High KINA CALDERON DO Oct 29, 2017 08:44
--- NOTE | 2017-10-29 09:55 | Physical Therapy Daily Note ---
PT Daily Note-Current Subjective Pt up in bedside chair and ready for therapy session. No c/o pain or abnormal shortness of breath. Mental Status Patient Orientation: Normal For Age Transfers Functional [place] Measure 0=Not Assessed/NA 4=Minimal Assistance 1=Total Assistance 5=Supervision or Setup 2=Maximal Assistance 6=Modified [place] 3=Moderate Assistance 7=Complete IndependenceIRFPAI Quality Coding Scale 6 Independent with activity with or without an assistive device 5 Patient requires set up or clean up by helper. Patient completes activity by themselves 4 Supervision or touching assist (CGA). [place] provide cues , steadying assist 3 The helper provides less than half the effort to complete the activity 2 The helper provides more than half the effort to complete the activity 1 Dependent. The helper does all the effort to complete an activity 7 Patient refused to complete or attempt activity 9 The patient did not perform the activity before the current illness or injury 88 Not attempted due to Medical conditions or safety concerns Transfers (B, C, W/C) (FIM): 4 Rollin Supine to/from Sit: 4 Sit to/from Stand: 4 Bed to/from Chair: 4 Needs less than 25% physical assist to raise from a standard height chair without use of arms for push off. Educated patient on sequence and technique for sit to stand. Education included scooting toward front of chair, flexing at hips to get nose of toes, and using LEs to press forward and up to standing while hugging a pillow to his chest. Weight Bearing Right Lower Extremity: Right Weight Bearing/Tolerated Left Lower Extremity: Left Weight Bearing/Tolerated Gait Training Gait (FIM): 2 Distance (FIM): 7=389-63 ft Distance: 115 Gait Level of Assist: 4 Gait Persons Needed: 1 Gait Assistive Device: FWW Gait training to include pacing and controlled breathing to maximize supplemental O2. Amb 100-115 ft x 8 trials with O2 at 2L using a FWW for stability. O2 sats remained above 95% during ambulation. Exercises Supine Ex: Bridging, Ankle pumps, Quad Set, Glut sets, Heel Slides, Knee to chest, Short Arc Quads, Hip abd/add Supine Reps: 20 Seated Therapy Exercises: Ankle pumps, Sit to stand, Long arc quads, Hip flexion, Hamstring Curls Seated Reps: 20 LE exercises focused around hip and quadriceps strengthening to improve ability to transfer and transition sit to stand. Intermittent rest periods for recovery. Assessment Current Status: Good Progress Patient motivated and receptive to education making for a productive therapy session. He is showing progress with functional activity tolerance, strength, and standing balance. He will benefit from continued therapy to progress toward intermediate goals. PT Short Term Goals Short Term Goals Time Frame: Nov 04, 2017 Gait (FIM): 4 Gait Distance Comment: 150 feet Gait Assistive Device: FWW PT Shelter Goals Shelter Goals PT Shelter Goals Time Frame: Nov 18, 2017 Transfers (B,C,W/C) (FIM): 6 Sit to Lying (QC): 6 Lying-Sitting on Side/Bed(QC): 6 Sit to Stand (QC): 6 Rollin Roll Left to Right (QC): 6 Chair/Adw-bo-Qtpeh Xfer(QC): 6 Car Transfer (QC): 6 Does the Patient Walk: Yes Gait (FIM): 6 Distance: 200 feet Walk 10 feet (QC): 6 Walk 10ft-Uneven Surface(QC): 6 Walk 50ft with 2 Turns (QC): 6 Walk 150 ft (QC): 6 Gait Level of Assist: 6 Gait Assistive Device: FWW Does the Pt use WC or Scooter?: No Stairs (FIM): 2 # of Steps: 4 1 Step (curb) (QC): 6 4 Steps (QC): 6 12 Steps (QC): 6 Stairs Level Of Assist: 6 Picking up an Object (QC): 6 PT Plan Problem List Problem List: Activity Tolerance, Functional Strength, Safety, Gait, Transfer Treatment/Plan Treatment Plan: Continue Plan of Care Treatment Plan: Bed Mobility, Education, Functional Activity [place], Functional Strength, Group Therapy, Gait, Safety, Therapeutic Exercise, Transfers Treatment Duration: Nov 18, 2017 Frequency: Modified Program (IRF) (03/04 due to oxygen sats dropping with activity. ) Estimated Hrs Per Day: 1.5 hours per day (modified to be 15 hours in 7 days) Patient and/or Family Agrees t: Yes Safety Risks/Education Patient Education: Gait Training, Transfer Techniques, Safety Issues Teaching Recipient: Patient Response to Teaching: Return Demonstration Discharge Recommendations Barriers to Progress none Time/GCodes Time In: 840 Time Out: 953 Total Billed Treatment Time: 73 Total Billed Treatment visit, gait 30min, [id number], Functional activity 20 minutes RADHA CLAROS PT Oct 29, 2017 09:54
--- NOTE | 2017-10-29 10:24 | PM & R (SOAP) Progress Note ---
Subjective Time Seen by Provider: 07:40 Subjective/Events-last exam Patient was seen in his room this AM Patient min assist for transfers CXR shows cardiomegaly KUB shows Gaseous distention no obstruction CBC shows postop anemia Chem shows CKD and Hypomagnesemia and hypocalcemia Appreciate DR Edwards and Valentino notes and orders Patient using Bipap at HS Discussed case with monitoring specialist of Systems Pulmonary: Dyspnea Neurological: Weakness Objective Exam Last Set of Vital Signs Vital Signs Date Time Temp Pulse Resp B/P (MAP) Pulse Ox O2 Delivery O2 Flow Rate FiO2 10/29/17 06:40 97.7 63 20 128/70 (89) 95 Nasal Cannula 4.00 Capillary Refill : I&O Intake and Output 10/29/17 00:00 Intake Total 1100 ml Output Total 1820 ml Balance -720 ml Intake Oral 1100 ml Output Urine Total 1820 ml # Bowel Movements 1 General: Alert, Oriented X3, Cooperative, No Acute Distress HEENT: Atraumatic, PERRLA, EOMI, Mucous Memb Moist/[place] Neck: Supple, No JVD Lungs: Clear to Auscultation Heart: Regular Rate Abdomen: Normal Bowel Sounds, Soft, No Tenderness, Other (abdomen distended KUB ordered) Skin: Other (midline sternal incision site healing well) Neuro: Other (Generalized weakness limited endurance) Psych/Mental Status: Mental Status NL Results Lab Laboratory Tests 10/27/17 18:33: Glucometer 211H 10/27/17 21:22: Glucometer 211H 10/28/17 05:24: Glucometer 172H 10/28/17 07:10: White Blood Count 10.8, Red Blood Count 3.24L, Hemoglobin 9.5L, Hematocrit 30L, Mean Corpuscular Volume 92, Mean Corpuscular Hemoglobin 29, Mean Corpuscular Hemoglobin Concent 32, Red Cell Distribution Width 14.3, Platelet Count 354, Mean Platelet Volume 10.4, Neutrophils (%) (Auto) 73, Lymphocytes (%) (Auto) 10L , Monocytes (%) (Auto) 15H, Eosinophils (%) (Auto) 2, Basophils (%) (Auto) 0, Neutrophils # (Auto) 7.9H, Lymphocytes # (Auto) 1.0, Monocytes # (Auto) 1.7H, Eosinophils # (Auto) 0.2, Basophils # (Auto) 0.0, Sodium Level 131L, Potassium Level 4.8, Chloride Level 100, Carbon Dioxide Level 25, Anion Gap 6, Blood Urea Nitrogen 38H, Creatinine 1.73H, Estimat Glomerular Filtration Rate 38, BUN/ Creatinine Ratio 22, Glucose Level 197H, Calcium Level 8.2L, Total Bilirubin 0.3 , Aspartate Amino Transf (AST/SGOT) 26, Alanine Aminotransferase (ALT/SGPT) 52, Alkaline Phosphatase 132, Total Protein 6.0L, Albumin 3.0L 10/28/17 12:03: Glucometer 208H 10/28/17 14:00: B-Type Natriuretic Peptide 580.9H 10/28/17 16:03: Glucometer 182H 10/28/17 20:04: Glucometer 152H 10/29/17 05:35: Glucometer 131H 10/29/17 06:21: White Blood Count 8.3, Red Blood Count 3.28L, Hemoglobin 9.6L, Hematocrit 30L, Mean Corpuscular Volume 91, Mean Corpuscular Hemoglobin 29, Mean Corpuscular Hemoglobin Concent 32, Red Cell Distribution Width 14.4, Platelet Count 319, Mean Platelet Volume 10.5H, Neutrophils (%) (Auto) 70, Lymphocytes (%) (Auto) 13 , Monocytes (%) (Auto) 16H, Eosinophils (%) (Auto) 2, Basophils (%) (Auto) 0, Neutrophils # (Auto) 5.8, Lymphocytes # (Auto) 1.1, Monocytes # (Auto) 1.3H, Eosinophils # (Auto) 0.2, Basophils # (Auto) 0.0, Sodium Level 137, Potassium Level 4.7, Chloride Level 102, Carbon Dioxide Level 25, Anion Gap 10, Blood Urea Nitrogen 36H, Creatinine 1.57H, Estimat Glomerular Filtration Rate 43, BUN/ Creatinine Ratio 23, Glucose Level 136H, Calcium Level 8.2L, Magnesium Level 2.1 Assessment/Plan Assessment general debil s/p AVR DR Kruse OSH Postop resp insufficiency with associated cardiomegaly and atelectasis 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
--- NOTE | 2017-10-29 10:43 | Individualized Plan of Care ---
Individualized Plan of Care Rehab Nursing IPOC Order Admission Date Oct 27, 2017 at 17:00 Current Orders Orders Heart Healthy (10/27/17 Dinner) 24 Hour Oxygen Rt-Rfs (10/27/17 17:55) Rt Request For Service (10/27/17 17:55) Admission-Acute Rehab Unit (10/27/17 18:08) Vital Signs: Routine 08,16,00 (10/27/17 18:08) Sequential Compression Device 08,20 (10/27/17 18:08) Motor Vehicle Light Assembler-Inpt Rehab (10/27/17 18:08) Rehab Nursing Orders-Ipoc (10/27/17 18:08) Physical Therapy Rehab Orders (10/27/17 18:08) Occupational Therapy Rehab Ord (10/27/17 18:08) Speech Therapy Rehab Orders (10/27/17 18:08) Turn And Reposition Q2HR (10/27/17 18:08) Intake & Output 06,14,22 (10/27/17 18:08) Weekly Weight (Lbs) WEEK (10/27/17 18:08) Rehab-Intensity Of Therapy (10/27/17 18:08) Cbc With Automated Diff (10/28/17 06:00) Comprehensive Metabolic Panel (10/28/17 06:00) Consult Physician (10/27/17 18:13) Catheter(Urinary) To Dependent (10/27/17 18:14) Amlodipine Tablet (Norvasc Tablet) (10/28/17 09:00) Ascorbic Acid Tablet (Vitamin C Tablet) (10/28/17 07:00) Aspirin Enteric Coated Tablet (Ecotrin T (10/28/17 09:00) Metformin Tablet (Glucophage Tablet) (10/28/17 07:00) Metoprolol Tartrate (Ir) Tab (Lopressor (10/28/17 09:00) Therapeutic Multivitamin Tab (Vitamins, (10/28/17 07:00) Insulin (Regular) Human (Humulin R (Per (10/27/17 21:00) Apixaban Tablet (Eliquis Tablet) (10/27/17 21:00) Chest Pa/Lat (2 View) (10/28/17 08:00) Cho 60g/M 3snack (16-2000 Kyle) (10/28/17 Breakfast) Consult Physician (10/27/17 20:02) Nursing Communication (Patient (10/28/17 01:52) Patient Visit (10/28/17 ) Speech Sound Lang Comp (10/28/17 ) Basic Metabolic Panel (10/29/17 06:00) BNP (10/28/17 13:02) Abdomen/Kub 1view (10/28/17 13:33) Patient Visit (10/28/17 ) Pt Eval High Complexity (10/28/17 ) Functional Activities, Ea 15 (10/28/17 ) Gait Training, Ea 15 Min (10/28/17 ) Exercise Therap, Ea 15 Min (10/28/17 ) Furosemide Injection (Lasix Injection) (10/28/17 15:30) Cbc With Automated Diff (10/29/17 05:00) Magnesium (10/29/17 05:00) Phosphorus (10/29/17 15:33) Chest 1 View, Ap/Pa Only (10/29/17 15:33) Rehab Nursing Orders: Bowel Program, Bowel Training, Diseage Management, Edu in Press Rel Techn, Hydration Management, Nutrition Management, Pain Management Other Nursing Orders: Pierre catheter care wound care Monitor for postop constipation Intensity of Therapy to be met Patient to be seen: 15 hrs over 7 cons. days PT IPOC Problem List: Activity Tolerance, Functional Strength, Safety, Gait, Transfer Treatment Plan: Continue Plan of Care Bed Mobility, Education, Functional Activity [place], Functional Strength, Group Therapy, Gait, Safety, Therapeutic Exercise, Transfers Treatment Duration: Nov 18, 2017 Frequency: Modified Program (IRF) (03/04 due to oxygen sats dropping with activity. ) Estimated Hrs Per Day: 1.5 hours per day (modified to be 15 hours in 7 days) OT IPOC Problems: Decreased Activ Tolerance, Decreased UE Strength, Dependent Transfers , Impaired Bed Mobility, Impaired Funct Balance, Impaired Self-Care Skills, Restricted Funct UE ROM OT Treatment, Training and Edu: Yes OT Problems Pt would benefit from skilled OT to increase his independence in basic self care to allow him to safely return to his home and to decrease caregiver burden. Plan of Care: ADL Retraining, Functional Mobility, Group Exercise/Act as Ind ( education, exercise, act kit, socialization, funct activities), UE Funct Exercise/Act, UE Neuromus Re-Ed/Coord Treatment Duration: Nov 18, 2017 Frequency: Modified Program (IRF) Estimated Hrs Per Day: 1.[address] IPOC Speech Therapy Treatment Plan: Discontinue ST Treatment Duration: Oct 29, 2017 Frequency: Modified Program (IRF) Estimated Hrs Per Day: Other Motor Vehicle Light Assembler/Case Mgmt Motor Vehicle Light Assembler/Case Managemen: Discharge Planning, Patient/Family Counseling Physician IPOC Medical Issues being managed closely and that require the 24 hour availability of a physician: Electrolyte abnormality Post op resp insufficiency DM COPD CKD # 3 Urinary retention Hydronephrosis IGC CODE 09 Etiologic DX Severe Medical Issues: Bowel/Bladder Function, DVT Prophylaxis, Falls Precautions, Fluid/Electrolyte/Nutrition Balance, Infection Protection, Pain Management, Wound Care, Other (List) (as per above) Brief Synthesis of Preadmission Screen, Post-Admission Evaluation, and Therapy Evaluations: 82 yo male who had been Modified Independent and living with family who underwent AVR with DR Kruse at OSH for severe ,Postop had urinary retention managed with Indwelling Pierre catheter,PMH DM COPD CKD 3 Hydronephrosis Medical Prognosis: good Anticipated Length of Stay: 3-1-18 Rehab Goals Modified Independent to supervision for adls and mobility skills Anticipated discharge destinat: Home with family and [facility] SHARATH REID MD Oct 29, 2017 10:43
[2017-10-29 11:00] VITALS: BP 156/86
[2017-10-29 11:25] VITALS: BP 102/66
--- NOTE | 2017-10-29 11:57 | Occupational Ther Daily Note ---
OT Current Status-Daily Note Subjective Pt seen in room, up in recliner, agreeable to OT. No pain mentioned. Appearance Alert, cooperative Mental Status/Objective Patient Orientation: Person, Place, Time, Situation Functional [place] Measure 0=Not Assessed/NA 4=Minimal Assistance 1=Total Assistance 5=Supervision or Setup 2=Maximal Assistance 6=Modified [place] 3=Moderate Assistance 7=Complete [place] ADL-Treatment Pt was agreeable to going to the bathroom to shave. OT had chair set up in bathroom, all supplies there. Pt needed mod assist sit to stand (just to lean over enough to stand) and then walked with CGA, FWW, gait belt to bathroom. O2 was in place at 5L/min. As patient was turning to sit in chair, he "folded" and went to the floor. Did not hit his head. OT called for help and multiple staff responded. It took 4-5 staff to pick patient up and put him in chair. Pt reported he didn't hurt anywhere but did have small skin tear on R forearm, addressed by nursing. Vitals were taken and he was pale and clammy. Pt wanted to return to bed. He was assisted by three therapists to walk a few feet to bed and get into bed, with help for LEs and trunk. Pt was left up in bed, 4 rails up , O2 in place, all needs met. Functional [place] Measure 0=Not Assessed/NA 4=Minimal Assistance 1=Total Assistance 5=Supervision or Setup 2=Maximal Assistance 6=Modified [place] 3=Moderate Assistance 7=Complete IndependenceIRFPAI Quality Coding Scale 6 Independent with activity with or without an assistive device 5 Patient requires set up or clean up by helper. Patient completes activity by themselves 4 Supervision or touching assist (CGA). [place] provide cues , steadying assist 3 The helper provides less than half the effort to complete the activity 2 The helper provides more than half the effort to complete the activity 1 Dependent. The helper does all the effort to complete an activity 7 Patient refused to complete or attempt activity 9 The patient did not perform the activity before the current illness or injury 88 Not attempted due to Medical conditions or safety concerns Education OT Patient Education: Purpose of tx/functional activities Teaching Recipient: Patient Teaching Methods: Discussion Response to Teaching: Verbalize Understanding OT Short Term Goals Short Term Goals Time Frame: Nov 11, 2017 Toileting(FIM): 3 Toilet/Commode Transfer(FIM): 3 Additional Short Term Goals: 1-Demonstrate ADL Tasks, 2-Verbalize Understanding , 3-ImproveStrength/Rochelle 1=Demonstrate adherence to instructed precautions during ADL tasks. 2=Patient will verbalize/demonstrate understanding of assistive devices/ modifications for ADL. 3=Patient will improve strength/tolerance for activity to enable patient to perform ADL's. OT Snf Goals Optical Glass Inspector Goals Time Frame: Nov 18, 2017 Eating (FIM): 6 Eating (QC): 6 Groomin Oral Hygiene (QC): 6 Bathing(FIM): 6 Shower/Bathe Self (QC): 6 Upper Body Dressing(FIM): 6 Upper Body Dressing (QC): 6 Lower Body Dressing(FIM): 5 Lower Body Dressing (QC): 5 On/Off Footwear (QC): 5 Toileting(FIM): 5 Toileting Hygiene (QC): 5 Toilet/Commode Transfer(FIM): 6 Toilet/Commode Transfer (QC): 6 Tub Transfer(FIM): 5 Shower Transfer(FIM): 5 Additional Goals: 1-Demonstrate ADL Tasks, 2-Verbalize Understanding, 3- ImproveStrength/Rochelle 1=Demonstrate adherence to instructed precautions during ADL tasks. 2=Patient will verbalize/demonstrate understanding of assistive devices/ modifications for ADL. 3=Patient will improve strength/tolerance for activity to enable patient to perform ADL's. OT Education/Plan Problem List/Assessment Pt would benefit from skilled OT to increase his independence in basic self care to allow him to safely return to his home and to decrease caregiver burden. Discharge Recommendations Plan/Recommendations: Continue POC Treatment Plan/Plan of Care Patient would benefit from OT for education, treatment and training to promote independence in ADL's, mobility, safety and/or upper extremity function for ADL' s. Plan of Care: ADL Retraining, Functional Mobility, Group Exercise/Act as Ind ( education, exercise, act kit, socialization, funct activities), UE Funct Exercise/Act, UE Neuromus Re-Ed/Coord Treatment Duration: Nov 18, 2017 Frequency: Modified Program (IRF) Estimated Hrs Per Day: 1.5 hours per day Agreement: Yes Rehab Potential: Fair Time/GCodes Start Time: 10:35 Stop Time: 11:15 Total Time Billed (hr/min): 40 Billed Treatment Time visit, 40 minutes functional activities JOSE PACHECO OT Oct 29, 2017 11:57
--- NOTE | 2017-10-29 13:26 | Consultation-Cardiology ---
HPI-Cardiology Cardiology Consultation: Date of Consultation 10/29/17 Date of Admission Attending Physician Hermilo Fleming MD Admitting Physician Beka Valdez MD Consulting Physician Renea OCHOA MD HPI: Time Seen by Provider: 13:26 Chief Complaint: Syncope This is a 82-year-old gentleman who was transferred from [facility] for inpatient rehabilitation in our unit. 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 Cardiology consultation for syncope. According to the patient he got up from bed and was trying to get to the restroom when he passed out. Denies any other symptoms associated with syncope. No warning signs no seizure activities and no palpitations. Patient denied any chest pain or shortness of breath. According to the nurse taking care of the patient, patient's blood pressure in bed was systolic 160 mmHg and while standing was 100 mmHg systolic. Review of Systems-Cardiology Review of Systems Constitutional: No As described under HPI, No no symptoms reported, No chills, No fever, No lightheadedness, No malaise, No tiredness, No weight loss, No weight gain, No other Eyes: No As described under HPI, No no symptoms reported, No blindness, No blurred vision, No contact lenses, No drainage, No decreased acuity, No foreign body sensation, No glasses, No inflammation, No pain, No photophobia, No previous injury, No shadows, No tunnel vision, No other, No vision change Ears/Nose/Throat: No As described under HPI, No no symptoms reported, No chronic hearing loss, No epistaxis, No ear discharge, No ear pain, No loose teeth, No mouth pain, No mouth swelling, No nasal drainage, No nose pain, No recent hearing loss, No throat pain, No throat swelling, No ulcerations, No other Respiratory: No no symptoms reported, No As described under HPI, No cough, No orthopnea, No shortness of breath, No SOB with excertion, No SOB at rest, No stridor, No wheezing, No other Cardiovascular: syncope Gastrointestinal: No no symptoms reported, No As described under HPI, No abdomen distended, No abdominal pain, No blood streaked bowels, No constipation , No diarrhea, No difficulty swallowing, No nausea, No poor appetite, No poor fluid intake, No rectal bleeding, No vomiting, No other, No nausea/vomiting/ diarrhea, No stool coloration changes Genitourinary: No no symptoms reported, No As described under HPI, No burning, No dysuria, No discharge, No frequency, No flank pain, No hematuria, No incontinence, No pain, No urgency, No other, No urine frequency changes, No urine coloration changes Musculoskeletal: No no symptoms reported, No As describe under HPI, No back pain, No gout, No joint pain, No joint swelling, No muscle pain, No muscle stiffness, No neck pain, No other Skin: No no symptoms reported, No As described under HPI, No change in color, No change in hair/nails, No dryness, No lesions, No lumps, No rash, No other, No skin related problems, No ulcerations, No rash on exposed areas, No ulcerations on exposed areas Psychiatric/Neurological: No no symptoms reported, No As described under HPI, No anxiety, No depression, No emotional problems, No headache, No numbness, No pre-existing deficit, No seizure, No tingling, No tremors, No weakness, No other , No focal weakness, No syncope HRC-Lyaatb-Lditpu Hx Patient Social History Alcohol Use: Denies Use Recreational Drug Use: No Smoking Status: Never a Smoker Recent Foreign Travel: No Recent Infectious Disease Expo: No Hospitalization with Isolation: Denies Physical Abuse Screen: No Sexual Abuse: No Immunizations Up To Date Tetanus Booster (TDap): Unknown Date of Pneumonia Vaccine: Oct 10, 2016 Date of Influenza Vaccine: Mar 20, 2017 Past Medical History PMH As described under Assessment. Family Medical History Family History: Cardiovascular disease 19 FATHER Diabetes mellitus 19 MOTHER FH: cancer G8 BROTHER G8 SISTER G8 SISTER Allergies and Home Medications Allergies Coded Allergies: No Known Allergies (Verified Allergy, Unknown, 03/14/17) Home Medications Amlodipine Besylate 5 Mg Tablet, 5 MG PO DAILY, (Reported) Ascorbic Acid 500 Mg Tablet, 500 MG PO DAILY, (Reported) Aspirin 81 Mg Tablet.dr, 81 MG PO DAILY, (Reported) Metformin HCl 500 Mg Tablet, 500 MG PO BID WITH MEALS, (Reported) Metoprolol Tartrate 50 Mg Tablet, 50 MG PO DAILY, (Reported) Multivit-Min/FA/Lycopene/Lut 1 Each Tablet, 1 TAB PO DAILY, (Reported) Physical Exam-Cardiology Physical Exam Vital Signs/I&O Vital Sign - Last 12Hours 210/29/17 10/29/17 10/29/17 10:21 11:00 11:25 18:55 Temp 96.0 Pulse 99 113 95 Resp 20 22 18 B/P (MAP) 156/86 (109) 102/66 (78) 120/77 (91) Pulse Ox 95 94 O2 Delivery Nasal Cannula Nasal Cannula Nasal Cannula Nasal Cannula O2 Flow Rate 4.00 4.50 4.50 4.00 10/29/17 10/29/17 19:06 20:35 Pulse 118 115 Resp 16 Pulse Ox 90 O2 Flow Rate 4.00 Intake and Output 10/29/17 00:00 Intake Total 800 ml Output Total 1020 ml Balance -220 ml Capillary Refill : Constitutional: AAO x 3 HEENT: PERRL, No discharge, hearing is well preserved, oral hygience is good, No ulceration, No xanthelasmas are seen Neck: No non-tender, No full range of motion, No supple, No normal inspection, No carotid bruit, No limited range of motion, No lymphadenopathy (R), No lymphadenopathy (L), No tender lateral, No tender midline, No thyromegaly, No other, carotid pulses are 2 + bilaterally, No with good upstrokes Respiratory: No accessory muscle use, No respiratory distress, No chest tender , No chest expansion is symmetric, chest is bilaterally symmetric, lungs clear to percussion, lungs clear to auscultation, No crackles, No rhonchi, No rales, No stridor, No wheezing, No pleural rub, No other Cardiovascular: regular rate-rhythm, No irregularly irregular, No extra beats, No parasternal heave is noted, No JVD, No edema, No bradycardia, No tachycardia , No point of maximal impulse, No cardiac thrills are palpable, S1 and S2, No gallop/S3, No gallop/S4, No diastolic murmur, No systolic murmur, No friction rub, No click, No other Gastrointestinal: No tender, No soft, No round, No distended, No pulsatile mass , No organomegaly, No guarding, No rebound, No tenderness, No hernia, No mass, No audible bowel sounds, No abnormal bowel sounds, No abdominal bruits, No spleenomegaly, No other Rectal: deferred Extremities: No normal range of motion, No non-tender, No normal inspection, No pedal edema, No calf tenderness, No normal capillary refill, No pelvis stable , No calf tenderness, No inflammation, No pedal edema, No slow capillary refill , No swelling, No other, No abrasion, No clubbing, No cyanosis, No ecchymosis, No laceration, No no lower extremity edema bilateral, No significant edema, No tenderness, No wound Neurologic/Psychiatric: No paint spray tender II-XII nml as tested, No no motor/sensory deficits, alert, normal mood/affect, oriented x 3, No abnormal cerebellar tests , No abnormal paint spray tender II-XII, No abnormal gait, No aphasia, No EOM palsy, No facial droop, No motor weakness, No sensory deficit, No depressed affect, No disoriented x 3, No other, No grossly intact, No power is 5/5 both on sides Skin: No normal color, No warm/dry, No cyanosis, No cool, No diaphoresis, No damp, No ecchymosis, No jaundice, No mottled, No pallor, No rash, No tattoos/ piercings, No ulcerations, No rash on exposed areas, No ulcerations on exposed areas, No other Data Review Labs Laboratory Tests 10/29/17 05:35: Glucometer 131H 10/29/17 06:21: White Blood Count 8.3, Red Blood Count 3.28L, Hemoglobin 9.6L, Hematocrit 30L, Mean Corpuscular Volume 91, Mean Corpuscular Hemoglobin 29, Mean Corpuscular Hemoglobin Concent 32, Red Cell Distribution Width 14.4, Platelet Count 319, Mean Platelet Volume 10.5H, Neutrophils (%) (Auto) 70, Lymphocytes (%) (Auto) 13 , Monocytes (%) (Auto) 16H, Eosinophils (%) (Auto) 2, Basophils (%) (Auto) 0, Neutrophils # (Auto) 5.8, Lymphocytes # (Auto) 1.1, Monocytes # (Auto) 1.3H, Eosinophils # (Auto) 0.2, Basophils # (Auto) 0.0, Sodium Level 137, Potassium Level 4.7, Chloride Level 102, Carbon Dioxide Level 25, Anion Gap 10, Blood Urea Nitrogen 36H, Creatinine 1.57H, Estimat Glomerular Filtration Rate 43, BUN/ Creatinine Ratio 23, Glucose Level 136H, Calcium Level 8.2L, Magnesium Level 2.1 10/29/17 10:55: Glucometer 416*H 10/29/17 15:31: Phosphorus Level 3.1 10/29/17 16:35: Glucometer 172H 10/29/17 21:34: Glucometer 162H ECG Impression ECG Comment No EKG. Telemetry shows a regular rhythm with PVCs. Unclear if it's atrial fibrillation. A/P-Cardiology Assessment/Admission Diagnosis Syncope, Status post-aortic valve replacement, Hypertension, Orthostatic hypotension, Irregular heart rhythm, PVCs Pericardial effusion. DM Plan Syncope: Echocardiogram showed hyperdynamic LV function with suggest likely dehydration. Generous hydration was recommended. Telemetry. Request EKG. Orthostatic hypotension: Hold amlodipine. Continue beta aman. Behavioral modification was discussed with the patient. Irregular heart rhythm: Telemetry. Request EKG. Rule out atrial fibrillation. Patient on Eliquis. Pericardial effusion: Mild to moderate pericardial effusion on echocardiogram without evidence of tamponade physiology. Repeat limited echocardiogram in the morning to see follow-up of pericardial effusion. PVCs: On metoprolol. Hypertension: DC amlodipine. Continue metoprolol. Status post-aortic valve replacement: Normal prosthetic aortic valve on echocardiogram. Thank you for your consultation. Please call me if you have any questions. Saul Ochoa MD, FACP, FACC, FSCAI, FHRS, CCDS Interventional Cardiology Cardiac Electrophysiology Vascular Medicine and Endovascular Interventions Clinical Quality Measures DVT/VTE Risk/Contraindication: Risk Factor Score Per Nursin RFS Level Per Nursing on Admit: 4+=Very High Renea OCHOA MD Oct 29, 2017 13:26
--- NOTE | 2017-10-29 14:37 | Therapy Group Daily Note ---
Therapy Daily Group Note Exercises Fine Motor, UE Exercise Other/Notes Pt transported to OT/PT group via w/c in [facility]. Group consisted of introductions (name, place born, childhood game), socialization, peer interaction, dynamic sitting, UE seated exercises and problem solving. Pt introduced self appropriately and was able to give details about childhood memories. Pt was able to lean forward and sideways in sitting to complete UE seated exercises that worked on UE strength and fine motor manipulation. Pt had some difficulty with reaching forward while placing item in designated area. Pt performed simple problem solving skills throughout activities. Pt actively listened to peers and contributed to conversations. Inspiring word for the day was going home. After therapy, pt lying in bed with call light/ phone in reach. All needs met in room. Start Time: 13:00 Stop Time: 14:05 Total Billed Treatment Time: 65 Total Billed Treatment 1-GRP STEFFANIE FAULKNER Oct 29, 2017 14:37
--- NOTE | 2017-10-29 14:41 | Occupational Ther Daily Note ---
OT Current Status-Daily Note Subjective Pt seen in room, up in bed, agreeable to OT. No pain mentioned. Appearance Alert, cooperative Mental Status/Objective Functional [place] Measure 0=Not Assessed/NA 4=Minimal Assistance 1=Total Assistance 5=Supervision or Setup 2=Maximal Assistance 6=Modified [place] 3=Moderate Assistance 7=Complete [place] ADL-Treatment Pt was able to move legs to edge of bed himself and needed mod help to move trunk to sit EOB. He was able to sit EOB for a couple minutes and did not report any dizziness or lightheadedness. O2 sats were in upper 90s. HR was 90s and above. Pt on telemetry. Pt education on need to lean forward to help with getting up. Pt needed just a little lift in back to come to stand and was able to transfer to / with CGA, FWW. Follows sternal precautions. No LOB observed. O2 in place at 5L/min and connors present. Pt transported to [facility] are for group. Functional [place] Measure 0=Not Assessed/NA 4=Minimal Assistance 1=Total Assistance 5=Supervision or Setup 2=Maximal Assistance 6=Modified [place] 3=Moderate Assistance 7=Complete IndependenceIRFPAI Quality Coding Scale 6 Independent with activity with or without an assistive device 5 Patient requires set up or clean up by helper. Patient completes activity by themselves 4 Supervision or touching assist (CGA). [place] provide cues , steadying assist 3 The helper provides less than half the effort to complete the activity 2 The helper provides more than half the effort to complete the activity 1 Dependent. The helper does all the effort to complete an activity 7 Patient refused to complete or attempt activity 9 The patient did not perform the activity before the current illness or injury 88 Not attempted due to Medical conditions or safety concerns Education OT Patient Education: Purpose of tx/functional activities, Transfer techniques Teaching Recipient: Patient Teaching Methods: Discussion Response to Teaching: Return Demonstration OT Short Term Goals Short Term Goals Time Frame: Nov 11, 2017 Toileting(FIM): 3 Toilet/Commode Transfer(FIM): 3 Additional Short Term Goals: 1-Demonstrate ADL Tasks, 2-Verbalize Understanding , 3-ImproveStrength/Rochelle 1=Demonstrate adherence to instructed precautions during ADL tasks. 2=Patient will verbalize/demonstrate understanding of assistive devices/ modifications for ADL. 3=Patient will improve strength/tolerance for activity to enable patient to perform ADL's. OT Refrigerated National Truck Driver Goals Refrigerated National Truck Driver Goals Time Frame: Nov 18, 2017 Eating (FIM): 6 Eating (QC): 6 Groomin Oral Hygiene (QC): 6 Bathing(FIM): 6 Shower/Bathe Self (QC): 6 Upper Body Dressing(FIM): 6 Upper Body Dressing (QC): 6 Lower Body Dressing(FIM): 5 Lower Body Dressing (QC): 5 On/Off Footwear (QC): 5 Toileting(FIM): 5 Toileting Hygiene (QC): 5 Toilet/Commode Transfer(FIM): 6 Toilet/Commode Transfer (QC): 6 Tub Transfer(FIM): 5 Shower Transfer(FIM): 5 Additional Goals: 1-Demonstrate ADL Tasks, 2-Verbalize Understanding, 3- ImproveStrength/Rochelle 1=Demonstrate adherence to instructed precautions during ADL tasks. 2=Patient will verbalize/demonstrate understanding of assistive devices/ modifications for ADL. 3=Patient will improve strength/tolerance for activity to enable patient to perform ADL's. OT Education/Plan Problem List/Assessment Pt would benefit from skilled OT to increase his independence in basic self care to allow him to safely return to his home and to decrease caregiver burden. Discharge Recommendations Plan/Recommendations: Continue POC Treatment Plan/Plan of Care Patient would benefit from OT for education, treatment and training to promote independence in ADL's, mobility, safety and/or upper extremity function for ADL' s. Plan of Care: ADL Retraining, Functional Mobility, Group Exercise/Act as Ind ( education, exercise, act kit, socialization, funct activities), UE Funct Exercise/Act, UE Neuromus Re-Ed/Coord Treatment Duration: Nov 18, 2017 Frequency: Modified Program (IRF) Estimated Hrs Per Day: 1.5 hours per day Agreement: Yes Rehab Potential: Fair Time/GCodes Start Time: 12:40 Stop Time: 13:00 Total Time Billed (hr/min): 20 Billed Treatment Time visit, 20 minutes functional activity JOSE PACHECO OT Oct 29, 2017 14:41
[2017-10-29 18:55] VITALS: BP 120/77
[2017-10-30] MEDS: inSUlin (REGULAR) HUMAN 1 UNIT/0.01 ML (CHARGE PER UNIT) SC SCH ×4 (05:07→20:59)
[2017-10-30 05:09] VITALS: BP 115/75
[2017-10-30] MEDS: ASCORBIC ACID (VIT C) 500 MG TABLET PO SCH (06:12)
[2017-10-30] MEDS: MULTIVIT W/MINERALS TAB (THERAGRAN M) PO SCH (06:12)
[2017-10-30 07:25] LABS: BASOPHILS % (AUTO) 0 % (0-10); EOSINOPHILS # (AUTO) 0.1 10^3/uL (0.0-0.3); EOSINOPHILS % (AUTO) 1 % (0-10); HEMATOCRIT 30 % (40-54); HEMOGLOBIN 9.8 G/DL (13.3-17.7); LYMPHOCYTES # (AUTO) 1.1 X 10^3 (1.0-4.0); LYMPHOCYTES % (AUTO) 10 % (12-44); MEAN CORPUSCULAR HEMOGLOBIN 29 PG (25-34); MEAN CORPUSCULAR HGB CONC 32 G/DL (32-36); MEAN CORPUSCULAR VOLUME 91 FL (80-99); MEAN PLATELET VOLUME 10.9 FL (7.4-10.4); MONOCYTES % (AUTO) 19 % (0-12); NEUTROPHILS # (AUTO) 7.1 X 10^3 (1.8-7.8); NEUTROPHILS % (AUTO) 70 % (42-75); PLATELET COUNT 316 10^3/uL (130-400); RED BLOOD COUNT 3.33 10^6/uL (4.35-5.85); RED CELL DISTRIBUTION WIDTH 14.6 % (10.0-14.5); WHITE BLOOD COUNT 10.2 10^3/uL (4.3-11.0)
[2017-10-30 07:41] LABS: CALCIUM 8.2 MG/DL (8.5-10.1); CREATININE SERUM 1.42 MG/DL (0.60-1.30); MAGNESIUM 1.9 MG/DL (1.8-2.4); POTASSIUM 4.6 MMOL/L (3.6-5.0)
--- NOTE | 2017-10-30 07:55 | Diagnostic Imaging Report ---
EXAM: CHEST 1 VIEW, AP/PA ONLY INDICATION: Shortness of air. COMPARISON: Chest radiograph 10/29/2017. FINDINGS: Cardiomegaly and normal pulmonary vascularity. Sternotomy. Left basilar atelectasis or infiltrate. No definite pleural effusion. No pneumothorax. IMPRESSION: 1. Stable cardiomegaly with normal pulmonary vascularity. 2. Mild atelectasis or infiltrate left lung base. Dictated by: Dictated on workstation # [id number]
[2017-10-30 08:04] LABS: BAND NEUTROPHILS 1 %; BASOPHILS % (MANUAL) 0 %; EOSINOPHILS % (MANUAL) 0 %; LYMPHOCYTES % (MANUAL) 12 %; MONOCYTES % (MANUAL) 17 %; NEUTROPHILS % (MANUAL) 70 %; RBC MORPH NORMAL
[2017-10-30] MEDS: APIXABAN 2.5 MG (ELIQUIS) TABLET PO SCH ×2 (08:36→21:02)
[2017-10-30] MEDS: meTOprolol TARTRATE 50 MG (LOPRESSOR) TAB PO SCH (08:36)
[2017-10-30] MEDS: ASPIRIN E.C. 81 MG (ECOTRIN) TAB PO SCH (08:36)
[2017-10-30 09:00] VITALS: BP 107/73
[2017-10-30] MEDS: ACETAMINOPHEN 325 MG TABLET/CAPLET (TYLENOL) PO PRN (09:21)
--- NOTE | 2017-10-30 09:38 | Occupational Ther Daily Note ---
OT Current Status-Daily Note Subjective Pt. reports pain in left hip but does not state pain level. Nursing notified. Appearance Pt. up in chair. Alert and oriented. Agrees to therapy. Mental Status/Objective Patient Orientation: Person, Place Functional [place] Measure 0=Not Assessed/NA 4=Minimal Assistance 1=Total Assistance 5=Supervision or Setup 2=Maximal Assistance 6=Modified [place] 3=Moderate Assistance 7=Complete [place] Attachments: Oxygen, Telemetry ADL-Treatment Functional [place] Measure 0=Not Assessed/NA 4=Minimal Assistance 1=Total Assistance 5=Supervision or Setup 2=Maximal Assistance 6=Modified [place] 3=Moderate Assistance 7=Complete IndependenceIRFPAI Quality Coding Scale 6 Independent with activity with or without an assistive device 5 Patient requires set up or clean up by helper. Patient completes activity by themselves 4 Supervision or touching assist (CGA). [place] provide cues , steadying assist 3 The helper provides less than half the effort to complete the activity 2 The helper provides more than half the effort to complete the activity 1 Dependent. The helper does all the effort to complete an activity 7 Patient refused to complete or attempt activity 9 The patient did not perform the activity before the current illness or injury 88 Not attempted due to Medical conditions or safety concerns Grooming (FIM): 5 (Pt. is able to brush his teeth and comb hair with set up.) Oral Hygiene (QC): 5 Bathing (FIM): 2 (Pt. required assist to wash feet, lower legs, back, rear amina area, and thoroughly under arms.) Shower/Bathe Self (QC): 2 Upper Body (FIM): 3 (Pt. is able to don shirt over head, but requires assist to test puller trunk due to fatiguing easily.) Upper Body Dressing (QC): 3 Lower Body Dressing (FIM): 3 (Pt. requires assist to don pants over feet and to pull slightly over hips, although he is able to help somewhat. He is able to don socks with sock aide with min assist.) Lower Body Dressing (QC): 3 On/Off Footwear (QC): 4 Transfers (B, C, W/C) (FIM): 1 (Mod assist x 2 out of chair for sit to stand. Once he is standing, pt. only requires min assist to ambulate.) OT/PT co-treated due to pt's fatigue level. Pt. becomes short of air very easily. Sats taken continually. BP 107/73. HR 108. O2 92-98% with 4 L on. Pt. requires frequent rest breaks. OT focused on ADL training and introduced sock aide and dressing stick while PT focused on transfer training and energy conservation. Pt. ambulated to doorway and back but unable to ambulate further. Noted that bilateral LE swollen. Nursing aware. Pt's LE elevated after treatment and all needs met. Education OT Patient Education: Correct positioning, Energy conservation, Exercise program, Modified ADL techniques, Progress toward Goal/Update tx plan, Purpose of tx/functional activities, Reviewed precautions, Rehab process, Transfer techniques, Use of adapted equipment Teaching Recipient: Patient Teaching Methods: Demonstration, Discussion Response to Teaching: Verbalize Understanding, Return Demonstration OT Short Term Goals Short Term Goals Time Frame: Nov 11, 2017 Toileting(FIM): 3 Toilet/Commode Transfer(FIM): 3 Additional Short Term Goals: 1-Demonstrate ADL Tasks, 2-Verbalize Understanding , 3-ImproveStrength/[place] 1=Demonstrate adherence to instructed precautions during ADL tasks. 2=Patient will verbalize/demonstrate understanding of assistive devices/ modifications for ADL. 3=Patient will improve strength/tolerance for activity to enable patient to perform ADL's. OT [facility] Goals Strategic Manager Goals Time Frame: Nov 18, 2017 Eating (FIM): 6 Eating (QC): 6 Groomin Oral Hygiene (QC): 6 Bathing(FIM): 6 Shower/Bathe Self (QC): 6 Upper Body Dressing(FIM): 6 Upper Body Dressing (QC): 6 Lower Body Dressing(FIM): 5 Lower Body Dressing (QC): 5 On/Off Footwear (QC): 5 Toileting(FIM): 5 Toileting Hygiene (QC): 5 Toilet/Commode Transfer(FIM): 6 Toilet/Commode Transfer (QC): 6 Tub Transfer(FIM): 5 Shower Transfer(FIM): 5 Additional Goals: 1-Demonstrate ADL Tasks, 2-Verbalize Understanding, 3- ImproveStrength/[place]le 1=Demonstrate adherence to instructed precautions during ADL tasks. 2=Patient will verbalize/demonstrate understanding of assistive devices/ modifications for ADL. 3=Patient will improve strength/tolerance for activity to enable patient to perform ADL's. OT Education/Plan Problem List/Assessment Assessment: Decreased Activ Tolerance, Decreased UE Strength, Dependent Transfers, Impaired Bed Mobility, Impaired Funct Balance, Impaired I ADL's, Impaired Self-Care Skills Pt would benefit from skilled OT to increase his independence in basic self care to allow him to safely return to his home and to decrease caregiver burden. Discharge Recommendations Plan/Recommendations: Continue POC Therapy D/C Recommendations: Home w/ Family Support, Occupational Therapy Home Care, Scheduled Assistance Treatment Plan/Plan of Care Treatment,Training & Education: Yes Patient would benefit from OT for education, treatment and training to promote independence in ADL's, mobility, safety and/or upper extremity function for ADL' s. Plan of Care: ADL Retraining, Functional Mobility, Group Exercise/Act as Ind ( education, exercise, act kit, socialization, funct activities), UE Funct Exercise/Act, UE Neuromus Re-Ed/Coord Treatment Duration: Nov 18, 2017 Frequency: At least 5 of 7 days/Wk (IRF) Estimated Hrs Per Day: 1.5 hours per day Agreement: Yes Rehab Potential: Fair Time/GCodes Start Time: 08:35 Stop Time: 09:35 Total Time Billed (hr/min): 60 Billed Treatment Time 1, ADL x 45minutes, FA x 15minutes co-treat with PT. Please see above note for designated roles ANGEL MOODY OT Oct 30, 2017 09:38
--- NOTE | 2017-10-30 09:43 | Physical Therapy Daily Note ---
PT Daily Note-Current Subjective Agreeable to PT. Reports he feels dizzy today. Pain Numeric Pain Scale: 5-Moderate Pain Location: Left Pain Description: Ache (/sore) Comment: reports the soreness decreased to a 2/10 after treatment. Mental Status Patient Orientation: Person, Place, Time, Situation Attachments: Oxygen (in situ throughout and post treatment.) Transfers Functional [place] Measure 0=Not Assessed/NA 4=Minimal Assistance 1=Total Assistance 5=Supervision or Setup 2=Maximal Assistance 6=Modified [place] 3=Moderate Assistance 7=Complete IndependenceIRFPAI Quality Coding Scale 6 Independent with activity with or without an assistive device 5 Patient requires set up or clean up by helper. Patient completes activity by themselves 4 Supervision or touching assist (CGA). [place] provide cues , steadying assist 3 The helper provides less than half the effort to complete the activity 2 The helper provides more than half the effort to complete the activity 1 Dependent. The helper does all the effort to complete an activity 7 Patient refused to complete or attempt activity 9 The patient did not perform the activity before the current illness or injury 88 Not attempted due to Medical conditions or safety concerns Weight Bearing Right Lower Extremity: Right Weight Bearing/Tolerated Left Lower Extremity: Left Weight Bearing/Tolerated Treatments Monitored oxygen throughout treatment this date and his sats ranged from 91 to 99% throuighout treatment. Co treat with OT due to extensive nature of his debility, need for multiple skilled cues and extensive assist needed for transfers and mobility while performing self care. Multiple sit to stand transfers, using lift recliner and mod assist (maintaining sternal precautions); assist with functional balance and standing activity [place] as he participated in bathing, self care and dressing. Worked on trunk control in sitting as well as he dressed with assist of OT. Pt did ambulate x 40 ft with FWW with close CGA and skilled cues for safety. Pt up in chair post treatment with needs met. Vitals taken at 900 107/73, 108 bpm and sats at 98%. Assessment Current Status: Fair Progress Limited functional activity [place]. Requires extra time to complete tasks. Reports dizziness. PT Short Term Goals Short Term Goals Time Frame: Nov 04, 2017 Gait (FIM): 4 Gait Distance Comment: 150 feet Gait Assistive Device: FWW PT Senior Living Goals Senior Living Goals PT Senior Living Goals Time Frame: Nov 18, 2017 Transfers (B,C,W/C) (FIM): 6 Sit to Lying (QC): 6 Lying-Sitting on Side/Bed(QC): 6 Sit to Stand (QC): 6 Rollin Roll Left to Right (QC): 6 Chair/Byr-ne-Ahgkh Xfer(QC): 6 Car Transfer (QC): 6 Does the Patient Walk: Yes Gait (FIM): 6 Distance: 200 feet Walk 10 feet (QC): 6 Walk 10ft-Uneven Surface(QC): 6 Walk 50ft with 2 Turns (QC): 6 Walk 150 ft (QC): 6 Gait Level of Assist: 6 Gait Assistive Device: FWW Does the Pt use WC or Scooter?: No Stairs (FIM): 2 # of Steps: 4 1 Step (curb) (QC): 6 4 Steps (QC): 6 12 Steps (QC): 6 Stairs Level Of Assist: 6 Picking up an Object (QC): 6 PT Plan Problem List Problem List: Activity Tolerance, Functional Strength, Safety, Balance, Gait, Transfer, Bed Mobility Treatment/Plan Treatment Plan: Continue Plan of Care Treatment Plan: Bed Mobility, Education, Functional Activity [place], Functional Strength, Group Therapy, Gait, Safety, Therapeutic Exercise, Transfers Treatment Duration: Nov 18, 2017 Frequency: Modified Program (IRF) (03/04 due to oxygen sats dropping with activity. ) Estimated Hrs Per Day: 1.5 hours per day (modified to be 15 hours in 7 days) Patient and/or Family Agrees t: Yes Safety Risks/Education Patient Education: Transfer Techniques, Safety Issues Teaching Recipient: Patient Teaching Methods: Demonstration, Discussion Response to Teaching: Reinforcement Needed Discharge Recommendations Therapy D/C Recommendations: Physical Therapy Home Care Time/GCodes Time In: 835 Time Out: 935 Total Billed Treatment Time: 60 Total Billed Treatment visit FA 60 Co treat with OT STEFFANIE BROWN PT Oct 30, 2017 09:43
--- NOTE | 2017-10-30 12:37 | Cardiology Progress Note ---
Cardiology SOAP Progress Note Subjective: No further cardiac symptoms including near-syncope or syncope. Objective: I&O/Vital Signs Vital Sign - Last 12Hours 10/30/17 10/30/17 10/30/17 10/30/17 05:09 07:00 07:49 09:00 Temp 96.4 Pulse 115 123 Resp 24 B/P (MAP) 115/75 (88) Pulse Ox 94 O2 Delivery Nasal Cannula Nasal Cannula Nasal Cannula O2 Flow Rate 4.00 4.00 4.00 4.00 Intake and Output 10/30/17 00:00 Intake Total 1020 ml Output Total 550 ml Balance 470 ml Weight (Pounds): 243 Weight (Ounces): 1.0 Weight (Calculated Kilograms): 110.893789 Constitutional: AAO x 3 Respiratory: No accessory muscle use, No respiratory distress, No chest tender , No chest expansion is symmetric, chest is bilaterally symmetric, lungs clear to percussion, lungs clear to auscultation, No crackles, No rhonchi, No rales, No stridor, No wheezing, No pleural rub, No other Cardiovascular: regular rate-rhythm, No irregularly irregular, No extra beats, No parasternal heave is noted, No JVD, No edema, No bradycardia, No tachycardia , No point of maximal impulse, No cardiac thrills are palpable, S1 and S2, No gallop/S3, No gallop/S4, No diastolic murmur, No systolic murmur, No friction rub, No click, No other Gastrointestional: No tender, No soft, No round, No distended, No pulsatile mass, No organomegaly, No guarding, No rebound, No tenderness, No hernia, No mass, No audible bowel sounds, No abnormal bowel sounds, No abdominal bruits, No spleenomegaly, No other Extremities: No normal range of motion, No non-tender, No normal inspection, No pedal edema, No calf tenderness, No normal capillary refill, No pelvis stable , No calf tenderness, No inflammation, No pedal edema, No slow capillary refill , No swelling, No other, No abrasion, No clubbing, No cyanosis, No ecchymosis, No laceration, No no lower extremity edema bilateral, No significant edema, No tenderness, No wound Neurologic/Psychiatric: No street worker II-XII nml as tested, No no motor/sensory deficits, alert, normal mood/affect, oriented x 3, No abnormal cerebellar tests , No abnormal street worker II-XII, No abnormal gait, No aphasia, No EOM palsy, No facial droop, No motor weakness, No sensory deficit, No depressed affect, No disoriented x 3, No other, No grossly intact, No power is 5/5 both on sides Skin: No normal color, No warm/dry, No cyanosis, No cool, No diaphoresis, No damp, No ecchymosis, No jaundice, No mottled, No pallor, No rash, No tattoos/ piercings, No ulcerations, No rash on exposed areas, No ulcerations on exposed areas, No other Results/Procedures: Labs Laboratory Tests 10/29/17 16:35: Glucometer 172H 10/29/17 21:34: Glucometer 162H 10/30/17 04:45: Glucometer 158H 10/30/17 07:02: White Blood Count 10.2, Red Blood Count 3.33L, Hemoglobin 9.8L, Hematocrit 30L, Mean Corpuscular Volume 91, Mean Corpuscular Hemoglobin 29, Mean Corpuscular Hemoglobin Concent 32, Red Cell Distribution Width 14.6H, Platelet Count 316, Mean Platelet Volume 10.9H, Neutrophils (%) (Auto) 70, Lymphocytes (%) (Auto) 10L, Monocytes (%) (Auto) 19H, Eosinophils (%) (Auto) 1, Basophils (%) (Auto) 0 , Neutrophils # (Auto) 7.1, Lymphocytes # (Auto) 1.1, Monocytes # (Auto) 2.0H, Eosinophils # (Auto) 0.1, Basophils # (Auto) 0.0, Neutrophils % (Manual) 70, Lymphocytes % (Manual) 12, Monocytes % (Manual) 17, Eosinophils % (Manual) 0, Basophils % (Manual) 0, Band Neutrophils 1, Blood Morphology Comment NORMAL, Sodium Level 135, Potassium Level 4.6, Chloride Level 102, Carbon Dioxide Level 23, Anion Gap 10, Blood Urea Nitrogen 32H, Creatinine 1.42H, Estimat Glomerular Filtration Rate 48, BUN/Creatinine Ratio 23, Glucose Level 189H, Calcium Level 8.2L, Phosphorus Level 2.7, Magnesium Level 1.9 10/30/17 12:19: Glucometer 227H A/P: Assessment/Dx: Syncope, Status post-aortic valve replacement, Hypertension, Orthostatic hypotension, Irregular heart rhythm, PVCs Pericardial effusion. DM Plan: Syncope: Echocardiogram showed hyperdynamic LV function with suggest likely dehydration. Generous hydration was recommended. Telemetry. Orthostatic hypotension: Hold amlodipine. Continue beta aman. Behavioral modification was discussed with the patient. Atrial fibrillation: Continue metoprolol. Continue telemetry. Patient on Eliquis. Pericardial effusion: Mild to moderate pericardial effusion on echocardiogram without evidence of tamponade physiology. PVCs: On metoprolol. Hypertension: DC amlodipine. Continue metoprolol. Status post-aortic valve replacement: Normal prosthetic aortic valve on echocardiogram. Thank you for your consultation. Please call me if you have any questions. Saul Ochoa MD, FACP, FACC, FSCAI, FHRS, CCDS Interventional Cardiology Cardiac Electrophysiology Vascular Medicine and Endovascular Interventions Renea OCHOA MD Oct 30, 2017 12:37 pm
[2017-10-30 18:00] VITALS: BP 122/83
[2017-10-31 06:00] VITALS: BP 121/73
[2017-10-31 06:03] LABS: BASOPHILS % (AUTO) 0 % (0-10); EOSINOPHILS # (AUTO) 0.1 10^3/uL (0.0-0.3); EOSINOPHILS % (AUTO) 2 % (0-10); HEMATOCRIT 29 % (40-54); HEMOGLOBIN 9.3 G/DL (13.3-17.7); LYMPHOCYTES % (AUTO) 15 % (12-44); MEAN CORPUSCULAR HEMOGLOBIN 29 PG (25-34); MEAN CORPUSCULAR HGB CONC 32 G/DL (32-36); MEAN CORPUSCULAR VOLUME 92 FL (80-99); MEAN PLATELET VOLUME 10.6 FL (7.4-10.4); MONOCYTES # (AUTO) 1.3 X 10^3 (0.0-1.0); MONOCYTES % (AUTO) 20 % (0-12); NEUTROPHILS # (AUTO) 4.2 X 10^3 (1.8-7.8); NEUTROPHILS % (AUTO) 63 % (42-75); PLATELET COUNT 256 10^3/uL (130-400); RED BLOOD COUNT 3.18 10^6/uL (4.35-5.85); RED CELL DISTRIBUTION WIDTH 14.6 % (10.0-14.5); WHITE BLOOD COUNT 6.7 10^3/uL (4.3-11.0)
[2017-10-31 06:20] LABS: CALCIUM 8.1 MG/DL (8.5-10.1); CREATININE SERUM 1.4 MG/DL (0.60-1.30); POTASSIUM 4.5 MMOL/L (3.6-5.0)
[2017-10-31] MEDS: MULTIVIT W/MINERALS TAB (THERAGRAN M) PO SCH (06:38)
[2017-10-31] MEDS: ASCORBIC ACID (VIT C) 500 MG TABLET PO SCH (06:38)
[2017-10-31] MEDS: inSUlin (REGULAR) HUMAN 1 UNIT/0.01 ML (CHARGE PER UNIT) SC SCH ×4 (06:47→20:49)
--- NOTE | 2017-10-31 08:06 | Diagnostic Imaging Report ---
INDICATION: Shortness of breath. Comparison made with prior examination 10/30/17. FINDINGS: There is cardiomegaly. There is mild venous congestion. There is left base infiltrate and left pleural effusion. There is no pneumothorax. There has been previous median sternotomy. IMPRESSION: Left basilar infiltrate and small left pleural effusion. Cardiomegaly and mild central pulmonary venous congestion. Dictated by: Dictated on workstation # [id number]
[2017-10-31] MEDS: meTOprolol TARTRATE 50 MG (LOPRESSOR) TAB PO SCH (09:31)
[2017-10-31] MEDS: APIXABAN 2.5 MG (ELIQUIS) TABLET PO SCH ×2 (09:31→20:57)
[2017-10-31] MEDS: ASPIRIN E.C. 81 MG (ECOTRIN) TAB PO SCH (09:32)
--- NOTE | 2017-10-31 11:44 | Cardiology Progress Note ---
Cardiology SOAP Progress Note Subjective: No further syncope or near syncope. Objective: I&O/Vital Signs Vital Sign - Last 12Hours 10/31/17 10/31/17 10/31/17 10/31/17 01:00 02:03 02:32 04:10 Pulse 93 72 102 Resp 22 20 Pulse Ox 91 93 98 O2 Delivery Nasal Cannula O2 Flow Rate 4.00 5.00 5.00 10/31/17 10/31/17 10/31/17 06:00 07:00 08:33 Temp 98.2 Pulse 89 116 Resp 22 B/P (MAP) 121/73 (89) Pulse Ox 98 93 O2 Delivery NIV Bilevel Nasal Cannula O2 Flow Rate 4.00 Intake and Output 10/31/17 00:00 Intake Total 1000 ml Output Total 650 ml Balance 350 ml Weight (Pounds): 238 Weight (Ounces): 6.0 Weight (Calculated Kilograms): 108.350906 Constitutional: AAO x 3 Respiratory: No accessory muscle use, No respiratory distress, No chest tender , No chest expansion is symmetric, chest is bilaterally symmetric, lungs clear to percussion, lungs clear to auscultation, No crackles, No rhonchi, No rales, No stridor, No wheezing, No pleural rub, No other Cardiovascular: regular rate-rhythm, No irregularly irregular, No extra beats, No parasternal heave is noted, No JVD, No edema, No bradycardia, No tachycardia , No point of maximal impulse, No cardiac thrills are palpable, S1 and S2, No gallop/S3, No gallop/S4, No diastolic murmur, No systolic murmur, No friction rub, No click, No other Gastrointestional: No tender, No soft, No round, No distended, No pulsatile mass, No organomegaly, No guarding, No rebound, No tenderness, No hernia, No mass, No audible bowel sounds, No abnormal bowel sounds, No abdominal bruits, No spleenomegaly, No other Extremities: No normal range of motion, No non-tender, No normal inspection, No pedal edema, No calf tenderness, No normal capillary refill, No pelvis stable , No calf tenderness, No inflammation, No pedal edema, No slow capillary refill , No swelling, No other, No abrasion, No clubbing, No cyanosis, No ecchymosis, No laceration, No no lower extremity edema bilateral, No significant edema, No tenderness, No wound Neurologic/Psychiatric: No skiing teacher II-XII nml as tested, No no motor/sensory deficits, alert, normal mood/affect, oriented x 3, No abnormal cerebellar tests , No abnormal skiing teacher II-XII, No abnormal gait, No aphasia, No EOM palsy, No facial droop, No motor weakness, No sensory deficit, No depressed affect, No disoriented x 3, No other, No grossly intact, No power is 5/5 both on sides Skin: No normal color, No warm/dry, No cyanosis, No cool, No diaphoresis, No damp, No ecchymosis, No jaundice, No mottled, No pallor, No rash, No tattoos/ piercings, No ulcerations, No rash on exposed areas, No ulcerations on exposed areas, No other Results/Procedures: Labs Laboratory Tests 10/30/17 12:19: Glucometer 227H 10/30/17 16:58: Glucometer 212H 10/30/17 20:57: Glucometer 146H 10/31/17 05:55: White Blood Count 6.7, Red Blood Count 3.18L, Hemoglobin 9.3L, Hematocrit 29L, Mean Corpuscular Volume 92, Mean Corpuscular Hemoglobin 29, Mean Corpuscular Hemoglobin Concent 32, Red Cell Distribution Width 14.6H, Platelet Count 256, Mean Platelet Volume 10.6H, Neutrophils (%) (Auto) 63, Lymphocytes (%) (Auto) 15 , Monocytes (%) (Auto) 20H, Eosinophils (%) (Auto) 2, Basophils (%) (Auto) 0, Neutrophils # (Auto) 4.2, Lymphocytes # (Auto) 1.0, Monocytes # (Auto) 1.3H, Eosinophils # (Auto) 0.1, Basophils # (Auto) 0.0, Sodium Level 137, Potassium Level 4.5, Chloride Level 103, Carbon Dioxide Level 24, Anion Gap 10, Blood Urea Nitrogen 32H, Creatinine 1.40H, Estimat Glomerular Filtration Rate 49, BUN/ Creatinine Ratio 23, Glucose Level 133H, Calcium Level 8.1L, Magnesium Level 2.0 10/31/17 06:46: Glucometer 142H A/P: Assessment/Dx: Syncope, Status post-aortic valve replacement, Hypertension, Orthostatic hypotension, Irregular heart rhythm, PVCs Pericardial effusion. DM Plan: Syncope: Echocardiogram showed hyperdynamic LV function with suggest likely dehydration. Generous hydration was recommended. Telemetry. Orthostatic hypotension: Hold amlodipine. Continue beta aman. Behavioral modification was discussed with the patient. Atrial fibrillation: Continue metoprolol. Continue telemetry. Patient on Eliquis. Pericardial effusion: Mild to moderate pericardial effusion on echocardiogram without evidence of tamponade physiology. Follow-up echocardiogram showed no increase in pericardial effusion. No evidence of tamponade physiology. No indication for pericardiocentesis at this point. PVCs: On metoprolol. Hypertension: DC amlodipine. Continue metoprolol. Status post-aortic valve replacement: Normal prosthetic aortic valve on echocardiogram. Thank you for your consultation. Please call me if you have any questions. Saul Ochoa MD, FACP, FACC, FSCAI, FHRS, CCDS Interventional Cardiology Cardiac Electrophysiology Vascular Medicine and Endovascular Interventions Renea OCHOA MD Oct 31, 2017 11:44 am
[2017-10-31 18:00] VITALS: BP 117/73
[2017-11-01 06:00] VITALS: BP 119/83
--- NOTE | 2017-11-01 06:07 | Pulmonary Progress Note ---
Subjective Time Seen by Provider: 08:32 Subjective/Events-last exam No complications noted. Exam Exam Vital Signs Date Time Temp Pulse Resp B/P (MAP) Pulse Ox O2 Delivery O2 Flow Rate FiO2 11/01/17 02:11 100 24 90 5.00 11/01/17 01:00 109 11/01/17 00:04 81 22 91 5.00 10/31/17 21:13 75 24 98 5.00 10/31/17 21:00 Nasal Cannula 4.00 10/31/17 20:43 Nasal Cannula 4.00 10/31/17 19:00 107 10/31/17 18:00 96.6 100 22 117/73 (88) 92 Nasal Cannula 4.00 10/31/17 17:07 105 10/31/17 09:00 Nasal Cannula 4.00 10/31/17 08:33 93 Nasal Cannula 4.00 10/31/17 07:00 116 I & O 11/01/17 07:00 Intake Total 600 ml Output Total 275 ml Balance 325 ml General Appearance: No Apparent Distress, WD/WN HEENT: PERRL/EOMI, Normal ENT Inspection, Pharynx Normal Respiratory: No Accessory Muscle Use, No Respiratory Distress, Decreased Breath Sounds Cardiovascular: Regular Rate, Rhythm, No Edema, No Gallop Gastrointestinal: non tender, distended Extremity: Normal Capillary Refill, No Pedal Edema Neurologic/Psychiatric: Alert, Oriented x3 Skin: Normal Color, Warm/Dry Lymphatic: No Adenopathy Results Lab Laboratory Tests 10/30/17 07:02 10/31/17 05:55 Assessment/Plan Assessment/Plan Chronic respiratory failure Pulmonary edema with small bilateral pleural effusions and hypoxia -monitor Hx of recent valvular replacement 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
[2017-11-01] MEDS: inSUlin (REGULAR) HUMAN 1 UNIT/0.01 ML (CHARGE PER UNIT) SC SCH ×4 (06:15→20:44)
[2017-11-01] MEDS: ASCORBIC ACID (VIT C) 500 MG TABLET PO SCH (06:36)
[2017-11-01] MEDS: MULTIVIT W/MINERALS TAB (THERAGRAN M) PO SCH (06:36)
[2017-11-01 06:38] LABS: BASOPHILS % (AUTO) 0 % (0-10); EOSINOPHILS # (AUTO) 0.1 10^3/uL (0.0-0.3); EOSINOPHILS % (AUTO) 1 % (0-10); HEMATOCRIT 29 % (40-54); HEMOGLOBIN 9.5 G/DL (13.3-17.7); LYMPHOCYTES % (AUTO) 13 % (12-44); MEAN CORPUSCULAR HEMOGLOBIN 30 PG (25-34); MEAN CORPUSCULAR HGB CONC 32 G/DL (32-36); MEAN CORPUSCULAR VOLUME 92 FL (80-99); MEAN PLATELET VOLUME 10.8 FL (7.4-10.4); MONOCYTES # (AUTO) 1.4 X 10^3 (0.0-1.0); MONOCYTES % (AUTO) 17 % (0-12); NEUTROPHILS # (AUTO) 5.5 X 10^3 (1.8-7.8); NEUTROPHILS % (AUTO) 69 % (42-75); PLATELET COUNT 247 10^3/uL (130-400); RED CELL DISTRIBUTION WIDTH 14.7 % (10.0-14.5); WHITE BLOOD COUNT 7.9 10^3/uL (4.3-11.0)
[2017-11-01 06:49] LABS: CALCIUM 8.3 MG/DL (8.5-10.1); CREATININE SERUM 1.43 MG/DL (0.60-1.30); MAGNESIUM 1.8 MG/DL (1.8-2.4); PHOSPHORUS 2.9 MG/DL (2.3-4.7); POTASSIUM 4.5 MMOL/L (3.6-5.0)
--- NOTE | 2017-11-01 07:35 | Diagnostic Imaging Report ---
INDICATION: Shortness of air. COMPARISON: 10/31/2017. FINDINGS: Single frontal radiographic view of the chest was obtained and demonstrates persistent moderate cardiomegaly. Pulmonary vasculature remain slightly prominent. Lungs continue to show slight prominence of the interstitium. There is persistent complete obscuration of the left lower lung field. No large effusion is seen on the right. There is no pneumothorax. Overall, aeration is stable. Sternotomy wires are noted. IMPRESSION: 1. Overall stable exam of the chest showing left basilar airspace disease, which may be on the basis of effusion with atelectasis and/or infiltrate. 2. Cardiomegaly with mild pulmonary vascular congestion. Dictated by: Dictated on workstation # [id number]
[2017-11-01] MEDS: meTOprolol TARTRATE 50 MG (LOPRESSOR) TAB PO SCH (08:51)
[2017-11-01] MEDS: APIXABAN 2.5 MG (ELIQUIS) TABLET PO SCH ×2 (08:51→20:00)
[2017-11-01] MEDS: ASPIRIN E.C. 81 MG (ECOTRIN) TAB PO SCH (08:51)
--- NOTE | 2017-11-01 09:02 | Progress Note (SOAP) ---
Subjective Time Seen by Provider: 09:00 Subjective/Events-last exam Patient short-winded. Pulse ox on good. Patient moves a little and then has to stop Objective Exam Vital Signs Date Time Temp Pulse Resp B/P (MAP) Pulse Ox O2 Delivery O2 Flow Rate FiO2 11/01/17 08:20 92 Nasal Cannula 4.00 11/01/17 06:00 98.1 69 22 119/83 (95) 91 Nasal Cannula 4.00 11/01/17 02:11 100 24 90 5.00 11/01/17 01:00 109 11/01/17 00:04 81 22 91 5.00 10/31/17 21:13 75 24 98 5.00 10/31/17 21:00 Nasal Cannula 4.00 10/31/17 20:43 Nasal Cannula 4.00 10/31/17 19:00 107 10/31/17 18:00 96.6 100 22 117/73 (88) 92 Nasal Cannula 4.00 10/31/17 17:07 105 I & O 11/01/17 07:00 Intake Total 940 ml Output Total 875 ml Balance 65 ml Capillary Refill : General Appearance: No Apparent Distress, WD/WN Results Lab Laboratory Tests 10/31/17 11:29: Glucometer 246H 10/31/17 15:53: Phosphorus Level 3.2 10/31/17 16:36: Glucometer 243H 10/31/17 20:48: Glucometer 192H 11/01/17 05:36: Glucometer 182H 11/01/17 06:18: White Blood Count 7.9, Red Blood Count 3.20L, Hemoglobin 9.5L, Hematocrit 29L, Mean Corpuscular Volume 92, Mean Corpuscular Hemoglobin 30, Mean Corpuscular Hemoglobin Concent 32, Red Cell Distribution Width 14.7H, Platelet Count 247, Mean Platelet Volume 10.8H, Neutrophils (%) (Auto) 69, Lymphocytes (%) (Auto) 13 , Monocytes (%) (Auto) 17H, Eosinophils (%) (Auto) 1, Basophils (%) (Auto) 0, Neutrophils # (Auto) 5.5, Lymphocytes # (Auto) 1.0, Monocytes # (Auto) 1.4H, Eosinophils # (Auto) 0.1, Basophils # (Auto) 0.0, Sodium Level 137, Potassium Level 4.5, Chloride Level 105, Carbon Dioxide Level 24, Anion Gap 8, Blood Urea Nitrogen 32H, Creatinine 1.43H, Estimat Glomerular Filtration Rate 47, BUN/ Creatinine Ratio 22, Glucose Level 163H, Calcium Level 8.3L, Phosphorus Level 2.9, Magnesium Level 1.8 Assessment/Plan Assessment/Plan Assess & Plan/Chief Complaint Aortic valve replacement. Renal insufficiency. Diabetes. Weakness. Short of breath on oxygen. . 10/29/17. Aortic valve replacement. Renal insufficiency improving. Diabetes under control. Weakness. short of breath. . aortic valve replacement. Renal insufficiency. Diabetes. Short of breath. Patient limited with shortness of breath Clinical Quality Measures DVT/VTE Risk/Contraindication: Risk Factor Score Per Nursin RFS Level Per Nursing on Admit: 4+=Very High KINA CALDERON DO Nov 01, 2017 09:02
--- NOTE | 2017-11-01 10:05 | Cardiology Progress Note ---
Cardiology SOAP Progress Note Subjective: Tachycardic Objective: I&O/Vital Signs Vital Sign - Last 12Hours 11/01/17 11/01/17 11/01/17 11/01/17 00:04 01:00 02:11 06:00 Temp 98.1 Pulse 81 109 100 69 Resp 22 24 22 B/P (MAP) 119/83 (95) Pulse Ox 91 90 91 O2 Delivery Nasal Cannula O2 Flow Rate 5.00 5.00 4.00 11/01/17 08:20 Pulse Ox 92 O2 Delivery Nasal Cannula O2 Flow Rate 4.00 Intake and Output 11/01/17 00:00 Intake Total 600 ml Output Total 275 ml Balance 325 ml Weight (Pounds): 237 Weight (Ounces): 6.0 Weight (Calculated Kilograms): 107.105000 Constitutional: AAO x 3 Respiratory: No accessory muscle use, No respiratory distress, No chest tender , No chest expansion is symmetric, chest is bilaterally symmetric, lungs clear to percussion, lungs clear to auscultation, No crackles, No rhonchi, No rales, No stridor, No wheezing, No pleural rub, No other Cardiovascular: regular rate-rhythm, No irregularly irregular, No extra beats, No parasternal heave is noted, No JVD, No edema, No bradycardia, tachycardia, No point of maximal impulse, No cardiac thrills are palpable, S1 and S2, No gallop/S3, No gallop/S4, No diastolic murmur, No systolic murmur, No friction rub, No click, No other Gastrointestional: No tender, No soft, No round, No distended, No pulsatile mass, No organomegaly, No guarding, No rebound, No tenderness, No hernia, No mass, No audible bowel sounds, No abnormal bowel sounds, No abdominal bruits, No spleenomegaly, No other Extremities: No normal range of motion, No non-tender, No normal inspection, No pedal edema, No calf tenderness, No normal capillary refill, No pelvis stable , No calf tenderness, No inflammation, No pedal edema, No slow capillary refill , No swelling, No other, No abrasion, No clubbing, No cyanosis, No ecchymosis, No laceration, No no lower extremity edema bilateral, No significant edema, No tenderness, No wound Neurologic/Psychiatric: No water control supervisor II-XII nml as tested, No no motor/sensory deficits, alert, normal mood/affect, oriented x 3, No abnormal cerebellar tests , No abnormal water control supervisor II-XII, No abnormal gait, No aphasia, No EOM palsy, No facial droop, No motor weakness, No sensory deficit, No depressed affect, No disoriented x 3, No other, No grossly intact, No power is 5/5 both on sides Skin: No normal color, No warm/dry, No cyanosis, No cool, No diaphoresis, No damp, No ecchymosis, No jaundice, No mottled, No pallor, No rash, No tattoos/ piercings, No ulcerations, No rash on exposed areas, No ulcerations on exposed areas, No other Results/Procedures: Labs Laboratory Tests 10/31/17 11:29: Glucometer 246H 10/31/17 15:53: Phosphorus Level 3.2 10/31/17 16:36: Glucometer 243H 10/31/17 20:48: Glucometer 192H 11/01/17 05:36: Glucometer 182H 11/01/17 06:18: White Blood Count 7.9, Red Blood Count 3.20L, Hemoglobin 9.5L, Hematocrit 29L, Mean Corpuscular Volume 92, Mean Corpuscular Hemoglobin 30, Mean Corpuscular Hemoglobin Concent 32, Red Cell Distribution Width 14.7H, Platelet Count 247, Mean Platelet Volume 10.8H, Neutrophils (%) (Auto) 69, Lymphocytes (%) (Auto) 13 , Monocytes (%) (Auto) 17H, Eosinophils (%) (Auto) 1, Basophils (%) (Auto) 0, Neutrophils # (Auto) 5.5, Lymphocytes # (Auto) 1.0, Monocytes # (Auto) 1.4H, Eosinophils # (Auto) 0.1, Basophils # (Auto) 0.0, Sodium Level 137, Potassium Level 4.5, Chloride Level 105, Carbon Dioxide Level 24, Anion Gap 8, Blood Urea Nitrogen 32H, Creatinine 1.43H, Estimat Glomerular Filtration Rate 47, BUN/ Creatinine Ratio 22, Glucose Level 163H, Calcium Level 8.3L, Phosphorus Level 2.9, Magnesium Level 1.8 A/P: Assessment/Dx: Syncope, Status post-aortic valve replacement, Hypertension, Orthostatic hypotension, Irregular heart rhythm, PVCs Pericardial effusion. DM Plan: Syncope: Echocardiogram showed hyperdynamic LV function with suggest likely dehydration. Generous hydration was recommended. Telemetry. Orthostatic hypotension: Hold amlodipine. Continue beta aman. Behavioral modification was discussed with the patient. Atrial fibrillation: Continue metoprolol. Continue telemetry. Patient on Eliquis. Increase dose of metoprolol. Pericardial effusion: Mild to moderate pericardial effusion on echocardiogram without evidence of tamponade physiology. Follow-up echocardiogram showed no increase in pericardial effusion. No evidence of tamponade physiology. No indication for pericardiocentesis at this point. PVCs: On metoprolol. Hypertension: DC amlodipine. Continue metoprolol. Status post-aortic valve replacement: Normal prosthetic aortic valve on echocardiogram. Thank you for your consultation. Please call me if you have any questions. Saul Ochoa MD, FACP, FACC, FSCAI, FHRS, CCDS Interventional Cardiology Cardiac Electrophysiology Vascular Medicine and Endovascular Interventions Renea OCHOA MD Nov 01, 2017 10:05
--- NOTE | 2017-11-01 10:10 | Occupational Ther Daily Note ---
OT Current Status-Daily Note Subjective Pt seen in room, up in recliner, agreeable to OT. No pain mentioned. Appearance Alert, cooperative Mental Status/Objective Functional [place] Measure 0=Not Assessed/NA 4=Minimal Assistance 1=Total Assistance 5=Supervision or Setup 2=Maximal Assistance 6=Modified [place] 3=Moderate Assistance 7=Complete [place] ADL-Treatment Pt was very short of breath and needed to stop for recovery periods after a few movements or steps during ADLs. As a result, all ADLs took longer than usual. O2 sats remained in the 90s but hear rate was variable. Nursing reported a call from telemetry that heart rate was irregular and as high as 150, recommending that pt "take a break". Functional [place] Measure 0=Not Assessed/NA 4=Minimal Assistance 1=Total Assistance 5=Supervision or Setup 2=Maximal Assistance 6=Modified [place] 3=Moderate Assistance 7=Complete IndependenceIRFPAI Quality Coding Scale 6 Independent with activity with or without an assistive device 5 Patient requires set up or clean up by helper. Patient completes activity by themselves 4 Supervision or touching assist (CGA). [place] provide cues , steadying assist 3 The helper provides less than half the effort to complete the activity 2 The helper provides more than half the effort to complete the activity 1 Dependent. The helper does all the effort to complete an activity 7 Patient refused to complete or attempt activity 9 The patient did not perform the activity before the current illness or injury 88 Not attempted due to Medical conditions or safety concerns Bathing (FIM): 3 (Able to wash with sponge bath. Pt unable to get good amina washing due to significant edema, including genitals. Pierre tubing washed. ) Bathing Location: L Arm, R Arm, L Upper Leg, R Upper Leg, Chest, Abdomen Upper Body (FIM): 3 (Pt needed help to get shirt off over head. He was able to thread arms in but needed help to get shirt over head and pulled down.) Lower Body Dressing (FIM): 2 (Pt needed min assist to stand from lift chair, raised up. he could maintain standing but was unable to lanette hands loose to help pull pants up or push them down. He could get pants up and down from thighs to calves but was unable to get pants on over feet. He used a dressing stick to push pants and socks off feet but was too tired to put socks on. FWW) Pt was left up in recliner (did not have pants on because new ones put on were too tight and he was too fatigued to put others on, but he was well covered.) Resting in recliner, legs elevated, O2 in place, all needs met. Education OT Patient Education: Energy conservation, Modified ADL techniques, Progress toward Goal/Update tx plan, Purpose of tx/functional activities, Use of adapted equipment Teaching Recipient: Patient Teaching Methods: Demonstration, Discussion Response to Teaching: Verbalize Understanding, Return Demonstration, Reinforcement Needed OT Short Term Goals Short Term Goals Time Frame: Nov 11, 2017 Toileting(FIM): 3 Toilet/Commode Transfer(FIM): 3 Additional Short Term Goals: 1-Demonstrate ADL Tasks, 2-Verbalize Understanding , 3-ImproveStrength/Rochelle 1=Demonstrate adherence to instructed precautions during ADL tasks. 2=Patient will verbalize/demonstrate understanding of assistive devices/ modifications for ADL. 3=Patient will improve strength/tolerance for activity to enable patient to perform ADL's. OT Fdc Goals Escort Patients Goals Time Frame: Nov 18, 2017 Eating (FIM): 6 Eating (QC): 6 Groomin Oral Hygiene (QC): 6 Bathing(FIM): 6 Shower/Bathe Self (QC): 6 Upper Body Dressing(FIM): 6 Upper Body Dressing (QC): 6 Lower Body Dressing(FIM): 5 Lower Body Dressing (QC): 5 On/Off Footwear (QC): 5 Toileting(FIM): 5 Toileting Hygiene (QC): 5 Toilet/Commode Transfer(FIM): 6 Toilet/Commode Transfer (QC): 6 Tub Transfer(FIM): 5 Shower Transfer(FIM): 5 Additional Goals: 1-Demonstrate ADL Tasks, 2-Verbalize Understanding, 3- ImproveStrength/Rochelle 1=Demonstrate adherence to instructed precautions during ADL tasks. 2=Patient will verbalize/demonstrate understanding of assistive devices/ modifications for ADL. 3=Patient will improve strength/tolerance for activity to enable patient to perform ADL's. OT Education/Plan Problem List/Assessment Pt would benefit from skilled OT to increase his independence in basic self care to allow him to safely return to his home and to decrease caregiver burden. Discharge Recommendations Plan/Recommendations: Continue POC Treatment Plan/Plan of Care Patient would benefit from OT for education, treatment and training to promote independence in ADL's, mobility, safety and/or upper extremity function for ADL' s. Plan of Care: ADL Retraining, Functional Mobility, Group Exercise/Act as Ind ( education, exercise, act kit, socialization, funct activities), UE Funct Exercise/Act, UE Neuromus Re-Ed/Coord Treatment Duration: Nov 18, 2017 Frequency: At least 5 of 7 days/Wk (IRF) Estimated Hrs Per Day: 1.5 hours per day Agreement: Yes Rehab Potential: Fair Time/GCodes Start Time: 08:30 Stop Time: 09:30 Total Time Billed (hr/min): 60 Billed Treatment Time visit, ADL 60 minutes JOSE PACHECO OT Nov 01, 2017 10:10
--- NOTE | 2017-11-01 11:26 | Physical Therapy Daily Note ---
PT Daily Note-Current Subjective Pt is sitting in the recliner in room pre tx and has no complaints of pain. Pt agrees to PT. Patient has been very SOB and has had an elevated HR. Telemetry called OT during treatment and stated that his HR was up to 150bpm. Pain Numeric Pain Scale: 0-No Pain Location: No Pain Reported Appearance Pt is sitting in recliner post tx with nurse call, phone, and tray within reach. Mental Status Patient Orientation: Person, Place, Situation Attachments: Oxygen (5 L), Pierre Catheter Transfers Functional [place] Measure 0=Not Assessed/NA 4=Minimal Assistance 1=Total Assistance 5=Supervision or Setup 2=Maximal Assistance 6=Modified [place] 3=Moderate Assistance 7=Complete IndependenceIRFPAI Quality Coding Scale 6 Independent with activity with or without an assistive device 5 Patient requires set up or clean up by helper. Patient completes activity by themselves 4 Supervision or touching assist (CGA). [place] provide cues , steadying assist 3 The helper provides less than half the effort to complete the activity 2 The helper provides more than half the effort to complete the activity 1 Dependent. The helper does all the effort to complete an activity 7 Patient refused to complete or attempt activity 9 The patient did not perform the activity before the current illness or injury 88 Not attempted due to Medical conditions or safety concerns Transfers (B, C, W/C) (FIM): 4 Sit to/from Stand: 4 Min A necessary for sit to stand and verbal cues needed for hand placement and safety. Weight Bearing Right Lower Extremity: Right Weight Bearing/Tolerated Left Lower Extremity: Left Weight Bearing/Tolerated Gait Training Does the Patient Walk?: Yes Wheelchair Training Does the Pt Use a Wheelchair?: Yes Exercises Seated Therapy Exercises: Ankle pumps, Long arc quads (20 x2 BLE), Hip flexion , Hip abd/add Treatments Pt performed functional mobility and LE exercises. Assessment Current Status: Fair Progress Pt O2 sat stayed fairly steady during treatment at about 95%. In sitting, pulse was 108 and increased to 120 with recliner to [facility] transfer. Due to pt having poor activity tolerance, pt performed exercises in sitting rather than in supine. He did not perform any ambulation today due to HR increasing rapidly to a high rate. PT Short Term Goals Short Term Goals Time Frame: Nov 04, 2017 Gait (FIM): 4 Gait Distance Comment: 150 feet Gait Assistive Device: FWW PT Chcf Goals Chcf Goals PT Director Card Goals Time Frame: Nov 18, 2017 Transfers (B,C,W/C) (FIM): 6 Sit to Lying (QC): 6 Lying-Sitting on Side/Bed(QC): 6 Sit to Stand (QC): 6 Rollin Roll Left to Right (QC): 6 Chair/[id number] Xfer(QC): 6 Car Transfer (QC): 6 Does the Patient Walk: Yes Gait (FIM): 6 Distance: 200 feet Walk 10 feet (QC): 6 Walk 10ft-Uneven Surface(QC): 6 Walk 50ft with 2 Turns (QC): 6 Walk 150 ft (QC): 6 Gait Level of Assist: 6 Gait Assistive Device: FWW Does the Pt use WC or Scooter?: No Stairs (FIM): 2 # of Steps: 4 1 Step (curb) (QC): 6 4 Steps (QC): 6 12 Steps (QC): 6 Stairs Level Of Assist: 6 Picking up an Object (QC): 6 PT Plan Problem List Problem List: Activity Tolerance, Functional Strength, Safety, Balance, Gait, Transfer, Bed Mobility, ROM Treatment/Plan Treatment Plan: Continue Plan of Care Treatment Plan: Bed Mobility, Education, Functional Activity [place]helle, Functional Strength, Group Therapy, Gait, Safety, Therapeutic Exercise, Transfers Treatment Duration: Nov 18, 2017 Frequency: Modified Program (IRF) (03/04 due to oxygen sats dropping with activity. ) Estimated Hrs Per Day: 1.5 hours per day (modified to be 15 hours in 7 days) Patient and/or Family Agrees t: Yes Safety Risks/Education Patient Education: Transfer Techniques, Reviewed Precautions, Correct Positioning, Safety Issues Teaching Recipient: Patient Teaching Methods: Demonstration, Discussion Response to Teaching: Reinforcement Needed Time/GCodes Time In: 930 Time Out: 1015 Total Billed Treatment Time: 45 Total Billed Treatment 1 visit 20 min FA 25 min EX RACHEL RITTER PT Nov 01, 2017 11:26
[2017-11-01] MEDS ORDERED: FUROSEMIDE 40 MG/4 ML INJ (LASIX) IVP NR (14:30)
[2017-11-01] MEDS: RT-ALBUTEROL/IPRATROPIUM 3 ML (DUONEB) VIAL INH SCH ×2 (14:51→20:45)
--- NOTE | 2017-11-01 14:59 | Therapy Group Daily Note ---
Therapy Daily Group Note Patient Education Topic Home Safety, Fall Prevention, Home Safety, Energy Cons, Exercises Exercises LE Seated Exercise, UE Exercise Other/Notes Each pt either walked, propelled [facility], or were transported by [facility] to the group therapy session. Pt participated in socialization with other individuals admitted to the IRF. Each pt was educated on safety in the home. For stairs, focus included using handrails on both sides at adequate height. For safety in the kitchen, pt was educated on placing emergency info on the refrigerator, placing sharp objects in a drawer, tapping down a rug near the sink to prevent slipping, and utilizing adequate lighting to prevent falls. In the bedroom, the pt was educated on keeping the bedroom clean, placing cords near the wall, and using an adequate lighting source. Pt demonstrated active listening skills by contributing to the discussion on what they did to ensure safety in their own home. In his home, pt moved cords to wall in order to prevent falling. Pt performed exercises and lead the group in an exercise. Exercises included UE and LE as well as neck and core exercises. At the conclusion of tx, each pt was taken back to their rooms by way of walking, propelling [facility], or transportation by [facility]. Start Time: 13:00 Stop Time: 14:30 Total Billed Treatment Time: 90 Total Billed Treatment 1 visit 90 min MARIXA CHOI PT Nov 01, 2017 14:58
[2017-11-01 18:25] VITALS: BP 120/73
--- NOTE | 2017-11-01 18:47 | PM & R (SOAP) Progress Note ---
Subjective Time Seen by Provider: 18:40 Subjective/Events-last exam Patient was seen in his room sitiing in chair with legs elevated Pierre to DD Patient min assist for transfers Patient with dyspnea on exertion DR Ochoa and Milind following Meds being adjusted for a fib rate goes to 150 with therapies. Review of Systems Pulmonary: Dyspnea Neurological: Weakness Objective Exam Last Set of Vital Signs Vital Signs Date Time Temp Pulse Resp B/P (MAP) Pulse Ox O2 Delivery O2 Flow Rate FiO2 11/01/17 18:25 96.9 75 20 120/73 (89) 93 Nasal Cannula 5.00 Capillary Refill : I&O Intake and Output 11/01/17 00:00 Intake Total 1400 ml Output Total 875 ml Balance 525 ml Intake Oral 1400 ml Output Urine Total 875 ml General: Alert, Oriented X3, Cooperative, No Acute Distress HEENT: Atraumatic, PERRLA, EOMI, Mucous Memb Moist/[place] Neck: Supple, No JVD Lungs: Clear to Auscultation Heart: Regular Rate Abdomen: Normal Bowel Sounds, Soft, No Tenderness, Other (abdomen distended KUB ordered) Skin: Other (midline sternal incision site healing well) Neuro: Other (Generalized weakness limited endurance) Psych/Mental Status: Mental Status NL Results Lab Laboratory Tests 10/29/17 21:34: Glucometer 162H 10/30/17 04:45: Glucometer 158H 10/30/17 07:02: White Blood Count 10.2, Red Blood Count 3.33L, Hemoglobin 9.8L, Hematocrit 30L, Mean Corpuscular Volume 91, Mean Corpuscular Hemoglobin 29, Mean Corpuscular Hemoglobin Concent 32, Red Cell Distribution Width 14.6H, Platelet Count 316, Mean Platelet Volume 10.9H, Neutrophils (%) (Auto) 70, Lymphocytes (%) (Auto) 10L, Monocytes (%) (Auto) 19H, Eosinophils (%) (Auto) 1, Basophils (%) (Auto) 0 , Neutrophils # (Auto) 7.1, Lymphocytes # (Auto) 1.1, Monocytes # (Auto) 2.0H, Eosinophils # (Auto) 0.1, Basophils # (Auto) 0.0, Neutrophils % (Manual) 70, Lymphocytes % (Manual) 12, Monocytes % (Manual) 17, Eosinophils % (Manual) 0, Basophils % (Manual) 0, Band Neutrophils 1, Blood Morphology Comment NORMAL, Sodium Level 135, Potassium Level 4.6, Chloride Level 102, Carbon Dioxide Level 23, Anion Gap 10, Blood Urea Nitrogen 32H, Creatinine 1.42H, Estimat Glomerular Filtration Rate 48, BUN/Creatinine Ratio 23, Glucose Level 189H, Calcium Level 8.2L, Phosphorus Level 2.7, Magnesium Level 1.9 10/30/17 12:19: Glucometer 227H 10/30/17 16:58: Glucometer 212H 10/30/17 20:57: Glucometer 146H 10/31/17 05:55: White Blood Count 6.7, Red Blood Count 3.18L, Hemoglobin 9.3L, Hematocrit 29L, Mean Corpuscular Volume 92, Mean Corpuscular Hemoglobin 29, Mean Corpuscular Hemoglobin Concent 32, Red Cell Distribution Width 14.6H, Platelet Count 256, Mean Platelet Volume 10.6H, Neutrophils (%) (Auto) 63, Lymphocytes (%) (Auto) 15 , Monocytes (%) (Auto) 20H, Eosinophils (%) (Auto) 2, Basophils (%) (Auto) 0, Neutrophils # (Auto) 4.2, Lymphocytes # (Auto) 1.0, Monocytes # (Auto) 1.3H, Eosinophils # (Auto) 0.1, Basophils # (Auto) 0.0, Sodium Level 137, Potassium Level 4.5, Chloride Level 103, Carbon Dioxide Level 24, Anion Gap 10, Blood Urea Nitrogen 32H, Creatinine 1.40H, Estimat Glomerular Filtration Rate 49, BUN/ Creatinine Ratio 23, Glucose Level 133H, Calcium Level 8.1L, Magnesium Level 2.0 10/31/17 06:46: Glucometer 142H 10/31/17 11:29: Glucometer 246H 10/31/17 15:53: Phosphorus Level 3.2 10/31/17 16:36: Glucometer 243H 10/31/17 20:48: Glucometer 192H 11/01/17 05:36: Glucometer 182H 11/01/17 06:18: White Blood Count 7.9, Red Blood Count 3.20L, Hemoglobin 9.5L, Hematocrit 29L, Mean Corpuscular Volume 92, Mean Corpuscular Hemoglobin 30, Mean Corpuscular Hemoglobin Concent 32, Red Cell Distribution Width 14.7H, Platelet Count 247, Mean Platelet Volume 10.8H, Neutrophils (%) (Auto) 69, Lymphocytes (%) (Auto) 13 , Monocytes (%) (Auto) 17H, Eosinophils (%) (Auto) 1, Basophils (%) (Auto) 0, Neutrophils # (Auto) 5.5, Lymphocytes # (Auto) 1.0, Monocytes # (Auto) 1.4H, Eosinophils # (Auto) 0.1, Basophils # (Auto) 0.0, Sodium Level 137, Potassium Level 4.5, Chloride Level 105, Carbon Dioxide Level 24, Anion Gap 8, Blood Urea Nitrogen 32H, Creatinine 1.43H, Estimat Glomerular Filtration Rate 47, BUN/ Creatinine Ratio 22, Glucose Level 163H, Calcium Level 8.3L, Phosphorus Level 2.9, Magnesium Level 1.8 11/01/17 11:19: Glucometer 258H 11/01/17 16:02: Glucometer 196H Assessment/Plan Assessment general debil s/p AVR DR Kruse OSH Postop resp insufficiency with associated cardiomegaly and atelectasis receiving treatments and 02 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
[2017-11-02 04:37] VITALS: BP 99/62
[2017-11-02] MEDS: MULTIVIT W/MINERALS TAB (THERAGRAN M) PO SCH (05:50)
[2017-11-02] MEDS: ASCORBIC ACID (VIT C) 500 MG TABLET PO SCH (05:50)
[2017-11-02] MEDS: inSUlin (REGULAR) HUMAN 1 UNIT/0.01 ML (CHARGE PER UNIT) SC SCH ×4 (05:50→20:44)
[2017-11-02 06:32] LABS: BASOPHILS % (AUTO) 0 % (0-10); EOSINOPHILS # (AUTO) 0.1 10^3/uL (0.0-0.3); EOSINOPHILS % (AUTO) 1 % (0-10); HEMATOCRIT 30 % (40-54); HEMOGLOBIN 9.3 G/DL (13.3-17.7); LYMPHOCYTES # (AUTO) 1.3 X 10^3 (1.0-4.0); LYMPHOCYTES % (AUTO) 17 % (12-44); MEAN CORPUSCULAR HEMOGLOBIN 28 PG (25-34); MEAN CORPUSCULAR HGB CONC 31 G/DL (32-36); MEAN CORPUSCULAR VOLUME 92 FL (80-99); MEAN PLATELET VOLUME 10.9 FL (7.4-10.4); MONOCYTES # (AUTO) 1.2 X 10^3 (0.0-1.0); MONOCYTES % (AUTO) 16 % (0-12); NEUTROPHILS % (AUTO) 66 % (42-75); PLATELET COUNT 247 10^3/uL (130-400); RED BLOOD COUNT 3.29 10^6/uL (4.35-5.85); RED CELL DISTRIBUTION WIDTH 14.9 % (10.0-14.5); WHITE BLOOD COUNT 7.6 10^3/uL (4.3-11.0)
[2017-11-02 06:55] LABS: CALCIUM 8.3 MG/DL (8.5-10.1); CREATININE SERUM 1.66 MG/DL (0.60-1.30); MAGNESIUM 1.9 MG/DL (1.8-2.4); PHOSPHORUS 3.9 MG/DL (2.3-4.7); POTASSIUM 4.3 MMOL/L (3.6-5.0)
[2017-11-02] MEDS: RT-ALBUTEROL/IPRATROPIUM 3 ML (DUONEB) VIAL INH SCH ×4 (07:10→18:58)
[2017-11-02] MEDS: ASPIRIN E.C. 81 MG (ECOTRIN) TAB PO SCH (07:59)
[2017-11-02] MEDS: APIXABAN 2.5 MG (ELIQUIS) TABLET PO SCH ×2 (07:59→20:08)
[2017-11-02] MEDS: meTOprolol TARTRATE 50 MG (LOPRESSOR) TAB PO SCH ×2 (07:59→20:08)
--- NOTE | 2017-11-02 08:40 | Progress Note (SOAP) ---
Subjective Time Seen by Provider: 08:40 Subjective/Events-last exam Patient feels that short of breath is better. Patient has renal insufficiency. Patient feels he is improving Objective Exam Vital Signs Date Time Temp Pulse Resp B/P (MAP) Pulse Ox O2 Delivery O2 Flow Rate FiO2 11/02/17 07:10 94 Nasal Cannula 5.00 11/02/17 04:37 98.1 53 20 99/62 (74) 94 NIV Bilevel 11/02/17 03:38 84 20 82 5.00 11/02/17 01:00 115 11/02/17 00:20 84 20 86 5.00 11/01/17 20:50 92 Nasal Cannula 5.00 11/01/17 20:45 77 20 90 5.00 11/01/17 20:45 Nasal Cannula 4.00 11/01/17 19:00 115 11/01/17 18:25 96.9 75 20 120/73 (89) 93 Nasal Cannula 5.00 11/01/17 14:52 92 Nasal Cannula 5.00 11/01/17 13:00 101 11/01/17 13:00 87 11/01/17 09:00 Nasal Cannula 4.00 I & O 11/02/17 07:00 Intake Total 1410 ml Output Total 2050 ml Balance -640 ml Capillary Refill : General Appearance: No Apparent Distress, WD/WN Results Lab Laboratory Tests 11/02/17 06:15 Laboratory Tests 11/01/17 11:19: Glucometer 258H 11/01/17 16:02: Glucometer 196H 11/01/17 20:31: Glucometer 190H 11/02/17 04:44: Glucometer 247H 11/02/17 06:15: White Blood Count 7.6, Red Blood Count 3.29L, Hemoglobin 9.3L, Hematocrit 30L, Mean Corpuscular Volume 92, Mean Corpuscular Hemoglobin 28, Mean Corpuscular Hemoglobin Concent 31L, Red Cell Distribution Width 14.9H, Platelet Count 247, Mean Platelet Volume 10.9H, Neutrophils (%) (Auto) 66, Lymphocytes (%) (Auto) 17 , Monocytes (%) (Auto) 16H, Eosinophils (%) (Auto) 1, Basophils (%) (Auto) 0, Neutrophils # (Auto) 5.0, Lymphocytes # (Auto) 1.3, Monocytes # (Auto) 1.2H, Eosinophils # (Auto) 0.1, Basophils # (Auto) 0.0, Sodium Level 138, Potassium Level 4.3, Chloride Level 103, Carbon Dioxide Level 25, Anion Gap 10, Blood Urea Nitrogen 36H, Creatinine 1.66H, Estimat Glomerular Filtration Rate 40, BUN/ Creatinine Ratio 22, Glucose Level 174H, Calcium Level 8.3L, Phosphorus Level 3.9, Magnesium Level 1.9 Assessment/Plan Assessment/Plan Assess & Plan/Chief Complaint Aortic valve replacement. Renal insufficiency. Diabetes. Weakness. Short of breath on oxygen. . 10/29/17. Aortic valve replacement. Renal insufficiency improving. Diabetes under control. Weakness. short of breath. . aortic valve replacement. Renal insufficiency. Diabetes. Short of breath. Patient limited with shortness of breath. . 11/02/17. Aortic valve replacement. Renal insufficiency. Diabetes. Shortness of breath better. Patient working progress Clinical Quality Measures DVT/VTE Risk/Contraindication: Risk Factor Score Per Nursin RFS Level Per Nursing on Admit: 4+=Very High KINA CALDERON DO Nov 02, 2017 08:40
--- NOTE | 2017-11-02 09:45 | Diagnostic Imaging Report ---
INDICATION: Shortness of breath. COMPARISON: 11/01/2017. FINDINGS: There is cardiomegaly. There is some venous congestion. There are bibasilar infiltrates with a left pleural effusion. There is no pneumothorax. There has been a previous median sternotomy. IMPRESSION: Bibasilar infiltrates with a left pleural effusion. Cardiomegaly and some central pulmonary venous congestion. Dictated by: Dictated on workstation # [id number]
--- NOTE | 2017-11-02 09:54 | Occupational Ther Daily Note ---
OT Current Status-Daily Note Mental Status/Objective Functional [place] Measure 0=Not Assessed/NA 4=Minimal Assistance 1=Total Assistance 5=Supervision or Setup 2=Maximal Assistance 6=Modified [place] 3=Moderate Assistance 7=Complete [place] ADL-Treatment Functional [place] Measure 0=Not Assessed/NA 4=Minimal Assistance 1=Total Assistance 5=Supervision or Setup 2=Maximal Assistance 6=Modified [place] 3=Moderate Assistance 7=Complete IndependenceIRFPAI Quality Coding Scale 6 Independent with activity with or without an assistive device 5 Patient requires set up or clean up by helper. Patient completes activity by themselves 4 Supervision or touching assist (CGA). [place] provide cues , steadying assist 3 The helper provides less than half the effort to complete the activity 2 The helper provides more than half the effort to complete the activity 1 Dependent. The helper does all the effort to complete an activity 7 Patient refused to complete or attempt activity 9 The patient did not perform the activity before the current illness or injury 88 Not attempted due to Medical conditions or safety concerns OT Short Term Goals Short Term Goals Time Frame: Nov 11, 2017 Toileting(FIM): 3 Toilet/Commode Transfer(FIM): 3 Additional Short Term Goals: 1-Demonstrate ADL Tasks, 2-Verbalize Understanding , 3-ImproveStrength/Rochelle 1=Demonstrate adherence to instructed precautions during ADL tasks. 2=Patient will verbalize/demonstrate understanding of assistive devices/ modifications for ADL. 3=Patient will improve strength/tolerance for activity to enable patient to perform ADL's. OT Chcf Goals Shellacker Goals Time Frame: Nov 18, 2017 Eating (FIM): 6 Eating (QC): 6 Groomin Oral Hygiene (QC): 6 Bathing(FIM): 6 Shower/Bathe Self (QC): 6 Upper Body Dressing(FIM): 6 Upper Body Dressing (QC): 6 Lower Body Dressing(FIM): 5 Lower Body Dressing (QC): 5 On/Off Footwear (QC): 5 Toileting(FIM): 5 Toileting Hygiene (QC): 5 Toilet/Commode Transfer(FIM): 6 Toilet/Commode Transfer (QC): 6 Tub Transfer(FIM): 5 Shower Transfer(FIM): 5 Additional Goals: 1-Demonstrate ADL Tasks, 2-Verbalize Understanding, 3- ImproveStrength/Rochelle 1=Demonstrate adherence to instructed precautions during ADL tasks. 2=Patient will verbalize/demonstrate understanding of assistive devices/ modifications for ADL. 3=Patient will improve strength/tolerance for activity to enable patient to perform ADL's. OT Education/Plan Problem List/Assessment Pt would benefit from skilled OT to increase his independence in basic self care to allow him to safely return to his home and to decrease caregiver burden. Discharge Recommendations Plan/Recommendations: Continue POC Treatment Plan/Plan of Care Patient would benefit from OT for education, treatment and training to promote independence in ADL's, mobility, safety and/or upper extremity function for ADL' s. Plan of Care: ADL Retraining, Functional Mobility, Group Exercise/Act as Ind ( education, exercise, act kit, socialization, funct activities), UE Funct Exercise/Act, UE Neuromus Re-Ed/Coord Treatment Duration: Nov 18, 2017 Frequency: At least 5 of 7 days/Wk (IRF) Estimated Hrs Per Day: 1.5 hours per day Agreement: Yes Rehab Potential: Fair Time/GCodes Start Time: 08:40 Stop Time: 09:45 Total Time Billed (hr/min): 65 Billed Treatment Time visit, 65 minutes ADL JOSE PACHECO OT Nov 02, 2017 09:54
[2017-11-02 10:08] VITALS: BP 93/65
--- NOTE | 2017-11-02 10:15 | Occupational Ther Daily Note ---
OT Current Status-Daily Note Subjective Pt seen in room, up in recliner, agreeable to OT. Pt said the breathing treatment he had really helped. Appearance Alert, cooperative Mental Status/Objective Functional [place] Measure 0=Not Assessed/NA 4=Minimal Assistance 1=Total Assistance 5=Supervision or Setup 2=Maximal Assistance 6=Modified [place] 3=Moderate Assistance 7=Complete [place] Attachments: Oxygen ADL-Treatment Pt continued to need frequent recovery periods between steps in activities. For example, he rested after getting shirt over head and pulled shirt down later. The longest that he participated in an activity was about 1 minute when he was standing to wash bottom. Heart rate ranged from 50s to over 150 but pulse oxygen stayed around 95%. Recovery periods were typically 3-5 minutes until hear rate was around 80s. Rate continued very variable. At end of tx, pt left up in recliner, all needs met, O2 in place, legs elevated Functional [place] Measure 0=Not Assessed/NA 4=Minimal Assistance 1=Total Assistance 5=Supervision or Setup 2=Maximal Assistance 6=Modified [place] 3=Moderate Assistance 7=Complete IndependenceIRFPAI Quality Coding Scale 6 Independent with activity with or without an assistive device 5 Patient requires set up or clean up by helper. Patient completes activity by themselves 4 Supervision or touching assist (CGA). [place] provide cues , steadying assist 3 The helper provides less than half the effort to complete the activity 2 The helper provides more than half the effort to complete the activity 1 Dependent. The helper does all the effort to complete an activity 7 Patient refused to complete or attempt activity 9 The patient did not perform the activity before the current illness or injury 88 Not attempted due to Medical conditions or safety concerns Grooming (FIM): 5 (Brushed teeth and combed hair with setup, taking a break between activities) Bathing (FIM): 3 (Able to wash and dry parts, taking several recovery periods. Unable to wash feet and back. Difficulty getting into groin creases due to edema. Min assist to stand to have bottom washed, FWW) Bathing Location: L Arm, R Arm, L Upper Leg, R Upper Leg, Chest, Abdomen, Perineal Area (partially) Upper Body (FIM): 5 (Able to take t shirt off and put clean shirt on, with several recovery periods, setup. Maiintained sternal precautions. Heart rate over 150 after putting shirt on. ) Lower Body Dressing (FIM): 3 (Pt used dressing stick to take pants off over feet. Pt educ use of sock aid to put socks on and was able to do it with occ cues and rest break afterwards. Min assist to stand and help to pull pants up over hips. Help to thread connors bag. ) Education OT Patient Education: Energy conservation, Modified ADL techniques, Progress toward Goal/Update tx plan, Purpose of tx/functional activities, Safety issues, Use of adapted equipment Teaching Recipient: Patient Teaching Methods: Demonstration, Discussion Response to Teaching: Verbalize Understanding, Return Demonstration, Reinforcement Needed OT Short Term Goals Short Term Goals Time Frame: Nov 11, 2017 Toileting(FIM): 3 Toilet/Commode Transfer(FIM): 3 Additional Short Term Goals: 1-Demonstrate ADL Tasks, 2-Verbalize Understanding , 3-ImproveStrength/Rochelle 1=Demonstrate adherence to instructed precautions during ADL tasks. 2=Patient will verbalize/demonstrate understanding of assistive devices/ modifications for ADL. 3=Patient will improve strength/tolerance for activity to enable patient to perform ADL's. OT Pharmaceutical Laboratory Technician Goals Retirement Goals Time Frame: Nov 18, 2017 Eating (FIM): 6 Eating (QC): 6 Groomin Oral Hygiene (QC): 6 Bathing(FIM): 6 Shower/Bathe Self (QC): 6 Upper Body Dressing(FIM): 6 Upper Body Dressing (QC): 6 Lower Body Dressing(FIM): 5 Lower Body Dressing (QC): 5 On/Off Footwear (QC): 5 Toileting(FIM): 5 Toileting Hygiene (QC): 5 Toilet/Commode Transfer(FIM): 6 Toilet/Commode Transfer (QC): 6 Tub Transfer(FIM): 5 Shower Transfer(FIM): 5 Additional Goals: 1-Demonstrate ADL Tasks, 2-Verbalize Understanding, 3- ImproveStrength/Rochelle 1=Demonstrate adherence to instructed precautions during ADL tasks. 2=Patient will verbalize/demonstrate understanding of assistive devices/ modifications for ADL. 3=Patient will improve strength/tolerance for activity to enable patient to perform ADL's. OT Education/Plan Problem List/Assessment Pt would benefit from skilled OT to increase his independence in basic self care to allow him to safely return to his home and to decrease caregiver burden. Discharge Recommendations Plan/Recommendations: Continue POC Treatment Plan/Plan of Care Patient would benefit from OT for education, treatment and training to promote independence in ADL's, mobility, safety and/or upper extremity function for ADL' s. Plan of Care: ADL Retraining, Functional Mobility, Group Exercise/Act as Ind ( education, exercise, act kit, socialization, funct activities), UE Funct Exercise/Act, UE Neuromus Re-Ed/Coord Treatment Duration: Nov 18, 2017 Frequency: At least 5 of 7 days/Wk (IRF) Estimated Hrs Per Day: 1.5 hours per day Agreement: Yes Rehab Potential: Fair Time/GCodes Start Time: 08:40 Stop Time: 09:45 Total Time Billed (hr/min): 65 Billed Treatment Time visit, 65 minutes ADL JOSE PACHECO OT Nov 02, 2017 10:15
--- NOTE | 2017-11-02 11:04 | Physical Therapy Daily Note ---
PT Daily Note-Current Subjective Pt is sitting in recliner pre tx with no complaints of pain. Pt agrees to PT. Pain Numeric Pain Scale: 0-No Pain Location: No Pain Reported Appearance Pt is sitting in recliner post tx with nurse call, phone, and tray within reach. Mental Status Patient Orientation: Person, Place Attachments: Oxygen (4 L), Pierre Catheter Telemetry Transfers Functional [place] Measure 0=Not Assessed/NA 4=Minimal Assistance 1=Total Assistance 5=Supervision or Setup 2=Maximal Assistance 6=Modified [place] 3=Moderate Assistance 7=Complete IndependenceIRFPAI Quality Coding Scale 6 Independent with activity with or without an assistive device 5 Patient requires set up or clean up by helper. Patient completes activity by themselves 4 Supervision or touching assist (CGA). [place] provide cues , steadying assist 3 The helper provides less than half the effort to complete the activity 2 The helper provides more than half the effort to complete the activity 1 Dependent. The helper does all the effort to complete an activity 7 Patient refused to complete or attempt activity 9 The patient did not perform the activity before the current illness or injury 88 Not attempted due to Medical conditions or safety concerns Transfers (B, C, W/C) (FIM): 3 Sit to/from Stand: 3 Pt requires multiple attempts to stand from a seated position. Verbal cues for hand placement necessary. Weight Bearing Right Lower Extremity: Right Weight Bearing/Tolerated Left Lower Extremity: Left Weight Bearing/Tolerated Gait Training Does the Patient Walk?: Yes Gait (FIM): 1 Distance: 25 feet x3 Gait Level of Assist: 4 Gait Persons Needed: 1 Gait Assistive Device: FWW Wheelchair Training Does the Pt Use a Wheelchair?: Yes Exercises Seated Therapy Exercises: Ankle pumps (20 x1 BLE), Long arc quads (20 x1 BLE), Hip flexion (20 x1 BLE) Treatments Pt performed functional activity, gait training, LE exercises. Assessment Current Status: Fair Progress Pt was able to tolerate ambulating 25 feet until sitting down. Throughout tx, pt O2 sat remained 94 and above. Pt requires verbal cues to mind his sternal precautions. PT Short Term Goals Short Term Goals Time Frame: Nov 04, 2017 Gait (FIM): 4 Gait Distance Comment: 150 feet Gait Assistive Device: FWW PT Dobby Looms Pegger Goals Dobby Looms Pegger Goals PT Correction Goals Time Frame: Nov 18, 2017 Transfers (B,C,W/C) (FIM): 6 Sit to Lying (QC): 6 Lying-Sitting on Side/Bed(QC): 6 Sit to Stand (QC): 6 Rollin Roll Left to Right (QC): 6 Chair/Mmi-ar-Ripdg Xfer(QC): 6 Car Transfer (QC): 6 Does the Patient Walk: Yes Gait (FIM): 6 Distance: 200 feet Walk 10 feet (QC): 6 Walk 10ft-Uneven Surface(QC): 6 Walk 50ft with 2 Turns (QC): 6 Walk 150 ft (QC): 6 Gait Level of Assist: 6 Gait Assistive Device: FWW Does the Pt use WC or Scooter?: No Stairs (FIM): 2 # of Steps: 4 1 Step (curb) (QC): 6 4 Steps (QC): 6 12 Steps (QC): 6 Stairs Level Of Assist: 6 Picking up an Object (QC): 6 PT Plan Problem List Problem List: Activity Tolerance, Functional Strength, Safety, Balance, Gait, Transfer, Bed Mobility Treatment/Plan Treatment Plan: Continue Plan of Care Treatment Plan: Bed Mobility, Education, Functional Activity Rochelle, Functional Strength, Group Therapy, Gait, Safety, Therapeutic Exercise, Transfers Treatment Duration: Nov 18, 2017 Frequency: Modified Program (IRF) (03/04 due to oxygen sats dropping with activity. ) Estimated Hrs Per Day: 1.5 hours per day (modified to be 15 hours in 7 days) Patient and/or Family Agrees t: Yes Safety Risks/Education Patient Education: Gait Training, Transfer Techniques, Correct Positioning, Safety Issues Teaching Recipient: Patient Teaching Methods: Demonstration, Discussion Response to Teaching: Reinforcement Needed Time/GCodes Time In: 1000 Time Out: 1100 Total Billed Treatment Time: 60 Total Billed Treatment 1 visit 10 min EX 15 min FA 35 min GT RACHEL RITTER PT Nov 02, 2017 11:04
[2017-11-02 11:07] VITALS: BP 100/64
[2017-11-02] MEDS: ACETAMINOPHEN 325 MG TABLET/CAPLET (TYLENOL) PO PRN (11:24)
--- NOTE | 2017-11-02 12:24 | PM & R (SOAP) Progress Note ---
Subjective Time Seen by Provider: 07:55 Subjective/Events-last exam Patient was seen in his room this AM Appreciate Dr Fatiam and cardiologists notes and orders Appreciate current labs.Patient Mod assist for transfers Review of Systems Pulmonary: Dyspnea Cardiovascular: Edema Objective Exam Last Set of Vital Signs Vital Signs Date Time Temp Pulse Resp B/P (MAP) Pulse Ox O2 Delivery O2 Flow Rate FiO2 11/02/17 11:07 96.8 76 22 100/64 (76) 95 Nasal Cannula 4.00 Capillary Refill : I&O Intake and Output 11/02/17 00:00 Intake Total 1300 ml Output Total 2100 ml Balance -800 ml Intake Oral 1300 ml Output Urine Total 2100 ml General: Alert, Oriented X3, Cooperative, No Acute Distress HEENT: Atraumatic, PERRLA, EOMI, Mucous Memb Moist/[place] Neck: Supple, No JVD Lungs: Clear to Auscultation Heart: Regular Rate Abdomen: Normal Bowel Sounds, Soft, No Tenderness, Other (abdomen distended KUB ordered) Skin: Other (midline sternal incision site healing well) Neuro: Other (Generalized weakness limited endurance) Psych/Mental Status: Mental Status NL Results Lab Laboratory Tests 10/30/17 16:58: Glucometer 212H 10/30/17 20:57: Glucometer 146H 10/31/17 05:55: White Blood Count 6.7, Red Blood Count 3.18L, Hemoglobin 9.3L, Hematocrit 29L, Mean Corpuscular Volume 92, Mean Corpuscular Hemoglobin 29, Mean Corpuscular Hemoglobin Concent 32, Red Cell Distribution Width 14.6H, Platelet Count 256, Mean Platelet Volume 10.6H, Neutrophils (%) (Auto) 63, Lymphocytes (%) (Auto) 15 , Monocytes (%) (Auto) 20H, Eosinophils (%) (Auto) 2, Basophils (%) (Auto) 0, Neutrophils # (Auto) 4.2, Lymphocytes # (Auto) 1.0, Monocytes # (Auto) 1.3H, Eosinophils # (Auto) 0.1, Basophils # (Auto) 0.0, Sodium Level 137, Potassium Level 4.5, Chloride Level 103, Carbon Dioxide Level 24, Anion Gap 10, Blood Urea Nitrogen 32H, Creatinine 1.40H, Estimat Glomerular Filtration Rate 49, BUN/ Creatinine Ratio 23, Glucose Level 133H, Calcium Level 8.1L, Magnesium Level 2.0 10/31/17 06:46: Glucometer 142H 10/31/17 11:29: Glucometer 246H 10/31/17 15:53: Phosphorus Level 3.2 10/31/17 16:36: Glucometer 243H 10/31/17 20:48: Glucometer 192H 11/01/17 05:36: Glucometer 182H 11/01/17 06:18: White Blood Count 7.9, Red Blood Count 3.20L, Hemoglobin 9.5L, Hematocrit 29L, Mean Corpuscular Volume 92, Mean Corpuscular Hemoglobin 30, Mean Corpuscular Hemoglobin Concent 32, Red Cell Distribution Width 14.7H, Platelet Count 247, Mean Platelet Volume 10.8H, Neutrophils (%) (Auto) 69, Lymphocytes (%) (Auto) 13 , Monocytes (%) (Auto) 17H, Eosinophils (%) (Auto) 1, Basophils (%) (Auto) 0, Neutrophils # (Auto) 5.5, Lymphocytes # (Auto) 1.0, Monocytes # (Auto) 1.4H, Eosinophils # (Auto) 0.1, Basophils # (Auto) 0.0, Sodium Level 137, Potassium Level 4.5, Chloride Level 105, Carbon Dioxide Level 24, Anion Gap 8, Blood Urea Nitrogen 32H, Creatinine 1.43H, Estimat Glomerular Filtration Rate 47, BUN/ Creatinine Ratio 22, Glucose Level 163H, Calcium Level 8.3L, Phosphorus Level 2.9, Magnesium Level 1.8 11/01/17 11:19: Glucometer 258H 11/01/17 16:02: Glucometer 196H 11/01/17 20:31: Glucometer 190H 11/02/17 04:44: Glucometer 247H 11/02/17 06:15: White Blood Count 7.6, Red Blood Count 3.29L, Hemoglobin 9.3L, Hematocrit 30L, Mean Corpuscular Volume 92, Mean Corpuscular Hemoglobin 28, Mean Corpuscular Hemoglobin Concent 31L, Red Cell Distribution Width 14.9H, Platelet Count 247, Mean Platelet Volume 10.9H, Neutrophils (%) (Auto) 66, Lymphocytes (%) (Auto) 17 , Monocytes (%) (Auto) 16H, Eosinophils (%) (Auto) 1, Basophils (%) (Auto) 0, Neutrophils # (Auto) 5.0, Lymphocytes # (Auto) 1.3, Monocytes # (Auto) 1.2H, Eosinophils # (Auto) 0.1, Basophils # (Auto) 0.0, Sodium Level 138, Potassium Level 4.3, Chloride Level 103, Carbon Dioxide Level 25, Anion Gap 10, Blood Urea Nitrogen 36H, Creatinine 1.66H, Estimat Glomerular Filtration Rate 40, BUN/ Creatinine Ratio 22, Glucose Level 174H, Calcium Level 8.3L, Phosphorus Level 3.9, Magnesium Level 1.9 11/02/17 11:03: Glucometer 243H Assessment/Plan Assessment general debil s/p AVR DR Kruse OSH Postop resp insufficiency with associated cardiomegaly and atelectasis receiving treatments and 02 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
--- NOTE | 2017-11-02 14:05 | Cardiology Progress Note ---
Cardiology SOAP Progress Note Subjective: Stable, no cardiac complaints Objective: I&O/Vital Signs Vital Sign - Last 12Hours 11/02/17 11/02/17 11/02/17 11/02/17 03:38 04:37 07:10 07:38 Temp 98.1 Pulse 84 53 124 Resp 20 20 B/P (MAP) 99/62 (74) Pulse Ox 82 94 94 O2 Delivery NIV Bilevel Nasal Cannula O2 Flow Rate 5.00 5.00 11/02/17 11/02/17 11/02/17 08:42 10:08 11:07 Temp 97.4 96.8 Pulse 76 Resp 22 B/P (MAP) 93/65 (74) 100/64 (76) Pulse Ox 96 95 O2 Delivery Nasal Cannula Room Air Nasal Cannula O2 Flow Rate 4.00 4.00 Intake and Output 11/02/17 00:00 Intake Total 960 ml Output Total 1500 ml Balance -540 ml Weight (Pounds): 240 Weight (Ounces): 2.0 Weight (Calculated Kilograms): [phone] Constitutional: AAO x 3 Respiratory: No accessory muscle use, No respiratory distress, No chest tender , No chest expansion is symmetric, chest is bilaterally symmetric, lungs clear to percussion, lungs clear to auscultation, No crackles, No rhonchi, No rales, No stridor, No wheezing, No pleural rub, No other Cardiovascular: regular rate-rhythm, No irregularly irregular, No extra beats, No parasternal heave is noted, No JVD, No edema, No bradycardia, tachycardia, No point of maximal impulse, No cardiac thrills are palpable, S1 and S2, No gallop/S3, No gallop/S4, No diastolic murmur, No systolic murmur, No friction rub, No click, No other Gastrointestional: No tender, No soft, No round, No distended, No pulsatile mass, No organomegaly, No guarding, No rebound, No tenderness, No hernia, No mass, No audible bowel sounds, No abnormal bowel sounds, No abdominal bruits, No spleenomegaly, No other Extremities: No normal range of motion, No non-tender, No normal inspection, No pedal edema, No calf tenderness, No normal capillary refill, No pelvis stable , No calf tenderness, No inflammation, No pedal edema, No slow capillary refill , No swelling, No other, No abrasion, No clubbing, No cyanosis, No ecchymosis, No laceration, No no lower extremity edema bilateral, No significant edema, No tenderness, No wound Neurologic/Psychiatric: No hebrew cantor II-XII nml as tested, No no motor/sensory deficits, alert, normal mood/affect, oriented x 3, No abnormal cerebellar tests , No abnormal hebrew cantor II-XII, No abnormal gait, No aphasia, No EOM palsy, No facial droop, No motor weakness, No sensory deficit, No depressed affect, No disoriented x 3, No other, No grossly intact, No power is 5/5 both on sides Skin: No normal color, No warm/dry, No cyanosis, No cool, No diaphoresis, No damp, No ecchymosis, No jaundice, No mottled, No pallor, No rash, No tattoos/ piercings, No ulcerations, No rash on exposed areas, No ulcerations on exposed areas, No other Results/Procedures: Labs Laboratory Tests 11/01/17 16:02: Glucometer 196H 11/01/17 20:31: Glucometer 190H 11/02/17 04:44: Glucometer 247H 11/02/17 06:15: White Blood Count 7.6, Red Blood Count 3.29L, Hemoglobin 9.3L, Hematocrit 30L, Mean Corpuscular Volume 92, Mean Corpuscular Hemoglobin 28, Mean Corpuscular Hemoglobin Concent 31L, Red Cell Distribution Width 14.9H, Platelet Count 247, Mean Platelet Volume 10.9H, Neutrophils (%) (Auto) 66, Lymphocytes (%) (Auto) 17 , Monocytes (%) (Auto) 16H, Eosinophils (%) (Auto) 1, Basophils (%) (Auto) 0, Neutrophils # (Auto) 5.0, Lymphocytes # (Auto) 1.3, Monocytes # (Auto) 1.2H, Eosinophils # (Auto) 0.1, Basophils # (Auto) 0.0, Sodium Level 138, Potassium Level 4.3, Chloride Level 103, Carbon Dioxide Level 25, Anion Gap 10, Blood Urea Nitrogen 36H, Creatinine 1.66H, Estimat Glomerular Filtration Rate 40, BUN/ Creatinine Ratio 22, Glucose Level 174H, Calcium Level 8.3L, Phosphorus Level 3.9, Magnesium Level 1.9 11/02/17 11:03: Glucometer 243H A/P: Assessment/Dx: Syncope, Status post-aortic valve replacement, Hypertension, Orthostatic hypotension, Atrial fibrillation with rapid ventricular rate PVCs Pericardial effusion. DM Plan: Syncope: Echocardiogram showed hyperdynamic LV function with suggest likely dehydration. Generous hydration was recommended. Telemetry. Orthostatic hypotension: Hold amlodipine. Continue beta aman. Behavioral modification was discussed with the patient. Atrial fibrillation with rapid ventricular rate: Continue telemetry. Patient on Eliquis. Increase dose of metoprolol. Pericardial effusion: Mild to moderate pericardial effusion on echocardiogram without evidence of tamponade physiology. Follow-up echocardiogram showed no increase in pericardial effusion. No evidence of tamponade physiology. No indication for pericardiocentesis at this point. PVCs: On metoprolol. Hypertension: DC amlodipine. Continue metoprolol. Status post-aortic valve replacement: Normal prosthetic aortic valve on echocardiogram. Thank you for your consultation. Please call me if you have any questions. Saul Ochoa MD, FACP, FACC, FSCAI, FHRS, CCDS Interventional Cardiology Cardiac Electrophysiology Vascular Medicine and Endovascular Interventions Renea OCHOA MD Nov 02, 2017 2:05 pm
--- NOTE | 2017-11-02 14:14 | Occupational Ther Daily Note ---
OT Current Status-Daily Note Subjective Pt seen in room, up in recliner, agreeable to OT. No pain mentioned. Appearance Alert, cooperative Mental Status/Objective Functional [place] Measure 0=Not Assessed/NA 4=Minimal Assistance 1=Total Assistance 5=Supervision or Setup 2=Maximal Assistance 6=Modified [place] 3=Moderate Assistance 7=Complete [place] ADL-Treatment Functional [place] Measure 0=Not Assessed/NA 4=Minimal Assistance 1=Total Assistance 5=Supervision or Setup 2=Maximal Assistance 6=Modified [place] 3=Moderate Assistance 7=Complete IndependenceIRFPAI Quality Coding Scale 6 Independent with activity with or without an assistive device 5 Patient requires set up or clean up by helper. Patient completes activity by themselves 4 Supervision or touching assist (CGA). [place] provide cues , steadying assist 3 The helper provides less than half the effort to complete the activity 2 The helper provides more than half the effort to complete the activity 1 Dependent. The helper does all the effort to complete an activity 7 Patient refused to complete or attempt activity 9 The patient did not perform the activity before the current illness or injury 88 Not attempted due to Medical conditions or safety concerns Other Treatment Pt stood with mod assistance to get up and CGA to maintain for skin check for nursing. Tolerated standing about 1 minute, then required recovery period. Also did 10 reps bilat UE exercise, with recovery periods between each ex and each arm. Exercise to strengthen arms for transfers and for increasing activity toleranceO2 sats remained in 90s and HR stayed below 100 after activity, but pt cont SOA after exercise, requiring recovery period. Pt left up in recliner, all needs met, O2 in place, legs elevated Education OT Patient Education: Exercise program, Progress toward Goal/Update tx plan, Purpose of tx/functional activities Teaching Recipient: Patient OT Short Term Goals Short Term Goals Time Frame: Nov 11, 2017 Toileting(FIM): 3 Toilet/Commode Transfer(FIM): 3 Additional Short Term Goals: 1-Demonstrate ADL Tasks, 2-Verbalize Understanding , 3-ImproveStrength/[place] 1=Demonstrate adherence to instructed precautions during ADL tasks. 2=Patient will verbalize/demonstrate understanding of assistive devices/ modifications for ADL. 3=Patient will improve strength/tolerance for activity to enable patient to perform ADL's. OT Correction Goals Correction Goals Time Frame: Nov 18, 2017 Eating (FIM): 6 Eating (QC): 6 Groomin Oral Hygiene (QC): 6 Bathing(FIM): 6 Shower/Bathe Self (QC): 6 Upper Body Dressing(FIM): 6 Upper Body Dressing (QC): 6 Lower Body Dressing(FIM): 5 Lower Body Dressing (QC): 5 On/Off Footwear (QC): 5 Toileting(FIM): 5 Toileting Hygiene (QC): 5 Toilet/Commode Transfer(FIM): 6 Toilet/Commode Transfer (QC): 6 Tub Transfer(FIM): 5 Shower Transfer(FIM): 5 Additional Goals: 1-Demonstrate ADL Tasks, 2-Verbalize Understanding, 3- ImproveStrength/[place]le 1=Demonstrate adherence to instructed precautions during ADL tasks. 2=Patient will verbalize/demonstrate understanding of assistive devices/ modifications for ADL. 3=Patient will improve strength/tolerance for activity to enable patient to perform ADL's. OT Education/Plan Problem List/Assessment Pt would benefit from skilled OT to increase his independence in basic self care to allow him to safely return to his home and to decrease caregiver burden. Discharge Recommendations Plan/Recommendations: Continue POC Treatment Plan/Plan of Care Patient would benefit from OT for education, treatment and training to promote independence in ADL's, mobility, safety and/or upper extremity function for ADL' s. Plan of Care: ADL Retraining, Functional Mobility, Group Exercise/Act as Ind ( education, exercise, act kit, socialization, funct activities), UE Funct Exercise/Act, UE Neuromus Re-Ed/Coord Treatment Duration: Nov 18, 2017 Frequency: At least 5 of 7 days/Wk (IRF) Estimated Hrs Per Day: 1.5 hours per day Agreement: Yes Rehab Potential: Fair Time/GCodes Start Time: 13:20 Stop Time: 13:45 Total Time Billed (hr/min): 25 Billed Treatment Time visit, 25 minutes exercise JOSE PACHECO OT Nov 02, 2017 14:14
--- NOTE | 2017-11-02 14:56 | Physical Therapy Daily Note ---
PT Daily Note-Current Subjective Pt is sitting in recliner in room without complaints of pain and agrees to PT. Pain Numeric Pain Scale: 0-No Pain Location: No Pain Reported Appearance Pt is sitting in recliner in room post tx with nurse call, phone, and tray within reach. Mental Status Patient Orientation: Normal For Age Attachments: Oxygen (4 L), Pierre Catheter Transfers Functional [place] Measure 0=Not Assessed/NA 4=Minimal Assistance 1=Total Assistance 5=Supervision or Setup 2=Maximal Assistance 6=Modified [place] 3=Moderate Assistance 7=Complete IndependenceIRFPAI Quality Coding Scale 6 Independent with activity with or without an assistive device 5 Patient requires set up or clean up by helper. Patient completes activity by themselves 4 Supervision or touching assist (CGA). [place] provide cues , steadying assist 3 The helper provides less than half the effort to complete the activity 2 The helper provides more than half the effort to complete the activity 1 Dependent. The helper does all the effort to complete an activity 7 Patient refused to complete or attempt activity 9 The patient did not perform the activity before the current illness or injury 88 Not attempted due to Medical conditions or safety concerns Transfers (B, C, W/C) (FIM): 4 Sit to/from Stand: 4 Bed to/from Chair: 4 Min A required for sit to stand and chair to/from [facility] transfers. Pt requires verbal cues for hand placement and safety. Weight Bearing Right Lower Extremity: Right Weight Bearing/Tolerated Left Lower Extremity: Left Weight Bearing/Tolerated Gait Training Does the Patient Walk?: Yes Gait (FIM): 1 Distance: 25 feet x3 Gait Level of Assist: 4 Gait Persons Needed: 1 Gait Assistive Device: FWW Treatments Pt performed functional mobility and gait training. Assessment Current Status: Fair Progress Pt O2 sat remained stable throughout tx while HR fluctuating (54-136bpm) after walking 25 feet. Pt activity tolerance is improving and will increase walking distance tomorrow. Edema in BLE rated at 3+ with no report of pain. Pt requires extended sitting breaks to promote decrease in HR. PT Short Term Goals Short Term Goals Time Frame: Nov 04, 2017 Gait (FIM): 4 Gait Distance Comment: 150 feet Gait Assistive Device: FWW PT Heavy Mobile Equipment Operator Goals Assisted Goals PT Assisted Goals Time Frame: Nov 18, 2017 Transfers (B,C,W/C) (FIM): 6 Sit to Lying (QC): 6 Lying-Sitting on Side/Bed(QC): 6 Sit to Stand (QC): 6 Rollin Roll Left to Right (QC): 6 Chair/Swl-cd-Szccr Xfer(QC): 6 Car Transfer (QC): 6 Does the Patient Walk: Yes Gait (FIM): 6 Distance: 200 feet Walk 10 feet (QC): 6 Walk 10ft-Uneven Surface(QC): 6 Walk 50ft with 2 Turns (QC): 6 Walk 150 ft (QC): 6 Gait Level of Assist: 6 Gait Assistive Device: FWW Does the Pt use WC or Scooter?: No Stairs (FIM): 2 # of Steps: 4 1 Step (curb) (QC): 6 4 Steps (QC): 6 12 Steps (QC): 6 Stairs Level Of Assist: 6 Picking up an Object (QC): 6 PT Plan Problem List Problem List: Activity Tolerance, Functional Strength, Safety, Balance, Gait, Transfer, Bed Mobility, ROM Treatment/Plan Treatment Plan: Continue Plan of Care Treatment Plan: Bed Mobility, Education, Functional Activity [place], Functional Strength, Group Therapy, Gait, Safety, Therapeutic Exercise, Transfers Treatment Duration: Nov 18, 2017 Frequency: Modified Program (IRF) (03/04 due to oxygen sats dropping with activity. ) Estimated Hrs Per Day: 1.5 hours per day (modified to be 15 hours in 7 days) Patient and/or Family Agrees t: Yes Safety Risks/Education Patient Education: Gait Training, Transfer Techniques, Correct Positioning, W/ C Management, Safety Issues Teaching Recipient: Patient Teaching Methods: Demonstration, Discussion Response to Teaching: Reinforcement Needed Time/GCodes Time In: 1400 Time Out: 1430 Total Billed Treatment Time: 30 Total Billed Treatment 1 visit 20 min GT 10 min RACHEL PRATT PT Nov 02, 2017 14:56
[2017-11-02 18:28] VITALS: BP 123/67
[2017-11-03 05:08] VITALS: BP 119/71
[2017-11-03] MEDS: inSUlin (REGULAR) HUMAN 1 UNIT/0.01 ML (CHARGE PER UNIT) SC SCH ×4 (05:59→20:57)
[2017-11-03] MEDS: MULTIVIT W/MINERALS TAB (THERAGRAN M) PO SCH (06:02)
[2017-11-03] MEDS: ASCORBIC ACID (VIT C) 500 MG TABLET PO SCH (06:02)
[2017-11-03 06:11] LABS: BASOPHILS % (AUTO) 0 % (0-10); EOSINOPHILS # (AUTO) 0.1 10^3/uL (0.0-0.3); EOSINOPHILS % (AUTO) 1 % (0-10); HEMATOCRIT 29 % (40-54); HEMOGLOBIN 9.1 G/DL (13.3-17.7); LYMPHOCYTES # (AUTO) 1.2 X 10^3 (1.0-4.0); LYMPHOCYTES % (AUTO) 13 % (12-44); MEAN CORPUSCULAR HEMOGLOBIN 29 PG (25-34); MEAN CORPUSCULAR HGB CONC 31 G/DL (32-36); MEAN CORPUSCULAR VOLUME 92 FL (80-99); MEAN PLATELET VOLUME 10.9 FL (7.4-10.4); MONOCYTES # (AUTO) 1.1 X 10^3 (0.0-1.0); MONOCYTES % (AUTO) 13 % (0-12); NEUTROPHILS # (AUTO) 6.5 X 10^3 (1.8-7.8); NEUTROPHILS % (AUTO) 73 % (42-75); PLATELET COUNT 240 10^3/uL (130-400); RED BLOOD COUNT 3.16 10^6/uL (4.35-5.85); RED CELL DISTRIBUTION WIDTH 14.9 % (10.0-14.5); WHITE BLOOD COUNT 8.9 10^3/uL (4.3-11.0)
[2017-11-03 06:31] LABS: CALCIUM 8.4 MG/DL (8.5-10.1); CREATININE SERUM 1.54 MG/DL (0.60-1.30); MAGNESIUM 1.8 MG/DL (1.8-2.4); PHOSPHORUS 4.4 MG/DL (2.3-4.7); POTASSIUM 4.2 MMOL/L (3.6-5.0)
[2017-11-03] MEDS: RT-ALBUTEROL/IPRATROPIUM 3 ML (DUONEB) VIAL INH SCH ×4 (06:59→19:22)
[2017-11-03] MEDS: APIXABAN 2.5 MG (ELIQUIS) TABLET PO SCH ×2 (08:12→20:28)
[2017-11-03] MEDS: meTOprolol TARTRATE 50 MG (LOPRESSOR) TAB PO SCH ×2 (08:12→20:28)
[2017-11-03] MEDS: ASPIRIN E.C. 81 MG (ECOTRIN) TAB PO SCH (08:12)
--- NOTE | 2017-11-03 08:31 | Progress Note (SOAP) ---
Subjective Time Seen by Provider: 08:25 Subjective/Events-last exam Patient states he is breathing better. Patient feels he is getting stronger. Severe aortic stenosis. Objective Exam Vital Signs Date Time Temp Pulse Resp B/P (MAP) Pulse Ox O2 Delivery O2 Flow Rate FiO2 11/03/17 07:02 90 Nasal Cannula 4.00 11/03/17 05:08 98.4 105 20 119/71 (87) 92 Nasal Cannula 4.00 11/03/17 01:00 99 11/02/17 20:24 74 18 90 4.00 11/02/17 20:11 Nasal Cannula 4.00 11/02/17 19:00 130 11/02/17 18:58 92 Nasal Cannula 4.00 11/02/17 18:28 96.0 68 16 123/67 (85) 92 Nasal Cannula 4.00 11/02/17 15:38 93 Nasal Cannula 4.00 11/02/17 13:00 106 11/02/17 11:07 96.8 76 22 100/64 (76) 95 Nasal Cannula 4.00 11/02/17 10:08 97.4 93/65 (74) 96 Room Air 11/02/17 08:42 Nasal Cannula 4.00 I & O 11/03/17 07:00 Intake Total 1390 ml Output Total 1050 ml Balance 340 ml Capillary Refill : General Appearance: No Apparent Distress, WD/WN HEENT: Normal ENT Inspection Neck: Normal Inspection Respiratory: No Accessory Muscle Use, No Respiratory Distress, Decreased Breath Sounds Cardiovascular: Regular Rate, Rhythm Gastrointestinal: non tender, soft Results Lab Laboratory Tests 11/03/17 05:25 Laboratory Tests 11/02/17 11:03: Glucometer 243H 11/02/17 16:10: Glucometer 277H 11/02/17 20:36: Glucometer 209H 11/03/17 05:03: Glucometer 143H 11/03/17 05:25: White Blood Count 8.9, Red Blood Count 3.16L, Hemoglobin 9.1L, Hematocrit 29L, Mean Corpuscular Volume 92, Mean Corpuscular Hemoglobin 29, Mean Corpuscular Hemoglobin Concent 31L, Red Cell Distribution Width 14.9H, Platelet Count 240, Mean Platelet Volume 10.9H, Neutrophils (%) (Auto) 73, Lymphocytes (%) (Auto) 13 , Monocytes (%) (Auto) 13H, Eosinophils (%) (Auto) 1, Basophils (%) (Auto) 0, Neutrophils # (Auto) 6.5, Lymphocytes # (Auto) 1.2, Monocytes # (Auto) 1.1H, Eosinophils # (Auto) 0.1, Basophils # (Auto) 0.0, Sodium Level 138, Potassium Level 4.2, Chloride Level 103, Carbon Dioxide Level 26, Anion Gap 9, Blood Urea Nitrogen 33H, Creatinine 1.54H, Estimat Glomerular Filtration Rate 44, BUN/ Creatinine Ratio 21, Glucose Level 139H, Calcium Level 8.4L, Phosphorus Level 4.4, Magnesium Level 1.8 Assessment/Plan Assessment/Plan Assess & Plan/Chief Complaint Aortic valve replacement. Renal insufficiency. Diabetes. Weakness. Short of breath on oxygen. . 10/29/17. Aortic valve replacement. Renal insufficiency improving. Diabetes under control. Weakness. short of breath. . aortic valve replacement. Renal insufficiency. Diabetes. Short of breath. Patient limited with shortness of breath. . 11/02/17. Aortic valve replacement. Renal insufficiency. Diabetes. Shortness of breath better. Patient working progress. . 11/03/17. Aortic valve replacement. Renal insufficiency better. Diabetes. Patient feels he is breathing better Clinical Quality Measures DVT/VTE Risk/Contraindication: Risk Factor Score Per Nursin RFS Level Per Nursing on Admit: 4+=Very High KINA CALDERON DO Nov 03, 2017 08:31
--- NOTE | 2017-11-03 09:19 | Diagnostic Imaging Report ---
INDICATION: Shortness of breath. TIME OF EXAMINATION: 3:36 AM. COMPARISON: 11/02/2017. FINDINGS: The heart is enlarged. There are changes of median sternotomy. There is central venous congestion. There appear to be some bibasilar infiltrates present. The upper lung samson are clear. No pneumothorax is seen. IMPRESSION: Cardiomegaly and status post CABG with moderate congestive changes noted. Dictated by: Dictated on workstation # [id number]
--- NOTE | 2017-11-03 09:19 | PM & R (SOAP) Progress Note ---
Subjective Time Seen by Provider: 08:00 Subjective/Events-last exam Patient was seen in his room this AM Patient Min assist for transfers Appreciate DR green and Valentino notes and orders, Current labs reviewed repeat CXR ordered Review of Systems Pulmonary: Dyspnea Cardiovascular: Edema Neurological: Weakness Objective Exam Last Set of Vital Signs Vital Signs Date Time Temp Pulse Resp B/P (MAP) Pulse Ox O2 Delivery O2 Flow Rate FiO2 11/03/17 08:55 Nasal Cannula 4.00 11/03/17 07:02 90 11/03/17 07:00 133 11/03/17 05:08 98.4 20 119/71 (87) Capillary Refill : I&O Intake and Output 11/03/17 00:00 Intake Total 1490 ml Output Total 1100 ml Balance 390 ml Intake Oral 1490 ml Output Urine Total 1100 ml # Bowel Movements 1 General: Alert, Oriented X3, Cooperative, No Acute Distress HEENT: Atraumatic, PERRLA, EOMI, Mucous Memb Moist/[place] Neck: Supple, No JVD Lungs: Clear to Auscultation Heart: Regular Rate Abdomen: Normal Bowel Sounds, Soft, No Tenderness, Other (abdomen distended KUB ordered) Skin: Other (midline sternal incision site healing well) Neuro: Other (Generalized weakness limited endurance) Psych/Mental Status: Mental Status NL Results Lab Laboratory Tests 10/31/17 11:29: Glucometer 246H 10/31/17 15:53: Phosphorus Level 3.2 10/31/17 16:36: Glucometer 243H 10/31/17 20:48: Glucometer 192H 11/01/17 05:36: Glucometer 182H 11/01/17 06:18: White Blood Count 7.9, Red Blood Count 3.20L, Hemoglobin 9.5L, Hematocrit 29L, Mean Corpuscular Volume 92, Mean Corpuscular Hemoglobin 30, Mean Corpuscular Hemoglobin Concent 32, Red Cell Distribution Width 14.7H, Platelet Count 247, Mean Platelet Volume 10.8H, Neutrophils (%) (Auto) 69, Lymphocytes (%) (Auto) 13 , Monocytes (%) (Auto) 17H, Eosinophils (%) (Auto) 1, Basophils (%) (Auto) 0, Neutrophils # (Auto) 5.5, Lymphocytes # (Auto) 1.0, Monocytes # (Auto) 1.4H, Eosinophils # (Auto) 0.1, Basophils # (Auto) 0.0, Sodium Level 137, Potassium Level 4.5, Chloride Level 105, Carbon Dioxide Level 24, Anion Gap 8, Blood Urea Nitrogen 32H, Creatinine 1.43H, Estimat Glomerular Filtration Rate 47, BUN/ Creatinine Ratio 22, Glucose Level 163H, Calcium Level 8.3L, Phosphorus Level 2.9, Magnesium Level 1.8 11/01/17 11:19: Glucometer 258H 11/01/17 16:02: Glucometer 196H 11/01/17 20:31: Glucometer 190H 11/02/17 04:44: Glucometer 247H 11/02/17 06:15: White Blood Count 7.6, Red Blood Count 3.29L, Hemoglobin 9.3L, Hematocrit 30L, Mean Corpuscular Volume 92, Mean Corpuscular Hemoglobin 28, Mean Corpuscular Hemoglobin Concent 31L, Red Cell Distribution Width 14.9H, Platelet Count 247, Mean Platelet Volume 10.9H, Neutrophils (%) (Auto) 66, Lymphocytes (%) (Auto) 17 , Monocytes (%) (Auto) 16H, Eosinophils (%) (Auto) 1, Basophils (%) (Auto) 0, Neutrophils # (Auto) 5.0, Lymphocytes # (Auto) 1.3, Monocytes # (Auto) 1.2H, Eosinophils # (Auto) 0.1, Basophils # (Auto) 0.0, Sodium Level 138, Potassium Level 4.3, Chloride Level 103, Carbon Dioxide Level 25, Anion Gap 10, Blood Urea Nitrogen 36H, Creatinine 1.66H, Estimat Glomerular Filtration Rate 40, BUN/ Creatinine Ratio 22, Glucose Level 174H, Calcium Level 8.3L, Phosphorus Level 3.9, Magnesium Level 1.9 11/02/17 11:03: Glucometer 243H 11/02/17 16:10: Glucometer 277H 11/02/17 20:36: Glucometer 209H 11/03/17 05:03: Glucometer 143H 11/03/17 05:25: White Blood Count 8.9, Red Blood Count 3.16L, Hemoglobin 9.1L, Hematocrit 29L, Mean Corpuscular Volume 92, Mean Corpuscular Hemoglobin 29, Mean Corpuscular Hemoglobin Concent 31L, Red Cell Distribution Width 14.9H, Platelet Count 240, Mean Platelet Volume 10.9H, Neutrophils (%) (Auto) 73, Lymphocytes (%) (Auto) 13 , Monocytes (%) (Auto) 13H, Eosinophils (%) (Auto) 1, Basophils (%) (Auto) 0, Neutrophils # (Auto) 6.5, Lymphocytes # (Auto) 1.2, Monocytes # (Auto) 1.1H, Eosinophils # (Auto) 0.1, Basophils # (Auto) 0.0, Sodium Level 138, Potassium Level 4.2, Chloride Level 103, Carbon Dioxide Level 26, Anion Gap 9, Blood Urea Nitrogen 33H, Creatinine 1.54H, Estimat Glomerular Filtration Rate 44, BUN/ Creatinine Ratio 21, Glucose Level 139H, Calcium Level 8.4L, Phosphorus Level 4.4, Magnesium Level 1.8 Assessment/Plan Assessment general debil s/p AVR DR Kruse OSH Postop resp insufficiency with associated cardiomegaly and atelectasis receiving treatments and 02 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
--- NOTE | 2017-11-03 10:03 | Cardiology Progress Note ---
Cardiology SOAP Progress Note Subjective: No cardiac complaints. Objective: I&O/Vital Signs Vital Sign - Last 12Hours 11/03/17 11/03/17 11/03/17 11/03/17 01:00 05:08 07:00 07:02 Temp 98.4 Pulse 99 105 133 Resp 20 B/P (MAP) 119/71 (87) Pulse Ox 92 90 O2 Delivery Nasal Cannula Nasal Cannula O2 Flow Rate 4.00 4.00 11/03/17 08:55 O2 Delivery Nasal Cannula O2 Flow Rate 4.00 Intake and Output 11/03/17 00:00 Intake Total 1040 ml Output Total 550 ml Balance 490 ml Weight (Pounds): 239 Weight (Ounces): 2.0 Weight (Calculated Kilograms): [phone] Constitutional: AAO x 3 Respiratory: No accessory muscle use, No respiratory distress, No chest tender , No chest expansion is symmetric, chest is bilaterally symmetric, lungs clear to percussion, lungs clear to auscultation, No crackles, No rhonchi, No rales, No stridor, No wheezing, No pleural rub, No other Cardiovascular: regular rate-rhythm, No irregularly irregular, No extra beats, No parasternal heave is noted, No JVD, No edema, No bradycardia, tachycardia, No point of maximal impulse, No cardiac thrills are palpable, S1 and S2, No gallop/S3, No gallop/S4, No diastolic murmur, No systolic murmur, No friction rub, No click, No other Gastrointestional: No tender, No soft, No round, No distended, No pulsatile mass, No organomegaly, No guarding, No rebound, No tenderness, No hernia, No mass, No audible bowel sounds, No abnormal bowel sounds, No abdominal bruits, No spleenomegaly, No other Extremities: No normal range of motion, No non-tender, No normal inspection, No pedal edema, No calf tenderness, No normal capillary refill, No pelvis stable , No calf tenderness, No inflammation, No pedal edema, No slow capillary refill , No swelling, No other, No abrasion, No clubbing, No cyanosis, No ecchymosis, No laceration, No no lower extremity edema bilateral, No significant edema, No tenderness, No wound Neurologic/Psychiatric: No manager trading II-XII nml as tested, No no motor/sensory deficits, alert, normal mood/affect, oriented x 3, No abnormal cerebellar tests , No abnormal manager trading II-XII, No abnormal gait, No aphasia, No EOM palsy, No facial droop, No motor weakness, No sensory deficit, No depressed affect, No disoriented x 3, No other, No grossly intact, No power is 5/5 both on sides Skin: No normal color, No warm/dry, No cyanosis, No cool, No diaphoresis, No damp, No ecchymosis, No jaundice, No mottled, No pallor, No rash, No tattoos/ piercings, No ulcerations, No rash on exposed areas, No ulcerations on exposed areas, No other Results/Procedures: Labs Laboratory Tests 11/02/17 11:03: Glucometer 243H 11/02/17 16:10: Glucometer 277H 11/02/17 20:36: Glucometer 209H 11/03/17 05:03: Glucometer 143H 11/03/17 05:25: White Blood Count 8.9, Red Blood Count 3.16L, Hemoglobin 9.1L, Hematocrit 29L, Mean Corpuscular Volume 92, Mean Corpuscular Hemoglobin 29, Mean Corpuscular Hemoglobin Concent 31L, Red Cell Distribution Width 14.9H, Platelet Count 240, Mean Platelet Volume 10.9H, Neutrophils (%) (Auto) 73, Lymphocytes (%) (Auto) 13 , Monocytes (%) (Auto) 13H, Eosinophils (%) (Auto) 1, Basophils (%) (Auto) 0, Neutrophils # (Auto) 6.5, Lymphocytes # (Auto) 1.2, Monocytes # (Auto) 1.1H, Eosinophils # (Auto) 0.1, Basophils # (Auto) 0.0, Sodium Level 138, Potassium Level 4.2, Chloride Level 103, Carbon Dioxide Level 26, Anion Gap 9, Blood Urea Nitrogen 33H, Creatinine 1.54H, Estimat Glomerular Filtration Rate 44, BUN/ Creatinine Ratio 21, Glucose Level 139H, Calcium Level 8.4L, Phosphorus Level 4.4, Magnesium Level 1.8 A/P: Assessment/Dx: Syncope, Status post-aortic valve replacement, Hypertension, Orthostatic hypotension, Atrial fibrillation with rapid ventricular rate PVCs Pericardial effusion. DM Plan: Syncope: Echocardiogram showed hyperdynamic LV function with suggest likely dehydration. Generous hydration was recommended. Telemetry. Orthostatic hypotension: Hold amlodipine. Continue beta aman. Behavioral modification was discussed with the patient. Atrial fibrillation with controlled ventricular rate: Continue telemetry. Patient on Eliquis. better rate control on current increased dose of metoprolol. Pericardial effusion: Mild to moderate pericardial effusion on echocardiogram without evidence of tamponade physiology. Follow-up echocardiogram showed no increase in pericardial effusion. No evidence of tamponade physiology. No indication for pericardiocentesis at this point. PVCs: On metoprolol. Hypertension: DC amlodipine. Continue metoprolol. Status post-aortic valve replacement: Normal prosthetic aortic valve on echocardiogram. Thank you for your consultation. Please call me if you have any questions. Saul Ochoa MD, FACP, FACC, FSCAI, FHRS, CCDS Interventional Cardiology Cardiac Electrophysiology Vascular Medicine and Endovascular Interventions Renea OCHOA MD Nov 03, 2017 10:03
--- NOTE | 2017-11-03 11:08 | Physical Therapy Daily Note ---
PT Daily Note-Current Subjective Pt is sitting in recliner in room pre tx and has no complaints of pain. Pt agrees to PT. Pain Numeric Pain Scale: 0-No Pain Location: No Pain Reported Appearance Pt is sitting in recliner in room post tx with nurse call, phone, and tray within reach. Mental Status Patient Orientation: Normal For Age Attachments: Oxygen (4 L), Pierre Catheter Transfers Functional [place] Measure 0=Not Assessed/NA 4=Minimal Assistance 1=Total Assistance 5=Supervision or Setup 2=Maximal Assistance 6=Modified [place] 3=Moderate Assistance 7=Complete IndependenceIRFPAI Quality Coding Scale 6 Independent with activity with or without an assistive device 5 Patient requires set up or clean up by helper. Patient completes activity by themselves 4 Supervision or touching assist (CGA). [place] provide cues , steadying assist 3 The helper provides less than half the effort to complete the activity 2 The helper provides more than half the effort to complete the activity 1 Dependent. The helper does all the effort to complete an activity 7 Patient refused to complete or attempt activity 9 The patient did not perform the activity before the current illness or injury 88 Not attempted due to Medical conditions or safety concerns Transfers (B, C, W/C) (FIM): 2 Scootin Rollin Supine to/from Sit: 3 Sit to/from Stand: 3 Bed to/from Chair: 3 Cues for positioning and to keep chest precautions. Weight Bearing Right Lower Extremity: Right Weight Bearing/Tolerated Left Lower Extremity: Left Weight Bearing/Tolerated Gait Training Does the Patient Walk?: Yes Gait (FIM): 2 Distance: 50 feet x3 Gait Level of Assist: 4 Gait Persons Needed: 1 Gait Assistive Device: FWW Pt demonstrates SOB after performing ambulation of 50 feet. Wheelchair Training Does the Pt Use a Wheelchair?: Yes Treatments Pt performed bed mobility, functional mobility, gait training. Assessment Current Status: Fair Progress Pt is able to perform 50 feet of ambulation until a break is needed. After walking, pt O2 sat drop to 88 with resting value at 95. Pt HR increase to 150 with original value at 80. Patient needs a significant amount of rest breaks after ambulation to recover. PT Short Term Goals Short Term Goals Time Frame: Nov 04, 2017 Gait (FIM): 4 Gait Distance Comment: 150 feet Gait Assistive Device: FWW PT Computer Networking Instructor Adjunct Goals Skilled Nursing Goals PT Computer Networking Instructor Adjunct Goals Time Frame: Nov 18, 2017 Transfers (B,C,W/C) (FIM): 6 Sit to Lying (QC): 6 Lying-Sitting on Side/Bed(QC): 6 Sit to Stand (QC): 6 Rollin Roll Left to Right (QC): 6 Chair/[id number] Xfer(QC): 6 Car Transfer (QC): 6 Does the Patient Walk: Yes Gait (FIM): 6 Distance: 200 feet Walk 10 feet (QC): 6 Walk 10ft-Uneven Surface(QC): 6 Walk 50ft with 2 Turns (QC): 6 Walk 150 ft (QC): 6 Gait Level of Assist: 6 Gait Assistive Device: FWW Does the Pt use WC or Scooter?: No Stairs (FIM): 2 # of Steps: 4 1 Step (curb) (QC): 6 4 Steps (QC): 6 12 Steps (QC): 6 Stairs Level Of Assist: 6 Picking up an Object (QC): 6 PT Plan Problem List Problem List: Activity Tolerance, Functional Strength, Safety, Balance, Gait, Transfer, Bed Mobility, ROM Treatment/Plan Treatment Plan: Continue Plan of Care Treatment Plan: Bed Mobility, Education, Functional Activity Rochelle, Functional Strength, Group Therapy, Gait, Safety, Therapeutic Exercise, Transfers Treatment Duration: Nov 18, 2017 Frequency: Modified Program (IRF) (03/04 due to oxygen sats dropping with activity. ) Estimated Hrs Per Day: 1.5 hours per day (modified to be 15 hours in 7 days) Patient and/or Family Agrees t: Yes Safety Risks/Education Patient Education: Gait Training, Transfer Techniques, Correct Positioning, W/ C Management, Safety Issues Teaching Recipient: Patient Teaching Methods: Demonstration, Discussion Response to Teaching: Reinforcement Needed Time/GCodes Time In: 900 Time Out: 1000 Total Billed Treatment Time: 60 Total Billed Treatment 1 visit 30 min GT 30 min RACHEL PRATT PT Nov 03, 2017 11:08
--- NOTE | 2017-11-03 13:02 | Occupational Ther Daily Note ---
OT Current Status-Daily Note Subjective Pt seen in room, up n recliner, had previously wanted to shower today but declined, asking for shower tomorrow. No pain mentioned until end of tx where pt reported headache Appearance Alert, cooperative Mental Status/Objective Functional [place] Measure 0=Not Assessed/NA 4=Minimal Assistance 1=Total Assistance 5=Supervision or Setup 2=Maximal Assistance 6=Modified [place] 3=Moderate Assistance 7=Complete [place] ADL-Treatment Functional [place] Measure 0=Not Assessed/NA 4=Minimal Assistance 1=Total Assistance 5=Supervision or Setup 2=Maximal Assistance 6=Modified [place] 3=Moderate Assistance 7=Complete IndependenceIRFPAI Quality Coding Scale 6 Independent with activity with or without an assistive device 5 Patient requires set up or clean up by helper. Patient completes activity by themselves 4 Supervision or touching assist (CGA). [place] provide cues , steadying assist 3 The helper provides less than half the effort to complete the activity 2 The helper provides more than half the effort to complete the activity 1 Dependent. The helper does all the effort to complete an activity 7 Patient refused to complete or attempt activity 9 The patient did not perform the activity before the current illness or injury 88 Not attempted due to Medical conditions or safety concerns Other Treatment Pt declined ADLs and agreed to go to gym to work on UE strengthening and activity tolerance. Pt needed mod assist and two attempts to sit to stand form lift chair and then transferred to w/c with CGA, FWW. Pt transported to gym and did bilat UE tabletop activities, maintaining sternal precautions, no additional weights on UEs. Pt required frequent recovery breaks. O2 sats maintained around 95% on 3.5L and heart rate generally stayed below 100, other that after transfers. Activities to increase activity tolerance as needed for more independence in self care. Pt needed mod-max assist to get up from w/c and two trials and transferred to recliner with CGA. O2 in place throughout, along with telemetry and Pierre. Pt left up in recliner, O2 in place, requiring setup for lunch, all needs met. Education OT Patient Education: Progress toward Goal/Update tx plan, Purpose of tx/ functional activities Teaching Recipient: Patient Teaching Methods: Discussion Response to Teaching: Verbalize Understanding OT Short Term Goals Short Term Goals Time Frame: Nov 11, 2017 Toileting(FIM): 3 Toilet/Commode Transfer(FIM): 3 Additional Short Term Goals: 1-Demonstrate ADL Tasks, 2-Verbalize Understanding , 3-ImproveStrength/[place] 1=Demonstrate adherence to instructed precautions during ADL tasks. 2=Patient will verbalize/demonstrate understanding of assistive devices/ modifications for ADL. 3=Patient will improve strength/tolerance for activity to enable patient to perform ADL's. OT Electronics Repair Technician Goals Assisted Goals Time Frame: Nov 18, 2017 Eating (FIM): 6 Eating (QC): 6 Groomin Oral Hygiene (QC): 6 Bathing(FIM): 6 Shower/Bathe Self (QC): 6 Upper Body Dressing(FIM): 6 Upper Body Dressing (QC): 6 Lower Body Dressing(FIM): 5 Lower Body Dressing (QC): 5 On/Off Footwear (QC): 5 Toileting(FIM): 5 Toileting Hygiene (QC): 5 Toilet/Commode Transfer(FIM): 6 Toilet/Commode Transfer (QC): 6 Tub Transfer(FIM): 5 Shower Transfer(FIM): 5 Additional Goals: 1-Demonstrate ADL Tasks, 2-Verbalize Understanding, 3- ImproveStrength/[place] 1=Demonstrate adherence to instructed precautions during ADL tasks. 2=Patient will verbalize/demonstrate understanding of assistive devices/ modifications for ADL. 3=Patient will improve strength/tolerance for activity to enable patient to perform ADL's. OT Education/Plan Problem List/Assessment Pt would benefit from skilled OT to increase his independence in basic self care to allow him to safely return to his home and to decrease caregiver burden. Discharge Recommendations Plan/Recommendations: Continue POC Treatment Plan/Plan of Care Patient would benefit from OT for education, treatment and training to promote independence in ADL's, mobility, safety and/or upper extremity function for ADL' s. Plan of Care: ADL Retraining, Functional Mobility, Group Exercise/Act as Ind ( education, exercise, act kit, socialization, funct activities), UE Funct Exercise/Act, UE Neuromus Re-Ed/Coord Treatment Duration: Nov 18, 2017 Frequency: At least 5 of 7 days/Wk (IRF) Estimated Hrs Per Day: 1.5 hours per day Agreement: Yes Rehab Potential: Fair Time/GCodes Start Time: 11:00 Stop Time: 12:00 Total Time Billed (hr/min): 60 Billed Treatment Time visit, 60 minutes exercise JOSE PACHECO OT Nov 03, 2017 13:02
--- NOTE | 2017-11-03 15:03 | Therapy Group Daily Note ---
Therapy Daily Group Note Patient Education Topic Home Safety, Energy Cons, Other List Below (joint protection) Other/Notes Pt. participated in group PT OT session this date. Pt. TRFd relciner to w/c mod to min assist. O2 portable at 4 L insitu.Pt. introduced self and shared where he lives and his favorite flower, lilac. Pts. all participated in decorating cookies for fine motor and coordination activity : frosting the cookies on their individual plate and then sprinkling or pipe frosting decor. Pts all contributed to discussion RE: joint protection and energy conservation, as well home safety. All participated in hand/ wrist exercises. Pt. to room after group mod assist, in bed , alicia at hand Start Time: 13:00 Stop Time: 14:15 Total Billed Treatment Time: 75 Total Billed Treatment 1,GRP REX ALVAREZ RESTAURANT GREETER Nov 03, 2017 15:03
[2017-11-03 15:10] VITALS: BP 111/77
--- NOTE | 2017-11-03 15:21 | Pulmonary Progress Note ---
Subjective Time Seen by Provider: 14:40 Subjective/Events-last exam Pt is sitting up in a chair with oxygen at 4L and reports that he is feeling ok and is talking with family at bedside. He reports he is getting breathing tx and they do help with the shortness of breath. TRINITY Mckenzie called Dr. Sin to let him know that he had worsening shortness of breath, edema and HR was elevated. Review of Systems General: No Chills, No Night Sweats, No Fatigue, No Malaise, No Appetite, No Other HEENT: No Head Aches, No Visual Changes, No Eye Pain, No Ear Pain, No Dysphasia , No Sinus Congestion, No Post Nasal Drip, No Sore Throat, No Other Pulmonary: Dyspnea Cardiovascular: Edema Gastrointestinal: No: Nausea, Vomiting, Abdominal Pain, Diarrhea, Constipation , Melena, Hematochezia, Other Genitourinary: No Dysuria, No Frequency, No Incontinence, No Hematuria, No Retention, No Other Musculoskeletal: No: other, neck pain, shoulder pain, arm pain, back pain, hand pain, leg pain, foot pain Neurological: Weakness Exam Exam Vital Signs Date Time Temp Pulse Resp B/P (MAP) Pulse Ox O2 Delivery O2 Flow Rate FiO2 11/03/17 13:00 123 11/03/17 08:55 Nasal Cannula 4.00 11/03/17 07:02 90 Nasal Cannula 4.00 11/03/17 07:00 133 11/03/17 05:08 98.4 105 20 119/71 (87) 92 Nasal Cannula 4.00 11/03/17 01:00 99 11/02/17 20:24 74 18 90 4.00 11/02/17 20:11 Nasal Cannula 4.00 11/02/17 19:00 130 11/02/17 18:58 92 Nasal Cannula 4.00 11/02/17 18:28 96.0 68 16 123/67 (85) 92 Nasal Cannula 4.00 11/02/17 15:38 93 Nasal Cannula 4.00 I & O 11/03/17 07:00 Intake Total 1390 ml Output Total 1050 ml Balance 340 ml General Appearance: No Apparent Distress, WD/WN HEENT: PERRL/EOMI Neck: Full Range of Motion, Normal Inspection, Non Tender, Supple Respiratory: Chest Non Tender, Lungs Clear, No Accessory Muscle Use, No Respiratory Distress, Decreased Breath Sounds (diminished lower bases b/l ) Cardiovascular: Irregularly Irregular, Tachycardia Capillary Refill: Greater Than 3 Seconds Peripheral Pulses: 1+ Dorsalis Pedis (R), 1+ Left Dors-Pedis (L) Gastrointestinal: non tender, soft Extremity: Pedal Edema (4+ to Left and 3+ on Right ble), Swelling Neurologic/Psychiatric: Alert, Oriented x3, No Motor/Sensory Deficits, Normal Mood/Affect Skin: Warm/Dry, Pallor Lymphatic: No Adenopathy Results Lab Laboratory Tests 11/02/17 06:15 11/03/17 05:25 Assessment/Plan Assessment/Plan Chronic respiratory failure Pulmonary edema with small bilateral pleural effusions and hypoxia -will hold on 40mg IV x 1 lasix for increase shortness of breath and edema until hear from RN s/p d/c with Dr. Ochoa and reporting to cardiology HR and asking if he is ok with Lasix dose. -reviewed labs and will repeat d/t worsening sx dyspnea -pt wearing 4L and bipap at night -continue w/duoneb tx Hx of recent valvular replacement Hydronephrosis right with CKD D/C findings with Dr. Sin and treatment plan d/c and reviewed. Clinical Quality Measures DVT/VTE Risk/Contraindication: Risk Factor Score Per Nursin RFS Level Per Nursing on Admit: 4+=Very High NEENA MIMS APRN Nov 03, 2017 15:21
[2017-11-03 15:52] LABS: BASOPHILS % (AUTO) 0 % (0-10); EOSINOPHILS # (AUTO) 0.1 10^3/uL (0.0-0.3); EOSINOPHILS % (AUTO) 1 % (0-10); HEMATOCRIT 30 % (40-54); HEMOGLOBIN 9.4 G/DL (13.3-17.7); LYMPHOCYTES # (AUTO) 1.2 X 10^3 (1.0-4.0); LYMPHOCYTES % (AUTO) 12 % (12-44); MEAN CORPUSCULAR HEMOGLOBIN 29 PG (25-34); MEAN CORPUSCULAR HGB CONC 32 G/DL (32-36); MEAN CORPUSCULAR VOLUME 92 FL (80-99); MEAN PLATELET VOLUME 10.5 FL (7.4-10.4); MONOCYTES # (AUTO) 1.1 X 10^3 (0.0-1.0); MONOCYTES % (AUTO) 11 % (0-12); NEUTROPHILS # (AUTO) 7.6 X 10^3 (1.8-7.8); NEUTROPHILS % (AUTO) 76 % (42-75); PLATELET COUNT 241 10^3/uL (130-400); RED CELL DISTRIBUTION WIDTH 14.9 % (10.0-14.5); WHITE BLOOD COUNT 9.9 10^3/uL (4.3-11.0)
[2017-11-03 16:09] LABS: BAND NEUTROPHILS 4 %; BASOPHILS % (MANUAL) 0 %; EOSINOPHILS % (MANUAL) 0 %; LYMPHOCYTES % (MANUAL) 17 %; MONOCYTES % (MANUAL) 6 %; NEUTROPHILS % (MANUAL) 73 %; RBC MORPH NORMAL
[2017-11-03 16:14] LABS: ALBUMIN 3.1 GM/DL (3.2-4.5); BILIRUBIN,TOTAL 0.4 MG/DL (0.1-1.0); CALCIUM 8.4 MG/DL (8.5-10.1); CREATININE SERUM 1.76 MG/DL (0.60-1.30); POTASSIUM 4.7 MMOL/L (3.6-5.0); TOTAL PROTEIN 6.1 GM/DL (6.4-8.2)
[2017-11-03] MEDS ORDERED: FUROSEMIDE 40 MG/4 ML INJ (LASIX) IVP NR (18:30)
[2017-11-03 18:45] VITALS: BP 130/82
[2017-11-03] MEDS: SENNA W/DOCUSATE (SENOKOT S) TABLET PO SCH (20:28)
[2017-11-04] MEDS: inSUlin (REGULAR) HUMAN 1 UNIT/0.01 ML (CHARGE PER UNIT) SC SCH ×4 (05:17→21:42)
[2017-11-04 05:37] VITALS: BP 102/66
[2017-11-04] MEDS: MULTIVIT W/MINERALS TAB (THERAGRAN M) PO SCH (06:00)
[2017-11-04] MEDS: ASCORBIC ACID (VIT C) 500 MG TABLET PO SCH (06:00)
[2017-11-04 07:10] LABS: BASOPHILS % (AUTO) 0 % (0-10); EOSINOPHILS # (AUTO) 0.1 10^3/uL (0.0-0.3); EOSINOPHILS % (AUTO) 1 % (0-10); HEMATOCRIT 30 % (40-54); HEMOGLOBIN 9.4 G/DL (13.3-17.7); LYMPHOCYTES # (AUTO) 1.2 X 10^3 (1.0-4.0); LYMPHOCYTES % (AUTO) 11 % (12-44); MEAN CORPUSCULAR HEMOGLOBIN 29 PG (25-34); MEAN CORPUSCULAR HGB CONC 31 G/DL (32-36); MEAN CORPUSCULAR VOLUME 93 FL (80-99); MEAN PLATELET VOLUME 11.2 FL (7.4-10.4); MONOCYTES # (AUTO) 1.3 X 10^3 (0.0-1.0); MONOCYTES % (AUTO) 12 % (0-12); NEUTROPHILS # (AUTO) 7.9 X 10^3 (1.8-7.8); NEUTROPHILS % (AUTO) 75 % (42-75); PLATELET COUNT 248 10^3/uL (130-400); RED BLOOD COUNT 3.23 10^6/uL (4.35-5.85); WHITE BLOOD COUNT 10.5 10^3/uL (4.3-11.0)
[2017-11-04 07:28] LABS: CALCIUM 8.2 MG/DL (8.5-10.1); CREATININE SERUM 1.66 MG/DL (0.60-1.30); MAGNESIUM 2.2 MG/DL (1.8-2.4); PHOSPHORUS 4.3 MG/DL (2.3-4.7); POTASSIUM 4.4 MMOL/L (3.6-5.0)
[2017-11-04] MEDS: RT-ALBUTEROL/IPRATROPIUM 3 ML (DUONEB) VIAL INH SCH ×4 (07:28→19:52)
--- NOTE | 2017-11-04 08:00 | Diagnostic Imaging Report ---
INDICATION: Shortness of breath Portable chest 3:11 AM There is cardiomegaly. There are postop changes from a median sternotomy. Pulmonary vascularity is normal. Lungs are clear. IMPRESSION: Postsurgical changes in the chest. There is cardiomegaly without evidence of pulmonary venous hypertension. No significant change from the previous day. Dictated by: Dictated on workstation # [id number]
--- NOTE | 2017-11-04 08:27 | Progress Note (SOAP) ---
Subjective Time Seen by Provider: 08:25 Subjective/Events-last exam Severe aortic stenosis. Patient states he's breathing better. BNP over 800 yesterday. Patient received Lasix Objective Exam Vital Signs Date Time Temp Pulse Resp B/P (MAP) Pulse Ox O2 Delivery O2 Flow Rate FiO2 11/04/17 07:30 90 Nasal Cannula 4.00 11/04/17 07:00 127 11/04/17 05:37 98.1 95 17 102/66 (78) 93 Nasal Cannula 4.00 11/04/17 01:00 134 11/03/17 23:40 100 18 92 4.00 11/03/17 21:22 Nasal Cannula 4.00 11/03/17 19:22 92 Nasal Cannula 4.00 11/03/17 19:00 117 11/03/17 18:45 96.4 84 14 130/82 (98) 93 Nasal Cannula 4.00 11/03/17 15:25 92 Nasal Cannula 4.00 11/03/17 15:10 103 22 111/77 (88) 94 Nasal Cannula 4.00 11/03/17 13:00 123 11/03/17 08:55 Nasal Cannula 4.00 I & O 11/04/17 07:00 Intake Total 890 ml Output Total 1350 ml Balance -460 ml Capillary Refill : Greater Than 3 Seconds General Appearance: No Apparent Distress, WD/WN Results Lab Laboratory Tests 11/03/17 10:34: Glucometer 236H 11/03/17 15:35: B-Type Natriuretic Peptide 838.2H 11/03/17 15:45: White Blood Count 9.9, Red Blood Count 3.20L, Hemoglobin 9.4L, Hematocrit 30L, Mean Corpuscular Volume 92, Mean Corpuscular Hemoglobin 29, Mean Corpuscular Hemoglobin Concent 32, Red Cell Distribution Width 14.9H, Platelet Count 241, Mean Platelet Volume 10.5H, Neutrophils (%) (Auto) 76H, Lymphocytes (%) (Auto) 12, Monocytes (%) (Auto) 11, Eosinophils (%) (Auto) 1, Basophils (%) (Auto) 0, Neutrophils # (Auto) 7.6, Lymphocytes # (Auto) 1.2, Monocytes # (Auto) 1.1H, Eosinophils # (Auto) 0.1, Basophils # (Auto) 0.0, Neutrophils % (Manual) 73, Lymphocytes % (Manual) 17, Monocytes % (Manual) 6, Eosinophils % (Manual) 0, Basophils % (Manual) 0, Band Neutrophils 4, Blood Morphology Comment NORMAL, Sodium Level 135, Potassium Level 4.7, Chloride Level 102, Carbon Dioxide Level 26, Anion Gap 7, Blood Urea Nitrogen 36H, Creatinine 1.76H, Estimat Glomerular Filtration Rate 37, BUN/Creatinine Ratio 20, Glucose Level 226H, Calcium Level 8.4L, Total Bilirubin 0.4, Aspartate Amino Transf (AST/SGOT) 59H, Alanine Aminotransferase (ALT/SGPT) 91H, Alkaline Phosphatase 248H, Total Protein 6.1L, Albumin 3.1L 11/03/17 19:59: Glucometer 258H 11/04/17 04:44: Glucometer 161H 11/04/17 06:11: White Blood Count 10.5, Red Blood Count 3.23L, Hemoglobin 9.4L, Hematocrit 30L, Mean Corpuscular Volume 93, Mean Corpuscular Hemoglobin 29, Mean Corpuscular Hemoglobin Concent 31L, Red Cell Distribution Width 15.0H, Platelet Count 248, Mean Platelet Volume 11.2H, Neutrophils (%) (Auto) 75, Lymphocytes (%) (Auto) 11L, Monocytes (%) (Auto) 12, Eosinophils (%) (Auto) 1, Basophils (%) (Auto) 0, Neutrophils # (Auto) 7.9H, Lymphocytes # (Auto) 1.2, Monocytes # (Auto) 1.3H, Eosinophils # (Auto) 0.1, Basophils # (Auto) 0.0, Sodium Level 138, Potassium Level 4.4, Chloride Level 101, Carbon Dioxide Level 26, Anion Gap 11, Blood Urea Nitrogen 36H, Creatinine 1.66H, Estimat Glomerular Filtration Rate 40, BUN/ Creatinine Ratio 22, Glucose Level 155H, Calcium Level 8.2L, Phosphorus Level 4.3, Magnesium Level 2.2 Assessment/Plan Assessment/Plan Assess & Plan/Chief Complaint Aortic valve replacement. Renal insufficiency. Diabetes. Weakness. Short of breath on oxygen. . 10/29/17. Aortic valve replacement. Renal insufficiency improving. Diabetes under control. Weakness. short of breath. . aortic valve replacement. Renal insufficiency. Diabetes. Short of breath. Patient limited with shortness of breath. . 11/02/17. Aortic valve replacement. Renal insufficiency. Diabetes. Shortness of breath better. Patient working progress. . 11/03/17. Aortic valve replacement. Renal insufficiency better. Diabetes. Patient feels he is breathing better. . 11/04/17. Aortic valve replacement. Renal insufficiency. Diabetes. Elevated BNP. Patient states he's breathing better. Patient received Lasix yesterday Clinical Quality Measures DVT/VTE Risk/Contraindication: Risk Factor Score Per Nursin RFS Level Per Nursing on Admit: 4+=Very High KINA CALDERON DO Nov 04, 2017 08:27
[2017-11-04] MEDS: APIXABAN 2.5 MG (ELIQUIS) TABLET PO SCH ×2 (08:31→21:41)
[2017-11-04] MEDS: ASPIRIN E.C. 81 MG (ECOTRIN) TAB PO SCH (08:31)
[2017-11-04] MEDS: meTOprolol TARTRATE 50 MG (LOPRESSOR) TAB PO SCH ×2 (08:31→21:36)
[2017-11-04] MEDS: SENNA W/DOCUSATE (SENOKOT S) TABLET PO SCH ×2 (08:31→21:41)
--- NOTE | 2017-11-04 09:07 | PM & R (SOAP) Progress Note ---
Subjective Time Seen by Provider: 07:45 Subjective/Events-last exam Patient was seen in his room this AM Appreciate Current labs and CXR and DR Avelar and Hardy notes and orders Appreciate DR green note. Review of Systems Pulmonary: Dyspnea Cardiovascular: Edema Neurological: Weakness Objective Exam Last Set of Vital Signs Vital Signs Date Time Temp Pulse Resp B/P (MAP) Pulse Ox O2 Delivery O2 Flow Rate FiO2 11/04/17 07:30 90 Nasal Cannula 4.00 11/04/17 07:00 127 11/04/17 05:37 98.1 17 102/66 (78) Capillary Refill : Greater Than 3 Seconds I&O Intake and Output 11/04/17 00:00 Intake Total 1000 ml Output Total 850 ml Balance 150 ml Intake Oral 1000 ml Output Urine Total 850 ml General: Alert, Oriented X3, Cooperative, No Acute Distress HEENT: Atraumatic, PERRLA, EOMI, Mucous Memb Moist/[place] Neck: Supple, No JVD Lungs: Clear to Auscultation Heart: Regular Rate Abdomen: Normal Bowel Sounds, Soft, No Tenderness, Other (abdomen distended KUB ordered) Extremities: Other (mild pitting edema both ankles) Skin: Other (midline sternal incision site healing well) Neuro: Other (Generalized weakness limited endurance) Psych/Mental Status: Mental Status NL Results Lab Laboratory Tests 11/01/17 11:19: Glucometer 258H 11/01/17 16:02: Glucometer 196H 11/01/17 20:31: Glucometer 190H 11/02/17 04:44: Glucometer 247H 11/02/17 06:15: White Blood Count 7.6, Red Blood Count 3.29L, Hemoglobin 9.3L, Hematocrit 30L, Mean Corpuscular Volume 92, Mean Corpuscular Hemoglobin 28, Mean Corpuscular Hemoglobin Concent 31L, Red Cell Distribution Width 14.9H, Platelet Count 247, Mean Platelet Volume 10.9H, Neutrophils (%) (Auto) 66, Lymphocytes (%) (Auto) 17 , Monocytes (%) (Auto) 16H, Eosinophils (%) (Auto) 1, Basophils (%) (Auto) 0, Neutrophils # (Auto) 5.0, Lymphocytes # (Auto) 1.3, Monocytes # (Auto) 1.2H, Eosinophils # (Auto) 0.1, Basophils # (Auto) 0.0, Sodium Level 138, Potassium Level 4.3, Chloride Level 103, Carbon Dioxide Level 25, Anion Gap 10, Blood Urea Nitrogen 36H, Creatinine 1.66H, Estimat Glomerular Filtration Rate 40, BUN/ Creatinine Ratio 22, Glucose Level 174H, Calcium Level 8.3L, Phosphorus Level 3.9, Magnesium Level 1.9 11/02/17 11:03: Glucometer 243H 11/02/17 16:10: Glucometer 277H 11/02/17 20:36: Glucometer 209H 11/03/17 05:03: Glucometer 143H 11/03/17 05:25: White Blood Count 8.9, Red Blood Count 3.16L, Hemoglobin 9.1L, Hematocrit 29L, Mean Corpuscular Volume 92, Mean Corpuscular Hemoglobin 29, Mean Corpuscular Hemoglobin Concent 31L, Red Cell Distribution Width 14.9H, Platelet Count 240, Mean Platelet Volume 10.9H, Neutrophils (%) (Auto) 73, Lymphocytes (%) (Auto) 13 , Monocytes (%) (Auto) 13H, Eosinophils (%) (Auto) 1, Basophils (%) (Auto) 0, Neutrophils # (Auto) 6.5, Lymphocytes # (Auto) 1.2, Monocytes # (Auto) 1.1H, Eosinophils # (Auto) 0.1, Basophils # (Auto) 0.0, Sodium Level 138, Potassium Level 4.2, Chloride Level 103, Carbon Dioxide Level 26, Anion Gap 9, Blood Urea Nitrogen 33H, Creatinine 1.54H, Estimat Glomerular Filtration Rate 44, BUN/ Creatinine Ratio 21, Glucose Level 139H, Calcium Level 8.4L, Phosphorus Level 4.4, Magnesium Level 1.8 11/03/17 10:34: Glucometer 236H 11/03/17 15:35: B-Type Natriuretic Peptide 838.2H 11/03/17 15:45: White Blood Count 9.9, Red Blood Count 3.20L, Hemoglobin 9.4L, Hematocrit 30L, Mean Corpuscular Volume 92, Mean Corpuscular Hemoglobin 29, Mean Corpuscular Hemoglobin Concent 32, Red Cell Distribution Width 14.9H, Platelet Count 241, Mean Platelet Volume 10.5H, Neutrophils (%) (Auto) 76H, Lymphocytes (%) (Auto) 12, Monocytes (%) (Auto) 11, Eosinophils (%) (Auto) 1, Basophils (%) (Auto) 0, Neutrophils # (Auto) 7.6, Lymphocytes # (Auto) 1.2, Monocytes # (Auto) 1.1H, Eosinophils # (Auto) 0.1, Basophils # (Auto) 0.0, Neutrophils % (Manual) 73, Lymphocytes % (Manual) 17, Monocytes % (Manual) 6, Eosinophils % (Manual) 0, Basophils % (Manual) 0, Band Neutrophils 4, Blood Morphology Comment NORMAL, Sodium Level 135, Potassium Level 4.7, Chloride Level 102, Carbon Dioxide Level 26, Anion Gap 7, Blood Urea Nitrogen 36H, Creatinine 1.76H, Estimat Glomerular Filtration Rate 37, BUN/Creatinine Ratio 20, Glucose Level 226H, Calcium Level 8.4L, Total Bilirubin 0.4, Aspartate Amino Transf (AST/SGOT) 59H, Alanine Aminotransferase (ALT/SGPT) 91H, Alkaline Phosphatase 248H, Total Protein 6.1L, Albumin 3.1L 11/03/17 19:59: Glucometer 258H 11/04/17 04:44: Glucometer 161H 11/04/17 06:11: White Blood Count 10.5, Red Blood Count 3.23L, Hemoglobin 9.4L, Hematocrit 30L, Mean Corpuscular Volume 93, Mean Corpuscular Hemoglobin 29, Mean Corpuscular Hemoglobin Concent 31L, Red Cell Distribution Width 15.0H, Platelet Count 248, Mean Platelet Volume 11.2H, Neutrophils (%) (Auto) 75, Lymphocytes (%) (Auto) 11L, Monocytes (%) (Auto) 12, Eosinophils (%) (Auto) 1, Basophils (%) (Auto) 0, Neutrophils # (Auto) 7.9H, Lymphocytes # (Auto) 1.2, Monocytes # (Auto) 1.3H, Eosinophils # (Auto) 0.1, Basophils # (Auto) 0.0, Sodium Level 138, Potassium Level 4.4, Chloride Level 101, Carbon Dioxide Level 26, Anion Gap 11, Blood Urea Nitrogen 36H, Creatinine 1.66H, Estimat Glomerular Filtration Rate 40, BUN/ Creatinine Ratio 22, Glucose Level 155H, Calcium Level 8.2L, Phosphorus Level 4.3, Magnesium Level 2.2 Assessment/Plan Assessment general debil s/p AVR DR Kruse OSH Postop resp insufficiency with associated cardiomegaly and atelectasis receiving treatments and 02 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
--- NOTE | 2017-11-04 10:05 | Occupational Ther Daily Note ---
OT Current Status-Daily Note Subjective Pt seen in room, up in recliner, agreeable to Shower. No pain mentioned Appearance Alert, cooperative Mental Status/Objective Functional [place] Measure 0=Not Assessed/NA 4=Minimal Assistance 1=Total Assistance 5=Supervision or Setup 2=Maximal Assistance 6=Modified [place] 3=Moderate Assistance 7=Complete [place] Attachments: Saline Lock (covered) ADL-Treatment Shower scheduled before PT today before he becomes too fatigued. Mod assist sit to stand from lift chair raised up. Pt transferred CGA, SPT to shower chair. Pt assisted with taking off shirt but OT did pants and socks due to elevated HR. He cont to have significant edema in LEs, trunk and genitals which limits him bending forward during ADLs. Pt transported to shower room per w/c, O2 in place at 5L/min (as per wall O2). O2 sats remained around 95% and HR slowly increased from 80 to around 100 but he took frequent recovery periods which slowed it down. Pt was able to wash face and hands (setup), chest, abdomen, arms, thighs. Long handled sponge available for pt to wash lower legs but he was too fatigued to try it. Some irritation around Pierre insertion - shared with nursing. Shower chair, hand held shower, grab bar. Pt transported back to room. OT assisted with threading Pierre through pants leg and getting pants on over feet. he was able to pull pants up to thighs. Mod assist sit to stand, with help to pull pants up to waist. Pt was able to put t shirt on but had to do it it two steps, with recovery period. This elevated his HR to 118 per pulse ox but it came down before transferring him to recliner. Once up, he turned CGA, FWW and sat in recliner. Legs were elevated, all needs met. Discussed some type of compression for LEs with nurse who will f/u with physicians. Functional [place] Measure 0=Not Assessed/NA 4=Minimal Assistance 1=Total Assistance 5=Supervision or Setup 2=Maximal Assistance 6=Modified [place] 3=Moderate Assistance 7=Complete IndependenceIRFPAI Quality Coding Scale 6 Independent with activity with or without an assistive device 5 Patient requires set up or clean up by helper. Patient completes activity by themselves 4 Supervision or touching assist (CGA). [place] provide cues , steadying assist 3 The helper provides less than half the effort to complete the activity 2 The helper provides more than half the effort to complete the activity 1 Dependent. The helper does all the effort to complete an activity 7 Patient refused to complete or attempt activity 9 The patient did not perform the activity before the current illness or injury 88 Not attempted due to Medical conditions or safety concerns Grooming (FIM): 5 (setup) Bathing (FIM): 3 Bathing Location: L Arm, R Arm, L Upper Leg, R Upper Leg, Chest, Abdomen Upper Body (FIM): 5 (extra time) Lower Body Dressing (FIM): 2 (Due to fatigue) Transfers (B, C, W/C) (FIM): 3 (From lift chair) Shower Transfer(FIM): 3 (On and off wheeled shower chair. Transportation needed to get to shower room) Education OT Patient Education: Modified ADL techniques, Progress toward Goal/Update tx plan, Purpose of tx/functional activities, Transfer techniques, Use of adapted equipment Teaching Recipient: Patient Teaching Methods: Demonstration, Discussion Response to Teaching: Return Demonstration, Reinforcement Needed OT Short Term Goals Short Term Goals Time Frame: Nov 11, 2017 Toileting(FIM): 3 Toilet/Commode Transfer(FIM): 3 Additional Short Term Goals: 1-Demonstrate ADL Tasks, 2-Verbalize Understanding , 3-ImproveStrength/[place] 1=Demonstrate adherence to instructed precautions during ADL tasks. 2=Patient will verbalize/demonstrate understanding of assistive devices/ modifications for ADL. 3=Patient will improve strength/tolerance for activity to enable patient to perform ADL's. OT Senior Living Goals Commissary Worker Goals Time Frame: Nov 18, 2017 Eating (FIM): 6 Eating (QC): 6 Groomin Oral Hygiene (QC): 6 Bathing(FIM): 6 Shower/Bathe Self (QC): 6 Upper Body Dressing(FIM): 6 Upper Body Dressing (QC): 6 Lower Body Dressing(FIM): 5 Lower Body Dressing (QC): 5 On/Off Footwear (QC): 5 Toileting(FIM): 5 Toileting Hygiene (QC): 5 Toilet/Commode Transfer(FIM): 6 Toilet/Commode Transfer (QC): 6 Tub Transfer(FIM): 5 Shower Transfer(FIM): 5 Additional Goals: 1-Demonstrate ADL Tasks, 2-Verbalize Understanding, 3- ImproveStrength/[place] 1=Demonstrate adherence to instructed precautions during ADL tasks. 2=Patient will verbalize/demonstrate understanding of assistive devices/ modifications for ADL. 3=Patient will improve strength/tolerance for activity to enable patient to perform ADL's. OT Education/Plan Problem List/Assessment Pt would benefit from skilled OT to increase his independence in basic self care to allow him to safely return to his home and to decrease caregiver burden. Discharge Recommendations Plan/Recommendations: Continue POC Treatment Plan/Plan of Care Patient would benefit from OT for education, treatment and training to promote independence in ADL's, mobility, safety and/or upper extremity function for ADL' s. Plan of Care: ADL Retraining, Functional Mobility, Group Exercise/Act as Ind ( education, exercise, act kit, socialization, funct activities), UE Funct Exercise/Act, UE Neuromus Re-Ed/Coord Treatment Duration: Nov 18, 2017 Frequency: At least 5 of 7 days/Wk (IRF) Estimated Hrs Per Day: 1.5 hours per day Agreement: Yes Rehab Potential: Fair Time/GCodes Start Time: 08:30 Stop Time: 09:45 Total Time Billed (hr/min): 75 Billed Treatment Time visit, 75 minutes ADL JOSE PACHECO OT Nov 04, 2017 10:05
--- NOTE | 2017-11-04 11:00 | Physical Therapy Daily Note ---
PT Daily Note-Current Subjective Pt is sitting in recliner in room pre tx and has no complaints of pain. Pt agrees to PT. Pain Numeric Pain Scale: 0-No Pain Location: No Pain Reported Appearance Pt is sitting in recliner post tx with nurse call, phone, and tray within reach. Mental Status Patient Orientation: Normal For Age Attachments: Oxygen (5 L), Pierre Catheter Transfers Functional [place] Measure 0=Not Assessed/NA 4=Minimal Assistance 1=Total Assistance 5=Supervision or Setup 2=Maximal Assistance 6=Modified [place] 3=Moderate Assistance 7=Complete IndependenceIRFPAI Quality Coding Scale 6 Independent with activity with or without an assistive device 5 Patient requires set up or clean up by helper. Patient completes activity by themselves 4 Supervision or touching assist (CGA). [place] provide cues , steadying assist 3 The helper provides less than half the effort to complete the activity 2 The helper provides more than half the effort to complete the activity 1 Dependent. The helper does all the effort to complete an activity 7 Patient refused to complete or attempt activity 9 The patient did not perform the activity before the current illness or injury 88 Not attempted due to Medical conditions or safety concerns Transfers (B, C, W/C) (FIM): 3 Sit to/from Stand: 3 Bed to/from Chair: 4 Mod A necessary for sit to stand due to sternal precautions, once he gets standing he transfers with min/CGA. Pt requires more than one attempt when standing from a lower height. Weight Bearing Right Lower Extremity: Right Weight Bearing/Tolerated Left Lower Extremity: Left Weight Bearing/Tolerated Gait Training Does the Patient Walk?: Yes Gait (FIM): 2 Distance: 60 feet x2, 50 feet x2 Gait Level of Assist: 4 Gait Persons Needed: 1 Gait Assistive Device: FWW Patient gets very SOB, needs frequent rests, ambulates slowly. Exercises NuStep Minutes: 10 NuStep Workload: 3 Treatments transfers, ambulation, functional strengthening Assessment Current Status: Poor Progress Patient was very SOB and his HR got up to 150bpm with ambulation. PT Short Term Goals Short Term Goals Time Frame: Nov 04, 2017 Gait (FIM): 4 Gait Distance Comment: 150 feet Gait Assistive Device: FWW PT Law Firm Partner Goals Law Firm Partner Goals PT Law Firm Partner Goals Time Frame: Nov 18, 2017 Transfers (B,C,W/C) (FIM): 6 Sit to Lying (QC): 6 Lying-Sitting on Side/Bed(QC): 6 Sit to Stand (QC): 6 Rollin Roll Left to Right (QC): 6 Chair/[id number] Xfer(QC): 6 Car Transfer (QC): 6 Does the Patient Walk: Yes Gait (FIM): 6 Distance: 200 feet Walk 10 feet (QC): 6 Walk 10ft-Uneven Surface(QC): 6 Walk 50ft with 2 Turns (QC): 6 Walk 150 ft (QC): 6 Gait Level of Assist: 6 Gait Assistive Device: FWW Does the Pt use WC or Scooter?: No Stairs (FIM): 2 # of Steps: 4 1 Step (curb) (QC): 6 4 Steps (QC): 6 12 Steps (QC): 6 Stairs Level Of Assist: 6 Picking up an Object (QC): 6 PT Plan Problem List Problem List: Activity Tolerance, Functional Strength, Safety, Balance, Gait, Transfer, Bed Mobility, ROM Treatment/Plan Treatment Plan: Continue Plan of Care Treatment Plan: Bed Mobility, Education, Functional Activity [place], Functional Strength, Group Therapy, Gait, Safety, Therapeutic Exercise, Transfers Treatment Duration: Nov 18, 2017 Frequency: Modified Program (IRF) (03/04 due to oxygen sats dropping with activity. ) Estimated Hrs Per Day: 1.5 hours per day (modified to be 15 hours in 7 days) Patient and/or Family Agrees t: Yes Safety Risks/Education Patient Education: Gait Training, Transfer Techniques, Reviewed Precautions, Correct Positioning, Safety Issues Teaching Recipient: Patient Teaching Methods: Demonstration, Discussion Response to Teaching: Reinforcement Needed Time/GCodes Time In: 1000 Time Out: 1100 Total Billed Treatment Time: 60 Total Billed Treatment 1 visit EX 10' FA 15' GT 35' RACHEL RITTER PT Nov 04, 2017 11:00
--- NOTE | 2017-11-04 12:16 | Occupational Ther Daily Note ---
OT Current Status-Daily Note Subjective Pt seen in room, up in recliner, agreeable to OT. No pain mentioned. Appearance Alert, cooperative Mental Status/Objective Functional [place] Measure 0=Not Assessed/NA 4=Minimal Assistance 1=Total Assistance 5=Supervision or Setup 2=Maximal Assistance 6=Modified [place] 3=Moderate Assistance 7=Complete [place] ADL-Treatment Functional [place] Measure 0=Not Assessed/NA 4=Minimal Assistance 1=Total Assistance 5=Supervision or Setup 2=Maximal Assistance 6=Modified [place] 3=Moderate Assistance 7=Complete IndependenceIRFPAI Quality Coding Scale 6 Independent with activity with or without an assistive device 5 Patient requires set up or clean up by helper. Patient completes activity by themselves 4 Supervision or touching assist (CGA). [place] provide cues , steadying assist 3 The helper provides less than half the effort to complete the activity 2 The helper provides more than half the effort to complete the activity 1 Dependent. The helper does all the effort to complete an activity 7 Patient refused to complete or attempt activity 9 The patient did not perform the activity before the current illness or injury 88 Not attempted due to Medical conditions or safety concerns Other Treatment O2 in place throughout tx. Pt did 10-11 reps bilat AROM exercise, following sternal precautions. He needed the greatest recovery period after lifting arms at shoulders. To strengthen arms for ADLs, to help increase activity tolerance and to help mobilize edema in UEs (much less in hands/forearms than in LEs). He also did 10 squeezes each hand with blue foam video manager and pinched/squeezed yellow theraputty with beads in it, for strengthening and mobility. Pt left up in recliner, legs elevated, all needs met. Education OT Patient Education: Exercise program, Home exercise program, Purpose of tx/ functional activities Teaching Recipient: Patient Teaching Methods: Demonstration, Discussion Response to Teaching: Return Demonstration, Reinforcement Needed OT Short Term Goals Short Term Goals Time Frame: Nov 11, 2017 Toileting(FIM): 3 Toilet/Commode Transfer(FIM): 3 Additional Short Term Goals: 1-Demonstrate ADL Tasks, 2-Verbalize Understanding , 3-ImproveStrength/[place] 1=Demonstrate adherence to instructed precautions during ADL tasks. 2=Patient will verbalize/demonstrate understanding of assistive devices/ modifications for ADL. 3=Patient will improve strength/tolerance for activity to enable patient to perform ADL's. OT Skilled Nursing Goals Rehabilitation Inspector Goals Time Frame: Nov 18, 2017 Eating (FIM): 6 Eating (QC): 6 Groomin Oral Hygiene (QC): 6 Bathing(FIM): 6 Shower/Bathe Self (QC): 6 Upper Body Dressing(FIM): 6 Upper Body Dressing (QC): 6 Lower Body Dressing(FIM): 5 Lower Body Dressing (QC): 5 On/Off Footwear (QC): 5 Toileting(FIM): 5 Toileting Hygiene (QC): 5 Toilet/Commode Transfer(FIM): 6 Toilet/Commode Transfer (QC): 6 Tub Transfer(FIM): 5 Shower Transfer(FIM): 5 Additional Goals: 1-Demonstrate ADL Tasks, 2-Verbalize Understanding, 3- ImproveStrength/[place] 1=Demonstrate adherence to instructed precautions during ADL tasks. 2=Patient will verbalize/demonstrate understanding of assistive devices/ modifications for ADL. 3=Patient will improve strength/tolerance for activity to enable patient to perform ADL's. OT Education/Plan Problem List/Assessment Pt would benefit from skilled OT to increase his independence in basic self care to allow him to safely return to his home and to decrease caregiver burden. Discharge Recommendations Plan/Recommendations: Continue POC Treatment Plan/Plan of Care Patient would benefit from OT for education, treatment and training to promote independence in ADL's, mobility, safety and/or upper extremity function for ADL' s. Plan of Care: ADL Retraining, Functional Mobility, Group Exercise/Act as Ind ( education, exercise, act kit, socialization, funct activities), UE Funct Exercise/Act, UE Neuromus Re-Ed/Coord Treatment Duration: Nov 18, 2017 Frequency: At least 5 of 7 days/Wk (IRF) Estimated Hrs Per Day: 1.5 hours per day Agreement: Yes Rehab Potential: Fair Time/GCodes Start Time: 11:45 Stop Time: 12:05 Total Time Billed (hr/min): 20 Billed Treatment Time visit, 20 minutes ADL JOSE PACHECO OT Nov 04, 2017 12:16
--- NOTE | 2017-11-04 13:32 | Pulmonary Progress Note ---
Subjective Time Seen by Provider: 13:27 Subjective/Events-last exam pt reports feeling better and is able to tolerate physical therapy and more activity today Review of Systems General: No Chills, No Night Sweats, No Fatigue, No Malaise, No Appetite, No Other HEENT: No Head Aches, No Visual Changes, No Eye Pain, No Ear Pain, No Dysphasia , No Sinus Congestion, No Post Nasal Drip, No Sore Throat, No Other Pulmonary: Dyspnea Cardiovascular: Edema, No: Chest Pain, Palpitations, Orthopnea, Paroxysmal Noc. Dyspnea, Lt Headedness, Other Genitourinary: No Dysuria, No Frequency, No Incontinence, No Hematuria, No Retention, No Other Musculoskeletal: No: other, neck pain, shoulder pain, arm pain, back pain, hand pain, leg pain, foot pain Neurological: Weakness Exam Exam Vital Signs Date Time Temp Pulse Resp B/P (MAP) Pulse Ox O2 Delivery O2 Flow Rate FiO2 11/04/17 09:00 Nasal Cannula 4.00 11/04/17 07:30 90 Nasal Cannula 4.00 11/04/17 07:00 127 11/04/17 05:37 98.1 95 17 102/66 (78) 93 Nasal Cannula 4.00 11/04/17 01:00 134 11/03/17 23:40 100 18 92 4.00 11/03/17 21:22 Nasal Cannula 4.00 11/03/17 19:22 92 Nasal Cannula 4.00 11/03/17 19:00 117 11/03/17 18:45 96.4 84 14 130/82 (98) 93 Nasal Cannula 4.00 11/03/17 15:25 92 Nasal Cannula 4.00 11/03/17 15:10 103 22 111/77 (88) 94 Nasal Cannula 4.00 I & O 11/04/17 07:00 Intake Total 890 ml Output Total 1350 ml Balance -460 ml General Appearance: No Apparent Distress, WD/WN HEENT: PERRL/EOMI Neck: Full Range of Motion, Normal Inspection, Non Tender, Supple Respiratory: Chest Non Tender, Lungs Clear, No Accessory Muscle Use, No Respiratory Distress, Decreased Breath Sounds (diminished lower bases b/l ) Cardiovascular: Irregularly Irregular, Tachycardia Capillary Refill: Greater Than 3 Seconds Peripheral Pulses: 1+ Dorsalis Pedis (R), 1+ Left Dors-Pedis (L) Gastrointestinal: non tender, soft Extremity: Pedal Edema (4+ to Left and 3+ on Right ble), Swelling Neurologic/Psychiatric: Alert, Oriented x3, No Motor/Sensory Deficits, Normal Mood/Affect Skin: Warm/Dry, Pallor Lymphatic: No Adenopathy Results Lab Laboratory Tests 11/03/17 05:25 11/03/17 15:45 11/04/17 06:11 Assessment/Plan Assessment/Plan Chronic respiratory failure Pulmonary edema with small bilateral pleural effusions and hypoxia -will order 40 mg lasix daily dyspnea -pt wearing 4L and bipap at night -continue w/duoneb tx Hx of recent valvular replacement Hydronephrosis right with CKD Neena Kapadia APRN scribed note only for Dr. Sin and did not use expertise to assess or make pt plan. Clinical Quality Measures DVT/VTE Risk/Contraindication: Risk Factor Score Per Nursin RFS Level Per Nursing on Admit: 4+=Very High NEENA KAPADIA APRN Nov 04, 2017 13:32
--- NOTE | 2017-11-04 14:12 | Physical Therapy Daily Note ---
PT Daily Note-Current Subjective Pt is sitting in recliner in room pre tx and agrees to PT with no complaints of pain. Pain Numeric Pain Scale: 0-No Pain Location: No Pain Reported Appearance Pt is sitting in recliner post tx with nurse call, phone, and tray. Son and daughter present. Mental Status Patient Orientation: Normal For Age Attachments: Oxygen (5 L), Pierre Catheter Transfers Functional [place] Measure 0=Not Assessed/NA 4=Minimal Assistance 1=Total Assistance 5=Supervision or Setup 2=Maximal Assistance 6=Modified [place] 3=Moderate Assistance 7=Complete IndependenceIRFPAI Quality Coding Scale 6 Independent with activity with or without an assistive device 5 Patient requires set up or clean up by helper. Patient completes activity by themselves 4 Supervision or touching assist (CGA). Eunice provide cues , steadying assist 3 The helper provides less than half the effort to complete the activity 2 The helper provides more than half the effort to complete the activity 1 Dependent. The helper does all the effort to complete an activity 7 Patient refused to complete or attempt activity 9 The patient did not perform the activity before the current illness or injury 88 Not attempted due to Medical conditions or safety concerns Transfers (B, C, W/C) (FIM): 3 Sit to/from Stand: 3 Bed to/from Chair: 3 Mod A needed for transfers to ensure safety and abidance of sternal precautions. Weight Bearing Right Lower Extremity: Right Weight Bearing/Tolerated Left Lower Extremity: Left Weight Bearing/Tolerated Gait Training Does the Patient Walk?: Yes Gait (FIM): 2 Distance: 70 feet x2, 50 feet x1 Gait Level of Assist: 4 Gait Persons Needed: 1 Gait Assistive Device: FWW Wheelchair Training Does the Pt Use a Wheelchair?: Yes Treatments Pt performed functional activity and gait training. Assessment Current Status: Good Progress Pt able to tolerate 70 feet x1 and 50 feet x1 ambulation bouts with oxygen lowered to 4 L. Pt reported blurred vision after each sitting rest break throughout treatment. PT Short Term Goals Short Term Goals Time Frame: Nov 04, 2017 Gait (FIM): 4 Gait Distance Comment: 150 feet Gait Assistive Device: FWW PT Snf Goals Snf Goals PT Snf Goals Time Frame: Nov 18, 2017 Transfers (B,C,W/C) (FIM): 6 Sit to Lying (QC): 6 Lying-Sitting on Side/Bed(QC): 6 Sit to Stand (QC): 6 Rollin Roll Left to Right (QC): 6 Chair/Ebc-an-Huntl Xfer(QC): 6 Car Transfer (QC): 6 Does the Patient Walk: Yes Gait (FIM): 6 Distance: 200 feet Walk 10 feet (QC): 6 Walk 10ft-Uneven Surface(QC): 6 Walk 50ft with 2 Turns (QC): 6 Walk 150 ft (QC): 6 Gait Level of Assist: 6 Gait Assistive Device: FWW Does the Pt use WC or Scooter?: No Stairs (FIM): 2 # of Steps: 4 1 Step (curb) (QC): 6 4 Steps (QC): 6 12 Steps (QC): 6 Stairs Level Of Assist: 6 Picking up an Object (QC): 6 PT Plan Problem List Problem List: Activity Tolerance, Functional Strength, Safety, Balance, Gait, Transfer, Bed Mobility, ROM Treatment/Plan Treatment Plan: Continue Plan of Care Treatment Plan: Bed Mobility, Education, Functional Activity Rochelle, Functional Strength, Group Therapy, Gait, Safety, Therapeutic Exercise, Transfers Treatment Duration: Nov 18, 2017 Frequency: Modified Program (IRF) (03/04 due to oxygen sats dropping with activity. ) Estimated Hrs Per Day: 1.5 hours per day (modified to be 15 hours in 7 days) Patient and/or Family Agrees t: Yes Safety Risks/Education Patient Education: Gait Training, Transfer Techniques, Correct Positioning, W/ C Management, Safety Issues Teaching Recipient: Patient Teaching Methods: Demonstration, Discussion Response to Teaching: Reinforcement Needed Time/GCodes Time In: 1330 Time Out: 1400 Total Billed Treatment Time: 30 Total Billed Treatment 1 visit 30 min GT STEFFANIE BROWN PT Nov 04, 2017 14:12
[2017-11-04] MEDS ORDERED: FUROSEMIDE 40 MG/4 ML INJ (LASIX) IVP NR (16:00)
[2017-11-04 18:00] VITALS: BP 104/69
--- NOTE | 2017-11-04 21:31 | Cardiology Progress Note ---
Cardiology SOAP Progress Note Subjective: Slight improvement in shortness of breath. Objective: I&O/Vital Signs Vital Sign - Last 12Hours 11/04/17 11/04/17 11/04/17 11/04/17 13:00 15:54 18:00 18:45 Temp 95.9 Pulse 127 100 Resp 22 B/P (MAP) 104/69 (81) Pulse Ox 85 90 O2 Delivery Nasal Cannula Nasal Cannula Nasal Cannula O2 Flow Rate 4.00 4.00 6.00 11/04/17 11/04/17 11/04/17 19:00 19:52 19:57 Pulse 137 95 Resp 22 O2 Delivery Nasal Cannula O2 Flow Rate 5.00 5.00 Intake and Output 11/04/17 00:00 Intake Total 650 ml Output Total 350 ml Balance 300 ml Weight (Pounds): 243 Weight (Ounces): 0.5 Weight (Calculated Kilograms): [id number] Constitutional: AAO x 3 Respiratory: No accessory muscle use, No respiratory distress, No chest tender , No chest expansion is symmetric, chest is bilaterally symmetric, lungs clear to percussion, lungs clear to auscultation, No crackles, No rhonchi, No rales, No stridor, No wheezing, No pleural rub, No other Cardiovascular: regular rate-rhythm, No irregularly irregular, No extra beats, No parasternal heave is noted, No JVD, No edema, No bradycardia, tachycardia, No point of maximal impulse, No cardiac thrills are palpable, S1 and S2, No gallop/S3, No gallop/S4, No diastolic murmur, No systolic murmur, No friction rub, No click, No other Gastrointestional: No tender, No soft, No round, No distended, No pulsatile mass, No organomegaly, No guarding, No rebound, No tenderness, No hernia, No mass, No audible bowel sounds, No abnormal bowel sounds, No abdominal bruits, No spleenomegaly, No other Extremities: No normal range of motion, No non-tender, No normal inspection, No pedal edema, No calf tenderness, No normal capillary refill, No pelvis stable , No calf tenderness, No inflammation, No pedal edema, No slow capillary refill , No swelling, No other, No abrasion, No clubbing, No cyanosis, No ecchymosis, No laceration, No no lower extremity edema bilateral, No significant edema, No tenderness, No wound Neurologic/Psychiatric: No manager therapy II-XII nml as tested, No no motor/sensory deficits, alert, normal mood/affect, oriented x 3, No abnormal cerebellar tests , No abnormal manager therapy II-XII, No abnormal gait, No aphasia, No EOM palsy, No facial droop, No motor weakness, No sensory deficit, No depressed affect, No disoriented x 3, No other, No grossly intact, No power is 5/5 both on sides Skin: No normal color, No warm/dry, No cyanosis, No cool, No diaphoresis, No damp, No ecchymosis, No jaundice, No mottled, No pallor, No rash, No tattoos/ piercings, No ulcerations, No rash on exposed areas, No ulcerations on exposed areas, No other Results/Procedures: Labs Laboratory Tests 11/04/17 04:44: Glucometer 161H 11/04/17 06:11: White Blood Count 10.5, Red Blood Count 3.23L, Hemoglobin 9.4L, Hematocrit 30L, Mean Corpuscular Volume 93, Mean Corpuscular Hemoglobin 29, Mean Corpuscular Hemoglobin Concent 31L, Red Cell Distribution Width 15.0H, Platelet Count 248, Mean Platelet Volume 11.2H, Neutrophils (%) (Auto) 75, Lymphocytes (%) (Auto) 11L, Monocytes (%) (Auto) 12, Eosinophils (%) (Auto) 1, Basophils (%) (Auto) 0, Neutrophils # (Auto) 7.9H, Lymphocytes # (Auto) 1.2, Monocytes # (Auto) 1.3H, Eosinophils # (Auto) 0.1, Basophils # (Auto) 0.0, Sodium Level 138, Potassium Level 4.4, Chloride Level 101, Carbon Dioxide Level 26, Anion Gap 11, Blood Urea Nitrogen 36H, Creatinine 1.66H, Estimat Glomerular Filtration Rate 40, BUN/ Creatinine Ratio 22, Glucose Level 155H, Calcium Level 8.2L, Phosphorus Level 4.3, Magnesium Level 2.2 11/04/17 11:13: Glucometer 318H 11/04/17 16:12: Glucometer 168H A/P: Assessment/Dx: Syncope, Status post-aortic valve replacement, Hypertension, Orthostatic hypotension, Atrial fibrillation with rapid ventricular rate PVCs Pericardial effusion. DM Mild acute diastolic congestive heart failure Plan: Syncope: Echocardiogram showed hyperdynamic LV function with suggest likely dehydration. Generous hydration was recommended. Telemetry. Orthostatic hypotension: Hold amlodipine. Continue beta aman. Behavioral modification was discussed with the patient. Atrial fibrillation with controlled ventricular rate: Continue telemetry. Patient on Eliquis. better rate control on current increased dose of metoprolol. Pericardial effusion: Mild to moderate pericardial effusion on echocardiogram without evidence of tamponade physiology. Follow-up echocardiogram showed no increase in pericardial effusion. No evidence of tamponade physiology. No indication for pericardiocentesis at this point. PVCs: On metoprolol. Hypertension: DC amlodipine. Continue metoprolol. Status post-aortic valve replacement: Normal prosthetic aortic valve on echocardiogram. Shortness of breath/diastolic heart failure: Elevated BNP. Continue giving Lasix. Thank you for your consultation. Please call me if you have any questions. Saul Ochoa MD, FACP, FACC, FSCAI, FHRS, CCDS Interventional Cardiology Cardiac Electrophysiology Vascular Medicine and Endovascular Interventions Renea OCHOA MD Nov 04, 2017 9:31 pm
[2017-11-04 21:35] VITALS: BP 100/58
[2017-11-05] MEDS: RT-ALBUTEROL/IPRATROPIUM 3 ML (DUONEB) VIAL INH SCH ×4 (06:16→22:07)
[2017-11-05] MEDS: inSUlin (REGULAR) HUMAN 1 UNIT/0.01 ML (CHARGE PER UNIT) SC SCH ×4 (06:32→21:25)
[2017-11-05] MEDS: ASCORBIC ACID (VIT C) 500 MG TABLET PO SCH (06:40)
[2017-11-05] MEDS: MULTIVIT W/MINERALS TAB (THERAGRAN M) PO SCH (06:40)
[2017-11-05 06:42] VITALS: BP 112/70
[2017-11-05 06:48] LABS: BASOPHILS % (AUTO) 0 % (0-10); EOSINOPHILS # (AUTO) 0.1 10^3/uL (0.0-0.3); EOSINOPHILS % (AUTO) 1 % (0-10); HEMATOCRIT 29 % (40-54); LYMPHOCYTES # (AUTO) 1.1 X 10^3 (1.0-4.0); LYMPHOCYTES % (AUTO) 12 % (12-44); MEAN CORPUSCULAR HEMOGLOBIN 29 PG (25-34); MEAN CORPUSCULAR HGB CONC 32 G/DL (32-36); MEAN CORPUSCULAR VOLUME 93 FL (80-99); MEAN PLATELET VOLUME 10.6 FL (7.4-10.4); MONOCYTES % (AUTO) 12 % (0-12); NEUTROPHILS # (AUTO) 6.5 X 10^3 (1.8-7.8); NEUTROPHILS % (AUTO) 75 % (42-75); PLATELET COUNT 216 10^3/uL (130-400); RED BLOOD COUNT 3.08 10^6/uL (4.35-5.85); WHITE BLOOD COUNT 8.7 10^3/uL (4.3-11.0)
[2017-11-05 07:08] LABS: CALCIUM 8.3 MG/DL (8.5-10.1); CREATININE SERUM 1.83 MG/DL (0.60-1.30); MAGNESIUM 1.9 MG/DL (1.8-2.4); PHOSPHORUS 4.7 MG/DL (2.3-4.7); POTASSIUM 4.3 MMOL/L (3.6-5.0)
[2017-11-05] MEDS: APIXABAN 2.5 MG (ELIQUIS) TABLET PO SCH ×2 (07:24→22:00)
[2017-11-05] MEDS: SENNA W/DOCUSATE (SENOKOT S) TABLET PO SCH ×3 (07:24→22:00)
[2017-11-05] MEDS: meTOprolol TARTRATE 50 MG (LOPRESSOR) TAB PO SCH ×2 (07:24→21:36)
[2017-11-05] MEDS: ASPIRIN E.C. 81 MG (ECOTRIN) TAB PO SCH (07:24)
--- NOTE | 2017-11-05 08:06 | Progress Note (SOAP) ---
Subjective Time Seen by Provider: 08:05 Subjective/Events-last exam Patient resting comfortably. Patient feels his shortness of breath is better. Renal insufficiency. Severe aortic stenosis. Congestive heart failure. Syncope Objective Exam Vital Signs Date Time Temp Pulse Resp B/P (MAP) Pulse Ox O2 Delivery O2 Flow Rate FiO2 11/05/17 06:42 97.6 88 20 112/70 (84) 94 High Flow N/C 8.00 11/05/17 06:16 86 Nasal Cannula 9.00 11/05/17 02:00 100 94 High Flow N/C 8.00 11/05/17 01:00 133 11/04/17 23:50 92 High Flow N/C 8.00 11/04/17 21:35 97.0 88 100/58 (72) 11/04/17 21:00 Nasal Cannula 5.00 11/04/17 19:57 95 22 5.00 11/04/17 19:52 Nasal Cannula 5.00 11/04/17 19:00 137 11/04/17 18:45 90 Nasal Cannula 6.00 11/04/17 18:00 95.9 100 22 104/69 (81) 85 Nasal Cannula 4.00 11/04/17 15:54 Nasal Cannula 4.00 11/04/17 13:00 127 11/04/17 09:00 Nasal Cannula 4.00 I & O 11/05/17 07:00 Intake Total 1200 ml Output Total 1175 ml Balance 25 ml Capillary Refill : Greater Than 3 Seconds General Appearance: No Apparent Distress, WD/WN HEENT: Normal ENT Inspection Neck: Full Range of Motion Respiratory: No Accessory Muscle Use, No Respiratory Distress Cardiovascular: Regular Rate, Rhythm Results Lab Laboratory Tests 11/04/17 11:13: Glucometer 318H 11/04/17 16:12: Glucometer 168H 11/04/17 21:33: Glucometer 206H 11/05/17 05:38: Glucometer 180H 11/05/17 06:38: White Blood Count 8.7, Red Blood Count 3.08L, Hemoglobin 9.0L, Hematocrit 29L, Mean Corpuscular Volume 93, Mean Corpuscular Hemoglobin 29, Mean Corpuscular Hemoglobin Concent 32, Red Cell Distribution Width 15.0H, Platelet Count 216, Mean Platelet Volume 10.6H, Neutrophils (%) (Auto) 75, Lymphocytes (%) (Auto) 12 , Monocytes (%) (Auto) 12, Eosinophils (%) (Auto) 1, Basophils (%) (Auto) 0, Neutrophils # (Auto) 6.5, Lymphocytes # (Auto) 1.1, Monocytes # (Auto) 1.0, Eosinophils # (Auto) 0.1, Basophils # (Auto) 0.0, Sodium Level 138, Potassium Level 4.3, Chloride Level 102, Carbon Dioxide Level 26, Anion Gap 10, Blood Urea Nitrogen 40H, Creatinine 1.83H, Estimat Glomerular Filtration Rate 36, BUN/ Creatinine Ratio 22, Glucose Level 179H, Calcium Level 8.3L, Phosphorus Level 4.7, Magnesium Level 1.9 Assessment/Plan Assessment/Plan Assess & Plan/Chief Complaint Aortic valve replacement. Renal insufficiency. Diabetes. Weakness. Short of breath on oxygen. . 10/29/17. Aortic valve replacement. Renal insufficiency improving. Diabetes under control. Weakness. short of breath. . aortic valve replacement. Renal insufficiency. Diabetes. Short of breath. Patient limited with shortness of breath. . 11/02/17. Aortic valve replacement. Renal insufficiency. Diabetes. Shortness of breath better. Patient working progress. . 11/03/17. Aortic valve replacement. Renal insufficiency better. Diabetes. Patient feels he is breathing better. . 11/04/17. Aortic valve replacement. Renal insufficiency. Diabetes. Elevated BNP. Patient states he's breathing better. Patient received Lasix yesterday. . 11/05/17. Aortic valve replacement. Renal insufficiency. Diabetes. Congestive heart failure. Clinical Quality Measures DVT/VTE Risk/Contraindication: Risk Factor Score Per Nursin RFS Level Per Nursing on Admit: 4+=Very High KINA CALDERON DO Nov 05, 2017 08:06
--- NOTE | 2017-11-05 08:37 | Diagnostic Imaging Report ---
INDICATION: Shortness of air. TECHNIQUE: Single view chest 3:26 AM. CORRELATION STUDY: 11/04/2017 FINDINGS: Poststernotomy changes. Marked cardiac enlargement, prominent mediastinum persists. Vascular congestion is present. Areas of atelectasis and/or infiltrate versus edema have progressed involving the lung bases. Probable pleural effusions. IMPRESSION: 1. Continued cardiac enlargement with vascular congestion. 2. Areas of atelectasis, infiltrate and/or edema about the lower lung samson along with likely small effusions. The findings do appear to be slightly adversely changed. Dictated by: Dictated on workstation # [id number]
--- NOTE | 2017-11-05 09:52 | PM & R (SOAP) Progress Note ---
Subjective Time Seen by Provider: 07:50 Subjective/Events-last exam Patient was seen in his room this AM Patient Mod assist for transfers Appreciate cardiology and Pulmonology notes and orders Appreciate Current Labs Discussed case with RN Will consult DR Kwame tomlinson urinary retention Pierre may need to stay in while patient receiving IV lasix for diuresis Patient feels somnolent this AM Current Meds reviewed Review of Systems Cardiovascular: Edema Neurological: Weakness Objective Exam Last Set of Vital Signs Vital Signs Date Time Temp Pulse Resp B/P (MAP) Pulse Ox O2 Delivery O2 Flow Rate FiO2 11/05/17 07:00 136 11/05/17 06:42 97.6 20 112/70 (84) 94 High Flow N/C 8.00 Capillary Refill : Greater Than 3 Seconds I&O Intake and Output 11/05/17 00:00 Intake Total 1140 ml Output Total 1575 ml Balance -435 ml Intake Oral 1140 ml Output Urine Total 1575 ml # Bowel Movements 1 General: Alert, Oriented X3, Cooperative, No Acute Distress HEENT: Atraumatic, PERRLA, EOMI, Mucous Memb Moist/[place] Neck: Supple, No JVD Lungs: Clear to Auscultation Heart: Regular Rate Abdomen: Normal Bowel Sounds, Soft, No Tenderness, Other (abdomen distended KUB ordered) Extremities: Other (mild pitting edema both ankles) Skin: Other (midline sternal incision site healing well) Neuro: Other (Generalized weakness limited endurance) Psych/Mental Status: Mental Status NL Results Lab Laboratory Tests 11/02/17 11:03: Glucometer 243H 11/02/17 16:10: Glucometer 277H 11/02/17 20:36: Glucometer 209H 11/03/17 05:03: Glucometer 143H 11/03/17 05:25: White Blood Count 8.9, Red Blood Count 3.16L, Hemoglobin 9.1L, Hematocrit 29L, Mean Corpuscular Volume 92, Mean Corpuscular Hemoglobin 29, Mean Corpuscular Hemoglobin Concent 31L, Red Cell Distribution Width 14.9H, Platelet Count 240, Mean Platelet Volume 10.9H, Neutrophils (%) (Auto) 73, Lymphocytes (%) (Auto) 13 , Monocytes (%) (Auto) 13H, Eosinophils (%) (Auto) 1, Basophils (%) (Auto) 0, Neutrophils # (Auto) 6.5, Lymphocytes # (Auto) 1.2, Monocytes # (Auto) 1.1H, Eosinophils # (Auto) 0.1, Basophils # (Auto) 0.0, Sodium Level 138, Potassium Level 4.2, Chloride Level 103, Carbon Dioxide Level 26, Anion Gap 9, Blood Urea Nitrogen 33H, Creatinine 1.54H, Estimat Glomerular Filtration Rate 44, BUN/ Creatinine Ratio 21, Glucose Level 139H, Calcium Level 8.4L, Phosphorus Level 4.4, Magnesium Level 1.8 11/03/17 10:34: Glucometer 236H 11/03/17 15:35: B-Type Natriuretic Peptide 838.2H 11/03/17 15:45: White Blood Count 9.9, Red Blood Count 3.20L, Hemoglobin 9.4L, Hematocrit 30L, Mean Corpuscular Volume 92, Mean Corpuscular Hemoglobin 29, Mean Corpuscular Hemoglobin Concent 32, Red Cell Distribution Width 14.9H, Platelet Count 241, Mean Platelet Volume 10.5H, Neutrophils (%) (Auto) 76H, Lymphocytes (%) (Auto) 12, Monocytes (%) (Auto) 11, Eosinophils (%) (Auto) 1, Basophils (%) (Auto) 0, Neutrophils # (Auto) 7.6, Lymphocytes # (Auto) 1.2, Monocytes # (Auto) 1.1H, Eosinophils # (Auto) 0.1, Basophils # (Auto) 0.0, Sodium Level 135, Potassium Level 4.7, Chloride Level 102, Carbon Dioxide Level 26, Anion Gap 7, Blood Urea Nitrogen 36H, Creatinine 1.76H, Estimat Glomerular Filtration Rate 37, BUN/ Creatinine Ratio 20, Glucose Level 226H, Calcium Level 8.4L, Neutrophils % ( Manual) 73, Lymphocytes % (Manual) 17, Monocytes % (Manual) 6, Eosinophils % ( Manual) 0, Basophils % (Manual) 0, Band Neutrophils 4, Blood Morphology Comment NORMAL, Total Bilirubin 0.4, Aspartate Amino Transf (AST/SGOT) 59H, Alanine Aminotransferase (ALT/SGPT) 91H, Alkaline Phosphatase 248H, Total Protein 6.1L, Albumin 3.1L 11/03/17 19:59: Glucometer 258H 11/04/17 04:44: Glucometer 161H 11/04/17 06:11: White Blood Count 10.5, Red Blood Count 3.23L, Hemoglobin 9.4L, Hematocrit 30L, Mean Corpuscular Volume 93, Mean Corpuscular Hemoglobin 29, Mean Corpuscular Hemoglobin Concent 31L, Red Cell Distribution Width 15.0H, Platelet Count 248, Mean Platelet Volume 11.2H, Neutrophils (%) (Auto) 75, Lymphocytes (%) (Auto) 11L, Monocytes (%) (Auto) 12, Eosinophils (%) (Auto) 1, Basophils (%) (Auto) 0, Neutrophils # (Auto) 7.9H, Lymphocytes # (Auto) 1.2, Monocytes # (Auto) 1.3H, Eosinophils # (Auto) 0.1, Basophils # (Auto) 0.0, Sodium Level 138, Potassium Level 4.4, Chloride Level 101, Carbon Dioxide Level 26, Anion Gap 11, Blood Urea Nitrogen 36H, Creatinine 1.66H, Estimat Glomerular Filtration Rate 40, BUN/ Creatinine Ratio 22, Glucose Level 155H, Calcium Level 8.2L, Phosphorus Level 4.3, Magnesium Level 2.2 11/04/17 11:13: Glucometer 318H 11/04/17 16:12: Glucometer 168H 11/04/17 21:33: Glucometer 206H 11/05/17 05:38: Glucometer 180H 11/05/17 06:38: White Blood Count 8.7, Red Blood Count 3.08L, Hemoglobin 9.0L, Hematocrit 29L, Mean Corpuscular Volume 93, Mean Corpuscular Hemoglobin 29, Mean Corpuscular Hemoglobin Concent 32, Red Cell Distribution Width 15.0H, Platelet Count 216, Mean Platelet Volume 10.6H, Neutrophils (%) (Auto) 75, Lymphocytes (%) (Auto) 12 , Monocytes (%) (Auto) 12, Eosinophils (%) (Auto) 1, Basophils (%) (Auto) 0, Neutrophils # (Auto) 6.5, Lymphocytes # (Auto) 1.1, Monocytes # (Auto) 1.0, Eosinophils # (Auto) 0.1, Basophils # (Auto) 0.0, Sodium Level 138, Potassium Level 4.3, Chloride Level 102, Carbon Dioxide Level 26, Anion Gap 10, Blood Urea Nitrogen 40H, Creatinine 1.83H, Estimat Glomerular Filtration Rate 36, BUN/ Creatinine Ratio 22, Glucose Level 179H, Calcium Level 8.3L, Phosphorus Level 4.7, Magnesium Level 1.9 Assessment/Plan Assessment general debil s/p AVR DR Kruse OSH Postop resp insufficiency with associated cardiomegaly and atelectasis receiving treatments and 02 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
--- NOTE | 2017-11-05 10:20 | Cardiology Progress Note ---
Cardiology SOAP Progress Note Subjective: Mild shortness of breath. Slow improvement. Objective: I&O/Vital Signs Vital Sign - Last 12Hours 11/04/17 11/05/17 11/05/17 11/05/17 23:50 01:00 02:00 06:16 Pulse 133 100 Pulse Ox 92 94 86 O2 Delivery High Flow N/C High Flow N/C Nasal Cannula O2 Flow Rate 8.00 8.00 9.00 11/05/17 11/05/17 11/05/17 11/05/17 06:42 07:00 09:00 10:07 Temp 97.6 Pulse 88 136 Resp 20 B/P (MAP) 112/70 (84) Pulse Ox 94 94 89 O2 Delivery High Flow N/C High Flow N/C Nasal Cannula O2 Flow Rate 8.00 8.00 9.00 Intake and Output 11/05/17 00:00 Intake Total 900 ml Output Total 575 ml Balance 325 ml Weight (Pounds): 249 Weight (Ounces): 0.0 Weight (Calculated Kilograms): 112.420461 Constitutional: AAO x 3 Respiratory: No accessory muscle use, No respiratory distress, No chest tender , No chest expansion is symmetric, chest is bilaterally symmetric, lungs clear to percussion, lungs clear to auscultation, No crackles, No rhonchi, No rales, No stridor, No wheezing, No pleural rub, No other Cardiovascular: regular rate-rhythm, No irregularly irregular, No extra beats, No parasternal heave is noted, No JVD, No edema, No bradycardia, tachycardia, No point of maximal impulse, No cardiac thrills are palpable, S1 and S2, No gallop/S3, No gallop/S4, No diastolic murmur, No systolic murmur, No friction rub, No click, No other Gastrointestional: No tender, No soft, No round, No distended, No pulsatile mass, No organomegaly, No guarding, No rebound, No tenderness, No hernia, No mass, No audible bowel sounds, No abnormal bowel sounds, No abdominal bruits, No spleenomegaly, No other Extremities: No normal range of motion, No non-tender, No normal inspection, No pedal edema, No calf tenderness, No normal capillary refill, No pelvis stable , No calf tenderness, No inflammation, No pedal edema, No slow capillary refill , No swelling, No other, No abrasion, No clubbing, No cyanosis, No ecchymosis, No laceration, No no lower extremity edema bilateral, No significant edema, No tenderness, No wound Neurologic/Psychiatric: No granulator tender II-XII nml as tested, No no motor/sensory deficits, alert, normal mood/affect, oriented x 3, No abnormal cerebellar tests , No abnormal granulator tender II-XII, No abnormal gait, No aphasia, No EOM palsy, No facial droop, No motor weakness, No sensory deficit, No depressed affect, No disoriented x 3, No other, No grossly intact, No power is 5/5 both on sides Skin: No normal color, No warm/dry, No cyanosis, No cool, No diaphoresis, No damp, No ecchymosis, No jaundice, No mottled, No pallor, No rash, No tattoos/ piercings, No ulcerations, No rash on exposed areas, No ulcerations on exposed areas, No other Results/Procedures: Labs Laboratory Tests 11/04/17 11:13: Glucometer 318H 11/04/17 16:12: Glucometer 168H 11/04/17 21:33: Glucometer 206H 11/05/17 05:38: Glucometer 180H 11/05/17 06:38: White Blood Count 8.7, Red Blood Count 3.08L, Hemoglobin 9.0L, Hematocrit 29L, Mean Corpuscular Volume 93, Mean Corpuscular Hemoglobin 29, Mean Corpuscular Hemoglobin Concent 32, Red Cell Distribution Width 15.0H, Platelet Count 216, Mean Platelet Volume 10.6H, Neutrophils (%) (Auto) 75, Lymphocytes (%) (Auto) 12 , Monocytes (%) (Auto) 12, Eosinophils (%) (Auto) 1, Basophils (%) (Auto) 0, Neutrophils # (Auto) 6.5, Lymphocytes # (Auto) 1.1, Monocytes # (Auto) 1.0, Eosinophils # (Auto) 0.1, Basophils # (Auto) 0.0, Sodium Level 138, Potassium Level 4.3, Chloride Level 102, Carbon Dioxide Level 26, Anion Gap 10, Blood Urea Nitrogen 40H, Creatinine 1.83H, Estimat Glomerular Filtration Rate 36, BUN/ Creatinine Ratio 22, Glucose Level 179H, Calcium Level 8.3L, Phosphorus Level 4.7, Magnesium Level 1.9 A/P: Assessment/Dx: Syncope, Status post-aortic valve replacement, Hypertension, Orthostatic hypotension, Atrial fibrillation with rapid ventricular rate PVCs Pericardial effusion. DM Mild acute diastolic congestive heart failure Plan: Syncope: No further episodes. Initially it was likely due to dehydration and orthostatic hypotension. Amlodipine was discontinued early in the hospitalization. Behavioral modification was discussed with the patient. Atrial fibrillation with controlled ventricular rate: Continue telemetry. Patient on Eliquis. better rate control on current increased dose of metoprolol. Pericardial effusion: Mild to moderate pericardial effusion on echocardiogram without evidence of tamponade physiology. Follow-up echocardiogram showed no increase in pericardial effusion. No evidence of tamponade physiology. No indication for pericardiocentesis at this point. PVCs: On metoprolol. Hypertension: Continue metoprolol. Status post-aortic valve replacement: Normal prosthetic aortic valve on echocardiogram. Shortness of breath/mild acute diastolic heart failure: Elevated BNP. Continue giving Lasix. Dr. Nice covering cardiology service over the weekend. Please call him if any cardiac issues. Thank you Thank you for your consultation. Please call me if you have any questions. Saul Ochoa MD, FACP, FACC, FSCAI, FHRS, CCDS Interventional Cardiology Cardiac Electrophysiology Vascular Medicine and Endovascular Interventions Renea OCHOA MD Nov 05, 2017 10:20
--- NOTE | 2017-11-05 11:53 | Physical Therapy Daily Note ---
PT Daily Note-Current Subjective Pt. hesitantly nods his head that he will participate in therapy. Resists using his voice and appears to be having some increased dyspnea since last seen by this HEEL BUILDER. After some questioning states that he had some increased difficulty breathing yesterday and today he is so very tired. Pt. also expresses that he is not interested in going to group therapy this PM. Pt. agrees to seated LE exercise and short walking bouts as tolerated. Pain Numeric Pain Scale: 0-No Pain Appearance pale in face, pitting edema in LEs up to abdomen, tight Mental Status Patient Orientation: Normal For Age Attachments: Oxygen (9L), Pierre Catheter, Other-See Comments (EKG halter) Transfers Functional [place] Measure 0=Not Assessed/NA 4=Minimal Assistance 1=Total Assistance 5=Supervision or Setup 2=Maximal Assistance 6=Modified [place] 3=Moderate Assistance 7=Complete IndependenceIRFPAI Quality Coding Scale 6 Independent with activity with or without an assistive device 5 Patient requires set up or clean up by helper. Patient completes activity by themselves 4 Supervision or touching assist (CGA). [place] provide cues , steadying assist 3 The helper provides less than half the effort to complete the activity 2 The helper provides more than half the effort to complete the activity 1 Dependent. The helper does all the effort to complete an activity 7 Patient refused to complete or attempt activity 9 The patient did not perform the activity before the current illness or injury 88 Not attempted due to Medical conditions or safety concerns Transfers (B, C, W/C) (FIM): 4 Scootin Supine to/from Sit: 4 Sit to/from Stand: 4 2 firm folded thermal blankets put under patient with his blow up cushion on top of that to assist with height so pt. is not tempted to push with UEs as cautioned not to. Weight Bearing Right Lower Extremity: Right Weight Bearing/Tolerated Left Lower Extremity: Left Weight Bearing/Tolerated Gait Training Does the Patient Walk?: Yes Gait (FIM): 1 Distance (FIM): 1=up to 49 ft (15ftx5) Gait Level of Assist: 4 Gait Persons Needed: 1 Gait Assistive Device: FWW assist for w/c and portable O2 Exercises Supine Ex: Ankle pumps, Quad Set, Hip abd/add Supine Reps: 15 Seated Therapy Exercises: Ankle pumps, Sit to stand, Long arc quads, Hip flexion, Hip abd/add Seated Reps: 12 (x4) Assessment Current Status: Fair Progress vitals monitored during Rx as pt. easily became SOB and stated 'My heart is sure beating hard" pre: BP: 109/66, HR: 88, O2sats 94%, during Rx: BP: 112/62, HR 138, O2sats 92% PT Short Term Goals Short Term Goals Time Frame: Nov 04, 2017 Gait (FIM): 4 Gait Distance Comment: 150 feet Gait Assistive Device: FWW PT French Pastry Cook Goals French Pastry Cook Goals PT French [employer]ry Cook Goals Time Frame: Nov 18, 2017 Transfers (B,C,W/C) (FIM): 6 Sit to Lying (QC): 6 Lying-Sitting on Side/Bed(QC): 6 Sit to Stand (QC): 6 Rollin Roll Left to Right (QC): 6 Chair/Jas-go-Stmre Xfer(QC): 6 Car Transfer (QC): 6 Does the Patient Walk: Yes Gait (FIM): 6 Distance: 200 feet Walk 10 feet (QC): 6 Walk 10ft-Uneven Surface(QC): 6 Walk 50ft with 2 Turns (QC): 6 Walk 150 ft (QC): 6 Gait Level of Assist: 6 Gait Assistive Device: FWW Does the Pt use WC or Scooter?: No Stairs (FIM): 2 # of Steps: 4 1 Step (curb) (QC): 6 4 Steps (QC): 6 12 Steps (QC): 6 Stairs Level Of Assist: 6 Picking up an Object (QC): 6 PT Plan Treatment/Plan Treatment Plan: Continue Plan of Care Treatment Plan: Bed Mobility, Education, Functional Activity [place], Functional Strength, Group Therapy, Gait, Safety, Therapeutic Exercise, Transfers Treatment Duration: Nov 18, 2017 Frequency: Modified Program (IRF) (03/04 due to oxygen sats dropping with activity. ) Estimated Hrs Per Day: 1.5 hours per day (modified to be 15 hours in 7 days) Patient and/or Family Agrees t: Yes Safety Risks/Education Patient Education: Gait Training, Transfer Techniques, Reviewed Precautions ( min to no UE use for sit to stand...sternal precautions), Correct Positioning, Safety Issues Teaching Recipient: Patient Teaching Methods: Demonstration, Discussion Response to Teaching: Verbalize Understanding, Return Demonstration, Reinforcement Needed Time/GCodes Time In: 1020 Time Out: 1150 Total Billed Treatment Time: 90 Total Billed Treatment 1,EX30m,GT30m,FA30m G Codes Necessary: REX Hansen HEEL BUILDER Nov 05, 2017 11:53
--- NOTE | 2017-11-05 12:52 | Occupational Ther Daily Note ---
OT Current Status-Daily Note Subjective Pt alert, sitting in chair. Pt on 9-10 L O2. Pt agreed to therapy. No c/o pain at this time. Mental Status/Objective Patient Orientation: Person, Place, Time, Situation Functional [place] Measure 0=Not Assessed/NA 4=Minimal Assistance 1=Total Assistance 5=Supervision or Setup 2=Maximal Assistance 6=Modified [place] 3=Moderate Assistance 7=Complete [place] Attachments: Pierre Catheter, Oxygen PICC ADL-Treatment Pt refused shower. Did agree to complete sponge bath. Nrsg present in room. Pt was able to wash body after set up. Pt seems to be inefficient in cleansing self, decreased pearl glue drier and SOA. Pt able to reach all areas though assist to go back over areas to make sure of cleanliness. Nrsg found small wound on tip of penis beside catheter tubing. Pt would stand for 2 min then needed to sit back down. Pt slow moving and frequent recovery breaks required increased time to complete tasks. After set up, pt completed oral care. Pt did not want to walk to bathroom to complete at sink. Pt was able to don/doff shirt, assist needed to don/doff pants. After therapy, pt sitting in recliner with O2 applied. Call light/phone in reach. All needs met in room. Functional [place] Measure 0=Not Assessed/NA 4=Minimal Assistance 1=Total Assistance 5=Supervision or Setup 2=Maximal Assistance 6=Modified [place] 3=Moderate Assistance 7=Complete IndependenceIRFPAI Quality Coding Scale 6 Independent with activity with or without an assistive device 5 Patient requires set up or clean up by helper. Patient completes activity by themselves 4 Supervision or touching assist (CGA). [place] provide cues , steadying assist 3 The helper provides less than half the effort to complete the activity 2 The helper provides more than half the effort to complete the activity 1 Dependent. The helper does all the effort to complete an activity 7 Patient refused to complete or attempt activity 9 The patient did not perform the activity before the current illness or injury 88 Not attempted due to Medical conditions or safety concerns Grooming (FIM): 5 Oral Hygiene (QC): 5 Upper Body (FIM): 5 Upper Body Dressing (QC): 5 OT Short Term Goals Short Term Goals Time Frame: Nov 11, 2017 Toileting(FIM): 3 Toilet/Commode Transfer(FIM): 3 Additional Short Term Goals: 1-Demonstrate ADL Tasks, 2-Verbalize Understanding , 3-ImproveStrength/[place] 1=Demonstrate adherence to instructed precautions during ADL tasks. 2=Patient will verbalize/demonstrate understanding of assistive devices/ modifications for ADL. 3=Patient will improve strength/tolerance for activity to enable patient to perform ADL's. OT Care Home Goals Teletray Operator Goals Time Frame: Nov 18, 2017 Eating (FIM): 6 Eating (QC): 6 Groomin Oral Hygiene (QC): 6 Bathing(FIM): 6 Shower/Bathe Self (QC): 6 Upper Body Dressing(FIM): 6 Upper Body Dressing (QC): 6 Lower Body Dressing(FIM): 5 Lower Body Dressing (QC): 5 On/Off Footwear (QC): 5 Toileting(FIM): 5 Toileting Hygiene (QC): 5 Toilet/Commode Transfer(FIM): 6 Toilet/Commode Transfer (QC): 6 Tub Transfer(FIM): 5 Shower Transfer(FIM): 5 Additional Goals: 1-Demonstrate ADL Tasks, 2-Verbalize Understanding, 3- ImproveStrength/[place] 1=Demonstrate adherence to instructed precautions during ADL tasks. 2=Patient will verbalize/demonstrate understanding of assistive devices/ modifications for ADL. 3=Patient will improve strength/tolerance for activity to enable patient to perform ADL's. OT Education/Plan Problem List/Assessment Pt would benefit from skilled OT to increase his independence in basic self care to allow him to safely return to his home and to decrease caregiver burden. Discharge Recommendations Plan/Recommendations: Continue POC Treatment Plan/Plan of Care Patient would benefit from OT for education, treatment and training to promote independence in ADL's, mobility, safety and/or upper extremity function for ADL' s. Plan of Care: ADL Retraining, Functional Mobility, Group Exercise/Act as Ind ( education, exercise, act kit, socialization, funct activities), UE Funct Exercise/Act, UE Neuromus Re-Ed/Coord Treatment Duration: Nov 18, 2017 Frequency: At least 5 of 7 days/Wk (IRF) Estimated Hrs Per Day: 1.5 hours per day Agreement: Yes Rehab Potential: Fair Time/GCodes Start Time: 09:00 Stop Time: 10:00 Total Time Billed (hr/min): 60 Billed Treatment Time 1 visit-ADL 4 (60 min) STEFFANIE FAULKNER Nov 05, 2017 12:51
[2017-11-05] MEDS: ACETAMINOPHEN 325 MG TABLET/CAPLET (TYLENOL) PO PRN (13:25)
--- NOTE | 2017-11-05 13:34 | Occupational Ther Daily Note ---
OT Current Status-Daily Note Subjective Pt. does not report pain. Appearance Pt. up in chair. Agrees to work with OT. Pt. waiting on lunch so requests to stay up in chair and work from room. Mental Status/Objective Patient Orientation: Person Functional [place] Measure 0=Not Assessed/NA 4=Minimal Assistance 1=Total Assistance 5=Supervision or Setup 2=Maximal Assistance 6=Modified [place] 3=Moderate Assistance 7=Complete [place] ADL-Treatment Functional [place] Measure 0=Not Assessed/NA 4=Minimal Assistance 1=Total Assistance 5=Supervision or Setup 2=Maximal Assistance 6=Modified [place] 3=Moderate Assistance 7=Complete IndependenceIRFPAI Quality Coding Scale 6 Independent with activity with or without an assistive device 5 Patient requires set up or clean up by helper. Patient completes activity by themselves 4 Supervision or touching assist (CGA). [place] provide cues , steadying assist 3 The helper provides less than half the effort to complete the activity 2 The helper provides more than half the effort to complete the activity 1 Dependent. The helper does all the effort to complete an activity 7 Patient refused to complete or attempt activity 9 The patient did not perform the activity before the current illness or injury 88 Not attempted due to Medical conditions or safety concerns Other Treatment Pt. completes 6 bilateral UE active ROM exercises in all planes, x 10 reps each. Pt. required multiple rest breaks in between exercises. Pt. then completed 2 exercises with bilateral LE, intermittent exercises x 15 reps each. Pt. marched and then kicked out each leg. Tolerated treatment well. All needs met. Education OT Patient Education: Correct positioning, Exercise program, Progress toward Goal/Update tx plan, Purpose of tx/functional activities, Reviewed precautions, Rehab process, Transfer techniques Teaching Recipient: Patient Teaching Methods: Demonstration, Discussion Response to Teaching: Verbalize Understanding, Return Demonstration OT Short Term Goals Short Term Goals Time Frame: Nov 11, 2017 Toileting(FIM): 3 Toilet/Commode Transfer(FIM): 3 Additional Short Term Goals: 1-Demonstrate ADL Tasks, 2-Verbalize Understanding , 3-ImproveStrength/[place] 1=Demonstrate adherence to instructed precautions during ADL tasks. 2=Patient will verbalize/demonstrate understanding of assistive devices/ modifications for ADL. 3=Patient will improve strength/tolerance for activity to enable patient to perform ADL's. OT Leather Production Machine Operator Goals [facility] Goals Time Frame: Nov 18, 2017 Eating (FIM): 6 Eating (QC): 6 Groomin Oral Hygiene (QC): 6 Bathing(FIM): 6 Shower/Bathe Self (QC): 6 Upper Body Dressing(FIM): 6 Upper Body Dressing (QC): 6 Lower Body Dressing(FIM): 5 Lower Body Dressing (QC): 5 On/Off Footwear (QC): 5 Toileting(FIM): 5 Toileting Hygiene (QC): 5 Toilet/Commode Transfer(FIM): 6 Toilet/Commode Transfer (QC): 6 Tub Transfer(FIM): 5 Shower Transfer(FIM): 5 Additional Goals: 1-Demonstrate ADL Tasks, 2-Verbalize Understanding, 3- ImproveStrength/[place] 1=Demonstrate adherence to instructed precautions during ADL tasks. 2=Patient will verbalize/demonstrate understanding of assistive devices/ modifications for ADL. 3=Patient will improve strength/tolerance for activity to enable patient to perform ADL's. OT Education/Plan Problem List/Assessment Assessment: Decreased Activ Tolerance, Decreased UE Strength, Impaired Funct Balance, Impaired I ADL's, Impaired Self-Care Skills, Restricted Funct UE ROM Pt would benefit from skilled OT to increase his independence in basic self care to allow him to safely return to his home and to decrease caregiver burden. Discharge Recommendations Plan/Recommendations: Continue POC Therapy D/C Recommendations: Home w/ Family Support, Occupational Therapy Home Care Treatment Plan/Plan of Care Treatment,Training & Education: Yes Patient would benefit from OT for education, treatment and training to promote independence in ADL's, mobility, safety and/or upper extremity function for ADL' s. Plan of Care: ADL Retraining, Functional Mobility, Group Exercise/Act as Ind ( education, exercise, act kit, socialization, funct activities), UE Funct Exercise/Act, UE Neuromus Re-Ed/Coord Treatment Duration: Nov 18, 2017 Frequency: At least 5 of 7 days/Wk (IRF) Estimated Hrs Per Day: 1.5 hours per day Agreement: Yes Rehab Potential: Fair Time/GCodes Start Time: 12:35 Stop Time: 13:05 Total Time Billed (hr/min): 30 Billed Treatment Time 1, EX x 2 ANGEL MOODY OT Nov 05, 2017 13:34
[2017-11-05] MEDS ORDERED: FUROSEMIDE 40 MG/4 ML INJ (LASIX) IVP NR (14:30)
[2017-11-05 17:01] VITALS: BP 103/75
[2017-11-05] MEDS ORDERED: TAMSULOSIN 0.4 MG (FLOMAX) CAP PO SCH (18:00)
--- NOTE | 2017-11-05 20:25 | CONSULTATION REPORT ---
DATE OF SERVICE: 11/05/2017 ATTENDING PHYSICIANS: Dr. Vernon and Dr. Fleming. SUMMARY: An 82-year-old white man recovering from a heart surgery. Has a Pierre catheter in that was apparently inserted post the heart surgery. He was taken out and he failed trial of voidings. He was never started on any medicine in [facility] and was transferred here for rehabilitation. He is also complaining of swelling of the penis. Asked the patient about previous symptoms at home of prostatism, he does have some symptoms prior to that. PHYSICAL EXAMINATION: The genitalia show edema and swelling, part of generalized edema of the legs and up to the lower abdomen. IMPRESSION: 1. Urinary retention, possible benign prostatic hyperplasia. 2. Genital edema and swelling. RECOMMENDATIONS: 1. Leave Pierre catheter in. 2. Scrotal support and keep the penis up. May use a rolled towel. 3. Start Flomax 0.4 mg daily. 4. In a week time, we will try trial of voiding. May also perform a cystoscopy if needed. 5. Diuresis to get rid of the fluid retention in the genitalia, which can compound the problem of voiding. Thank you for letting me participate in the care of this patient. We will follow with you. Job ID: [id number] DocumentID: [id number] Dictated Date: 11/05/2017 14:27:18 [employer] Date: 11/05/2017 15:03:07 Dictated By: ALEX SANTOYO MD
[2017-11-05 20:51] VITALS: BP 103/75
[2017-11-05] MEDS ORDERED: NYSTATIN CREAM (MYCOSTATIN) 30 GM TUBE TP SCH (21:00)
[2017-11-05 21:26] VITALS: BP 98/58
[2017-11-05] MEDS ORDERED: RT-ALBUTEROL/IPRATROPIUM 3 ML (DUONEB) VIAL ONE (22:04)
[2017-11-06] MEDS ORDERED: RT-ALBUTEROL/IPRATROPIUM 3 ML (DUONEB) VIAL ONE ×2 (00:25→06:58)
[2017-11-06] MEDS: RT-ALBUTEROL/IPRATROPIUM 3 ML (DUONEB) VIAL INH SCH ×2 (00:27→07:03)
[2017-11-06 03:06] VITALS: BP 114/73
[2017-11-06 06:00] VITALS: BP 119/73
[2017-11-06 06:07] LABS: BASOPHILS % (AUTO) 0 % (0-10); EOSINOPHILS # (AUTO) 0.1 10^3/uL (0.0-0.3); EOSINOPHILS % (AUTO) 1 % (0-10); HEMATOCRIT 28 % (40-54); HEMOGLOBIN 8.8 G/DL (13.3-17.7); LYMPHOCYTES # (AUTO) 1.1 X 10^3 (1.0-4.0); LYMPHOCYTES % (AUTO) 16 % (12-44); MEAN CORPUSCULAR HEMOGLOBIN 30 PG (25-34); MEAN CORPUSCULAR HGB CONC 32 G/DL (32-36); MEAN CORPUSCULAR VOLUME 93 FL (80-99); MEAN PLATELET VOLUME 11.2 FL (7.4-10.4); MONOCYTES # (AUTO) 0.9 X 10^3 (0.0-1.0); MONOCYTES % (AUTO) 14 % (0-12); NEUTROPHILS # (AUTO) 4.6 X 10^3 (1.8-7.8); NEUTROPHILS % (AUTO) 69 % (42-75); PLATELET COUNT 194 10^3/uL (130-400); RED BLOOD COUNT 2.98 10^6/uL (4.35-5.85); WHITE BLOOD COUNT 6.6 10^3/uL (4.3-11.0)
[2017-11-06 06:50] LABS: CALCIUM 8.2 MG/DL (8.5-10.1); CREATININE SERUM 1.97 MG/DL (0.60-1.30); POTASSIUM 4.2 MMOL/L (3.6-5.0)
[2017-11-06] MEDS: inSUlin (REGULAR) HUMAN 1 UNIT/0.01 ML (CHARGE PER UNIT) SC SCH (06:54)
[2017-11-06] MEDS: MULTIVIT W/MINERALS TAB (THERAGRAN M) PO SCH (07:00)
[2017-11-06] MEDS: ASCORBIC ACID (VIT C) 500 MG TABLET PO SCH (07:00)
[2017-11-06] MEDS: SENNA W/DOCUSATE (SENOKOT S) TABLET PO SCH (08:38)
[2017-11-06] MEDS: ASPIRIN E.C. 81 MG (ECOTRIN) TAB PO SCH (08:38)
[2017-11-06] MEDS: APIXABAN 2.5 MG (ELIQUIS) TABLET PO SCH (08:38)
[2017-11-06] MEDS ORDERED: FUROSEMIDE 40 MG (LASIX) TAB PO SCH (09:00)
--- NOTE | 2017-11-06 09:30 | Diagnostic Imaging Report ---
Indication: Dyspnea. Discussion: Single portable upright view of the chest was obtained, comparison 11/05/2017. Cardiomegaly is stable. Moderate pulmonary edema on the previous exam has decreased with only mild residual edema identified. No pleural fluid or pneumothorax identified on today's exam. 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 Median sternotomy is unchanged. Impression: 1. Cardiomegaly with decreasing failure. Dictated by: Dictated on workstation # [id number]
--- NOTE | 2017-11-08 08:28 | Progress Note-Urology ---
Progress Note-Urology Progress Notes/Assess & Plan Progress/Assessment & Plan IN ICU FOR A.FIB. GENITAL EDEMA MUCH BETTER. Final Diagnosis URINE RETENTION AND GENITAL EDEMA ALEX SANTOYO MD Nov 08, 2017 8:28 am
--- NOTE | 2017-11-09 15:55 | Therapy Team Discharge Summary ---
Therapy Discharge Summary Discharge Recommendations Date of Discharge Nov 06, 2017 at 09:00 Therapy D/C Recommendations: Home w/ Family Support, Occupational Therapy Home Care Occupational Therapy Pt was seen for skilled OT to increase his independence in basic self care after aortic valve replacement. His activity tolerance was also impacted by respiratory failure and a fib and he had sternal precautions which made transfers more difficult. On admission he needed setup for eating and grooming, min assist with upper body dressing, mod assist with bathing and toilet transfers, max assist with lower body dressing and was dependant for toileting. By discharge he had improved to setup for upper body dressing and lower body dressing fluctuated between mod and max assistance. Other ADLs remained essentially the same. Equipment used included bedside commode, FWW, wheeled shower chair, sock aid, dressing stick. He was discharged to ICU for medical reasons and may benefit from continued OT. See tx plan for goals met. DC OT Decreased Activ Tolerance, Decreased UE Strength, Impaired Funct Balance, Impaired I ADL's, Impaired Self-Care Skills, Restricted Funct UE ROM PT Longterm Goals Longterm Goals PT Ed Teacher Goals Time Frame: Nov 18, 2017 Transfers (B,C,W/C) (FIM): 6 Roll Left to Right (QC): 6 Sit to Lying (QC): 6 Lying-Sitting on Side/Bed(QC): 6 Sit to Stand (QC): 6 Chair/Ewx-nb-Hmnnn Xfer(QC): 6 Car Transfer (QC): 6 Does the Patient Walk: Yes Gait (FIM): 6 Distance: 200 feet Walk 10 feet (QC): 6 Walk 10ft-Uneven Surface(QC): 6 Walk 50ft with 2 Turns (QC): 6 Walk 150 ft (QC): 6 Gait Level of Assist: 6 Gait Assistive Device: FWW Does the Pt use WC or Scooter?: No Stairs (FIM): 2 # of Steps: 4 1 Step (curb) (QC): 6 4 Steps (QC): 6 12 Steps (QC): 6 Stairs Level Of Assist: 6 Picking up an Object (QC): 6 OT Ed Teacher Goals Ed Teacher Goals Time Frame: Nov 18, 2017 Eating (FIM): 6 (not met) Eating (QC): 6 (not met) Oral Hygiene (QC): 6 (not met) Grooming(FIM): 6 (not met) Bathing(FIM): 6 (not met) Shower/Bathe Self (QC): 6 (not met) Upper Body Dressing(FIM): 6 (not met) Upper Body Dressing (QC): 6 (not met) Lower Body Dressing(FIM): 5 (not met) Lower Body Dressing (QC): 5 (not met) On/Off Footwear (QC): 5 (not met) Toileting(FIM): 5 (not met) Toileting Hygiene (QC): 5 (not met) Toilet/Commode Transfer(FIM): 6 (not met) Toilet/Commode Transfer (QC): 6 (not met) Tub Transfer(FIM): 5 (not met) Shower Transfer(FIM): 5 (not met) Additional Goals: 1-Demonstrate ADL Tasks, 2-Verbalize Understanding, 3- ImproveStrength/[place] 1=Demonstrate adherence to instructed precautions during ADL tasks. 2=Patient will verbalize/demonstrate understanding of assistive devices/ modifications for ADL. 3=Patient will improve strength/tolerance for activity to enable patient to perform ADL's. JOSE PACHECO OT Nov 09, 2017 15:55
--- NOTE | 2017-11-10 02:49 | DISCHARGE SUMMARY ---
DATE OF SERVICE: HISTORY OF PRESENT ILLNESS: The patient is an 82-year-old retired male who lives with his family in [place], [place], [place], who was admitted to [facility] on 10/12/2013 for aortic valve replacement for treatment of aortic stenosis that same day with Dr. Kruse, cardiac surgery. The patient had postop respiratory insufficiency with associated wheezing. He continued to require O2. He had respiratory treatments. He had diuresis. His creatinine climbed to 2.5 and this improved with hydration. CT of the abdomen was performed, which showed hydronephrosis on the right and a nonfunctioning right kidney and a very dilated bladder. Urology was consulted, catheter was placed. He had been modified independent with a cane prior to this. He is on Eliquis as an oral anticoagulant as he did have transient postoperative atrial fibrillation, which was treated with amiodarone, which has now been discontinued as it has not reoccurred and that medication dose have side effects in terms of pulmonary issues and other signs of possible side effects. He is referred to inpatient rehabilitation unit at [facility] for ongoing therapies, as he has had a decline in his functional independence. 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 He was in rehab unit this past February following a right distal femur fracture with IM nailing and left patellar fracture. He progressed well at that time. His BMI is 34.3. He is retired from [employer]. His PCP is Dr. Valdez, [facility]. MEDICAL COURSE: The patient was progressing with therapies, but he was having increasing shortness of breath and poorly controlled tachycardia with associated transient PVCs. He was followed by Dr. Sin as well as Dr. Ochoa, pulmonology and cardiology respectively. He was seen by Dr. Puente regarding scrotal edema and urinary retention, it was recommended a Pierre catheter be continued and scrotal support be used and diuresis. The patient did have a hypotensive event on the day following admission to rehab unit and he was provided with intravenous fluids for that. He then did have some fluid retention and required diuresis. Dr. Ochoa noted orthostatic hypotension, also atrial fibrillation with rapid ventricular rate and PVCs, also a pericardial effusion on echocardiogram, which was mild to moderate without evidence of tamponade. No indication for pericardiocentesis at that time. Metoprolol was continued for hypertension. The prosthetic aortic valve was noted to be normal on echocardiogram. Shortness of breath was felt to be due to acute diastolic heart failure with elevated BNP. Lasix was continued. Unfortunately, the patient had increasing ventricular response to 150s with associated increased shortness of breath and decreased O2 sats. On 11/06/2017, the pulse was 67 and regular, respirations were 37, blood pressure 119/73, O2 sat 98% on BiPAP. The patient was transferred to the ICU for further assessment and management. The patient could not tolerate acute rehabilitation at this time. CBC on 11/06/2017, showed WBC 6.6, H and H of 8.8/28, RBC 2.98 and platelet count 194,000. Glucometer reading on 11/06/2017 was 190, phosphorus on 11/07/2017, 4.0. Magnesium 2.0 on 11/08/2017. BNP was 989.4, elevated on 11/06/2017. BUN and creatinine was and 1.97 on 11/06/2017. Blood glucose was 179 and calcium 8.2. Chest x-ray on 11/06/2017, showed cardiomegaly with decreasing failure. Median sternotomy was unchanged. Advanced degenerative disease was noted within both shoulders incidentally. No pleural fluid or pneumothorax identified on 11/06/2017 exam. Chest x-ray on 11/05/2017, a day before showed continue cardiac enlargement with vascular congestion and atelectasis, infiltrate and/or edema about the lower lungs samson along with likely small effusions. The patient did have abdominal distention upon admission. Constipation was treated. KUB on 10/28/2017, showed gaseous distention of the transverse colon and did not appear to be due to obstruction. REHABILITATION COURSE: Unfortunately, none of his goals were able to be maintained or met in some domains due to his ongoing medical problems. Bladder continued to be managed with indwelling Pierre catheter. He was assessed by speech therapy upon admission to rehab unit and found to be functional cognitively alfred and they signed off. OT notes upon admission, he was set up for eating and grooming, min assist for upper body dressing, mod assist for bathing and toilet transfers, max assist for lower body dressing and was dependent for toileting. By discharge, he improved to set up for upper body dressing and lower body dressing and lower body dressing fluctuated between mod to max assist. Other ADLs remained essentially the same. PT notes upon admission, he was max assist for transfers and min assist for ambulation of short distances with a front wheel walker. He had limited endurance. He had dyspnea on exertion. Upon discharge, he was min assist for transfers, min assist for ambulation with a front wheel walker. On 11/06/2017, his condition had deteriorated with a decrease in his function. DISCHARGE INSTRUCTIONS: He is discharged to the ICU with followup care with Dr. Sin, hospital service, Dr. Vernon and Dr. Ochoa and Dr. Puente p.r.n. Continue current diet and O2 supplementation as per ICU protocol. DISCHARGE MEDICATIONS: Amlodipine 5 mg p.o. daily, ASA 81 mg p.o. daily, metoprolol 50 mg p.o. daily.and as per Cardiology and Pulmonology DISCHARGE DIAGNOSES: 1. Rehabilitation general debilitation, status post aortic valve replacement for aortic stenosis by Dr. Kruse. 2. Urinary retention with genital edema, continue indwelling Pierre catheter. 3. Orthostatic hypotension, improved. 4. Hypertension, on meds. 5. Syncope, none further. 6. Atrial fibrillation with rapid ventricular rate with resulting transfer to the ICU. 7. PVCs. 8. Persistent pericardial effusion. 9. Diabetes mellitus type 2. 10. Hydronephrosis on the right with a nonfunctioning right kidney. 11. Oral anticoagulation, currently on Eliquis. 12. Status post echocardiogram with results as per above. 13. Shortness of breath/mild acute diastolic heart failure, elevated BNP. Lasix provided by Dr. Ochoa. 14. Obesity. 15. Postop anemia. 16. Hypocalcemia with serum calcium of 8.2 on 11/06/2017. CONDITION AT DISCHARGE: Largely unimproved, but stable for transfer to ICU. PROGNOSIS: Rehab prognosis appears somewhat guarded. At this point, I believe the patient once stabilized will most likely go on to a group home unit for ongoing care and less intense therapies. Job ID: [id number] DocumentID: [id number] Dictated Date: 11/09/2017 18:41:44 Furniture Sander Date: 11/10/2017 00:44:23 Dictated By: SHARATH REID MD MTDD
--- NOTE | 2017-11-11 09:41 | Therapy Team Discharge Summary ---
Therapy Discharge Summary Discharge Recommendations Date of Discharge Nov 06, 2017 at 09:00 Therapy D/C Recommendations: Home w/ Family Support, Occupational Therapy Home Care Physical Therapy This patient has been seen on ARU post Aortic Valve Replacement via open heart surgery. 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 Upon admit to this unit, he was max assist with transfers, ambulated 90 ft with CGA and was able to go up/down 1 step with assist. Treatment focused on functional strength and mobility, while maintaining sternal precautions. His heart rate and oxygen sats were also closely monitored. Pt was motivated and compliant but limited by oxygen sats, elevated heart rate and sternal precautions (which made transfers difficult). At last visit, pt required min assist with transfers and only ambulated 15 ft with FWW with assist. He was transferred to ICU later that day. Discharge from ARU with no goals met due to change in medical status. Occupational Therapy Decreased Activ Tolerance, Decreased UE Strength, Impaired Funct Balance, Impaired I ADL's, Impaired Self-Care Skills, Restricted Funct UE ROM PT Senior Living Goals Senior Living Goals PT Senior Living Goals Time Frame: Nov 18, 2017 Transfers (B,C,W/C) (FIM): 6 Roll Left to Right (QC): 6 Sit to Lying (QC): 6 Lying-Sitting on Side/Bed(QC): 6 Sit to Stand (QC): 6 Chair/Hxo-bn-Ckytr Xfer(QC): 6 Car Transfer (QC): 6 Does the Patient Walk: Yes Gait (FIM): 6 Distance: 200 feet Walk 10 feet (QC): 6 Walk 10ft-Uneven Surface(QC): 6 Walk 50ft with 2 Turns (QC): 6 Walk 150 ft (QC): 6 Gait Level of Assist: 6 Gait Assistive Device: FWW Does the Pt use WC or Scooter?: No Stairs (FIM): 2 # of Steps: 4 1 Step (curb) (QC): 6 4 Steps (QC): 6 12 Steps (QC): 6 Stairs Level Of Assist: 6 Picking up an Object (QC): 6 No goals met due to being transferred to ICU during ARU stay. OT Senior Living Goals Senior Living Goals Time Frame: Nov 18, 2017 Eating (FIM): 6 (not met) Eating (QC): 6 (not met) Oral Hygiene (QC): 6 (not met) Grooming(FIM): 6 (not met) Bathing(FIM): 6 (not met) Shower/Bathe Self (QC): 6 (not met) Upper Body Dressing(FIM): 6 (not met) Upper Body Dressing (QC): 6 (not met) Lower Body Dressing(FIM): 5 (not met) Lower Body Dressing (QC): 5 (not met) On/Off Footwear (QC): 5 (not met) Toileting(FIM): 5 (not met) Toileting Hygiene (QC): 5 (not met) Toilet/Commode Transfer(FIM): 6 (not met) Toilet/Commode Transfer (QC): 6 (not met) Tub Transfer(FIM): 5 (not met) Shower Transfer(FIM): 5 (not met) Additional Goals: 1-Demonstrate ADL Tasks, 2-Verbalize Understanding, 3- ImproveStrength/Rochelle 1=Demonstrate adherence to instructed precautions during ADL tasks. 2=Patient will verbalize/demonstrate understanding of assistive devices/ modifications for ADL. 3=Patient will improve strength/tolerance for activity to enable patient to perform ADL's. STEFFANIE BROWN PT Nov 11, 2017 09:41
== END 2017-11-06 09:00 | disposition short-term general hospital (02) | DRG 949 ==
PROVIDERS: ADMIT Physical Medicine & Rehabilitation; ATTEND Physical Medicine & Rehabilitation
DX: Z48.812 Encounter for surgical aftercare following surgery on the circulatory system (principal); Z95.2 Presence of prosthetic heart valve; J96.10 Chronic respiratory failure, unspecified whether with hypoxia or hypercapnia; N13.30 Unspecified hydronephrosis; J98.11 Atelectasis; E87.1 Hypo-osmolality and hyponatremia; J90 Pleural effusion, not elsewhere classified; I31.3 Pericardial effusion (noninflammatory); I50.31 Acute diastolic (congestive) heart failure; R33.9 Retention of urine, unspecified; E11.9 Type 2 diabetes mellitus without complications; J44.9 Chronic obstructive pulmonary disease, unspecified; I13.0 Hypertensive heart and chronic kidney disease with heart failure and stage 1 through stage 4 chronic kidney disease, or unspecified chronic kidney disease; N18.3 Chronic kidney disease, stage 3 (moderate); I48.91 Unspecified atrial fibrillation; N28.9 Disorder of kidney and ureter, unspecified; N40.1 Benign prostatic hyperplasia with lower urinary tract symptoms; N50.89 Other specified disorders of the male genital organs; D64.9 Anemia, unspecified; E83.51 Hypocalcemia; E83.42 Hypomagnesemia; E88.09 Other disorders of plasma-protein metabolism, not elsewhere classified; I49.3 Ventricular premature depolarization; I95.1 Orthostatic hypotension; Z99.81 Dependence on supplemental oxygen; Z79.4 Long term (current) use of insulin; Z79.01 Long term (current) use of anticoagulants
CPT/HCPCS: 36415; 71045; 71046; 74018; 80048; 80053; 82962; 83735; 83880; 84100; 84443; 84484; 85007; 85025; 85027; 93005; 93306; 93308; 94640; 94660; 94760